=== PATIENT | female | born 1935 | race Hispanic/Latino ===

== ENCOUNTER 2017-02-12 18:56 | Emergency (ER) | payer MEDICARE ==
[~2017-02-12] VITALS: Ht 154.9 cm; Wt 68.0 kg
[~2017-02-12 18:56] MED LIST: ALPR.25T; BENAZEPRIL HCL PO; CARV6.25 PO; CITA10TA12 PO; CLON0.1T PO; HYDROCHLOROTHIAZIDE PO; LISI1TAB8 PO; METO-274 PO; SIMV10TA3 PO; SMV10T; VERA240C2 PO; VRP180TCR
[2017-02-12] MEDS ORDERED: CLON1PAT2 TD (19:21)
[2017-02-12] MEDS ORDERED: DOXA1TAB PO (19:21)
--- NOTE | 2017-02-12 19:40 | ED Cardiac General ---
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 Pt reports taking 0.1mg clonidine at 1800. Source: patient Exam Limitations: no limitations History of Present Illness Time seen by provider: 19:37 Initial Comments That she can keep track of it. She had no symptoms when checking at this evening. However, she found to be 200/120. She took one of her clonidine patches and then waited about 30 minutes. The hypertension persisted so she came to the emergency room. At this time her blood pressure is 141/73. She remains asymptomatic. Primary care is Dr. Palm and cardiology is Dr. Erickson from [place]. Timing/Duration: changing over time Severity: moderate NTG SL CATHODIC PROTECTION TECHNICIAN: No ASA po CATHODIC PROTECTION TECHNICIAN: No Allergies and Home Medications Allergies Coded Allergies: No Known Drug Allergies (Verified , 06/26/08) Home Medications Alprazolam 0.25 Mg Tab, UD, (Reported) Carvedilol 6.25 Mg Tablet, 12.5 MG PO BID, (Reported) Citalopram Hydrobromide 10 Mg Tablet, 10 MG PO HS, (Reported) Clonidine 1 Each Patch.tdwk, 1 EACH TD Q7D, (Reported) Clonidine HCl 0.1 Mg Tablet, 0.1 MG PO BID PRN for BLOOD PRESSURE, #10 Ref 0 Prescribed by: JAGRUTI MADDEN on 03/18/16 2214 Doxazosin Mesylate 1 Mg Tablet, 1 MG PO BID, (Reported) Lisinopril/Hydrochlorothiazide 1 Each Tablet, 1 TAB PO BID, #180 (Reported) Simvastatin 10 Mg Tablet, 1 TAB PO DAILY, #90 (Reported) Review of Systems Constitutional: see HPI EENTM: No Symptoms Reported Respiratory: No Symptoms Reported Cardiovascular: No Symptoms Reported Gastrointestinal: See HPI Genitourinary: No Symptoms Reported Skin: no symptoms reported Psychiatric/Neurological: No Symptoms Reported Endocrine: No Symptoms Reported Hematologic/Lymphatic: No Symptoms Reported Past Vgzosnj-Aliuqd-Pzauto Hx Patient Social History Recent Foreign Travel: No Contact w/Someone Who Travel: No Recent Infectious Disease Expo: No Recent Hopitalizations: No Seasonal Allergies Seasonal Allergies: No Surgeries HX Surgeries: Yes Surgeries: Cardiac, Coronary Stent, Gallbladder, Hysterectomy Respiratory Hx Respiratory Disorders: No Cardiovascular Hx Cardiac Disorders: Yes Cardiac Disorders: Hypertension Neurological Hx Neurological Disorders: No 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 System Hx 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 Disorders: No DIE REPAIR History: Menopausal Genitourinary Hx Genitourinary Disorders: No Gastrointestinal Hx Gastrointestinal Disorders: No Musculoskeletal Hx Musculoskeletal Disorders: Yes (ARTHRITIS) Musculoskeletal Disorders: Arthritis Endocrine Hx Endocrine Disorders: No HEENT HX ENT Disorders: No Cancer Hx Cancer: No Psychosocial Hx Psychiatric Problems: Yes Behavioral Health Disorders: Anxiety Integumentary HX Skin/Integumentary Disorder: No Blood Transfusions Hx Blood Disorders: No Family Medical History Significant Family History: No Pertinent Family Hx Physical Exam Vital Signs Vital Sign - Last 12Hours 02/12/17 19:14 Temp 97.3 Pulse 81 Resp 18 B/P (MAP) 189/88 Pulse Ox 94 O2 Delivery Room Air Capillary Refill : Less Than 3 Seconds General Appearance: No Apparent Distress, WD/WN, Anxious HEENT: PERRL/EOMI, TMs Normal Neck: Full Range of Motion, Normal Inspection Respiratory: No Accessory Muscle Use, No Respiratory Distress Cardiovascular: Regular Rate, Rhythm, Normal Peripheral Pulses Gastrointestinal: Normal Bowel Sounds, Non Tender, Soft Extremity: Normal Capillary Refill, Normal Inspection Neurologic/Psychiatric: Alert, Oriented x3, No Motor/Sensory Deficits Skin: Normal Color, Warm/Dry Progress/Results/Core Measures Results/Orders My Orders Orders - JOSE CLEMENS APRN Cbc With Automated Diff (02/12/17 19:36) Ekg Tracing (02/12/17 19:36) BNP (02/12/17 19:36) Vital Signs/I&O Vital Sign - Last 12Hours 02/12/17 19:14 Temp 97.3 Pulse 81 Resp 18 B/P (MAP) 189/88 Pulse Ox 94 O2 Delivery Room Air Blood Pressure Mean: 121 Departure Impression Impression: Primary Impression: Hypertension Qualified Codes: I15.9 - Secondary hypertension, unspecified Disposition: 01 HOME, SELF-CARE Condition: Stable Departure-Patient Inst. Decision time for Depature: 19:39 Referrals: STEFAN PALM DO (PCP/Family) Primary Care Physician Patient Instructions: NO INSTRUCTIONS GIVEN Add. Discharge Instructions: All discharge instructions reviewed with patient and/or family. Voiced understanding. JOSE CLEMENS APRN Feb 12, 2017 19:39
[2017-02-12 19:54] LABS: BASOPHILS % (AUTO) 1 % (0-10); EOSINOPHILS # (AUTO) 0.1 10^3/uL (0.0-0.3); EOSINOPHILS % (AUTO) 2 % (0-10); LYMPHOCYTES # (AUTO) 1.2 X 10^3 (1.0-4.0); LYMPHOCYTES % (AUTO) 19 % (12-44); MEAN CORPUSCULAR HEMOGLOBIN 30 PG (25-34); MEAN CORPUSCULAR HGB CONC 33 G/DL (32-36); MEAN CORPUSCULAR VOLUME 92 FL (80-99); MONOCYTES # (AUTO) 0.6 X 10^3 (0.0-1.0); MONOCYTES % (AUTO) 10 % (0-12); NEUTROPHILS # (AUTO) 4.2 X 10^3 (1.8-7.8); NEUTROPHILS % (AUTO) 68 % (42-75); PLATELET COUNT 222 10^3/uL (130-400); RED BLOOD COUNT 3.77 10^6/uL (4.35-5.85); WHITE BLOOD COUNT 6.2 10^3/uL (4.3-11.0)
[2017-02-12 20:09] LABS: CALCIUM 9.3 MG/DL (8.5-10.1); CREATININE SERUM 0.91 MG/DL (0.60-1.30); ICTERUS 0.5 (0-1.9); POTASSIUM 4.8 MMOL/L (3.6-5.0)
[2017-02-12 20:15] VITALS: BP 108/68
--- OUTSIDE RECORDS SUMMARY | 2017-02-18 09:02 | XMS REPORT | Continuity of Care Document ---
Author Author [facility] Organization [facility] Address Unknown Phone Unavailable Allergies Active Description Code Type Severity Reaction Onset Reported/Identified Relationship to Patient Clinical Status Yes No Known Drug Allergies [id number] Drug Allergy Unknown N/ A 06/26/2008 Medications Problems Date Dx Coded Attending Type Code Diagnosis Diagnosed By 01/21/2014 MARCOS PUGH MD Ot 401.9 HYPERTENSION NOS 01/21/2014 MARCOS PUGH MD Ot 785.1 PALPITATIONS 11/23/2014 STEFAN QUILES DO Ot 785.0 06/04/2015 STEFAN QUILES DO Ot 785.0 06/04/2015 REGINE QUILES Ot 785.2 06/26/2015 STEFAN QUILES DO Ot S69.91XA 06/26/2015 STEFAN QUILES DO Ot W19.XXXA 06/26/2015 STEFAN QUILES DO Ot Y92.009 06/26/2015 STEFAN QUILES DO Ot Y99.8 07/13/2015 STEFAN QUILES DO Ot S69.91XA 07/13/2015 STEFAN QUILES DO Ot W19.XXXA 07/13/2015 STEFAN QUILES DO Ot Y92.009 07/13/2015 STEFAN QUILES DO Ot Y99.8 03/18/2016 STEFAN QUILES DO Ot 785.0 TACHYCARDIA NOS 03/18/2016 REGINE QUILES Ot 785.2 CARDIAC MURMURS NEC 03/18/2016 STEFAN QUILES DO Ot S69.91XA UNSP INJURY OF RIGHT WRIST, HAND AND FIN 03/18/2016 STEFAN QUILES DO Ot W19.XXXA UNSPECIFIED FALL, INITIAL ENCOUNTER 03/18/2016 STEFAN QUILES DO Ot Y92.[address] IN UNSP NON-INSTITUT ( PRIVATE 03/18/2016 STEFAN QUILES DO Ot Y99.8 OTHER EXTERNAL CAUSE STATUS 03/18/2016 JAGRUTI MADDEN MD Ot I10 ESSENTIAL (PRIMARY) HYPERTENSION 03/18/2016 JAGRUTI MADDEN MD Ot R51 HEADACHE 04/22/2016 EVELIO CARMONA DO Ot F41.9 ANXIETY DISORDER, UNSPECIFIED 04/22/2016 EVELIO CARMONA DO Ot I10 ESSENTIAL (PRIMARY) HYPERTENSION 07/08/2016 JOSE CLEMENS APRN Ot I10 ESSENTIAL (PRIMARY) HYPERTENSION 07/08/2016 JOSE CLEMENS APRN Ot Z79.899 OTHER MCC (CURRENT) DRUG THERAPY 07/08/2016 JOSE CLEMENS APRN Ot Z95.5 PRESENCE OF CORONARY ANGIOPLASTY IMPLANT 07/09/2016 JOSE CLEMENS APRN Ot I10 ESSENTIAL (PRIMARY) HYPERTENSION 07/09/2016 JOSE CLEMENS APRN Ot Z79.899 OTHER MCC (CURRENT) DRUG THERAPY 07/09/2016 JOSE CLEMENS APRN Ot Z95.5 PRESENCE OF CORONARY ANGIOPLASTY IMPLANT 07/10/2016 JOSE CLEMENS APRN Ot I10 ESSENTIAL (PRIMARY) HYPERTENSION 07/10/2016 JOSE CLEMENS APRN Ot Z79.899 OTHER MCC (CURRENT) DRUG THERAPY 07/10/2016 JOSE CLEMENS APRN Ot Z95.5 PRESENCE OF CORONARY ANGIOPLASTY IMPLANT 07/18/2016 STEFAN QUILES DO Ot 785.0 TACHYCARDIA NOS 07/18/2016 REGINE QUILES [facility] Ot 785.2 CARDIAC MURMURS NEC 07/18/2016 STEFAN QUILES DO Ot S69.91XA [facility], HAND AND FIN 07/18/2016 STEFAN QUILES DO Ot W19.XXXA UNSPECIFIED FALL, INITIAL ENCOUNTER 07/18/2016 STEFAN QUILES DO, Ot Y92.[address] [facility] 07/18/2016 STEFAN QUILES DO Ot Y99.8 OTHER EXTERNAL CAUSE STATUS Procedures Results Test Result Range Whole blood basic metabolic panel - 02/12/17 19:44 Serum or plasma sodium measurement (moles/volume) 137 mmol/ L 135-145 Serum or plasma potassium measurement (moles/volume) 4.8 mmol/L 3.6-5.0 Serum or plasma chloride measurement (moles/volume) 107 mmol /L 98-107 Carbon dioxide 21 mmol/L 21-32 Serum or plasma anion gap determination (moles/volume) 9 mmol/L 5-14 Serum or plasma urea nitrogen measurement (mass/volume) 25 mg/dL 7-18 Serum or plasma creatinine measurement (mass/volume) 0.91 mg /dL 0.60-1.30 Serum or plasma urea nitrogen/creatinine mass ratio 27 0-20 Serum or plasma creatinine measurement with calculation of estimated glomerular filtration rate 59 NRG Serum or plasma glucose measurement (mass/volume) 101 mg/dL 70-105 Serum or plasma calcium measurement (mass/volume) 9.3 mg/dL 8.5-10.1 Complete blood count (CBC) with automated white blood cell (WBC) differential - 02/12/17 19:44 Blood leukocytes automated count (number/volume) 6.2 10*3/ uL 4.3-11.0 Blood erythrocytes automated count (number/volume) 3.77 10*6 /uL 4.35-5.85 Venous blood hemoglobin measurement (mass/volume) 11.3 g/dL 11.5-16.0 Blood hematocrit (volume fraction) 35 % 35-52 Automated erythrocyte mean corpuscular volume 92 [foz_us] 80-99 Automated erythrocyte mean corpuscular hemoglobin (mass per erythrocyte) 30 pg 25-34 Automated erythrocyte mean corpuscular hemoglobin concentration measurement ( mass/volume) 33 g/dL 32-36 Automated erythrocyte distribution width ratio 13.0 % 10.0-14.5 Automated blood platelet count (count/volume) 222 10*3/uL 130-400 Automated blood platelet mean volume measurement 10.0 [foz_ us] 7.4-10.4 Automated blood neutrophils/100 leukocytes 68 % 42-75 Automated blood lymphocytes/100 leukocytes 19 % 12-44 Blood monocytes/100 leukocytes 10 % 0-12 Automated blood eosinophils/100 leukocytes 2 % 0-10 Automated blood basophils/100 leukocytes 1 % 0-10 Blood neutrophils automated count (number/volume) 4.2 10*3 1.8-7.8 Blood lymphocytes automated count (number/volume) 1.2 10*3 1.0-4.0 Blood monocytes automated count (number/volume) 0.6 10*3 0.0-1.0 Automated eosinophil count 0.1 10*3/uL 0.0-0.3 Automated blood basophil count (count/volume) 0.0 10*3/uL 0.0-0.1 Serum or plasma lithium measurement (moles/volume) - 02/12/17 19:44 BNP level 207.8 pg/mL <100.0 Encounters ACCT No. Visit Date/Time Discharge Status Pt. Type Provider Facility Loc./Unit Complaint [id number] 02/12/2017 18:59:00 2016 20:42:00 DIS Emergency JOSE CLEMENS APRN [facility] ER HIGH BLOOD PRESSURE [id number] 07/08/2016 16:46:00 2015 17:54:00 DIS Emergency JOSE CLEMENS APRN [facility] ER ELEV BP [id number] 04/22/2016 21:28:00 2015 22:40:00 DIS Emergency EVELIO CARMONA DO [facility] ER ELEV BP [id number] 03/18/2016 20:51:00 2015 22:26:00 DIS Emergency MARYANNE LOCK, JAGRUTI Pino [facility] ER POSSIBLE ELEVATED BLOOD PRESSURE [id number] 06/04/2015 16:52:00 2014 23:59:59 CLS Outpatient STEFAN QUILES DO [facility] RAD TRAUMA TO RIGHT WRIST [id number] 02/10/2014 10:56:00 2013 23:59:59 CLS Outpatient 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
== END 2017-02-12 20:42 | disposition home or self-care (01) ==
LOC: EDUNIT# 18:56 → ER 18:59
DX: I10 Essential (primary) hypertension (principal); F41.9 Anxiety disorder, unspecified; Z95.5 Presence of coronary angioplasty implant and graft
CPT/HCPCS: 36415; 80048; 83880; 85025; 93005

== ENCOUNTER → 2018-06-16 | Outpatient (CLI) | payer MEDICARE ==
[~2018-06-16] MED LIST changes: +CLON1PAT2 TD; +DOXA1TAB PO; -METO-274 PO; +METO-395 PO
--- NOTE | 2018-06-16 10:55 | Diagnostic Imaging Report ---
PROCEDURE: CT neck soft tissue without contrast. TECHNIQUE: Multiple contiguous axial images were obtained through the neck without the use of intravenous contrast. INDICATION: Palpable abnormality in the neck. FINDINGS: Noncontrast axial CT images of the neck are obtained. There is opacification of the right maxillary sinus and multiple right ethmoid air cells. Note is made of bilateral parotid gland region masses. The largest is on the right just along the inferior margin of right external auditory canal. This reaches 2.3 x 1.7 cm. Nodule in the anterior aspect of the left parotid gland measures 1.7 x 1.4 cm. There are additional prominent deep cervical lymph nodes bilaterally. This includes an approximately 1.4 cm left retromandibular node and an approximately 2.2 x 0.9 cm right submandibular lymph node. There is moderate degenerative disc disease at the C4-5, C5-6 and C6-7 levels however no acute osseous abnormalities identified. There are lucencies involving the roots of left mandibular molar which may indicate periapical abscess. Note is made of approximately 1 cm nodule in the medial apex of the left lung. IMPRESSION: 1. 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 Possibility of neoplasm such as lymphoma or primary parotid gland neoplasm with associated metastatic disease is not excluded. In addition, there is opacification of right maxillary sinus which may be due to sinusitis although clinical correlation is warranted. 2. 1 cm nodule in the apex of the left lung is nonspecific. This could be due to metastatic disease as well. 3. There may be a periapical abscess involving left mandibular molar. Dictated by: Dictated on workstation # [id number]
== END ==
LOC: RAD 10:08
PROVIDERS: ATTEND Internal Medicine
DX: K11.8 Other diseases of salivary glands (principal); R59.0 Localized enlarged lymph nodes; R91.1 Solitary pulmonary nodule
CPT/HCPCS: 70490

== ENCOUNTER 2018-12-31 04:00 | Emergency (ER) | payer MEDICARE ==
[~2018-12-31] VITALS: Ht 157.5 cm; Wt 65.3 kg
--- OUTSIDE RECORDS SUMMARY | 2018-12-31 04:07 | XMS REPORT | Encounter Summary ---
Author Author [facility] Organization [facility] Address Unknown Phone Unavailable Care Team Providers Care Deputy Administrator Name Role Phone [place]orden [place] [address] Encounter Details Care Team Description Date Type Department Tressa Sharma RN 12/20/2018 Pre/Post [facility] Radiology [address] [address] Social History Date Tobacco Use Types Packs/Day Years Used Former Smoker Smokeless Tobacco: Never Used Alcohol Use Drinks/Week oz/Week Comments Not Currently 2 martinis per day Sex Assigned at Date Recorded Not on file Industry Job Start Date Occupation Not on file Not on file Not on file Travel End Travel History Travel Start No recent travel history available. documented as of this encounter Functional Status Date of Assessment Functional Status Response 08/20/2018 Does the patient have a hearing impairment: No documented as of this encounter Progress Notes * Tressa Sharma, RN - 12/20/2018 10:54 AM CDT Interventional Radiology Outpatient Scheduling Checklist 1. Procedure: Lumbar puncture with intrathecal chemotherapy 2. Date of Procedure: 01/14/19 3. Arrival Time: 1100 4. Procedure Time: 1200 5. Correct Procedural Room Assignment: 6 6. Blood Thinners Triaged and instructed per protocol: N/A 7. Order Verified: Yes 8. Patient informed regarding procedure: Yes 9. Patient instructed to have a front loader residential driver: Yes 10. Patient instructed on NPO status: No solids 8 hours prior to procedure 0400 , clear liquids till 2 hours prior to procedure 1000, then @ 2 hours prior to procedure NPO. 11. Specimen needed: Y/N: Yes 12. Allergies Verified: Y/N: Yes 13. Iodine Allergy: Y/N: If yes and receiving Iodine has the patient been premedicated: Y/N: No 14. Does the patient have labs according to IR procedural policy: Y/N: Yes 15. Will the patient need to be admitted/possible admission: Y/N: NA 16. If YES to possible admission has the patient been instructed: Y/N: NA 17. Patient States Understanding: Y/N Yes 18. Hx SUMMER: No documented in this encounter Plan of Treatment Care Team Description Date Type Specialty Gena Huitron MD [address] [facility] [place] [address] 01/14/2019 Hospital Radiology Encounter documented as of this encounter Visit Diagnoses Not on filedocumented in this encounter
--- OUTSIDE RECORDS SUMMARY | 2018-12-31 04:07 | XMS REPORT | Encounter Summary ---
Author Author [facility] Organization [facility] Address Unknown Phone Unavailable Care Team Providers Care Mail Handler Sorter Name Role Phone [place]orden [place] [address] Encounter Details Care Team Description Date Type Department Nik Michelle, RN 12/23/2018 Pre/Post [facility] Radiology [address] [address] Social History Date Tobacco Use Types Packs/Day [...] as of this encounter Progress Notes * Nik Michelle, RN - 12/23/2018 1:43 PM CDT Interventional Radiology Outpatient Scheduling Checklist 1. Procedure: Lumbar Puncture with IT Chemo 2. Date of Procedure: 12/31/18 3. Arrival Time: 1100 4. Procedure Time: 1200 5. Correct Procedural Room Assignment: [facility] Room #3 6. Blood Thinners Triaged and instructed per protocol: N/A 7. Order Verified: Yes 8. Patient informed regarding procedure: Yes 9. Patient instructed to have a regional owner operator truck driver: Yes 10. Patient instructed on NPO status: No solids 8 hours prior to procedure 0400, clear liquids till 2 hours prior to procedure 1000, then @ 2 hours prior to procedure NPO. 11. Specimen needed: Y/N: Yes 12. Allergies Verified: Y/N: Yes 13. Iodine Allergy: Y/N: If yes and receiving Iodine has the patient been premedicated: Y/N: No 14. Does the patient have labs according to IR procedural policy: Y/N: NO 15. Will the patient need to be admitted/possible admission: Y/N: NA 16. If YES to possible admission has the patient been instructed: Y/N: NA 17. Patient States Understanding: Y/N Yes 18. Hx SUMMER: Y/N: Pt instructed to bring PAP Machine: N/A documented in this encounter Plan of Treatment Care Team Description Date Type Specialty Gena Huitron MD [address] [facility] [place], [place] [id number] 01/14/2019 Hospital Radiology Encounter documented as of this encounter Visit Diagnoses Not on filedocumented in this encounter
--- OUTSIDE RECORDS SUMMARY | 2018-12-31 04:07 | XMS REPORT | Encounter Summary ---
Author Author [facility] Organization [facility] Address Unknown Phone Unavailable Care Team Providers Care Referral Nurse Name Role Phone [place]orden [place] [address] Encounter Details Care Team Description Date Type Department Gena Huitron MD [address] [place] [address] [phone] 12/17/2018 Orders Only The [address] [address] Social History Date Tobacco Use Types Packs/Day [...] impairment: No documented as of this encounter Plan of Treatment Care Team Description Date Type Specialty Gena Huitron MD [address] [place] [address] [phone] 01/14/2019 Hospital Radiology Encounter documented as of this encounter Visit Diagnoses Not on filedocumented in this encounter
--- OUTSIDE RECORDS SUMMARY | 2018-12-31 04:07 | XMS REPORT | Encounter Summary ---
Author Author [facility] Organization [facility] Address Unknown Phone Unavailable Care Team Providers Care Bit Tapper Name Role Phone [place] [address] Reason for Visit * Radiology Services (Routine) Referred By Contact Referred To Contact Status Reason Specialty Diagnoses / Procedures Gena Huitron MD [address] [place] [address] [facility] [address] [address] No Auth Needed Radiology Diagnoses Diffuse large B-cell lymphoma of lymph nodes of multiple regions (HCC) P rocedures IR LUMBAR PUNCTURE [place] SPINAL PUNCTURE LUMBAR DIAGNOSTIC Encounter Details Care Team Description Date Type Department Gena Huitron MD [address] [place] [address] [phone] Andre Saeed, RT(R)(),LRT Tremayne Cee MD [address] [place] [address] Taylor Alvarez RN Custer, Brandon M, MD [address] [address] [phone] Diffuse large B-cell lymphoma of lymph nodes of multiple regions (HCC) 12/17/2018 [facility] Radiology [address] [address] Social History Date Tobacco Use Types Packs/Day [...] history available. documented as of this encounter Last Filed Vital Signs Time Taken Vital Sign Reading 12/17/2018 4:45 PM CDT Blood Pressure 166/75 12/17/2018 4:30 PM CDT Pulse 78 12/17/2018 3:55 PM CDT Temperature 37 C (98.6 F) - Respiratory Rate - 12/17/2018 4:45 PM CDT Oxygen Saturation 97% - Inhaled Oxygen - Concentration - Weight - - Height - - Body Mass Index - documented in this encounter Functional Status Date of Assessment Functional Status Response 08/20/2018 Does the patient have a hearing impairment: No documented as of this encounter Discharge Instructions * Patient Instructions* Castro Alex RN - 12/17/2018 2:46 PM CDT INTERVENTIONAL RADIOLOGY DISCHARGE INSTRUCTIONS LUMBAR PUNCTURE A lumbar puncture is a procedure in which a needle is carefully inserted into the spinal canal in the lower portion of your back (the lumbar area). A small amount of cerebrospinal fluid (CSF) is collected followed by removal of the needle. CSF is a clear fluid that surrounds the brain and spinal cord and helps protect them from injury. The collected fluid is then used for specific lab tests ordered by your physician. In some instances, the pressure of the CSF may also be measured during the procedure. POST-PROCEDURE ACTIVITY: A responsible adult must drive you home. If you receive sedation or anesthesia for the procedure, you should not drive or operate heavy machinery or do anything that requires concentration for at least 24 hours after receiving sedation or anesthesia. It is recommended that a responsible adult be with you until morning. You should rest for 6-8 hours after the procedure with your head at about a 30-45?angle. If you develop a spinal headache, lie flat for 6-8 hours. A spinal headache is caused by a CSF leak; you would typically have greater pain when you are up and less pain when lying flat. You may plan to resume normal activity tomorrow. POST-PROCEDURE SITE CARE: You will have a small bandage over the site. Keep this dry. You may remove it in 24 hours. You may shower in 24 hours, after removing the bandage. Do not submerge the site underwater for several days until fully healed (no tub bath, swimming/hot tub, etc.) Be sure your hands are clean when touching near the site. Do not use ointments, creams or powders on the puncture site. DIET/MEDICATIONS: You may resume your previous diet after the procedure. If you receive sedation or narcotic pain medications, avoid any foods or beverages containing alcohol for at least 24 hours after the procedure. Please see the Medication Reconciliation sheet for instructions regarding resuming your home medications. Keep well-hydrated; you are encouraged to drink plenty of caffeinated fluids as this can help to prevent a spinal headache. CALL THE DOCTOR IF: Bright red blood has soaked the bandage. You have pain not relieved by medication. Some soreness at the site is to be expected. You have signs of infection such as: Chills, body aches, fever greater than 101F, redness, swelling or warmth at the puncture site. You have an uncontrolled headache. For any of the above symptoms or for problems or concerns related to the procedure, call [phone] for Thursday-Thursday 7-5. After-hours and weekends, please call [phone] and ask for the Interventional Hvac Field Service Technician on-call. documented in this encounter Medications at Time of Discharge Start Date End Date Medication Sig Dispensed Refills ALPRAZolam (XANAX) 0.25 Take 0.25 mg 0 mg tablet by mouth at bedtime as needed for Anxiety. carvedilol (COREG) 12.5 Take 12.5 mg 0 mg tablet by mouth twice daily with meals. Take with food. Cholecalciferol (Vitamin Take 1 0 D3) (VITAMIN D) 1,000 capsule by unit cap mouth daily. citalopram (CELEXA) 10 mg Take 10 mg by 0 tablet mouth at bedtime daily. 08/27/2018 cloNIDine (CATAPRES-TTS Apply one 4 patch 12 2) 0.2 mg/day patch patch to top of skin as directed every 7 days. cloNIDine (CATAPRESS) 0.1 Take 0.1 mg 0 mg tablet by mouth as Needed. doxazosin (CARDURA) 1 mg Take 1 mg by 0 tablet mouth twice daily. simvastatin (ZOCOR) 10 mg Take 10 mg by 0 tablet mouth at bedtime daily. documented as of this encounter H&P Notes * Mynor Nelson, JAVIER-CUSTOMS AGENT - 12/17/2018 2:19 PM CDT Pre-Procedure History and Physical/Sedation Plan Procedure Date: 12/17/2018 Planned Procedure(s): LP Indication: IT chemo admin Chief Complaint: DLBCL History of Present Illness: Ban Kim is a 83 y.o. female with a history significant for DLBCL who presents today for procedure. Patient Active Problem List Diagnosis Date Noted Diffuse large B-cell lymphoma of lymph nodes of multiple regions (HCC) 08/20 Lymphoma (HCC) 08/19/2018 Essential hypertension 08/19/2018 Rheumatoid arthritis of foot (HCC) 08/19/2018 Anxiety 08/19/2018 Past Medical History: Diagnosis Date Anxiety Diffuse large B-cell lymphoma of lymph nodes of multiple regions (HCC) 08/20 DLBCL (diffuse large B cell lymphoma) (HCC) HTN (hypertension) Rheumatoid arthritis (HCC) Past Surgical History: Procedure Laterality Date CHOLECYSTECTOMY HYSTERECTOMY Medications Prior to Admission Medication Sig Dispense Refill Last Dose ALPRAZolam (XANAX) 0.25 mg tablet Take 0.25 mg by mouth at bedtime as needed for Anxiety. Taking carvedilol (COREG) 12.5 mg tablet Take 12.5 mg by mouth twice daily with meals. Take with food. Taking Cholecalciferol (Vitamin D3) (VITAMIN D) 1,000 unit cap Take 1 capsule by mouth daily. Taking citalopram (CELEXA) 10 mg tablet Take 10 mg by mouth at bedtime daily. Taking cloNIDine (CATAPRES-TTS 2) 0.2 mg/day patch Apply one patch to top of skin as directed every 7 days. 4 patch 12 Taking cloNIDine (CATAPRESS) 0.1 mg tablet Take 0.1 mg by mouth as Needed. Taking doxazosin (CARDURA) 1 mg tablet Take 1 mg by mouth twice daily. Taking simvastatin (ZOCOR) 10 mg tablet Take 10 mg by mouth at bedtime daily. Taking No Known Allergies Social History: Social History Tobacco Use Smoking status: Former Smoker Smokeless tobacco: Never Used Substance Use Topics Alcohol use: Yes Comment: 2 dennis per day Family History Problem Relation Age of Onset Cancer Brother Rectal Cancer Son Review of Systems A comprehensive review of systems was negative. Previous Personal Anesthetic/Sedation History: Denies adverse events related to sedation/anesthesia. Previous Family Anesthetic/Sedation History: Denies adverse events related to sedation/anesthesia. Physical Exam: Vital Signs: Last Filed In 24 Hours Vital Signs: 24 Hour Range BP: 138/63 (12/17 132) Temp: 36.9 C (98.4 F) (12/17 1328) Pulse: 77 (12/17 1328) SpO2: 98 % (12/17 1328) O2 Delivery: None (Room Air) (12/17 1328) Height: 154.9 cm (60.98") (12/17 1328) BP: (138)/(63) Temp: [36.9 C (98.4 F)] Pulse: [77] SpO2: [98 %] O2 Delivery: None (Room Air) General appearance: alert and no distress noted. Neurologic: Grossly normal. Lungs: Non labored. Heart: regular rate and rhythm Airway: airway assessment performed Mallampati II (soft palate, uvula, fauces visible) Head and Neck: no abnormalities noted Mouth: no abnormalities noted NPO status: Acceptable Status: Not Anesthesia Classification: ASA III (A patient with a severe systemic disease that limits activity, but is not incapacitating) Sedation/Medication Plan: Lidocaine Discussion/Reviews: Physician has discussed risks and alternatives of this type of sedation and above planned procedures with patient Lab/Radiology/Other Diagnostic Tests:Labs: Pertinent labs reviewed Mynor Nelson APRN-CUSTOMS AGENT Pager [phone] documented in this encounter Miscellaneous Notes * Procedures (Immed Post or Bedside) - Omar Raza MD - 12/17/2018 3: 38 PM CDT Immediate Post Procedure Note Date: 12/17/2018 Attending Physician: Dr. Bolanos Performing Provider: Omar Raza MD Consent: Consent obtained from patient. Time out performed: Consent obtained, correct patient verified, correct procedure verified, correct site verified, patient marked as necessary. Pre/Post Procedure Diagnosis: Lymphoma Indications: Lymphoma, need for intrathecal chemotherapy Anesthesia: MAC (Monitored Anesthesia Care) Procedure(s): Lumbar puncture Findings: Successful lumbar puncture with administration of chemotherapy. Estimated Blood Loss: None/Negligible Specimen(s) Removed/Disposition: Yes, sent to pathology Complications: None Patient Tolerated Procedure: Well Post-Procedure Condition: stable Omar Raza MD documented in this encounter Plan of Treatment Care Team Description Date Type Specialty Gena Huitron MD [address] [place], [place] [id number] 01/14/2019 [facility] Radiology Encounter documented as of this encounter Procedures Comments Procedure Name Priority Date/Time Associated Diagnosis IR LUMBAR PUNCTURE Routine 12/17/2018 Diffuse large B-cell 3:55 PM CDT lymphoma of lymph nodes of multiple regions (HCC) CSF TUBE VOLUMES 12/17/2018 3:32 PM CDT CELL COUNT W/DIFF-CSF STAT 12/17/2018 Diffuse large B-cell 3:32 PM CDT lymphoma, unspecified body region (HCC) TOTAL PROTEIN-CSF STAT 12/17/2018 Diffuse large B-cell 3:32 PM CDT lymphoma, unspecified body region (HCC) GLUCOSE-CSF STAT 12/17/2018 Diffuse large B-cell 3:32 PM CDT lymphoma, unspecified body region (HCC) POC GLUCOSE 12/17/2018 3:01 PM CDT documented in this encounter Results * CSF TUBE VOLUMES (12/17/2018 3:32 PM CDT) CSF Tube 1 5.0 mL [facility] CSF Tube 2 0.0 mL [facility] CSF Tube 3 0.0 mL [facility] CSF Tube 4 0.0 mL [facility] RESULTS Performing Organization Address [facility] Phone Number [facility] * TOTAL PROTEIN-CSF (12/17/2018 3:32 PM CDT) Total 37 15 - 45 MG/DL [facility] Protein,CSF Specimen Cerebrospinal fluid - Cerebrospinal Fluid Performing Organization Address [facility] [place] [facility] Phone Number [facility] [address] [place] [address] * GLUCOSE-CSF (12/17/2018 3:32 PM CDT) Glucose,CSF 56 40 - 75 MG/DL [facility] Xanthrochromia, NONE [facility] CSF Specimen Cerebrospinal fluid - Cerebrospinal Fluid Performing Organization Address [facility] [place] Phone Number [facility] [address] [place] [address] * CELL COUNT W/DIFF-CSF (12/17/2018 3:32 PM CDT) Cell Count TUBE 1 [facility] Tube,CSF White Blood 3 <5 /UL [facility] Cells,CSF Red Blood 116 /UL [facility] Cells,CSF Neutrophils, 16 % [facility] CSF Lymphocytes, 68 % [facility] CSF Monocyte/Hisoto 16 % [facility] cyte, CSF Clarity,CSF CLEAR [facility] Path HEMORRHAGIC FLUID [facility] Interpretation, CSF Pathologist INTERPRETED BY VIC LABOY [facility] Signature Jemal By the PATH SIGNATURE ABOVE, I attest that I have personally formulated the final interpretation expressed in this report and that the above diagnosis is based upon my examination of the slides and/or other material indicated in this report. Specimen Cerebrospinal fluid - Cerebrospinal Fluid Performing Organization Address [facility] Phone Number [facility] [address] [place] [address] * POC GLUCOSE (12/17/2018 3:01 PM CDT) Glucose, POC 86 70 - 100 MG/DL [facility] Performing Organization Address [facility] [place] Phone Number [facility] [address] [place] [address] documented in this encounter Visit Diagnoses Diagnosis Diffuse large B-cell lymphoma, unspecified body region (HCC) documented in this encounter Administered Medications Action Date Dose Rate Site Medication Order MAR Action 12/17/2018 3:11 PM CDT 0.5 mg LORazepam (ATIVAN) tablet 0.5 mg Given 0.5 mg, Oral, ONCE, 1 dose, Thu12/17/18 at 1130, Premed prior to IT Chemo, 12/17/2018 3:49 PM CDT 12 mg methotrexate PF 12 mg in sodium chloride Given PF 0.9% 5 mL IT syringe 12 mg, 5 mL, Intrathecal, ONCE, 1 dose, Thu12/17/18 at 1200, To be given in IR INTRATHECAL NOTE: This is a HIGH ALERT Medication., documented in this encounter
--- OUTSIDE RECORDS SUMMARY | 2018-12-31 04:07 | XMS REPORT | Clinical Summary ---
Author Author [facility] Organization [facility] Address Unknown Phone Unavailable Care Team Providers Care Clinical Pharmacy Coordinator Name Role Phone [place] [address] Source Comments Some departments are not documenting in the electronic medical record. If you do not see the information that you expected, contact Release of Information in the Health Information Management department at [phone] for further assistance in locating additional records.[facility] Allergies No Known Allergies Medications End Date Status Medication Sig Dispensed Refills Start Date Active simvastatin (ZOCOR) 10 mg Take 10 mg by 0 tablet mouth at bedtime daily. Active doxazosin (CARDURA) 1 mg Take 1 mg by 0 tablet mouth twice daily. Active Cholecalciferol (Vitamin Take 1 0 D3) (VITAMIN D) 1,000 capsule by unit cap mouth daily. Active carvedilol (COREG) 12.5 Take 12.5 mg 0 mg tablet by mouth twice daily with meals. Take with food. Active citalopram (CELEXA) 10 mg Take 10 mg by 0 tablet mouth at bedtime daily. Active ALPRAZolam (XANAX) 0.25 Take 0.25 mg 0 mg tablet by mouth at bedtime as needed for Anxiety. Active cloNIDine (CATAPRESS) 0.1 Take 0.1 mg 0 mg tablet by mouth as Needed. Active cloNIDine (CATAPRES-TTS Apply one 4 patch 12 2) 0.2 mg/day patch patch to top 8 of skin as directed every 7 days. Active Problems Problem Noted Date Diffuse large B-cell lymphoma of lymph nodes of multiple regions 08/20/2018 Last Assessment & Plan: Mrs. 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 She is on C2 D12 of R-CHOP which she is receiving locally in [place], [place] with Dr. Collins. She will receive Dose 2 of intrathecal methotrexate on 09/29/18 for SALES REPRESENTATIVE WIRE ROPE prophylaxis. There was no evidence of lymphoma in CSF from her first LP on 09/07/18. She has been tolerating treatment well with the exception of transient hypertension while on prednisone. This is being managed by her import export agent. 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 Blood cell counts today show stable moderate anemia, moderate thrombocytopenia, normal WBCs and normal ANC. CMP is unremarkable. Labs were reviewed with patient. Pertinent Labs 09/24/18: Hgb 8.7 | Plt 97 | WBC 6.5 | ANC 4,880 Plan: 1. Proceed with Dose 2 of 6 intrathecal methotrexate 12 mg on 09/29/18. Continue every 3 weeks for total of six doses. 2. Continue R-CHOP therapy locally in [place], [place] for total of six cycles every 21 days. Cycle 3 Day 1 planned for 10/04/18. 3. Continue clonidine patch every 7 days and clonidine 0.1 mg PO PRN for hypertension on days with prednisone. 4. Repeat PET scan following 3 cycles and at end of treatment following 6 cycles. Follow-up: RTC every other cycle with Dr. Huitron. Patient agreed with plan of care and verbalized understanding. Questions and concerns were addressed to patient's satisfaction. Mally Montes APRN-WHARF TENDER HEAD Division of Hematology and Oncology Pager [phone] Lymphoma 08/19/2018 Essential hypertension 08/19/2018 Rheumatoid arthritis of foot 08/19/2018 Anxiety 08/19/2018 Encounters Care Team Description Date Type Specialty Nik Michelle, FILIBERTO 12/23/2018 Pre/Post Radiology Procedure Tressa Sharam RN 12/20/2018 Pre/Post Radiology Procedure Gena Huitron MD Keilty, Sean, RT(R)(),LRT Tremayne Cee MD Nelson, Rosalinda, Bret Mayen MD Diffuse large B-cell lymphoma of lymph nodes of multiple regions (HCC) 12/17/2018 Hospital Radiology Encounter Gena Huitron MD Diffuse large B-cell lymphoma, unspecified body region (HCC) (Primary Dx); Weakness ; Diffuse large B-cell lymphoma of lymph nodes of multiple regions (HCC) 12/17/2018 Office Visit Oncology Gena Huitron MD 12/17/2018 Orders Only Oncology Janet Simon, FILIBERTO 12/01/2018 Pre/Post Radiology Procedure Gena Huitron MD Appointment Request 11/18/2018 Telephone Oncology Gena Huitron MD Notification Of Hospitalization 11/11/2018 Telephone Oncology Isabelle Gregorio, PHARMOdette 11/11/2018 Orders Only Oncology Nik Michelle, FILIBERTO 10/29/2018 Pre/Post Radiology Procedure Gena Huitron MD Canceled (Patient-Rescheduled) 10/18/2018 Hospital Radiology Encounter Tressa Sharma RN 10/15/2018 Telephone Radiology Tressa Sharma RN 10/05/2018 Pre/Post Radiology Procedure from Last 3 Months Family History Medical History Relation Name Comments Cancer Brother Rectal Cancer Son Relation Name Status Comments Brother Son Social History Date Tobacco Use Types Packs/Day Years Used Former Smoker Smokeless Tobacco: Never Used Alcohol Use Drinks/Week oz/Week Comments Not Currently 2 martinis per day Sex Assigned at Date Recorded Not on file Industry Job Start Date Occupation Not on file Not on file Not on file Travel End Travel History Travel Start No recent travel history available. Last Filed Vital Signs Time Taken Vital Sign Reading 12/17/2018 4:45 PM CDT Blood Pressure 166/75 12/17/2018 4:30 PM CDT Pulse 78 12/17/2018 3:55 PM CDT Temperature 37 C (98.6 F) 12/17/2018 1:29 PM CDT Respiratory Rate 16 12/17/2018 4:45 PM CDT Oxygen Saturation 97% - Inhaled Oxygen - Concentration 12/17/2018 1:29 PM CDT Weight 65.1 kg (143 lb 9.6 oz) 12/17/2018 1:29 PM CDT Height 154.9 cm (5' 0.98") 12/17/2018 1:29 PM CDT Body Mass Index 27.15 Plan of Treatment Care Team Description Date Type Specialty Gena Huitron MD [address] [facility] [place] [address] [phone] 01/14/2019 Hospital Radiology Encounter Health Maintenance Due Date Last Done Comments PHYSICAL (COMPREHENSIVE) 1942 EXAM DTAP/TDAP VACCINES (1 - 1952 Tdap) SHINGLES RECOMBINANT 1984 VACCINE (1 of 2) OSTEOPOROSIS 1999 SCREENING/MONITORING PNEUMONIA (PCV13/PPSV23) 1999 VACCINES (1 of 2 - PCV13) INFLUENZA VACCINE 05/31/2019 Procedures Comments Procedure Name Priority Date/Time Associated Diagnosis IR LUMBAR PUNCTURE Routine 12/17/2018 Diffuse large B-cell 3:55 PM CDT lymphoma of lymph nodes of multiple regions (HCC) CSF TUBE VOLUMES 12/17/2018 3:32 PM CDT TOTAL PROTEIN-CSF STAT 12/17/2018 Diffuse large B-cell 3:32 PM CDT lymphoma, unspecified body region (HCC) GLUCOSE-CSF STAT 12/17/2018 Diffuse large B-cell 3:32 PM CDT lymphoma, unspecified body region (HCC) CELL COUNT W/DIFF-CSF STAT 12/17/2018 Diffuse large B-cell 3:32 PM CDT lymphoma, unspecified body region (HCC) POC GLUCOSE 12/17/2018 3:01 PM CDT from Last 3 Months Results * IR LUMBAR PUNCTURE (12/17/2018 3:55 PM CDT) Impressions Performed At 1. Fluoroscopic guided lumbar puncture for the purposes of intrathecal [facility] chemotherapy. I, Simone Bolanos M.D, the attending radiologist, was present for the critical and jay portions of the procedure with an advanced practice provider , resident, and/or fellow participating.Overlapping portions were non jay and I was immediately available.I interpret the critical and jay portion of this procedure to have been needle access. @TT Approved by Omar Raza MD on 12/17/2018 3:43 PM By my electronic signature, I attest that I have personally reviewed the images for this examination and formulated the interpretations and opinions expressed in this report Finalized by Simone Bolanos M.D. on 12/18/2018 9:05 AM. Dictated by Omar Raza MD on 12/17/2018 3:41 PM. Narrative Performed At Fluoroscopic Guided Lumbar Puncture for Intrathecal Chemotherapy [facility] Clinical History: Lymphoma Intrathecal Chemotherapy:Administered by the attending physician Technique and Findings: After the procedure was explained, including the potential risk, benefits, and alternatives, both informed written/verbal consent and a brief history were obtained. The patient was brought to the fluoroscopy suite and placed on the examination table in a prone position. The lower back was then prepped and draped in the usual standard sterile fashion. 2% lidocaine was used for local anesthesia. Utilizing fluoroscopy guidance, a 22 gauge spinal needle was advanced into the intrathecal sac at the level of L2-L3. Position was confirmed by return of cerebral spinal fluid, which was clear.Next, approximately 5 ml of cerebral spinal fluid was collected and sent to the laboratory for requested laboratory studies.At this time, intrathecal chemotherapy was administered by the attending physician.Finally, the inner stylet was replaced, the needle was removed and adequate hemostasis was achieved. The patient tolerated procedure without complications and left the department in stable condition after appropriate monitoring. Procedure Note Interface, Radiant Results - 12/18/2018 9:08 AM CDT Fluoroscopic Guided Lumbar Puncture for Intrathecal Chemotherapy Clinical History: Lymphoma Intrathecal Chemotherapy: Administered by the attending physician Technique and Findings: After the procedure was explained, including the potential risk, benefits, and alternatives, both informed written/verbal consent and a brief history were obtained. The patient was brought to the fluoroscopy suite and placed on the examination table in a prone position. The lower back was then prepped and draped in the usual standard sterile fashion. 2% lidocaine was used for local anesthesia. Utilizing fluoroscopy guidance, a 22 gauge spinal needle was advanced into the intrathecal sac at the level of L2-L3. Position was confirmed by return of cerebral spinal fluid, which was clear. Next, approximately 5 ml of cerebral spinal fluid was collected and sent to the laboratory for requested laboratory studies. At this time, intrathecal chemotherapy was administered by the attending physician. Finally, the inner stylet was replaced, the needle was removed and adequate hemostasis was achieved. The patient tolerated procedure without complications and left the department in stable condition after appropriate monitoring. IMPRESSION 1. Fluoroscopic guided lumbar puncture for the purposes of intrathecal chemotherapy. I, Simone Bolanos M.D, the attending radiologist, was present for the critical and jay portions of the procedure with an advanced practice provider, resident, and/or fellow participating. Overlapping portions were non jay and I was immediately available. I interpret the critical and jay portion of this procedure to have been needle access. @TT Approved by Omar Raza MD on 12/17/2018 3:43 PM By my electronic signature, I attest that I have personally reviewed the images for this examination and formulated the interpretations and opinions expressed in this report Finalized by Simone Bolanos M.D. on 12/18/2018 9:05 AM. Dictated by Omar Raza MD on 12/17/2018 3:41 PM. Performing Organization Address City/[facility] Phone Number [facility] * CSF TUBE VOLUMES (12/17/2018 3:32 PM CDT) CSF Tube 1 5.0 mL [facility] CSF Tube 2 0.0 mL [facility] CSF Tube 3 0.0 mL [facility] CSF Tube 4 0.0 mL [facility] Performing Organization Address City/[facility] Phone Number [facility] * CELL COUNT W/DIFF-CSF (12/17/2018 3:32 PM [...] INTERPRETED BY VIC LABOY [facility] Quirino Joaquin By the PATH SIGNATURE ABOVE, I attest that I have personally formulated the final interpretation expressed in this report and that the above diagnosis is based upon my examination of the slides and/or other material indicated in this report. Specimen Cerebrospinal fluid - Cerebrospinal Fluid Performing Organization Address City/[facility]/Zipcode Phone Number [facility] [address] [place] [address] * TOTAL PROTEIN-CSF (12/17/2018 3:32 PM CDT) Total 37 15 - 45 MG/DL [facility] Protein,CSF Specimen Cerebrospinal fluid - Cerebrospinal Fluid Performing Organization Address City/[facility]/Zipcode Phone Number [facility] [address] [place] [address] * GLUCOSE-CSF (12/17/2018 3:32 PM CDT) Glucose,CSF 56 40 - 75 MG/DL [facility] Xanthrochromia, NONE [facility] CSF Specimen Cerebrospinal fluid - Cerebrospinal Fluid Performing Organization Address City/[facility]/Zipcode Phone Number [facility] [address] [place] [address] * POC GLUCOSE (12/17/2018 3:01 PM CDT) Glucose, POC 86 70 - 100 MG/DL [facility] Performing Organization Address City/[facility] Phone Number [facility] [address] [place] [address] from Last 3 Months Insurance Type Payer Benefit Subscriber ID Effective Phone Address Plan / Dates Group Medicare MEDICARE MEDICARE xxxxxxxxxxx 1999-P PART A AND resent B PPO [facility] xxxxxxxxxxx 2017-P resent [address] [place] ([place]) [place] [address] Advance Directives Patient has advance care planning documents, and code status on file. For more information, please contact: [facility] [address] [place] [address] Date Inactivated Comments Code Status Date Activated 08/22/2018 4:41 PM Full Code 08/19/2018 1:35 PM Provider has discussed Code Status No, more discussion w/Patient or Family? needed
--- OUTSIDE RECORDS SUMMARY | 2018-12-31 04:08 | XMS REPORT | Encounter Summary ---
Author Author [facility] Organization [facility] Address Unknown Phone Unavailable Care Team Providers Care Director Field Services Name Role Phone Jorden Palm MD PCP Encounter Details Care Team Description Date Type Department Isabelle Gregorio, PHARMD 11/11/2018 Orders Only The [address] [address] Social History Date Tobacco Use Types Packs/Day Years Used Former Smoker Smokeless Tobacco: Never Used Alcohol Use Drinks/Week oz/Week Comments Yes 2 dennis per day Sex Assigned at Date Recorded [...] Description Date [place] [address] [place] [address] [phone] 01/14/2019 Hospital Radiology Encounter documented as of this encounter Visit Diagnoses Not on filedocumented in this encounter
--- OUTSIDE RECORDS SUMMARY | 2018-12-31 04:08 | XMS REPORT | Encounter Summary ---
Author Author [facility] Organization [facility] Address Unknown Phone Unavailable Care Team Providers Care Major General Name Role Phone [place]orden [place] [address] Encounter Details Care Team Description Date Type Department Janet Simon, RN 12/01/2018 Pre/Post [facility] Radiology [address] [address] Social History Date Tobacco Use Types Packs/Day [...] as of this encounter Progress Notes * Janet Simon, RN - 12/01/2018 1:12 PM CDT Interventional Radiology Outpatient Scheduling Checklist 1. Procedure: LP w/IT Chemo 2. Date of Procedure: 12/17/18 3. Arrival Time: 1400 4. Procedure Time: 1500 5. Correct Procedural Room Assignment: [place] Room 6 6. Blood Thinners Triaged and instructed per protocol: N/A 7. Order Verified: Yes 8. Patient informed regarding procedure: Yes 9. Patient instructed to have a courier driver: Yes 10. Patient instructed on NPO status: No solids after 0700, clear liquids until 1300, NPO from 1300 until after procedure 11. Specimen needed: Y/N: NA 12. Allergies Verified: Y/N: Yes 13. Iodine Allergy: Y/N: If yes and receiving Iodine has the patient been premedicated: Y/N: No 14. Does the patient have labs according to IR procedural policy: Y/N: Referring instructed to get current CBC prior to procedure 15. Will the patient need to be admitted/possible admission: Y/N: NA 16. If YES to possible admission has the patient been instructed: Y/N: NA 17. Patient States Understanding: Y/N Yes 18. Hx SUMMER: Y/N: Pt instructed to bring PAP Machine:NA documented in this encounter Plan of Treatment Care Team Description Date Type Specialty Gena Huitron MD [address] [facility] [place] [address] 01/14/2019 Hospital Radiology Encounter documented as of this encounter Visit Diagnoses Not on filedocumented in this encounter
--- OUTSIDE RECORDS SUMMARY | 2018-12-31 04:08 | XMS REPORT | Encounter Summary ---
Author Author [facility] Organization [facility] Address Unknown Phone Unavailable Care Team Providers Care Hand Painter Name Role Phone [place]orden [place] [address] Encounter Details Care Team Description Date Type Department Tressa Sharma, FILIBERTO 10/05/2018 Pre/Post The [facility] Radiology [address] [address] Social History Date Tobacco Use Types Packs/Day [...] Progress Notes * Tressa Sharma, RN - 10/05/2018 3:23 PM SPA SUPERVISOR Interventional Radiology Outpatient Scheduling Checklist 1. Procedure: Intrathecal chemotherapy 2. Date of Procedure: 10/18/18 3. Arrival Time: 1100 4. Procedure Time:1200 5. Correct Procedural Room Assignment: 6 6. [...] Understanding: Y/N Yes 18. Hx SUMMER: No SUPERVISOR documented in this encounter Plan of Treatment Care Team Description Date Type Specialty Gena Huitron MD [address] [facility] [place] [address] 01/14/2019 Hospital Radiology Encounter documented as of this encounter Visit Diagnoses Not on filedocumented in this encounter
--- OUTSIDE RECORDS SUMMARY | 2018-12-31 04:08 | XMS REPORT | Encounter Summary ---
Author Author [facility] Organization [facility] Address Unknown Phone Unavailable Care Team Providers Care Spiral Tube Winder Name Role Phone Jorden Palm MD PCP Reason for Referral * Radiology Services (Routine) Referred By Contact Referred To Contact Status Reason Specialty Diagnoses / Procedures Gena Huitron MD [address] [place] [address] [facility] [address] [address] No Auth Needed Radiology Diagnoses Diffuse large B-cell lymphoma of lymph nodes of multiple regions (HCC) P rocedures IR LUMBAR PUNCTURE [place] SPINAL PUNCTURE LUMBAR DIAGNOSTIC * Radiology Services (Routine) Referred By Contact Referred To Contact Status Reason Specialty Diagnoses / Procedures Gena Huitron MD [address] [place] [address] [facility] [address] [address] No Auth Needed Radiology Diagnoses Diffuse large B-cell lymphoma of lymph nodes of multiple regions (HCC) P rocedures IR LUMBAR PUNCTURE [place] SPINAL PUNCTURE LUMBAR DIAGNOSTIC Reason for Visit * Radiology Services (Routine) Referred By Contact Referred To Contact Status Reason Specialty Diagnoses / Procedures Gena Huitron MD [address] [place] [address] [facility] [address] [address] No Auth Needed Radiology Diagnoses Diffuse large B-cell lymphoma of lymph nodes of multiple regions (HCC) P rocedures IR LUMBAR PUNCTURE [place] SPINAL PUNCTURE LUMBAR DIAGNOSTIC Encounter Details Care Team Description Date Type Department Gena Huitron MD [address] [facility] [place] [address] Canceled (Patient-Rescheduled) 10/18/2018 [facility] Radiology [address] [id number] Social History Date Tobacco Use Types Packs/Day [...] impairment: No documented as of this encounter Medications at Time of Discharge [...] bedtime daily. documented as of this encounter Plan of Treatment Care Team Description Date Type Specialty Gena Huitron MD [address] [place] [address] [phone] 01/14/2019 Hospital Radiology Encounter documented as of this encounter Procedures Comments Procedure Name Priority Date/Time Associated Diagnosis IR LUMBAR PUNCTURE Routine 12/17/2018 Diffuse large B-cell 3:55 PM CDT lymphoma of lymph nodes of multiple regions (HCC) documented in this encounter Results * IR LUMBAR PUNCTURE (12/17/2018 3:55 [...] on 12/17/2018 3:41 PM. Performing Organization Address City/State/Zipcode Phone Number [facility] documented in this encounter Visit Diagnoses Diagnosis Diffuse large B-cell lymphoma of lymph nodes of multiple regions (HCC) documented in this encounter
--- OUTSIDE RECORDS SUMMARY | 2018-12-31 04:08 | XMS REPORT | Encounter Summary ---
Author Author [facility] Organization [facility] Address Unknown Phone Unavailable Care Team Providers Care Software Client Architect Name Role Phone Jorden Palm MD PCP Encounter Details Care Team Description Date Type Department Tressa Sharma RN 10/15/2018 Telephone [facility] Radiology [address] [address] Social History Date Tobacco Use Types Packs/Day [...] impairment: No documented as of this encounter Miscellaneous Notes * Telephone Encounter - Tressa Sharma RN - 10/15/2018 9:36 AM SUPERINTENDENT POLICE Pt calling to report she is hospitalized at an outside hospital and needs to cancel her Thursday appointment for IT chemo. Appointment canceled. Since pt does not know when she will be discharged was asked to call IR when discharged. LDRN RINTENDENT POLICE documented in this encounter Plan of Treatment Care Team Description Date Type Specialty Gena Huitron MD [address] [place], [place] [id number] 01/14/2019 Hospital Radiology Encounter documented as of this encounter Visit Diagnoses Not on filedocumented in this encounter
--- OUTSIDE RECORDS SUMMARY | 2018-12-31 04:08 | XMS REPORT | Encounter Summary ---
Author Author [facility] Organization [facility] Address Unknown Phone Unavailable Care Team Providers Care Estate Planning Attorney Name Role Phone Jorden Palm MD PCP Reason for Visit * Reason Comments Notification Of Hospitalization Encounter Details Care Team Description Date Type Department Gena Huitron MD [address] [place] [address] [phone] Notification Of Hospitalization 11/11/2018 Telephone The [address] [address] Social History Date Tobacco Use Types Packs/Day [...] Treatment Care Team Description Date Type Specialty Gnea Huitron MD [address] [place] [address] [phone] 01/14/2019 Hospital Radiology Encounter documented as of this encounter Visit Diagnoses Not on filedocumented in this encounter
--- OUTSIDE RECORDS SUMMARY | 2018-12-31 04:08 | XMS REPORT | Encounter Summary ---
Author Author [facility] Organization [facility] Address Unknown Phone Unavailable Care Team Providers Care Sketch Maker Name Role Phone [place]orden [place] [address] Encounter Details Care Team Description Date Type Department Nik Michelle, RN 10/29/2018 Pre/Post [facility] Radiology [address] [address] Social History Date Tobacco Use Types Packs/Day [...] Progress Notes * Nik Michelle, RN - 10/29/2018 11:20 AM TRACK BROOM OPERATOR Interventional Radiology Outpatient Scheduling Checklist 1. Procedure: LP with IT Chemo 2. Date of Procedure: 11/12/18 3. Arrival Time: 1200 4. Procedure Time: 1300 5. Correct Procedural Room Assignment: [facility] Room #6 6. Blood Thinners Triaged and instructed per protocol: N/A 7. Order Verified: Yes 8. Patient informed regarding procedure: Yes 9. Patient instructed to have a shuttle truck driver: Yes 10. Patient instructed on NPO status: No solids 8 hours prior to procedure 0500, clear liquids till 2 hours prior to procedure 1100, then @ 2 hours prior to procedure NPO. 11. Specimen needed: Y/N: Yes 12. Allergies Verified: Y/N: Yes 13. Iodine Allergy: Y/N: If yes and receiving Iodine has the patient been premedicated: Y/N: No 14. Does the patient have labs according to IR procedural policy: Y/N: NO Labs to be drawn on 11/10/[address] Huitron 15. Will the patient need to be admitted/possible admission: Y/N: NA 16. If YES to possible admission has the patient been instructed: Y/N: NA 17. Patient States Understanding: Y/N Yes 18. Hx SUMMER: Y/N: Pt instructed to bring PAP Machine: N/A K BROOM OPERATOR documented in this encounter Plan of Treatment Care Team Description Date Type Specialty Gena Huitron MD [address] [facility] [place], [place] [id number] 01/14/2019 Hospital Radiology Encounter documented as of this encounter Visit Diagnoses Not on filedocumented in this encounter
--- OUTSIDE RECORDS SUMMARY | 2018-12-31 04:08 | XMS REPORT | Encounter Summary ---
Author Author [facility] Organization [facility] Address Unknown Phone Unavailable Care Team Providers Care Gusset Maker Name Role Phone Jorden Palm MD PCP Reason for Visit * Reason Comments Appointment Request Encounter Details Care Team Description Date Type Department Gena Huitron MD [address] [place] [address] [phone] Appointment Request 11/18/2018 Telephone [address] [address] Social History Date Tobacco Use Types Packs/Day [...] encounter Miscellaneous Notes * Telephone Encounter - Olinda Sandoval - 11/18/2018 11:52 AM CDT Spoke to pt to inform of newly scheduled appts for 12/17. Pt agreed to date and time. She stated that she was in the car at the moment and not able to write it down. I assured her that once IR scheduled her LP, I would print her schedule and mail to her so she has a copy. She agreed and was thankful for the call ----- Message from Olinda Sandoval sent at 11/18/2018 10:14 AM CDT ----- ----- Message ----- From: Helen Newman RN Sent: 11/17/2018 4:28 PM To: Nnamdi Ooc Scheduling Ordering Doctor/YIFAN: Dr. Huitron Nurse draw or phlebotomy draw: Nurse Draw Follow up appointment: MD-Return: Dr. Huitron Has the patient been contacted about this appointment? No Comments for appointment: Pt missed last appt with Dr. Huitron due to hospitalization. Please reschedule appt with Dr. Huitron on 12/17, may take one of the new pt appointments. Pt will also need lumbar puncture in IR, but they will schedule after clinic appt has been made. Thank you, Helen documented in this encounter Plan of Treatment Care Team Description Date Type Specialty Gena Huitron MD [address] [facility] [place] [address] 01/14/2019 Hospital Radiology Encounter documented as of this encounter Visit Diagnoses Not on filedocumented in this encounter
--- OUTSIDE RECORDS SUMMARY | 2018-12-31 04:08 | XMS REPORT | Encounter Summary ---
Author Author [facility] Organization [facility] Address Unknown Phone Unavailable Care Team Providers Care Table Games Floor Supervisor Name Role Phone [place]orden [place] [address] Reason for Referral * Radiology Services (Routine) Referred By Contact Referred To Contact Status Reason Specialty Diagnoses / Procedures Gena Huitron MD [address] [place] [address] [address] [address] No Auth Needed Radiology Diagnoses Diffuse large B-cell lymphoma, unspecified body region (HCC) P rocedures IR LUMBAR PUNCTURE [place] SPINAL PUNCTURE LUMBAR DIAGNOSTIC * Radiology Services (Routine) Referred By Contact Referred To Contact Status Reason Specialty Diagnoses / Procedures Gena Huitron MD [address] [place] [address] [address] [address] No Auth Needed Radiology Diagnoses Diffuse large B-cell lymphoma, unspecified body region (HCC) P rocedures IR LUMBAR PUNCTURE [place] SPINAL PUNCTURE LUMBAR DIAGNOSTIC Reason for Visit * Reason Comments Cancer Encounter Details Care Team Description Date Type Department Gena Huitron MD [address] [place] [address] [phone] Diffuse large B-cell lymphoma, unspecified body region (HCC ) (Primary Dx); Weakness ; Diffuse large B-cell lymphoma of lymph nodes of multiple regions (HCC) 12/17/2018 Office Visit [facility] [address] [place] [address] Social History Date Tobacco Use Types Packs/Day [...] Signs Time Taken Vital Sign Reading 12/17/2018 1:29 PM CDT Blood Pressure 138/63 12/17/2018 1:29 PM CDT Pulse 77 12/17/2018 1:29 PM CDT Temperature 36.9 C (98.4 F) 12/17/2018 1:29 PM CDT Respiratory Rate 16 12/17/2018 1:29 PM CDT Oxygen Saturation 98% - Inhaled Oxygen - Concentration 12/17/2018 1:29 PM CDT Weight 65.1 kg (143 lb 9.6 oz) 12/17/2018 1:29 PM CDT Height 154.9 cm (5' 0.98") 12/17/2018 1:29 PM CDT Body Mass Index 27.15 documented in this encounter Functional Status Date of Assessment Functional Status Response 08/20/2018 Does the patient have a hearing impairment: No documented as of this encounter Progress Notes * Gena Huitron MD - 12/17/2018 1:20 PM CDT Date of Service: 12/17/2018 Diagnosis: EBV + DLBCL IPI score: 4 TEXTILE TECHNOLOGIST IPI: 4 with involvement of paranasal sinuses which is high risk for TEXTILE TECHNOLOGIST relapse. Treatment: Status post cycle 5 of R CHOP. Subjective: Ban Kim is a 83 y.o. Female who is here for follow-up. She has been doing relatively better with the last 2 cycles of chemotherapy. Continues to have ongoing fatigue and appetite changes but overall tolerating chemo relatively well. Has not had any hospital stays recently. Per the patient, interim scan showed response. She is accompanied to the clinic visit with her today. She continues to receive R-CHOP treatment close to home. Reason for Visit: Cancer Cancer Staging No matching staging information was found for the patient. History of Present Illness Ms. Kim is an 83 year old female with hx ofEBV positive stage IV DLBCL , HTN, and RA who presented 08/19 for initiation of cycle 1 of R-CHOP chemotherapy after being referred by Dr. Collins in [place]. Patient tolerated treatment well without complications and was discharged on 08/22. She had an appointment for Neulasta on 08/[address] Collins. She elected to defer LP/IT chemo for now as it made her very nervous; this should be revisited in the future. She has a f/u with Dr. Huitron on 09/03/2018. Review of Systems Constitutional: Positive for appetite change and fatigue. Negative for activity change, chills, diaphoresis, fever and unexpected weight change. HENT: Positive for dental problem. Negative for nosebleeds, postnasal drip, trouble swallowing and voice change. Eyes: Negative. Respiratory: Negative for cough and shortness of breath. Cardiovascular: Negative for chest pain, palpitations and leg swelling. Gastrointestinal: Negative for abdominal pain, constipation, diarrhea, nausea and vomiting. Endocrine: Negative. Genitourinary: Negative for hematuria and urgency. Musculoskeletal: Negative for back pain, gait problem and neck pain. Skin: Negative for pallor and rash. Allergic/Immunologic: Negative. Neurological: Negative for facial asymmetry, speech difficulty and light- headedness. Hematological: Negative for adenopathy. Does not bruise/bleed easily. Medical History: Diagnosis Date Anxiety Diffuse large B-cell lymphoma of lymph nodes of multiple regions (HCC) 08/20 DLBCL (diffuse large B cell lymphoma) (HCC) HTN (hypertension) Rheumatoid arthritis (HCC) Surgical History: Procedure Laterality Date CHOLECYSTECTOMY HYSTERECTOMY Family History Problem Relation Age of Onset Cancer Brother Rectal Cancer Son Social History Socioeconomic History Marital status: Spouse name: Not on file Number of children: Not on file Years of education: Not on file Highest education level: Not on file Occupational History Not on file Tobacco Use Smoking status: Former Smoker Smokeless tobacco: Never Used Substance and Sexual Activity Alcohol use: Not Currently Comment: 2 martinis per day Drug use: No Sexual activity: Not on file Other Topics Concern Not on file Social History Narrative Not on file Objective: ALPRAZolam (XANAX) 0.25 mg tablet Take 0.25 mg by mouth at bedtime as needed for Anxiety. carvedilol (COREG) 12.5 mg tablet Take 12.5 mg by mouth twice daily with meals. Take with food. Cholecalciferol (Vitamin D3) (VITAMIN D) 1,000 unit cap Take 1 capsule by mouth daily. citalopram (CELEXA) 10 mg tablet Take 10 mg by mouth at bedtime daily. cloNIDine (CATAPRES-TTS 2) 0.2 mg/day patch Apply one patch to top of skin as directed every 7 days. cloNIDine (CATAPRESS) 0.1 mg tablet Take 0.1 mg by mouth as Needed. doxazosin (CARDURA) 1 mg tablet Take 1 mg by mouth twice daily. simvastatin (ZOCOR) 10 mg tablet Take 10 mg by mouth at bedtime daily. Vitals: 12/17/18 1329 BP: 138/63 Pulse: 77 Resp: 16 Temp: 36.9 C (98.4 F) TempSrc: Oral SpO2: 98% Weight: 65.1 kg (143 lb 9.6 oz) Height: 154.9 cm (60.98") Body mass index is 27.15 kg/m. Pain Score: Zero Pain Addressed: N/A Patient Evaluated for a Clinical Trial: Patient not eligible for a treatment trial (including not needing treatment, needs palliative care, in remission). Eastern Cooperative Oncology Group performance status is 1, Restricted in physically strenuous activity but ambulatory and able to carry out work of a light or sedentary nature, e.g., light house work, office work. Physical Exam Constitutional: She is oriented to person, place, and time. She appears well- developed and well-nourished. HENT: Head: Normocephalic and atraumatic. Nose: Nose normal. Mouth/Throat: Oropharynx is clear and moist. No oropharyngeal exudate. Eyes: Pupils are equal, round, and reactive to light. EOM are normal. Neck: Normal range of motion. Neck supple. No thyromegaly present. Cardiovascular: Normal rate, regular rhythm, normal heart sounds and intact distal pulses. Exam reveals no gallop and no friction rub. No murmur heard. Pulmonary/Chest: Effort normal and breath sounds normal. Abdominal: Soft. Bowel sounds are normal. She exhibits no mass (no hepatosplenomegaly). There is no tenderness. Musculoskeletal: Normal range of motion. Multiple nodules on her PIP joints of her hands and mutiple flexed DIP joints. Lymphadenopathy: She has no cervical adenopathy. Neurological: She is alert and oriented to person, place, and time. Skin: Skin is warm and dry. Psychiatric: She has a normal mood and affect. 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 She is now status post 5 cycles of R -CHOP and the. The patient the interim scan showed response. She has 1 more cycle of R-CHOP to finish. She would benefit from TEXTILE TECHNOLOGIST prophylaxis because of high IPI score and high risk of TEXTILE TECHNOLOGIST relapse with her presentation. She may not be able to tolerate IV methotrexate for TEXTILE TECHNOLOGIST prophylaxis with R CHOP. We will plan for intrathecal chemotherapy at this time and will plan for at least 1 treatment of each cycle. However she has not been able to do intrathecal chemotherapies as planned for various reasons. She is finished 2 doses so far and is scheduled for the third dose Today. I discussed with her that she would need at least 3-5 more IT chemo to finish the prophylactic regimen. Patient and her will think about how frequently they want to come to [place] to get these done and will update us. Discussed her case with Dr. Collins she is agreeable to proceed with IT chemo and will plan to start the first treatment here and IR orders for that have been placed. Diffuse large B-cell lymphoma: Stage IV Proceed with total of 6 cycles of R CHOP as tolerated We will plan for repeat scanning With PET scan after 6 cycles. Neulasta on day 2. IT chemo with methotrexate at least one treatment with the cycle. However she has not been able to finish these treatments as planned. Patient will need prophylactic antibiotics with acyclovir until she is done with the chemotherapy. We will need to reevaluate rest of the prophylactic antibiotics pending her tolerance. She will receive her R CHOP chemo with Dr. Collins and will come here for IT chemo. Follow-up: 3 months with labs. documented in this encounter Plan of Treatment Care Team Description Date Type Specialty Gena Huitron MD [address] [facility] [place] [address] [phone] 01/14/2019 Hospital Radiology Encounter Order Schedule Name Priority Associated Diagnoses Expected: 12/31/2018 (Approximate), Expires: 12/18/2019 IR LUMBAR PUNCTURE Routine Diffuse large B-cell lymphoma, unspecified body region (HCC) Expected: 01/14/2019 (Approximate), Expires: 12/21/2019 IR LUMBAR PUNCTURE Routine Diffuse large B-cell lymphoma, unspecified body region (HCC) documented as of this encounter Visit Diagnoses Diagnosis Diffuse large B-cell lymphoma, unspecified body region (HCC) - Primary Weakness Other malaise and fatigue documented in this encounter
--- OUTSIDE RECORDS SUMMARY | 2018-12-31 04:09 | XMS REPORT | Continuity of Care Document ---
Author Organization Unknown Address Unknown Allergies Active Description Code Type Severity Reaction Onset Reported/Identified Relationship to Patient Clinical Status Yes No Known Drug Allergies [id number] Drug Allergy Unknown N/A 06/26/2008 Medications There is no data. Problems Date Dx Coded Attending Type Code [...] QUILES DO Ot Y92.[address] [facility] NON-INSTITUT (PRIVATE 03/18/2016 STEFAN QUILES DO Ot Y99.8 OTHER EXTERNAL CAUSE STATUS 03/18/2016 JAGRUTI MADDEN MD Ot I10 ESSENTIAL (PRIMARY) HYPERTENSION 03/18/2016 JAGRUTI MADDEN MD Ot R51 HEADACHE 04/22/2016 EVELIO CAMRONA DO Chava Ot F41.9 ANXIETY DISORDER, UNSPECIFIED 04/22/2016 KRISTINE ZARAGOZA EVELIO K Ot I10 ESSENTIAL (PRIMARY) HYPERTENSION 07/08/2016 JOSE CLEMENS APRN Ot I10 ESSENTIAL (PRIMARY) HYPERTENSION 07/08/2016 JOSE CLEMENS APRN Ot Z79.899 OTHER SALES FLOOR ASSOCIATE (CURRENT) DRUG THERAPY 07/08/2016 JOSE CLEMENS APRN Ot Z95.5 PRESENCE OF CORONARY ANGIOPLASTY IMPLANT 07/09/2016 JOSE CLEMENS APRN Ot I10 ESSENTIAL (PRIMARY) HYPERTENSION 07/09/2016 JOSE CLEMENS APRN Ot Z79.899 OTHER SALES FLOOR ASSOCIATE (CURRENT) DRUG THERAPY 07/09/2016 JOSE CLEMENS APRN Ot Z95.5 PRESENCE OF CORONARY ANGIOPLASTY IMPLANT 07/10/2016 JOSE CLEMENS APRN Ot I10 ESSENTIAL (PRIMARY) HYPERTENSION 07/10/2016 JOSE CLEMENS APRN Ot Z79.899 OTHER LONG-TERM (CURRENT) DRUG THERAPY 07/10/2016 JOSE CLEMENS APRN Ot Z95.5 PRESENCE OF CORONARY ANGIOPLASTY IMPLANT 07/18/2016 STEFAN QUILES DO Ot 785.0 TACHYCARDIA NOS 07/18/2016 SANTO QUILESRICSALMA Priest [facility] Ot 785.2 CARDIAC MURMURS NEC 07/18/2016 STEFAN QUILES DO Ot S69.91XA UNSP INJURY OF RIGHT WRIST, HAND AND FIN 07/18/2016 STEFAN QUILES DO Ot W19.XXXA UNSPECIFIED FALL, INITIAL ENCOUNTER 07/18/2016 STEFAN QUILES DO Ot Y92.[address] [facility] NON-INSTITUT (PRIVATE 07/18/2016 STEFAN QUILES DO Ot Y99.8 OTHER EXTERNAL CAUSE STATUS 02/12/2017 JOSE CLEMENS APRN Ot F41.9 ANXIETY DISORDER, UNSPECIFIED 02/12/2017 JOSE CLEMENS APRN Ot I10 ESSENTIAL (PRIMARY) HYPERTENSION 02/12/2017 JOSE CLEMENS APRN Ot Z95.5 PRESENCE OF CORONARY ANGIOPLASTY IMPLANT 06/15/2018 STEFAN QUILES DO Ot 785.0 TACHYCARDIA NOS 06/15/2018 QUILESREGINE LIU Cem PRODUCTION STAGE MANAGER Ot 785.2 CARDIAC MURMURS NEC 06/15/2018 STEFAN QUILES DO Ot S69.91XA UNSP INJURY OF RIGHT WRIST, HAND AND FIN 06/15/2018 STEFAN QUILES DO Ot W19.XXXA UNSPECIFIED FALL, INITIAL ENCOUNTER 06/15/2018 STEFAN QUILES DO Ot Y92.[address] [facility] NON-INSTITUT (PRIVATE 06/15/2018 STEFAN QUILES DO Ot Y99.8 OTHER EXTERNAL CAUSE STATUS 06/16/2018 STEFAN QUILES DO Ot 785.0 TACHYCARDIA NOS 06/16/2018 KB REGINE Priest PRODUCTION STAGE MANAGER Ot 785.2 CARDIAC MURMURS NEC 06/16/2018 STEFAN QUILES DO Ot S69.91XA UNSP INJURY OF RIGHT WRIST, HAND AND FIN 06/16/2018 STEFAN QUILES DO Ot W19.XXXA UNSPECIFIED FALL, INITIAL ENCOUNTER 06/16/2018 STEFAN QUILES DO Ot Y92.[address] [facility] NON-INSTITUT (PRIVATE 06/16/2018 STEFAN QUILES DO Ot Y99.8 OTHER EXTERNAL CAUSE STATUS 06/17/2018 STEFAN QUILES DO Ot K11.8 OTHER DISEASES OF SALIVARY GLANDS 06/17/2018 STEFAN QUILES DO Ot R59.0 LOCALIZED ENLARGED LYMPH NODES 06/17/2018 STEFAN QUILES DO Ot R91.1 SOLITARY PULMONARY NODULE 07/09/2018 STEFAN QUILES DO Ot 785.0 TACHYCARDIA NOS 07/09/2018 KBSANTOREGINE Cem PRODUCTION STAGE MANAGER Ot 785.2 CARDIAC MURMURS NEC 07/09/2018 STEFAN QUILES DO Ot S69.91XA UNSP INJURY OF RIGHT WRIST, HAND AND FIN 07/09/2018 STEFAN QUILES DO Ot W19.XXXA UNSPECIFIED FALL, INITIAL ENCOUNTER 07/09/2018 STEFAN QUILES DO Ot Y92.[address] [facility] NON-INSTITUT (PRIVATE 07/09/2018 STEFAN QUILES DO Ot Y99.8 OTHER EXTERNAL CAUSE STATUS 07/09/2018 STEFAN QUILES DO Ot K11.8 OTHER DISEASES OF SALIVARY GLANDS 07/09/2018 STEFAN QUILES DO Ot R59.0 LOCALIZED ENLARGED LYMPH NODES 07/09/2018 STEFAN QUILES DO Ot R91.1 SOLITARY PULMONARY NODULE 07/27/2018 STEFAN QUILES DO Ot K11.8 OTHER DISEASES OF SALIVARY GLANDS 07/27/2018 STEFAN QUILES DO Ot R59.0 LOCALIZED ENLARGED LYMPH NODES 07/27/2018 STEFAN QUILES DO Ot R91.1 SOLITARY PULMONARY NODULE Procedures There is no data. Results Test Result Range Whole blood basic metabolic panel - 02/12/17 19:44 Serum or plasma sodium measurement (moles/volume) 137 mmol/L 135-145 Serum or plasma potassium measurement (moles/volume) 4.8 mmol/L 3.6-5.0 Serum or plasma chloride measurement (moles/volume) 107 mmol/L 98-107 Carbon dioxide 21 mmol/L 21-32 Serum or plasma anion gap determination (moles/volume) 9 mmol/L 5-14 Serum or plasma urea nitrogen measurement (mass/volume) 25 mg/dL 7-18 Serum or plasma creatinine measurement (mass/volume) 0.91 mg/dL 0.60-1.30 Serum or plasma urea nitrogen/creatinine mass ratio 27 0 -20 Serum or plasma creatinine measurement with calculation of estimated glomerular filtration rate 59 NRG Serum or plasma glucose measurement (mass/volume) 101 mg/dL 70-105 Serum or plasma calcium measurement (mass/volume) 9.3 mg/dL 8.5-10.1 Complete blood count (CBC) with automated white blood cell (WBC) differential - 02/12/17 19:44 Blood leukocytes automated count (number/volume) 6.2 10*3/uL 4.3-11.0 Blood erythrocytes automated count (number/volume) 3.77 10*6/uL 4.35-5.85 Venous blood hemoglobin measurement (mass/volume) 11.3 [...] Automated blood platelet mean volume measurement 10.0 [foz_us] 7.4-10.4 Automated blood neutrophils/100 leukocytes 68 % [...] Status Pt. Type Provider Facility Loc./Unit Complaint [id number] 06/16/2018 10:08:00 06/16/2018 23:59:59 CLS Outpatient STEFAN QUILES DO [facility] RAD LYMPHOSECTOMY [id number] 02/12/2017 18:59:00 02/12/2017 20:42:00 DIS Emergency JOSE CLEMENS APRN [facility] ER HIGH BLOOD PRESSURE [id number] 07/08/2016 16:46:00 07/08/2016 17:54:00 DIS Emergency JOSE CLEMENS APRN [facility] ER ELEV BP [id number] 04/22/2016 21:28:00 04/22/2016 22:40:00 DIS Emergency EVELIO CARMONA DO [facility] ER ELEV BP [id number] 03/18/2016 20:51:00 03/18/2016 22:26:00 DIS Emergency PAUMA MD, JAGRUTI Pino [facility] ER POSSIBLE ELEVATED BLOOD PRESSURE [id number] 06/04/2015 16:52:00 06/04/2015 23:59:59 CLS Outpatient STEFAN QUILES DO [facility] RAD TRAUMA TO RIGHT WRIST [id number] 02/10/2014 10:56:00 02/10/2014 23:59:59 CLS Outpatient REGINE QUILES [facility] CARD MURMUR [id number] 01/21/2014 15:39:00 01/21/2014 18:10:00 DIS Emergency LEXY LOCK, MARCOS Ramos [facility] ER HEART PALPATATIONS [id number] 01/03/2014 12:58:00 01/03/2014 23:59:59 CLS Outpatient STEFAN QUILES DO [facility] CARD CHEST PAIN
[2018-12-31] MEDS ORDERED: cefTRIAXone FOR IV USE 1,000 MG in WATER (STERILE) FOR INJECTION 10 ML IV ONE (05:00)
--- NOTE | 2018-12-31 05:03 | ED EENT ---
History of Present Illness General Chief Complaint: General Problems/Pain Stated Complaint: FEVER 102.,ON CHEMO Source: patient, family History of Present Illness Date Seen by Provider: December 31, 2018 Time Seen by Provider: 04:45 Initial Comments PT ARRIVES VIA POV FROM HOME STATES SHE WOKE UP WITH FEVER OF 102 AT 0300 AND RUSHED STRAIGHT HERE DID NOT TAKE ANYTHING FOR FEVER PT STATES SHE HAS HAD LEFT LOWER JAW AND DENTAL PAIN AND SWELLING SINCE YESTERDAY HAS HAD ONGOING PROBLEMS WITH THIS FOR "AWHILE" BUT HAS NOT ATTEMPTED TO SEE A DENTIST AT ANY TIME PT STATES SHE WAS ADMITTED AT [facility] LAST MONTH FOR 5 DAYS FOR THIS SAME PROBLEM. 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 QUILES Allergies and Home Medications Allergies Coded Allergies: No Known Drug Allergies (Verified , 06/26/08) Home Medications Alprazolam 0.25 Mg Tab, UD, (Reported) Carvedilol 6.25 Mg Tablet, 12.5 MG PO BID, (Reported) Citalopram Hydrobromide 10 Mg Tablet, 10 MG PO HS, (Reported) Clonidine 1 Each Patch.tdwk, 1 EACH TD Q7D, (Reported) Clonidine HCl 0.1 Mg Tablet, 0.1 MG PO BID PRN for BLOOD PRESSURE Prescribed by: JAGRUTI MADDEN on 03/18/162213 Doxazosin Mesylate 1 Mg Tablet, 1 MG PO BID, (Reported) Lisinopril/Hydrochlorothiazide 1 Each Tablet, 1 TAB PO BID, (Reported) Simvastatin 10 Mg Tablet, 1 TAB PO DAILY, (Reported) Patient Home Medication List Home Medication List Reviewed: Yes Review of Systems Review of Systems Constitutional: fever Eyes: No Symptoms Reported Ears: No Symptoms Reported Nose: no symptoms reported Mouth: see HPI, swelling, other (DENIES PAIN TO JAW AT THIS TIME) Throat: no symptoms reported Respiratory: no symptoms reported Cardiovascular: no symptoms reported Gastrointestinal: diarrhea, loss of appetite, nausea, other (DECREASED URINE OUTPUT) Musculoskeletal: no symptoms reported Skin: no symptoms reported Neurological: No Symptoms Reported Hematologic/Lymphatic: See HPI Immunological/Allergic: see HPI Past Jpzompl-Ujwdfo-Jtjkvq Hx Patient Social History Alcohol Use: Regular Use (DAILY ETOH) Recreational Drug Use: No Smoking Status: Former Smoker Recent Foreign Travel: No Contact w/Someone Who Travel: No Recent Hopitalizations: No Immunizations Up To Date Tetanus Booster (TDap): Unknown Seasonal Allergies Seasonal Allergies: No Past Medical History Surgeries: Yes (PORT LEFT CHEST; LEFT WRIST SURGERY) Appendectomy, Cardiac, Coronary Stent, Gallbladder, Hysterectomy, Orthopedic Respiratory: No Cardiac: Yes High Cholesterol, Hypertension Neurological: No 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 Disorders: No 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 Genitourinary: No Gastrointestinal: No Musculoskeletal: Yes (ARTHRITIS) Arthritis Endocrine: No HEENT: Yes (DENTAL INFECTIONS/DENTAL CARIES) Cancer: Yes (NON-HODGKINS LYMPHOMA) Did You Recieve Any Treatments: Yes (LAST CHEMO 12/23/18) What Type of Treatment Did You: Chemotherapy Psychosocial: Yes Anxiety, Depression Integumentary: No Blood Disorders: No Family Medical History No Pertinent Family Hx Physical Exam Vital Signs Vital Signs - First Documented 12/31/18 12/31/18 04:40 11:28 Temp 99.8 Pulse 84 Resp 20 B/P (MAP) 136/59 (84) Pulse Ox 97 O2 Delivery Room Air Height, Weight, BMI Height: 5'1.00" Weight: 150lbs. oz. 68.232773aj; 29.29 BMI Method:Stated General Appearance: WD/WN, no apparent distress, other (SMILING) Eyes: bilateral eye normal inspection, bilateral eye PERRL, bilateral eye EOMI Ears: bilateral ear auricle normal, bilateral ear canal normal, bilateral ear TM normal Nose: normal inspection Mouth/Throat: mandibular swelling (MODERATE SWELLING AND FAINT ERYTHEMA TO LEFT MANDIBLE), other (LEFT LOWER MOLAR AREA WITH MODERATE SWELLING AND GINGIVAL INFLAMMATION, POOR DENTITION ) Neck: normal inspection Cardiovascular: regular rate, rhythm, no murmur Respiratory: normal breath sounds, no respiratory distress, no accessory muscle use 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, no motor/sensory deficits, alert, normal mood/affect, oriented x 3 Skin: warm/dry, pallor Progress/Results/Core Measures Results/Orders Lab Results Laboratory Tests Test 12/31/18 05:20 Range/Units White Blood Count 0.4 *L 4.3-11.0 10^3/uL Red Blood Count 2.61 L 4.35-5.85 10^6/uL Hemoglobin 8.4 L 11.5-16.0 G/DL Hematocrit 25 L 35-52 % Mean Corpuscular Volume 94 80-99 FL Mean Corpuscular Hemoglobin 32 25-34 PG Mean Corpuscular Hemoglobin Concent 34 32-36 G/DL Red Cell Distribution Width 15.5 H 10.0-14.5 % Platelet Count 15 *L 130-400 10^3/uL Mean Platelet Volume 7.4-10.4 FL Neutrophils (%) (Auto) 25 L 42-75 % Lymphocytes (%) (Auto) 43 12-44 % Monocytes (%) (Auto) 30 H 0-12 % Eosinophils (%) (Auto) 3 0-10 % Basophils (%) (Auto) 0 0-10 % Neutrophils # (Auto) 0.1 L 1.8-7.8 X 10^3 Lymphocytes # (Auto) 0.2 L 1.0-4.0 X 10^3 Monocytes # (Auto) 0.1 0.0-1.0 X 10^3 Eosinophils # (Auto) 0.0 0.0-0.3 10^3/uL Basophils # (Auto) 0.0 0.0-0.1 10^3/uL Neutrophils % (Manual) 2 % Lymphocytes % (Manual) 50 % Monocytes % (Manual) 40 % Eosinophils % (Manual) 4 % Metamyelocytes % 4 % Band Neutrophils 4 % Anisocytosis SLIGHT Prothrombin Time 14.5 12.2-14.7 SEC INR Comment 1.1 0.8-1.4 Activated Partial Thromboplast Time 36 H 24-35 SEC Sodium Level 134 L 135-145 MMOL/L Potassium Level 3.1 L 3.6-5.0 MMOL/L Chloride Level 98 98-107 MMOL/L Carbon Dioxide Level 25 21-32 MMOL/L Anion Gap 11 5-14 MMOL/L Blood Urea Nitrogen 21 H 7-18 MG/DL Creatinine 0.78 0.60-1.30 MG/DL Estimat Glomerular Filtration Rate > 60 BUN/Creatinine Ratio 27 Glucose Level 144 H 70-105 MG/DL Lactic Acid Level 0.88 0.50-2.00 MMOL/L Calcium Level 8.2 L 8.5-10.1 MG/DL Corrected Calcium 8.7 8.5-10.1 MG/DL Total Bilirubin 0.9 0.1-1.0 MG/DL Aspartate Amino Transf (AST/SGOT) 13 5-34 U/L Alanine Aminotransferase (ALT/SGPT) 13 0-55 U/L Alkaline Phosphatase 62 40-136 U/L Total Protein 5.4 L 6.4-8.2 GM/DL Albumin 3.4 3.2-4.5 GM/DL Amylase Level 14 L 25-125 U/L Lipase < 4 L 8-78 U/L My Orders Orders - EVELIO CARMONA DO Ed Iv/Invasive Line Start (12/31/18 04:56) Amylase (12/31/18 04:56) Cbc With Automated Diff (12/31/18 04:56) Comprehensive Metabolic Panel (12/31/18 04:56) Lactic Acid Analyzer (12/31/18 04:56) Lipase (12/31/18 04:56) Protime With Inr (12/31/18 04:56) Partial Thromboplastin Time (12/31/18 04:56) Blood Culture (12/31/18 04:56) Ct Maxillofacial W (12/31/18 04:56) Ceftriaxone For Iv Use (Rocephin For I (12/31/18 05:00) Manual Differential (12/31/18 05:20) Metronidazole 500mg/100ml Ivpb (Flagyl 5 (12/31/18 08:30) Medications Given in ED Current Medications Medications Dose Ordered Sig/Michael Route Start Time Stop Time Status Last Admin Dose Admin Metronidazole 100 ml @ 100 mls/hr ONCE ONCE IV 12/31/18 08:30 12/31/18 09:29 DC 12/31/18 08:27 100 MLS/HR Vital Signs/I&O 12/31/18 11:28 Temp 97.9 Pulse 74 Resp 16 B/P (MAP) 130/66 (87) Pulse Ox 97 O2 Delivery Room Air Progress Progress Note : Progress Note NO DETERIORATION IN CONDITION DURING ER STAY PT DECLINED PAIN MEDICATIONS NO SIGNIFICANT FEVER DURING ER STAY Diagnostic Imaging Comments CT MAXILLOFACIALS--NO DRAINABLE ABSCESS OR FLUID COLLECTION; SOFT TISSUE SWELLING; PROGRESSIVE BONY DENTAL EROSION INTO MANDIBLE--PER RADIOLOGIST REPORT AT 0804 Reviewed: Reviewed by Me Departure Communication (Admissions) 08--CALLED [facility]. [facility], DR. TEAGUE 0812--SPOKE WITH DR. TEAGUE, ACCEPTS PT FOR ADMIT. 0830--CARE TURNED OVER TO DR. 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 Referrals: STEFAN QUILES DO (PCP/Family) Primary Care Physician EVELIO CARMONA DO December 31, 2018 05:03
[2018-12-31 05:36] LABS: BASOPHILS % (AUTO) 0 % (0-10); EOSINOPHILS % (AUTO) 3 % (0-10); HEMATOCRIT 25 % (35-52); HEMOGLOBIN 8.4 G/DL (11.5-16.0); LYMPHOCYTES # (AUTO) 0.2 X 10^3 (1.0-4.0); LYMPHOCYTES % (AUTO) 43 % (12-44); MEAN CORPUSCULAR HEMOGLOBIN 32 PG (25-34); MEAN CORPUSCULAR HGB CONC 34 G/DL (32-36); MEAN CORPUSCULAR VOLUME 94 FL (80-99); MONOCYTES # (AUTO) 0.1 X 10^3 (0.0-1.0); MONOCYTES % (AUTO) 30 % (0-12); NEUTROPHILS # (AUTO) 0.1 X 10^3 (1.8-7.8); NEUTROPHILS % (AUTO) 25 % (42-75); RED CELL DISTRIBUTION WIDTH 15.5 % (10.0-14.5)
[2018-12-31 05:47] LABS: PLATELET COUNT 15 10^3/uL (130-400); WHITE BLOOD COUNT 0.4 10^3/uL (4.3-11.0)
[2018-12-31 05:49] LABS: INR 1.1 (0.8-1.4); PROTHROMBIN TIME PATIENT 14.5 SEC (12.2-14.7)
[2018-12-31 05:56] LABS: ALANINE AMINOTRANSFERASE 13 U/L (0-55); ALBUMIN 3.4 GM/DL (3.2-4.5); ALKALINE PHOSPHATASE 62 U/L (40-136); AMYLASE 14 U/L (25-125); BILIRUBIN,TOTAL 0.9 MG/DL (0.1-1.0); BUN/CREATININE RATIO 27; CALCIUM 8.2 MG/DL (8.5-10.1); CARBON DIOXIDE 25 MMOL/L (21-32); CHLORIDE 98 MMOL/L (98-107); CREATININE SERUM 0.78 MG/DL (0.60-1.30); GFR ESTIMATED > 60; GLUCOSE 144 MG/DL (70-105); LIPASE < 4 U/L (8-78); POTASSIUM 3.1 MMOL/L (3.6-5.0); SODIUM 134 MMOL/L (135-145); TOTAL PROTEIN 5.4 GM/DL (6.4-8.2)
[2018-12-31 06:24] LABS: BAND NEUTROPHILS 4 %; LYMPHOCYTES % (MANUAL) 50 %; NEUTROPHILS % (MANUAL) 2 %
[2018-12-31 06:25] LABS: ANISOCYTOSIS SLIGHT; EOSINOPHILS % (MANUAL) 4 %; METAMYELOCYTES % 4 %; MONOCYTES % (MANUAL) 40 %
--- NOTE | 2018-12-31 07:00 | NUR ---
PT RESTING IN ROOM NO CO OFFERED
--- NOTE | 2018-12-31 07:57 | Diagnostic Imaging Report ---
PROCEDURE: CT maxillofacial with contrast. TECHNIQUE: After intravenous administration of contrast, axial images were obtained through the face and reformatted into coronal and sagittal planes. Auto Exposure Controls were utilized during the CT exam to meet ALARA standards for radiation dose reduction. INDICATION: Lymphoma, jaw swelling, pain. Study compared with soft tissue neck CT 06/16/2018. There has been resolution of previous bilateral intraparenchymal parotid masses. There has also been resolution of the left intraparenchymal or marcellus-submandibular mass. There is mild membrane thickening in the right maxillary sinus reflecting a substantial improvement from prior. Trace membrane disease in the ethmoid air cells also improved. There is no mastoid effusion. The middle ear cavities appeared clear. Progressive periapical lucencies associated with the most posterior residual left-sided mandibular teeth are present with cortical erosion and full-thickness defect of the superficial/buccal cortex of the left bony mandible. Some overlying soft tissue swelling on the left. Dental amalgam generates a substantial degree of regional artifact limiting sensitivity. No appreciable discrete drainable fluid collection or gas is evident. Right hemimandible and temporomandibular joints aside from degenerative changes unremarkable. The zygomatic arches intact. The orbits unremarkable. Impression: Progressive lucent destructive changes of the left hemimandible extend peripherally through the buccal cortex epicenter of the most residual post-left mandibular tooth. The bony defect extends about 2.2 cm anteroposterior with overlying soft tissue edema and inflammatory change but no identifiable drainable fluid collection or true abscess. Otherwise improvements in the neck with resolved intraparotid and submandibular masses. Resolved nasopharyngeal fullness and improvements in paranasal sinus membrane disease without air-fluid level. Dictated by: Dictated on workstation # [id number]
--- NOTE | 2018-12-31 08:26 | NUR ---
[facility] NOTIFIED FOR TRANSFER
[2018-12-31] MEDS ORDERED: metroNIDAZOLE 500MG/100ML IVPB 100 ML IV ONE (08:30)
--- NOTE | 2018-12-31 08:30 | NUR ---
CONSENT FOR TRANSFER SIGNED
--- NOTE | 2018-12-31 08:31 | NUR ---
[facility] CALLED TO SAY THEY ARE SWITCHING ROOM #'S, EMS PUT ON HOLD
--- NOTE | 2018-12-31 09:24 | NUR ---
CALLED [facility] CALL, NO ROOM FOR PT OF YET
--- NOTE | 2018-12-31 10:45 | NUR ---
[facility] CALLED TO SEE IF HAS BED AVAILABLE, NOT YET
[2018-12-31 11:28] VITALS: BP 130/66
== END 2018-12-31 11:58 | disposition short-term general hospital (02) ==
LOC: EDUNIT# 04:00 → ER 04:03
DX: K04.7 Periapical abscess without sinus (principal); K12.2 Cellulitis and abscess of mouth; D70.9 Neutropenia, unspecified; C85.80 Other specified types of non-Hodgkin lymphoma, unspecified site; F41.9 Anxiety disorder, unspecified; E78.00 Pure hypercholesterolemia, unspecified; I10 Essential (primary) hypertension; F32.9 Major depressive disorder, single episode, unspecified; Z92.21 Personal history of antineoplastic chemotherapy; Z90.710 Acquired absence of both cervix and uterus; Z90.49 Acquired absence of other specified parts of digestive tract; Z95.5 Presence of coronary angioplasty implant and graft
CPT/HCPCS: 36415; 70487; 80053; 82150; 83605; 83690; 85007; 85027; 85610; 85730; 87040; 96365; 96375

== ENCOUNTER 2020-03-29 13:06 | Emergency (ER) | payer MEDICARE ==
[~2020-03-29] VITALS: Ht 157 cm; Wt 72.0 kg
[~2020-03-29 13:06] MED LIST changes: +LISI1TAB25 PO; -LISI1TAB8 PO; -METO-395 PO; +MTP100TCR PO; +SIMV10TA26 PO; -SIMV10TA3 PO
--- NOTE | 2020-03-29 13:44 | ED Cardiac General ---
History of Present Illness General Chief Complaint: Cardiac/General Problems Stated Complaint: HIGH BP Nursing Triage Note: PT CO OF HTN, STATES B/P WAS 200/100 EARLIER, STATES HAS TAKEN CLONIDINE AND XANAX AND WAS STILL ELEVATED. DENIES C/P AT THIS X Source: patient Exam Limitations: no limitations History of Present Illness Date Seen by Provider: Mar 29, 2020 Time Seen by Provider: 13:43 Initial Comments To ER with blood pressure high at home at 200/100. She took an extra clonidine and Xanax and it failed to come down but upon arrival to ER it was down. She has no symptoms, just worried about the number. 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 SL VOICE DATA COMMUNICATIONS ENGINEER: No ASA po VOICE DATA COMMUNICATIONS ENGINEER: No Allergies and Home Medications Allergies Coded Allergies: No Known Drug Allergies (Verified , 06/26/08) Home Medications Alprazolam 0.25 Mg Tab, UD, (Reported) Carvedilol 6.25 Mg Tablet, 12.5 MG PO BID, (Reported) Citalopram Hydrobromide 10 Mg Tablet, 10 MG PO HS, (Reported) Clonidine 1 Each Patch.tdwk, 1 EACH TD Q7D, (Reported) Clonidine HCl 0.1 Mg Tablet, 0.1 MG PO BID PRN for BLOOD PRESSURE Prescribed by: JAGRUTI MADDEN on 03/18/162213 Doxazosin Mesylate 1 Mg Tablet, 1 MG PO BID, (Reported) Lisinopril/Hydrochlorothiazide 1 Each Tablet, 1 TAB PO BID, (Reported) Simvastatin 10 Mg Tablet, 1 TAB PO DAILY, (Reported) Patient Home Medication List Home Medication List Reviewed: Yes Review of Systems Review of Systems Constitutional: see HPI EENTM: No Symptoms Reported Respiratory: No Symptoms Reported Cardiovascular: No Symptoms Reported Gastrointestinal: No Symptoms Reported Genitourinary: No Symptoms Reported Musculoskeletal: no symptoms reported Skin: no symptoms reported Psychiatric/Neurological: No Symptoms Reported Endocrine: No Symptoms Reported Hematologic/Lymphatic: No Symptoms Reported Past Jcdggkc-Odcxuk-Gotbih Hx Patient Social History Alcohol Use: Denies Use Recreational Drug Use: No Smoking Status: Never a Smoker Recent Foreign Travel: No Contact w/Someone Who Travel: No Recent Infectious Disease Expo: No Recent Hopitalizations: No Physical Abuse: No Sexual Abuse: No Immunizations Up To Date Tetanus Booster (TDap): Unknown Seasonal Allergies Seasonal Allergies: No Past Medical History Surgeries: Yes (PORT LEFT CHEST; LEFT WRIST SURGERY) Appendectomy, Cardiac, Coronary Stent, Gallbladder, Hysterectomy, Orthopedic Respiratory: No Cardiac: Yes High Cholesterol, Hypertension Neurological: No 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 Genitourinary: No Gastrointestinal: No Musculoskeletal: Yes (ARTHRITIS) Arthritis Endocrine: No HEENT: Yes (DENTAL INFECTIONS/DENTAL CARIES) Cancer: Yes (NON-HODGKINS LYMPHOMA) Did You Recieve Any Treatments: Yes What Type of Treatment Did You: Chemotherapy Psychosocial: Yes Anxiety, Depression Integumentary: No Blood Disorders: No Family Medical History No Pertinent Family Hx Physical Exam Vital Signs Vital Signs - First Documented 03/29/20 13:25 Temp 36.3 Pulse 66 Resp 18 B/P (MAP) 175/87 (116) Pulse Ox 97 Capillary Refill : Less Than 3 Seconds Height, Weight, BMI Height: 5'2.00" Weight: 144lbs. oz. 65.211468gw; 29.00 BMI Method:Stated General Appearance: No Apparent Distress, WD/WN Neck: Full Range of Motion, Normal Inspection Respiratory: Lungs Clear, Normal Breath Sounds, No Accessory Muscle Use, No Respiratory Distress Cardiovascular: Regular Rate, Rhythm, Normal Peripheral Pulses Gastrointestinal: Normal Bowel Sounds, Non Tender, Soft Extremity: Normal Capillary Refill, Normal Inspection Neurologic/Psychiatric: Alert, Oriented x3 Skin: Normal Color, Warm/Dry Progress/Results/Core Measures Results/Orders Vital Signs/I&O 03/29/20 13:25 Temp 36.3 Pulse 66 Resp 18 B/P (MAP) 175/87 (116) Pulse Ox 97 Blood Pressure Mean: 116 Departure Impression Primary Impression: Labile hypertension Disposition: 01 HOME, SELF-CARE Condition: Stable Departure-Patient Inst. Decision time for Depature: 13:44 Referrals: STEFAN QUILES DO (PCP/Family) Primary Care Physician Patient Instructions: High Blood Pressure (DC) Add. Discharge Instructions: All discharge instructions reviewed with patient and/or family. Voiced understanding. JOSE CLEMENS APRN Mar 29, 2020 13:44
[2020-03-29 14:09] VITALS: BP 117/56
== END 2020-03-29 14:10 | disposition home or self-care (01) ==
LOC: EDUNIT# 13:06 → ER 13:08
DX: I10 Essential (primary) hypertension (principal); E78.00 Pure hypercholesterolemia, unspecified; F41.9 Anxiety disorder, unspecified; F32.9 Major depressive disorder, single episode, unspecified; Z95.5 Presence of coronary angioplasty implant and graft; Z85.72 Personal history of non-Hodgkin lymphomas
CPT/HCPCS: 99283

== ENCOUNTER 2020-04-27 19:59 | Emergency (ER) | payer MEDICARE ==
[~2020-04-27] VITALS: Ht 154.9 cm; Wt 69.8 kg
[2020-04-27] MEDS ORDERED: ALPRAZolam 0.5 MG (XANAX) TAB PO SCH ×2 (20:15→20:30)
--- NOTE | 2020-04-27 20:19 | ED Cardiac General ---
History of Present Illness General Chief Complaint: Cardiac/General Problems Stated Complaint: HIGH BLOOD PRESSURE Nursing Triage Note: PATIENT STATES THAT SHE CHECKED HER BLOOD PRESSURE AT ABOUT 1700 AND IT WAS 200/110 SO SHE TOOK A CLONIDINE. SHE TOOK HER BP AGAIN AT 1900 AND IT WAS AGAIN ELEVATED SO SHE TOOK ANOTHER CLONIDINE. SHE HAS NOT TAKEN HER XANAX TONIGHT NOR HAS SHE HAD HER DAILY COCKTAIL. SHE STATES THAT SHE FELT LIGHTHEADED AND SLIGHTLY ANXIOUS, BUT DENIES ANY OTHER COMPLAINTS. Source: patient Exam Limitations: no limitations History of Present Illness Date Seen by Provider: Apr 27, 2020 Time Seen by Provider: 20:16 Initial Comments You sweat to ER with high blood pressure. She took it at about 5 PM and it was 200/110 despite her clonidine patch and to clonidine pills. She normally takes Xanax but decided not to this evening. She comes to the ER with persistently elevated blood pressure and a sensation of anxiety. No chest pain no shortness of breath. She was here a month ago for the same with normal workup. Timing/Duration: constant Severity: mild Activities at Onset: none NTG SL MANAGER SEMICONDUCTOR: No ASA po MANAGER SEMICONDUCTOR: No Associated Systoms: Denies Symptoms; No Chest Pain, No Nausea/Vomiting, No Shortness of Air, No Syncope, No Weakness Allergies and Home Medications Allergies Coded Allergies: No Known Drug Allergies (Verified , 06/26/08) Home Medications Alprazolam 0.25 Mg Tab, UD, (Reported) Carvedilol 6.25 Mg Tablet, 12.5 MG PO BID, (Reported) Citalopram Hydrobromide 10 Mg Tablet, 10 MG PO HS, (Reported) Clonidine 1 Each Patch.tdwk, 1 EACH TD Q7D, (Reported) Clonidine HCl 0.1 Mg Tablet, 0.1 MG PO BID PRN for BLOOD PRESSURE Prescribed by: JAGRUTI MADDEN on 03/18/162213 Doxazosin Mesylate 1 Mg Tablet, 1 MG PO BID, (Reported) Lisinopril/Hydrochlorothiazide 1 Each Tablet, 1 TAB PO BID, (Reported) Simvastatin 10 Mg Tablet, 1 TAB PO DAILY, (Reported) Patient Home Medication List Home Medication List Reviewed: Yes Review of Systems Review of Systems Constitutional: see HPI EENTM: No Symptoms Reported Respiratory: No Symptoms Reported Cardiovascular: No Symptoms Reported Gastrointestinal: See HPI Genitourinary: No Symptoms Reported Musculoskeletal: no symptoms reported Skin: no symptoms reported Psychiatric/Neurological: No Symptoms Reported Endocrine: No Symptoms Reported Hematologic/Lymphatic: No Symptoms Reported Past Ycykchj-Opoots-Tpvopw Hx Patient Social History Recent Foreign Travel: No Contact w/Someone Who Travel: No Recent Infectious Disease Expo: No Recent Hopitalizations: No Immunizations Up To Date Tetanus Booster (TDap): Unknown Seasonal Allergies Seasonal Allergies: No Past Medical History Surgeries: Yes (PORT LEFT CHEST; LEFT WRIST SURGERY) Appendectomy, Cardiac, Coronary Stent, Gallbladder, Hysterectomy, Orthopedic Respiratory: No Cardiac: Yes High Cholesterol, Hypertension Neurological: No : No 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 Genitourinary: No Gastrointestinal: No Musculoskeletal: Yes (ARTHRITIS) Arthritis Endocrine: No HEENT: Yes (DENTAL INFECTIONS/DENTAL CARIES) Cancer: Yes (NON-HODGKINS LYMPHOMA) Did You Recieve Any Treatments: Yes What Type of Treatment Did You: Chemotherapy Psychosocial: Yes Anxiety, Depression Integumentary: No Blood Disorders: No Family Medical History No Pertinent Family Hx Physical Exam Vital Signs Vital Signs - First Documented 04/27/20 20:10 Temp 36.3 Pulse 80 Resp 22 B/P (MAP) 192/101 (131) Pulse Ox 97 O2 Delivery Room Air Capillary Refill : Less Than 3 Seconds Height, Weight, BMI Height: 5'2.00" Weight: 144lbs. oz. 65.429370sm; 29.00 BMI Method:Stated General Appearance: No Apparent Distress, WD/WN, Anxious HEENT: PERRL/EOMI, TMs Normal Neck: Full Range of Motion, Normal Inspection Respiratory: Normal Breath Sounds, No Accessory Muscle Use, No Respiratory Distress Gastrointestinal: Non Tender, Soft Extremity: Normal Capillary Refill, Normal Inspection Neurologic/Psychiatric: Alert, Oriented x3 Skin: Normal Color, Warm/Dry Progress/Results/Core Measures Results/Orders My Orders Orders - JOSE CLEMENS APRN Alprazolam Tablet (Xanax Tablet) (04/27/20 20:15) Alprazolam Tablet (Xanax Tablet) (04/27/20 20:30) Vital Signs/I&O 04/27/20 20:10 Temp 36.3 Pulse 80 Resp 22 B/P (MAP) 192/101 (131) Pulse Ox 97 O2 Delivery Room Air Blood Pressure Mean: 131 Departure Communication (Admissions) 2109-her blood pressure is down to 101/56 after only 0.25 mg of alprazolam. Will discharge to home. She talks to me at length about her anxiety. She is scared To make long-term plans anymore because she doesn't know how long she'll live. She just ordered some clothing off the Internet but then began thinking that she might not have a chance to wear it and this caused her anxiety. She developed some cold chills up her back and felt very tense. She started to drink part of her evening cocktail but didn't finish it. She was scared to take a Xanax becaus e she thought it causes ill effect when taken with the cocktail. She also feels anxious because she doesn't get to see her children because of covid Impression Primary Impression: Anxiety Additional Impression: Labile hypertension Disposition: 01 HOME, SELF-CARE Condition: Stable Departure-Patient Inst. Decision time for Depature: 21:11 Referrals: STEFAN QUILES DO (PCP/Family) Primary Care Physician Patient Instructions: Anxiety, Adult (DC) Add. Discharge Instructions: 1. If this happens again taking her Xanax and wait 30 minutes to an hour before checking your blood pressure again. Do not check it until it has been 30 minutes to 1 hour AFTER the Xanax. All discharge instructions reviewed with patient and/or family. Voiced understanding. JOSE CLEMENS REIMBURSEMENT COORDINATOR Apr 27, 2020 20:19
[2020-04-27 21:26] VITALS: BP 134/72
== END 2020-04-27 21:29 | disposition home or self-care (01) ==
LOC: EDUNIT# 19:59 → ER 20:00
DX: F41.9 Anxiety disorder, unspecified (principal); I10 Essential (primary) hypertension; E78.00 Pure hypercholesterolemia, unspecified; F32.9 Major depressive disorder, single episode, unspecified; Z85.72 Personal history of non-Hodgkin lymphomas; Z95.5 Presence of coronary angioplasty implant and graft
CPT/HCPCS: 99283

== ENCOUNTER 2021-01-25 13:38 | Emergency (ER) | payer MEDICARE ==
[~2021-01-25] VITALS: Ht 152.4 cm; Wt 72.1 kg
[~2021-01-25 13:38] MED LIST changes: +CLN.1T PO; -CLON0.1T PO; -LISI1TAB25 PO; +LISI1TAB46 PO
--- NOTE | 2021-01-25 13:51 | ED General ---
General Stated Complaint: FALL KNEE PAIN Source of Information: Patient, EMS Exam Limitations: No Limitations (JOSE CLEMENS APRN) History of Present Illness Date Seen by Provider: January 25, 2021 Time Seen by Provider: 13:49 Initial Comments To ER by EMS from home where she resides with her with reports of severe right knee pain after she fell onto a flexed right knee just prior to arrival. No other injury. Denies her head. Timing/Duration: 1/2 Hour Severity: Moderate Associated Systoms: Denies Symptoms (JOSE CLEMENS APRN) Allergies and Home Medications Allergies Coded Allergies: No Known Drug Allergies (Verified , 06/26/08) Home Medications Alprazolam 0.25 Mg Tab, UD, (Reported) Carvedilol 6.25 Mg Tablet, 12.5 MG PO BID, (Reported) Citalopram Hydrobromide 10 Mg Tablet, 10 MG PO HS, (Reported) Clonidine 1 Each Patch.tdwk, 1 EACH TD Q7D, (Reported) Clonidine HCl 0.1 Mg Tablet, 0.1 MG PO BID PRN for BLOOD PRESSURE Prescribed by: JAGRUTI MADDEN on 03/18/164 Doxazosin Mesylate 1 Mg Tablet, 1 MG PO BID, (Reported) Lisinopril/Hydrochlorothiazide 1 Each Tablet, 1 TAB PO BID, (Reported) Simvastatin 10 Mg Tablet, 1 TAB PO DAILY, (Reported) Patient Home Medication List Home Medication List Reviewed: Yes (JOSE CLEMENS APRN) Review of Systems Review of Systems Constitutional: see HPI EENTM: see HPI Respiratory: no symptoms reported Cardiovascular: no symptoms reported Genitourinary: no symptoms reported Musculoskeletal: see HPI Skin: no symptoms reported Psychiatric/Neurological: No Symptoms Reported Hematologic/Lymphatic: No Symptoms Reported (JOSE CLEMENS APRN) Past Prngxde-Pfdunq-Clydbz Hx Patient Social History Alcohol Beverage of Choice: Rum, Vodka Former Smoker, Quit: Apr 27, 1960 2nd Hand Smoke Exposure: No Recent Hopitalizations: No (JOSE CLEMENS APRN) Immunizations Up To Date Tetanus Booster (TDap): Unknown (JOSE CLEMENS APRN) Seasonal Allergies Seasonal Allergies: No (JOSE CLEMENS APRN) Past Medical History Surgeries: Yes (PORT LEFT CHEST; LEFT WRIST SURGERY) Appendectomy, Cardiac, Coronary Stent, Gallbladder, Hysterectomy, Orthopedic Respiratory: No Cardiac: Yes High Cholesterol, Hypertension Neurological: No 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 Disorders: No 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 oz. 65.712896of; 29.00 BMI Method:Stated General Appearance: No Apparent Distress, WD/WN Eyes: Bilateral Eye Normal Inspection, Bilateral Eye PERRL, Bilateral Eye EOMI Respiratory: No Accessory Muscle Use, No Respiratory Distress Cardiovascular: Regular Rate, Rhythm, Normal Peripheral Pulses Gastrointestinal: Normal Bowel Sounds, Non Tender, Soft Extremity: Normal Capillary Refill, Other (Dorsalis pedis pulse is nonpalpable both sides but there is blood flow by Doppler in the posterior tibial artery bilaterally. There is some abrasion and swelling of the right knee.) Neurologic/Psychiatric: Alert, Oriented x3 Skin: Normal Color, Warm/Dry (JOSE CLEMENS APRN) Progress/Results/Core Measures Suspected Sepsis SIRS Temperature: Pulse: Respiratory Rate: Blood Pressure / Mean: (JOSE CLEMENS APRN) Results/Orders Lab Results Laboratory Tests Test 01/25/21 14:28 01/25/21 15:20 Range/Units Urine Color YELLOW Urine Clarity CLEAR Urine pH 5.5 5-9 Urine Specific [place] >=1.030 1.016-1.022 Urine Protein TRACE H NEGATIVE Urine Glucose (UA) NEGATIVE NEGATIVE Urine Ketones NEGATIVE NEGATIVE Urine Nitrite POSITIVE H NEGATIVE Urine Bilirubin NEGATIVE NEGATIVE Urine Urobilinogen 0.2 < = 1.0 MG/DL Urine Leukocyte Esterase NEGATIVE NEGATIVE Urine RBC (Auto) NEGATIVE NEGATIVE Urine RBC NONE /HPF Urine WBC 2-5 /HPF Urine Squamous Epithelial Cells RARE /HPF Urine Crystals NONE /LPF Urine Bacteria MODERATE H /HPF Urine Casts PRESENT /LPF Urine Hyaline Casts 5-10 H /LPF Urine Mucus NEGATIVE /LPF Urine Culture Indicated YES White Blood Count 7.7 4.3-11.0 10^3/uL Red Blood Count 3.39 L 3.80-5.11 10^6/uL Hemoglobin 11.0 L 11.5-16.0 g/dL Hematocrit 34 L 35-52 % Mean Corpuscular Volume 101 H 80-99 fL Mean Corpuscular Hemoglobin 32 25-34 pg Mean Corpuscular Hemoglobin Concent 32 32-36 g/dL Red Cell Distribution Width 12.5 10.0-14.5 % Platelet Count 151 130-400 10^3/uL Mean Platelet Volume 10.3 9.0-12.2 fL Immature Granulocyte % (Auto) 0 % Neutrophils (%) (Auto) 72 42-75 % Lymphocytes (%) (Auto) 20 12-44 % Monocytes (%) (Auto) 7 0-12 % Eosinophils (%) (Auto) 1 0-10 % Basophils (%) (Auto) 1 0-10 % Neutrophils # (Auto) 5.5 1.8-7.8 10^3/uL Lymphocytes # (Auto) 1.5 1.0-4.0 10^3/uL Monocytes # (Auto) 0.5 0.0-1.0 10^3/uL Eosinophils # (Auto) 0.0 0.0-0.3 10^3/uL Basophils # (Auto) 0.1 0.0-0.1 10^3/uL Immature Granulocyte # (Auto) 0.0 0.0-0.1 10^3/uL Prothrombin Time 14.7 12.2-14.7 SEC INR Comment 1.1 0.8-1.4 Sodium Level 137 135-145 MMOL/L Potassium Level 5.4 H 3.6-5.0 MMOL/L Chloride Level 108 H 98-107 MMOL/L Carbon Dioxide Level 18 L 21-32 MMOL/L Anion Gap 11 5-14 MMOL/L Blood Urea Nitrogen 28 H 7-18 MG/DL Creatinine 1.31 H 0.60-1.30 MG/DL Estimat Glomerular Filtration Rate 38 BUN/Creatinine Ratio 21 Glucose Level 120 H 70-105 MG/DL Calcium Level 9.1 8.5-10.1 MG/DL Corrected Calcium 8.8 8.5-10.1 MG/DL Total Bilirubin 0.4 0.1-1.0 MG/DL Aspartate Amino Transf (AST/SGOT) 25 5-34 U/L Alanine Aminotransferase (ALT/SGPT) 15 0-55 U/L Alkaline Phosphatase 94 40-136 U/L Total Protein 6.9 6.4-8.2 GM/DL Albumin 4.4 3.2-4.5 GM/DL (MARCOS PUGH MD) Medications Given in ED Current Medications Medications Dose Ordered Sig/Michael Route Start Time Stop Time Status Last Admin Dose Admin Acetaminophen/ Hydrocodone Bitart 1 ea ONCE ONCE PO 01/25/21 14:00 01/25/21 14:01 DC 01/25/21 14:10 1 EA (MARCOS PUGH MD) Vital Signs/I&O 01/25/21 01/25/21 01/25/21 13:43 13:43 15:20 Temp 36.0 36.0 Pulse 66 66 65 Resp 16 16 16 B/P (MAP) 174/86 (115) 174/81 (112) 148/58 Pulse Ox 95 95 97 O2 Delivery Room Air Room Air Room Air (MARCOS PUGH MD) Vital Signs/I&O Capillary Refill : (JOSE CLEMENS APRN) Progress Note : Progress Note I was physically present and available in the emergency room during the care of this patient as the attending physician, but I was not directly involved in her care. (MARCOS PUGH MD) Departure Communication (Admissions) 1411-No ortho available here now or on this weekend. Will transfer to [facility]. She denies any pain as long as she does not move however I went ahead and gave her some hydrocodone anyway. We will put her in a posterior long-leg splint prior to transport. Spoke with Dr. Watts from emergency room at [facility] accepts patient. (JOSE CLEMENS APRN) Impression Primary Impression: Femoral distal fracture Disposition: XFER SHT-TRM HOSP Condition: Stable Transfer Transfer Reason: Exceeds level of care Time Spoke to Accepting Phy: 14:12 (JOSE CLEMENS APRN) Departure-Patient Inst. Referrals: STEFAN QUILES DO (PCP/Family) Primary Care Physician Copy Copies To 1: STEFAN QUILES PETER J APRN January 25, 2021 13:51 MARCOS PUGH MD January 25, 2021 17:12
[2021-01-25] MEDS ORDERED: HYDROcodone/APAP 5 MG/325 MG (LORTAB) TAB PO ONE (14:00)
--- NOTE | 2021-01-25 14:23 | Diagnostic Imaging Report ---
EXAMINATION: Chest 1 view HISTORY: Preoperative evaluation COMPARISON: None available. FINDINGS: Heart size and pulmonary vasculature are normal. The lungs are clear without consolidation, pleural effusion, or pneumothorax. The osseous structures are intact. There are calcifications of the aorta. A left-sided Port-A-Cath is present. Opacity posterior to the heart may represent a hiatal hernia. IMPRESSION: 1. No acute radiographic abnormality in the chest. Dictated by: Dictated on workstation # [id number]
--- NOTE | 2021-01-25 14:28 | Diagnostic Imaging Report ---
EXAM: Right knee radiograph EXAM DATE: 01/25/2021 COMPARISON: None. HISTORY: Fall to right knee with pain. TECHNIQUE: 3 views of the right knee. FINDINGS: There is an acute, displaced, angulated fracture of the distal right femur. Fracture extends from the distal femoral shaft obliquely with significant displacement at the level of the distal diaphysis above the condyles. There is 2 cm of posterior displacement of the distal femur. There is a focal fracture fragment within the posterior soft tissues at the site of fracture. There is significant soft tissue swelling. There is medial lateral compartment joint space narrowing. IMPRESSION: Acute, comminuted fracture of the distal right femur. Dictated by: Dictated on workstation # [id number]
[2021-01-25 14:34] LABS: BILIRUBIN,URINE NEGATIVE (NEGATIVE); CLARITY,URINE CLEAR; COLOR,URINE YELLOW; GLUCOSE, URINE (UA) NEGATIVE (NEGATIVE); KETONES,URINE NEGATIVE (NEGATIVE); LEUKOCYTE ESTERASE ,URINE NEGATIVE (NEGATIVE); NITRITE,URINE POSITIVE (NEGATIVE); PH,URINE 5.5 (5-9); PROTEIN,URINE TRACE (NEGATIVE)
[2021-01-25 14:41] LABS: BACTERIA,URINE MODERATE /HPF; SQUAMOUS EPITHELIAL CELL,UR RARE /HPF
[2021-01-25 15:20] VITALS: BP 148/58
[2021-01-25 15:28] LABS: BASOPHILS # (AUTO) 0.1 10^3/uL (0.0-0.1); BASOPHILS % (AUTO) 1 % (0-10); EOSINOPHILS % (AUTO) 1 % (0-10); HEMATOCRIT 34 % (35-52); LYMPHOCYTES # (AUTO) 1.5 10^3/uL (1.0-4.0); LYMPHOCYTES % (AUTO) 20 % (12-44); MEAN CORPUSCULAR HEMOGLOBIN 32 pg (25-34); MEAN CORPUSCULAR HGB CONC 32 g/dL (32-36); MEAN CORPUSCULAR VOLUME 101 fL (80-99); MEAN PLATELET VOLUME 10.3 fL (9.0-12.2); MONOCYTES # (AUTO) 0.5 10^3/uL (0.0-1.0); MONOCYTES % (AUTO) 7 % (0-12); NEUTROPHILS # (AUTO) 5.5 10^3/uL (1.8-7.8); NEUTROPHILS % (AUTO) 72 % (42-75); PLATELET COUNT 151 10^3/uL (130-400); WHITE BLOOD COUNT 7.7 10^3/uL (4.3-11.0)
[2021-01-25 15:36] LABS: ALBUMIN 4.4 GM/DL (3.2-4.5)
[2021-01-25 15:37] LABS: POTASSIUM 5.4 MMOL/L (3.6-5.0)
[2021-01-25 15:38] LABS: CALCIUM 9.1 MG/DL (8.5-10.1)
[2021-01-25 15:39] LABS: TOTAL PROTEIN 6.9 GM/DL (6.4-8.2)
[2021-01-25 15:41] LABS: BILIRUBIN,TOTAL 0.4 MG/DL (0.1-1.0)
[2021-01-25 15:43] LABS: CREATININE SERUM 1.31 MG/DL (0.60-1.30)
[2021-01-25 15:46] LABS: INR 1.1 (0.8-1.4); PROTHROMBIN TIME PATIENT 14.7 SEC (12.2-14.7)
== END 2021-01-25 15:23 | disposition short-term general hospital (02) ==
LOC: EDUNIT# 13:38 → ER 13:39
DX: S72.491A Other fracture of lower end of right femur, initial encounter for closed fracture (principal); I10 Essential (primary) hypertension; E78.00 Pure hypercholesterolemia, unspecified; F41.9 Anxiety disorder, unspecified; F32.9 Major depressive disorder, single episode, unspecified; Z87.891 Personal history of nicotine dependence; Z79.899 Other long term (current) drug therapy; W18.30XA Fall on same level, unspecified, initial encounter
CPT/HCPCS: 36415; 51702; 71045; 73562; 80053; 81000; 85025; 85610; 87077; 87088; 87186; 93005

== ENCOUNTER 2021-01-30 12:50 | Inpatient (IN) | payer MEDICARE ==
[~2021-01-30] VITALS: Ht 154.9 cm; Wt 68.9 kg
[2021-01-30] MEDS ORDERED: ONDANSETRON 4 MG (ZOFRAN) ORAL DISSOLVE TAB PO PRN (13:15)
[2021-01-30] MEDS ORDERED: diphenhydrAMINE 25 MG TAB (BENADRYL) PO PRN (13:15)
[2021-01-30] MEDS ORDERED: ALPRAZolam 0.25 MG (XANAX) TAB PO PRN (13:15)
[2021-01-30] MEDS ORDERED: MELATONIN 3 MG TABLET PO PRN (13:15)
[2021-01-30] MEDS ORDERED: guaiFENesin/CODEINE (ROBITUSSIN AC) 10ML UDC PO PRN (13:15)
[2021-01-30] MEDS ORDERED: LACTULOSE SYRUP 10GM/15ML (ENULOSE) 30ML UDC PO PRN (13:15)
[2021-01-30] MEDS ORDERED: DOCUSATE SODIUM 100 MG (COLACE) CAP PO PRN (13:15)
[2021-01-30] MEDS ORDERED: LOPERAMIDE 2 MG (IMODIUM) TABLET PO PRN (13:15)
[2021-01-30] MEDS ORDERED: FLEET ENEMA ADULT 1 EA BTL PR PRN (13:15)
[2021-01-30] MEDS ORDERED: BISACODYL 10 MG SUPP (DULCOLAX) PR PRN (13:15)
[2021-01-30] MEDS ORDERED: CALCIUM CARBONATE 500 MG (TUMS) TAB.CHEW PO PRN (13:15)
[2021-01-30] MEDS ORDERED: ACETAMINOPHEN 325 MG TABLET PO PRN (13:15)
[2021-01-31 12:35] VITALS: BP 143/65
[2021-01-31] MEDS ORDERED: DIPH1TAB PO (12:49)
[2021-01-31] MEDS ORDERED: NF-VITD400 PO (12:49)
[2021-01-31] MEDS ORDERED: HYDR25TA4 PO (12:49)
[2021-01-31] MEDS ORDERED: CYAN-23 PO (12:49)
[2021-01-31] MEDS ORDERED: SPIR25TA5 PO (12:49)
[2021-01-31] MEDS ORDERED: HYDR-3817 PO (12:49)
[2021-01-31] MEDS ORDERED: HYDR200T46 PO (12:49)
[2021-01-31] MEDS ORDERED: CARV25TA PO (12:49)
[2021-01-31] MEDS ORDERED: ALPR0.254 PO (12:49)
[2021-01-31] MEDS ORDERED: BETA1TAB15 PO (12:49)
[2021-01-31] MEDS ORDERED: GLUC1CAP37 PO (12:49)
[2021-01-31] MEDS ORDERED: SIMV10TA26 PO (12:49)
[2021-01-31] MEDS ORDERED: RIVA10TA PO (12:49)
[2021-01-31] MEDS ORDERED: ERGO400C PO (12:51)
--- NOTE | 2021-01-31 13:02 | PM&R Post Admission Assessment ---
PM&R Date of Visit: Jan 31, 2021 Time of Visit: 13:10 History of Present Illness Chief complaint: Debility from right distal femur fracture status post ORIF on 01/26/2021 at [place] History of present illness: This is an 85-year-old white female with a history of lymphoma and hypertension who presented to the inpatient rehab from [facility] status post right distal femur fracture repair. Currently it is braced and in need of aggressive rehab in order to return home to independent living. Her primary care provider is Dr. Palm. She just completed her lymphoma treatment 1 year ago. She lives at home with her for 60 years. I have reviewed her home medication and restarted everything. She denies any pain. She has not had a bowel movement for nearly a week but she does have a tendency for severe diarrhea. Prior level of functioning was independent without the use of assistive devices. 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) Alcohol Use: Denies Use Alcohol Beverage of Choice: Rum, Vodka Recreational Drug Use: No Smoking Status: Never a Smoker Former Smoker, Quit: Apr 27, 1960 2nd Hand Smoke Exposure: No Recent Hopitalizations: No Immunizations Up To Date Tetanus Booster (TDap): Unknown Seasonal Allergies Seasonal Allergies: No Past Medical History Surgeries: Appendectomy, Cardiac, Coronary Stent, Gallbladder, Hysterectomy, Orthopedic Cardiac: High Cholesterol, Hypertension 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: No Menopausal Musculoskeletal: Arthritis Cancer: Lymphoma Did You Recieve Any Treatments: Yes What Type of Treatment Did You: Chemotherapy Psychosocial: Anxiety, Depression History of Blood Disorders: No Family History No Pertinent Family Hx PM&R Allergy/Meds/Data Review Allergies Coded Allergies: No Known Drug Allergies (Verified , 06/26/08) Home Medications Scheduled Carvedilol (Carvedilol), 25 MG PO BID, (Reported) Cholecalciferol (Vitamin D3) (Vitamin D3), 10 MCG PO DAILY, (Reported) Cyanocobalamin (Vitamin B-12) (Vitamin B-12), 1,000 MCG PO DAILY, (Reported) Doxazosin Mesylate (Cardura), 1 MG PO BID, (Reported) Glucosa Kenyon 2Kcl/Chondroitin [place] (Glucosamine & Chondroitin Cap), 2 EACH PO BID, (Reported) Hydrochlorothiazide (Hydrochlorothiazide), 25 MG PO DAILY, (Reported) Hydroxychloroquine Sulfate (Hydroxychloroquine Sulfate), 300 MG PO DAILY, (Reported) Rivaroxaban (Xarelto), 10 MG PO DAILY, (Reported) Simvastatin (Simvastatin), 10 MG PO HS, (Reported) Spironolactone (Spironolactone), 25 MG PO DAILY, (Reported) Vit A/Vit C/Vit E/Zinc/Copper (Preservision Areds Tablet), 1 EACH PO BID, (Reported) Scheduled PRN ALPRAZolam (ALPRAZolam), 0.25 MG PO BID PRN for ANXIETY, (Reported) Diphenoxylate HCl/Atropine (Lomotil 2.5-0.025 mg Tablet), 1-2 EACH PO QID PRN for LOOSE STOOLS, (Reported) Hydrocodone/Acetaminophen (Hydrocodone-Acetamin 7.5-325), 1-2 EACH PO Q4H PRN for PAIN-MODERATE (5-7), (Reported) Discontinued Medications Alprazolam (Xanax), UD, (Reported) Discontinued Reason: No Longer Taking Carvedilol (Coreg), 12.5 MG PO BID, (Reported) Discontinued Reason: No Longer Taking Citalopram Hydrobromide (Celexa), 10 MG PO HS, (Reported) Discontinued Reason: No Longer Taking Clonidine (Catapres-TTS 2 Patch), 1 EACH TD Q7D, (Reported) Discontinued Reason: No Longer Taking Clonidine HCl (Clonidine HCl), 0.1 MG PO BID PRN for BLOOD PRESSURE Discontinued Reason: No Longer Taking Lisinopril/Hydrochlorothiazide (Lisinopril-Hctz 20-12.5 mg Tab), 1 TAB PO BID, (Reported) Discontinued Reason: No Longer Taking Simvastatin (Simvastatin), 1 TAB PO DAILY, (Reported) Discontinued Reason: Duplicate Order Vitamin D (Vitamin D3), 400 MCG PO DAILY, (Reported) Discontinued Reason: Prescription changed Current Medications Current Medications Reviewed Review of Systems Constitutional: see HPI Gastrointestinal: constipation Musculoskeletal: joint pain Psychiatric/Neurological: Anxiety, Depressed Physical Exam Physical Exam Vital Signs Capillary Refill : Height, Weight, BMI Height: 5'2.00" Weight: 144lbs. oz. 65.013047nj; 31.00 BMI Method:Stated General Appearance: No Apparent Distress, WD/WN, Chronically ill, Obese Eyes: Bilateral Eye Normal Inspection, Bilateral Eye PERRL HEENT: PERRL/EOMI, Normal ENT Inspection, Pharynx Normal Neck: Full Range of Motion, Normal Inspection, Non Tender, Supple, Carotid Bruit Respiratory: Chest Non Tender, Lungs Clear, Normal Breath Sounds, No Accessory Muscle Use, No Respiratory Distress Cardiovascular: Regular Rate, Rhythm, No Edema, No Gallop, No JVD, No Murmur, Normal Peripheral Pulses Gastrointestinal: Normal Bowel Sounds, No Organomegaly, No Pulsatile Mass, Non Tender, Soft Back: Normal Inspection, No CVA Tenderness, No Vertebral Tenderness Extremity: Normal Capillary Refill, Normal Inspection, Normal Range of Motion, Non Tender, No Calf Tenderness, No Pedal Edema Neurologic/Psychiatric: Alert, Oriented x3, Normal Mood/Affect, Abnormal Gait, Motor Weakness (Right leg due to brace) Skin: Normal Color, Warm/Dry Lymphatic: No Adenopathy PM&R Medical Assessment & Plan REHAB/MEDICAL ASSESSMENT AND PLAN: REHAB IMPAIRMENT GROUP: Right distal femur fracture ETIOLOGIC DIAGNOSIS: Right distal femur fracture The comorbidities that impact the patients function and/or functional outcome by: History of lymphoma, obesity, brace restricting movement of the right leg, fall risk REHAB PLAN: The patient is being admitted to our comprehensive inpatient rehabilitation facility and can tolerate the intensity of service consisting of at least: 180 minutes of therapy a day, 5 out of 7 days a week Rehab treatment will consist of: PT and OT will focus on regaining ambulatory skills while wearing brace on the right leg and focus on fall risk prevention and increase ADL independence in order to return home with The patient/family has a good understanding of our discharge process and will benefit from an interdisciplinary inpatient rehabilitation program. The patient has potential to make improvement and is in need of at least two of the following multidisciplinary therapies including but not limited to physical, occupational, speech, and prosthetics and orthotics. Additionally the patient will need services from respiratory, nutritional services, wound care, psychology, etc. (Customize this to each patient). Given the patients complex condition and risk of further medical complications, rehabilitation services cannot be safely or effectively provided at a lower level of care such as a jail facility. BARRIERS TO DISCHARGE: Brace restricted movement of the right leg ESTIMATED LOS: 7 days DISPOSITION: Home RELEVANT CHANGES SINCE PREADMISSION SCREENING: I have compared the patients medical and functional status at the time of the preadmission screening and there are: no changes PROGNOSIS: Good REHABILITATION GOALS: 1. PT and OT will focus on regaining ambulatory skills while wearing brace on the right leg and focus on fall risk prevention and increase ADL independence in order to return home with All the above goals were reviewed with the patient and he/she is in agreement. By signing this document, I acknowledge that I have personally performed a full physical examination on this patient within 24 hours of admission to this inpatient rehabilitation facility and have determined the patient to be able to tolerate the above course of treatment at an intensive level for a reasonable period of time. I will be completing a detailed individualized Plan of Care for this patient by day #4 of the patients stay based upon the Preadmission Screen, the Post-Admission Evaluation, and the therapy evaluations. Admission Dx/Comorbidities: (1) Femoral distal fracture Status: Acute ICD Codes: S72.409A - Unspecified fracture of lower end of unspecified femur, initial encounter for closed fracture (2) Lymphoma ICD Codes: C85.90 - Non-Hodgkin lymphoma, unspecified, unspecified site (3) Hyperlipidemia ICD Codes: E78.5 - Hyperlipidemia, unspecified (4) Diarrhea ICD Codes: R19.7 - Diarrhea, unspecified (5) Constipation ICD Codes: K59.00 - Constipation, unspecified (6) Anemia ICD Codes: D64.9 - Anemia, unspecified (7) Hypertension Status: Acute (8) Anxiety Status: Acute Assessment/Plan Assessment and Plan Assess & Plan/Chief Complaint Assessment: Right distal femoral fracture status post repair on 01/26/2021 History of lymphoma completed chemotherapy 1 year ago Hypertension Current constipation History of diarrhea Hyperlipidemia Anemia Plan: Pain control Regained bowel function Monitor closely Inpatient rehab protocol HAKEEM HARRY DO Jan 31, 2021 13:02
--- NOTE | 2021-01-31 13:12 | Occupational Therapy Eval ---
OT Evaluation-General/PLF Medical Diagnosis Admission Date Jan 31, 2021 at 12:57 Medical Diagnosis: R subcondylar femur fx Onset Date: January 25, 2021 Therapy Diagnosis Therapy Diagnosis: weakness, decreased ADL status Height/Weight Height (Feet): 5 Height (Inches): 2.00 Weight (Pounds): 144 Precautions Comments Knee immobilizer on at all times except in CPM Referral Physician: Justina Referral Reason: Evaluation/Treatment Medical History Pertinent Medical History: Arthritis, HTN Additional Medical History HLD, cardiac arrhythmia, lymphoma, port placement, OA, RA Current History fall in kitchen, distal femoral fx. s/p ORIF 01/26/2021. Transfer to [facility] for continued medication management and skilled therapy Social History Home: Single Level Current Living Status: Spouse Entry Into Home: Stairs With Railing Steps Into Home: 3 ADL-Prior Level of Function SCALE: Activities may be completed with or without assistive devices. 6-Aplfnpcjul-dsucmab completes the activity by him/herself with no assistance from a helper. 5-Set-up or Clean-up Assistance-helper sets up or cleans up; patient completes activity. [place] assists only prior to or following the activity. 4-Supervision or Touching Assistance-helper provides verbal cues and/or touching/steadying and/or contact guard assistance as patient completes activity. Assistance may be provided throughout the activity or intermittently. 3-Partial/Moderate Assistance-helper does LESS THAN HALF the effort. Granton lifts, holds or supports trunk or limbs, but provides less than half the effort. 2-Substantial/Maximal Assistance-helper does MORE THAN HALF the effort. [place] lifts or holds trunk or limbs and provides more than half the effort. 3-Umrbrlcyi-htvfve does ALL the effort. Patient does none of the effort to complete the activity. Or, the assistance of 2 or more helpers is required for the patient to complete the activity. If activity was not attempted, code reason: 7-Patient Refused. 9-Not Applicable-not attempted and the patient did not perform the activity bef ore the current illness, exacerbation or injury. 10-Not Attempted due to Environmental Limitations-(lack of equipment, weather r estraints, etc.). 88-Not Attempted due to Medical Conditions or Safety Concerns. ADL PLOF Comments Pt reports being independent with ADLs at PLOF, including cooking, cleaning, dressing, bathing, and toileting. She has a dog at home and was cooking dog food when she fell. She uses a walker as needed for functional mobility, and notices she has better balance and posture when using the walker. She has a tub/shower without a shower chair, although she has been using a folding chair in the bathtub to sit. Self Care: Independent Functional Cognition: Independent DME/Equipment: Tub/Shower DME/Equipment Comments walker OT Current Status Subjective Pt agreeable to OT evaluation and OT/PT cotreat. Reports 0/10 pain at rest. Mental Status/Objective Patient Orientation: Person, Place, Time, Situation Attachments: Knee Immobilizer Current Upper Extremity ROM WFL, BUE shoulder flexion to approx 150 degrees Upper Extremity Coordination decreased fine motor coordination due to arthritis, pt has difficulty opening containers and putting keturah pins in her hair. Upper Extremity Sensation WFL, pt denies tingling/numbness Upper Extremity Strength grossly 4/5 ADL-Treatment Eating (QC): 5 (Per pt report, set up assist to open containers) Oral Hygiene (QC): 7 Shower/Bathe Self (QC): 7 Upper Body Dressing (QC): 7 Lower Body Dressing (QC): 7 On/Off Footwear (QC): 7 Toileting Hygiene (QC): 7 Other Treatments OT educated pt on purpose and benefit of OT, she verbalized understanding. Pt provided information about PLOF and home set up, and participated in UE screen. PT eval complete. OT/PT cotreat due to skill of 2 clincians required which a rehabilitation services aide could not perform in order to coordinate UE/LEs, decrease fall risk, and due to pt's limitations in mobility, transfers, and pain with movements. OT focused on UE placement, cues for sequencing and safety and ADLs, PT focused on LE placement, gross overall movements, and transfers. Pt educated on ARU rehab process, she verbalized understanding. Pt transferred supine to sit EOB. NAVARRO took over tx, post tx, all needs met, PT and NAVARRO present. Education OT Patient Education: Correct positioning, Modified ADL techniques, Progress toward Goal/Update tx plan, Purpose of tx/functional activities, Rehab process, Transfer techniques Teaching Recipient: Patient Teaching Methods: Discussion Response to Teaching: Verbalize Understanding OT Short Term Goals Short Term Goals Time Frame: Feb 13, 2021 Toileting hygiene: 3 Shower/bathe self: 3 Upper body dressin Lower body dressin OT Tar Pot Worker Goals Tar Pot Worker Goals Time Frame: Mar 01, 2021 Eating (QC): 6 Oral Hygiene (QC): 6 Toileting Hygiene (QC): 4 Shower/Bathe Self (QC): 4 Upper Body Dressing (QC): 5 Lower Body Dressing (QC): 4 On/Off Footwear (QC): 5 Additional Goals: 1-Demonstrate ADL Tasks, 2-Verbalize Understanding, 3- ImproveStrength/Jose Angel 1=Demonstrate adherence to instructed precautions during ADL tasks. 2=Patient will verbalize/demonstrate understanding of assistive devices/modifications for ADL. 3=Patient will improve strength/tolerance for activity to enable patient to perform ADL's. OT Education/Plan Problem List/Assessment Assessment: Decreased Activ Tolerance, Decreased UE Strength, Impaired Funct Balance, Impaired I ADL's, Impaired Self-Care Skills Discharge Recommendations Plan/Recommendations: Continue POC Equpiment Recommendations-D/C: Extended Bath Bench, Hip Kit Treatment Plan/Plan of Care Patient would benefit from OT for education, treatment and training to promote independence in ADL's, mobility, safety and/or upper extremity function for ADL's. Plan of Care: ADL Retraining, Functional Mobility, Group Exercise/Act as Ind, UE Funct Exercise/Act Treatment Duration: Mar 01, 2021 Frequency: At least 5 of 7 days/Wk (IRF) Estimated Hrs Per Day: 1.5 hours per day Rehab Potential: Good Time/GCodes Start Time: 12:30 Stop Time: 13:05 Total Time Billed (hr/min): 25 Billed Treatment Time 2671-1962 OT eval, [id number] PT eval, [id number] OT/PT cotreat 1, EVM (10'), FA (15') POLO HERRING OT Jan 31, 2021 13:12
--- NOTE | 2021-01-31 14:15 | Physical Therapy Evaluation ---
PT Evaluation-General Medical Diagnosis Admission Date Jan 31, 2021 at 12:57 Medical Diagnosis: R subcondylar femur fx Onset Date: January 25, 2021 Therapy Diagnosis Therapy Diagnosis: impaired mobility, strength, endurance Height/Weight Height (Feet): 5 Height (Inches): 2.00 Weight (Pounds): 144 Weight Bear Status Right Lower Extremity: Right Non Weight Bearing Patient has a adjustable knee brace on the right side, locked into extension, she is to have this on at all times unless she is in her CPM, which is set to 45 degrees at this time. Referral Physician: Merry Horn DO Reason for Referral: Evaluation/Treatment Medical History Pertinent Medical History: Arthritis, HTN Reviewed History: Yes Social History Home: Single Level Current Living Status: Spouse Entry Into Home: Stairs With Railing PT Steps Into Home: 3 Prior Prior Level of Function SCALE: Activities may be completed with or without assistive devices. 5-Ddpgrbyzxp-ujdxvfs completes the activity by him/herself with no assistance from a helper. 5-Set-up or Clean-up Assistance-helper sets up or cleans up; patient completes activity. Pillow assists only prior to or following the activity. 4-Supervision or Touching Assistance-helper provides verbal cues and/or touching/steadying and/or contact guard assistance as patient completes activity. Assistance may be provided throughout the activity or intermittently. 3-Partial/Moderate Assistance-helper does LESS THAN HALF the effort. Pillow lifts, holds or supports trunk or limbs, but provides less than half the effort. 2-Substantial/Maximal Assistance-helper does MORE THAN HALF the effort. Pillow lifts or holds trunk or limbs and provides more than half the effort. 7-Dfbmmvgay-jzruyw does ALL the effort. Patient does none of the effort to complete the activity. Or, the assistance of 2 or more helpers is required for the patient to complete the activity. If activity was not attempted, code reason: 7-Patient Refused. 9-Not Applicable-not attempted and the patient did not perform the activity before the current illness, exacerbation or injury. 10-Not Attempted due to Environmental Limitations-(lack of equipment, weather restraints, etc.). 88-Not Attempted due to Medical Conditions or Safety Concerns. Bed Mobility: 6 Transfers (B,C,W/C): 6 Gait: 6 Stairs: 6 Indoor Mobility (Ambulation): Independent Stairs: Independent Prior Devices Use: Walker PT Evaluation-Current Subjective Patient in bed pre tx, agrees to PT, has no complaints of pain at rest. Pt/Family Goals to be independent at home Objective Patient Orientation: Person, Place, Situation Attachments: Knee Immobilizer ROM/Strength Strength Lower Extremities LLE (hip flexion 3/5, knee flexion 4/5, knee extension 4/5, dorsiflexion 5/5) Sensory Vision: Functional Hearing: Functional Sensation Right Lower Extremit: Intact Sensation Left Lower Extremity: Intact Transfers Roll Left & Right (QC): 6 Sit to Lying (QC): 3 Lying to Sitting/Side of Bed(Q: 3 Sit to Stand (QC): 3 Chair/Tsh-lx-Jgdyf Xfer(QC): 3 Toilet Transfer (QC): 3 Car Transfer (QC): 3 Patient performs bed mobility with independence, supine <-> sit and sit <-> stand and transfers with min assist, car transfer min assist. Patient has a lot of trouble pivoting on her left foot in order to perform a stand pivot transfer, needs assist for this, cues for hand placement and safety. Gait Does the Patient Walk?: Yes Mode of Locomotion: Walk Anticipated Mode of Locomotion: Walk Walk 10 feet (QC): 88 Walk 50 ft with 2 Turns(QC): 88 Walk 150 ft (QC): 88 Walking 10ft/uneven surface-QC: 88 Distance: 3' Gait Assistive Device: Parallel Bars Comments/Gait Description Patient ambulated 3' in the parallel bars with min assist, she has poor foot clearance on the left side but is compliant with her NWB on the right side. Wheelchair Training Does the Pt Use a Wheelchair?: Yes Distance: 150'x2 Wheel 50 ft with 2 turns (QC): 4 Wheel 150 ft (QC): 4 Type of Wheelchair: Manual very slow, several rest breaks each way Stairs 1 Step (curb) (QC): 88 4 Steps (QC): 88 12 Steps (QC): 88 Balance Sitting Static: Normal Sitting Dynamic: Normal Standing Static: Fair Standing Dynamic: Fair Picking up an Object (QC): 88 Treatment PT performed bed mobility and transfers, ambulation, WC mobility, standing and positioning and safety during bathing and dressing, donned CPM when done to specifications given, OT performed bathing and dressing and ADL's, UE positioning and safety during activity. Assessment/Needs Patient in bed post tx with nurse call, phone, tray, all needs met, CPM donned. Patient needs min assist with transfers, has a hard time pivoting on her left foot, needs assist for that. Rehab Potential: Fair PT Short Term Goals Short Term Goals Time Frame: Feb 07, 2021 Roll Left & Right: 6 Sit to lyin Lying to sitting on side of be: 4 Sit to stand: 4 Chair/son-yb-egeaf transfer: 4 Walk 10 feet: 4 PT Longterm Goals Longterm Goals PT Longterm Goals Time Frame: Feb 21, 2021 Roll Left & Right (QC): 6 Sit to Lying (QC): 6 Lying-Sitting on Side/Bed(QC): 6 Sit to Stand (QC): 4 (SBA) Chair/Bqx-rz-Cltjy Xfer(QC): 4 (SBA) Toilet Transfer (QC): 4 (SBA) Car Transfer (QC): 4 (SBA) Does the Patient Walk: Yes Walk 10 feet (QC): 4 (SBA) Walk 50ft with 2 Turns (QC): 88 Walk 150 ft (QC): 88 Walking 10ft on Uneven Surface: 88 1 Step (curb) (QC): 88 4 Steps (QC): 88 12 Steps (QC): 88 Picking up an Object (QC): 4 Wheel 50 feet with 2 turns (QC: 5 Wheel 150 feet: 5 PT Plan Problem List Problem List: Activity Tolerance, Functional Strength, Safety, Balance, Gait, Transfer, Bed Mobility, ROM Treatment/Plan Treatment Plan: Continue Plan of Care Treatment Plan: Bed Mobility, Education, Functional Activity Jose Angel, Functional Strength, Group Therapy, Gait, Safety, Therapeutic Exercise, Transfers Treatment Duration: Feb 21, 2021 Frequency: At least 5 of 7 days/Wk (IRF) Estimated Hrs Per Day: 1.5 hours per day Patient and/or Family Agrees t: Yes Safety Risks/Education Patient Education: Gait Training, Transfer Techniques, Reviewed Precautions, Correct Positioning, W/C Management, Reviewed Don/Doff Brace, Safety Issues Teaching Recipient: Patient Teaching Methods: Demonstration, Discussion Response to Teaching: Reinforcement Needed Discharge Recommendations Plan Patient will perform bed mobility and transfer training, balance and endurance training, functional strengthening, stair training, gait training, and education, to improve functional mobility and independence at home. Therapy Discharge Recommendati: Scheduled Assistance, Home & Family, Post Acute PT Time/GCodes Time In: 1240 Time Out: 1410 Total Billed Treatment Time: 90 Total Billed Treatment 1 visit EVM 10' FA 80' PT eval from [id number], co-treat with OT from [id number] VENKAT CEVALLOS PT Jan 31, 2021 14:14
--- NOTE | 2021-01-31 14:23 | Occupational Ther Daily Note ---
OT Current Status-Daily Note Subjective Pt alert, sitting on EOB. Pt agrees to therapy. Took over care from OTR/L. No c/o pain at this time. Co-treat with PT for skilled care and instruction due to increased fall risk, NWB status, fatigue and decreased mobility. Mental Status/Objective Patient Orientation: Person, Place, Time, Situation Attachments: IV, Other-See Comments (knee brace) ADL-Treatment Sitting at sink, pt completes oral care independently. Pt agrees to sponge bath. Pt transferred onto [facility] with mod A using FWW. Pt then completed upper body and L LE except foot bathing. Assist for marcellus area, buttocks and L foot. R LE in brace unable to wash at this time. After set up, pt able to don/doff upper body clothing by self. Pt requires assist to don/doff lower body clothing and footwear, max A. Pt able to stand and balance self with FWW, minimal reminders for NWB of R LE. Pt requires assist to manipulate clothing and cleanse self after voiding. Pt will need AE for lower body dressing. Therapy Code Descriptions/Definitions Functional [place] Measure: 0=Not Assessed/NA 4=Minimal Assistance 1=Total Assistance 5=Supervision or Setup 2=Maximal Assistance 6=Modified [place] 3=Moderate Assistance 7=Complete IndependenceSCALE: Activities may be completed with or without assistive devices. 9-Vcbvxhklcj-nramxdn completes the activity by him/herself with no assistance from a helper. 5-Set-up or Clean-up Assistance-helper sets up or cleans up; patient completes activity. [place] assists only prior to or following the activity. 4-Supervision or Touching Assistance-helper provides verbal cues and/or touching/steadying and/or contact guard assistance as patient completes activity. Assistance may be provided throughout the activity or intermittently. 3-Partial/Moderate Assistance-helper does LESS THAN HALF the effort. [place] lifts, holds or supports trunk or limbs, but provides less than half the effort. 2-Substantial/Maximal Assistance-helper does MORE THAN HALF the effort. [place] lifts or holds trunk or limbs and provides more than half the effort. 4-Sukwetimp-aivswd does ALL the effort. Patient does none of the effort to complete the activity. Or, the assistance of 2 or more helpers is required for the patient to complete the activity. If activity was not attempted, code reason: 7-Patient Refused. 9-Not Applicable-not attempted and the patient did not perform the activity before the current illness, exacerbation or injury. 10-Not Attempted due to Environmental Limitations-(lack of equipment, weather restraints, etc.). 88-Not Attempted due to Medical Conditions or Safety Concerns. Oral Hygiene (QC): 6 Shower/Bathe Self (QC): 2 Upper Body Dressing (QC): 5 Lower Body Dressing (QC): 2 On/Off Footwear: 2 Toileting Hygiene (QC): 2 Toilet Transfer (QC): 3 Other Treatment See PT notes for pt's mobility, transfers and ambulation. After session, pt lying in bed with call light/phone in reach. CPM placed by PT. All needs met in room. OT Short Term Goals Short Term Goals Time Frame: Feb 13, 2021 Toileting hygiene: 3 Shower/bathe self: 3 Upper body dressin Lower body dressin OT Residential Goals Family Engagement Specialist Goals Time Frame: Mar 01, 2021 Eating (QC): 6 Oral Hygiene (QC): 6 Toileting Hygiene (QC): 4 Shower/Bathe Self (QC): 4 Upper Body Dressing (QC): 5 Lower Body Dressing (QC): 4 On/Off Footwear (QC): 5 Additional Goals: 1-Demonstrate ADL Tasks, 2-Verbalize Understanding, 3-ImproveStrength/Jose Angel 1=Demonstrate adherence to instructed precautions during ADL tasks. 2=Patient will verbalize/demonstrate understanding of assistive devices/modifications for ADL. 3=Patient will improve strength/tolerance for activity to enable patient to perform ADL's. OT Education/Plan Problem List/Assessment Assessment: Decreased Activ Tolerance, Decreased UE Strength, Impaired Bed Mobility, Impaired Funct Balance, Impaired I ADL's, Impaired Self-Care Skills Discharge Recommendations Plan/Recommendations: Continue POC Treatment Plan/Plan of Care Patient would benefit from OT for education, treatment and training to promote independence in ADL's, mobility, safety and/or upper extremity function for ADL's. Plan of Care: ADL Retraining, Functional Mobility, Group Exercise/Act as Ind, UE Funct Exercise/Act Treatment Duration: Mar 01, 2021 Frequency: At least 5 of 7 days/Wk (IRF) Estimated Hrs Per Day: 1.5 hours per day Rehab Potential: Good Time/GCodes Start Time: 13:05 Stop Time: 14:10 Total Time Billed (hr/min): 65 Billed Treatment Time 1 visit-FA 2 (30 min) ADL 2 (35 min) co-treat with PT [id number] MEREDITH HERNANDEZ Jan 31, 2021 14:23
[2021-01-31] MEDS ORDERED: RX-DIPHENO./ATROP. 2.5/0.25 MG (LOMOTIL) TAB PPK#4 PO PRN (18:15)
[2021-01-31] MEDS ORDERED: HYDROcodone/APAP 7.5 MG/325 MG (LORTAB, LORCET PLUS) TABLET PO PRN (18:15)
[2021-01-31] MEDS ORDERED: DIPHENOXYLATE/ATROPINE 2.5MG/0.025MG (LOMOTIL) TAB PO PRN (18:45)
[2021-01-31 20:38] VITALS: BP 122/56
[2021-01-31] MEDS: SIMvastatin 10 MG (ZOCOR) TAB PO SCH (20:41)
[2021-01-31] MEDS: doxAzosin 1 MG (CARDURA) TAB PO SCH (20:42)
[2021-01-31] MEDS ORDERED: NON-FORMULARY MEDICATION 1 EA EA (Carvedilol 25 MG) PO SCH (21:00)
[2021-01-31] MEDS: DOCUSATE SODIUM 100 MG (COLACE) CAP PO SCH ×2 (21:46→21:47)
[2021-01-31] MEDS: polyethylene glycoL POWDER 17 GM (MIRALAX) PACK PO SCH ×3 (21:46→21:48)
[2021-01-31] MEDS: SENNA W/DOCUSATE (SENOKOT S) TABLET PO SCH ×3 (21:46→21:48)
[2021-02-01] MEDS: CYANOCOBALAMIN 1,000 MCG (VITAMIN B-12) TABLET PO SCH (06:19)
[2021-02-01 06:38] LABS: BASOPHILS % (AUTO) 1 % (0-10); EOSINOPHILS # (AUTO) 0.1 10^3/uL (0.0-0.3); EOSINOPHILS % (AUTO) 2 % (0-10); HEMATOCRIT 34 % (35-52); HEMOGLOBIN 11.1 g/dL (11.5-16.0); LYMPHOCYTES # (AUTO) 2.1 10^3/uL (1.0-4.0); LYMPHOCYTES % (AUTO) 28 % (12-44); MEAN CORPUSCULAR HEMOGLOBIN 30 pg (25-34); MEAN CORPUSCULAR HGB CONC 33 g/dL (32-36); MEAN CORPUSCULAR VOLUME 93 fL (80-99); MEAN PLATELET VOLUME 10.2 fL (9.0-12.2); MONOCYTES # (AUTO) 0.7 10^3/uL (0.0-1.0); MONOCYTES % (AUTO) 10 % (0-12); NEUTROPHILS # (AUTO) 4.5 10^3/uL (1.8-7.8); NEUTROPHILS % (AUTO) 60 % (42-75); PLATELET COUNT 176 10^3/uL (130-400); WHITE BLOOD COUNT 7.5 10^3/uL (4.3-11.0)
--- NOTE | 2021-02-01 06:43 | Individualized Plan of Care ---
Individualized Plan of Care Rehab Nursing IPOC Order Admission Date Jan 31, 2021 at 12:57 Current Orders Orders Admission Order(Inpt,Obs,Sdc) (01/30/21 13:08) Vital Signs: Per Unit Policy ( ,00 (01/30/21 13:08) Yoseph Yanez (01/30/21 13:08) Sequential Compression Device .admit (01/30/21 13:08) Contract Recruiter-Inpt Rehab Con (01/30/21 13:08) Rehab Nursing Orders-Ipoc (01/30/21 13:08) Physical Therapy Rehab Orders (01/30/21 13:08) Occupational Therapy Rehab Ord (01/30/21 13:08) Speech Therapy Rehab Orders (01/30/21 13:08) Precautions (Aru) (01/30/21 13:08) Rehab-Intensity Of Therapy (01/30/21 13:08) Initiate Admission Nursing Pro .admission (01/30/21 13:08) Acetaminophen Tablet/Caplet (Tylenol T (01/30/21 13:15) Alprazolam Tablet (Xanax Tablet) (01/30/21 13:15) Calcium Carbonate Chew Tablet (Antacid C (01/30/21 13:15) Diphenhydramine Tablet (Benadryl Tablet) (01/30/21 13:15) Docusate Sodium Capsule (Colace Capsule) (01/30/21 21:00) Docusate Sodium Capsule (Colace Capsule) (01/30/21 13:15) Bisacodyl Suppository (Dulcolax Supposit (01/30/21 13:15) Lactulose Oral Solution (Enulose Oral So (01/30/21 13:15) Na Phos/Na Biphos Enema (Fleet Enema Bradly (01/30/21 13:15) Guaifenesin/Codeine Syrup (Robitussin Ac (01/30/21 13:15) Loperamide Tablet (Imodium Tablet) (01/30/21 13:15) Melatonin Tablet (Melatonin Tablet) (01/30/21 13:15) Polyethylene Glycol Powder Pkt (Miralax (01/30/21 21:00) Ondansetron Oral Dissolve Tab (Zofran (01/30/21 13:15) Senna S Tablet (Senokot S Tablet) (01/30/21 21:00) Initiate Admission Nursing Pro .admission (01/30/21 13:08) Admission Arrival Bed Request (01/31/21 12:39) Patient Visit (01/31/21 ) Pt Eval Moderate Complexity (01/31/21 ) Functional Activities, Ea 15 (01/31/21 ) General/Regular (01/31/21 Dinner) Alprazolam Tablet (Xanax Tablet) (01/31/21 18:15) Rx-Diphenoxylate/Atropine (Rx-Lomotil 2. (01/31/21 18:15) Doxazosin Tablet (Cardura Tablet) (01/31/21 21:00) Hydrochlorothiazide Cap/Tablet (Hctz Cap (02/01/21 09:00) Hydrocodone/Apap 7.5/325 Tab (Lortab 7. (01/31/21 18:15) Hydroxychloroquine Sulfate (Plaquenil) (02/01/21 09:00) Rivaroxaban Tablet (Xarelto Tablet) (02/01/21 09:00) Simvastatin Tablet (Zocor Tablet) (01/31/21 21:00) Spironolactone Tablet (Aldactone Tablet) (02/01/21 09:00) (Nf) Carvedilol (01/31/21 21:00) (Nf) Cholecalciferol (Vitamin D3) (Vitam (02/01/21 09:00) (Nf) Cyanocobalamin (Vitamin B-12) (Maria T (02/01/21 09:00) (Nf) Glucosa Kenyon 2kcl/Chondroitin Kenyon (Glu (01/31/21 21:00) Cbc With Automated Diff (02/01/21 06:00) Comprehensive Metabolic Panel (02/01/21 06:00) Carvedilol Tablet (Coreg Tablet) (01/31/21 21:00) Cyanocobalamin Tablet (Vitamin B-12 Tabl (02/01/21 07:00) Cholecalciferol Capsule/Tablet (Vitamin (02/01/21 09:00) Diphenoxylate/Atropine Tablet (Lomotil T (01/31/21 18:45) Dressing Order (Intervention) UD (01/31/21 18:40) Staple/Suture Removal (02/07/21 09:00) Therapeutic Multivitamin Tab (Vitamins, (02/01/21 07:00) Patient Visit (02/01/21 ) Functional Activities, Ea 15 (02/01/21 ) Wheelchair Mgmt/Propulsn 15min (02/01/21 ) Patient Visit (02/01/21 ) Patient Visit (02/01/21 ) Speech Sound Lang Comp (02/01/21 ) Treat. Speech/Lang/Voice (02/01/21 ) Diclofenac 1% Gel (Voltaren 1% Gel) (02/01/21 17:00) Rehab Nursing Orders: Ongoing Assess. of Cognitive Status, Ongoing Assess. of Function Status, Bladder Management, Bladder Scan, Bladder Training, Bowel Management, Bowel Training, Disease Management & Educaiton, DVT Prophylaxis, Fall Prevention, Fluid/Electrolyte/Nutrition Mgmt, Infection Prevention, Medication Management & Education, Management of Risks & Complications, Nutrition Management, Pain Management, Patient/Family Support, Safety Management, Weight Bearing Precaution, Wound Management Intensity of Therapy to be met Patient to be seen: Min.3h per day/5 of 7d PT IPOC Problem List: Activity Tolerance, Functional Strength, Safety, Balance, Gait, Transfer, Bed Mobility, ROM Treatment Plan: Continue Plan of Care Bed Mobility, Education, Functional Activity Jose Angel, Functional Strength, Group Therapy, Gait, Safety, Therapeutic Exercise, Transfers Treatment Duration: Feb 21, 2021 Frequency: At least 5 of 7 days/Wk (IRF) Estimated Hrs Per Day: 1.5 hours per day OT IPOC Problems: Decreased Activ Tolerance, Decreased UE Strength, Impaired Bed Mobility, Impaired Funct Balance, Impaired I ADL's, Impaired Self-Care Skills OT Treatment, Training and Edu: Yes Plan of Care: ADL Retraining, Functional Mobility, Group Exercise/Act as Ind, UE Funct Exercise/Act Treatment Duration: Mar 01, 2021 Frequency: At least 5 of 7 days/Wk (IRF) Estimated Hrs Per Day: 1.[address] IPOC Speech Therapy Treatment Plan: Discontinue ST Treatment Duration: Feb 01, 2021 Frequency: Modified Program (IRF) Estimated Hrs Per Day: Other Contract Recruiter/Case Mgmt Contract Recruiter/Case Managemen: Discharge Planning Dietitian/Shipping/Receiving Manager Dietitian/Shipping/Receiving Manager to monitor nutritional status and make changes and/or recommendations as needed and work with speech pathology on dietary upgrades as the occur. Physician IPOC Medical Issues being managed closely and that require the 24 hour availability of a physician: Recent severe injury with distal femur fracture with history of lymphoma and anemia will require close monitoring for any decompensation Medical Issues: Bowel/Bladder Function, DVT Prophylaxis, Falls Precautions, Fluid/Electrolyte/Nutrition Balance, Infection Protection, Pain Management, Weight Bearing Precautions, Wound Care Brief Synthesis of Preadmission Screen, Post-Admission Evaluation, and Therapy Evaluations: PT and OT will help with ambulatory skills with fall risk prevention in addition to increase ADL independence in order to return home to live with her independently Medical Prognosis: Good Anticipated Length of Stay: 10 days HAKEEM HARRY DO Feb 01, 2021 06:43
--- NOTE | 2021-02-01 06:43 | PM&R Progress Note ---
Subjective HPI/CC On Admission Date Seen by Provider: Feb 01, 2021 Time Seen by Provider: 11:30 Subjective/Events-last exam 02/01/2021: Patient doing really well Pain is much improved Needs moderate assistance during transfers Increasing independence with ADLs No bowel movement yet but given gentle laxatives since she is tends to be at high risk for severe diarrhea Review of Systems General: Fatigue Gastrointestinal: Constipation Musculoskeletal: leg pain Objective Exam Vital Signs Vital Signs Date Time Temp Pulse Resp B/P (MAP) Pulse Ox O2 Delivery O2 Flow Rate FiO2 02/01/21 21:40 94 Room Air 02/01/21 21:25 74 18 121/56 (77) 02/01/21 20:00 36.2 Capillary Refill : General Appearance: No Apparent Distress, WD/WN, Chronically ill, Obese HEENT: PERRL/EOMI, Normal ENT Inspection, Pharynx Normal Neck: Full Range of Motion, Normal Inspection, Non Tender, Supple, Carotid Bruit Respiratory: Chest Non Tender, Lungs Clear, Normal Breath Sounds, No Accessory Muscle Use, No Respiratory Distress Cardiovascular: Regular Rate, Rhythm, No Edema, No Gallop, No JVD, No Murmur, Normal Peripheral Pulses Gastrointestinal: Normal Bowel Sounds, No Organomegaly, No Pulsatile Mass, Non Tender, Soft Back: Normal Inspection, No CVA Tenderness, No Vertebral Tenderness Extremity: Normal Capillary Refill, Normal Inspection, Normal Range of Motion, Non Tender, No Calf Tenderness, No Pedal Edema Neurologic/Psychiatric: Alert, Oriented x3, Normal Mood/Affect, Abnormal Gait, Motor Weakness (Right leg due to brace) Skin: Normal Color, Warm/Dry Lymphatic: No Adenopathy Results/Procedures Lab Laboratory Tests 02/01/21 06:30 Patient resulted labs reviewed. FIM Transfers Therapy Code Descriptions/Definitions Functional [place] Measure: 0=Not Assessed/NA 4=Minimal Assistance 1=Total Assistance 5=Supervision or Setup 2=Maximal Assistance 6=Modified [place] 3=Moderate Assistance 7=Complete IndependenceSCALE: Activities may be completed with or without assistive devices. 4-Tgojnuobnm-vookvfg completes the activity by him/herself with no assistance from a helper. 5-Set-up or Clean-up Assistance-helper sets up or cleans up; patient completes activity. [place] assists only prior to or following the activity. 4-Supervision or Touching Assistance-helper provides verbal cues and/or touching/steadying and/or contact guard assistance as patient completes activity. Assistance may be provided throughout the activity or intermittently. 3-Partial/Moderate Assistance-helper does LESS THAN HALF the effort. Pine lifts, holds or supports trunk or limbs, but provides less than half the effort. 2-Substantial/Maximal Assistance-helper does MORE THAN HALF the effort. [place] lifts or holds trunk or limbs and provides more than half the effort. 3-Ykmzflpib-xrtmqc does ALL the effort. Patient does none of the effort to complete the activity. Or, the assistance of 2 or more helpers is required for the patient to complete the activity. If activity was not attempted, code reason: 7-Patient Refused. 9-Not Applicable-not attempted and the patient did not perform the activity before the current illness, exacerbation or injury. 10-Not Attempted due to Environmental Limitations-(lack of equipment, weather restraints, etc.). 88-Not Attempted due to Medical Conditions or Safety Concerns. Roll Left to Right (QC): 6 Sit to Lying (QC): 3 Sit to Stand (QC): 3 Chair/Qkp-gl-Mgdnp Xfer(QC): 3 Car Transfer (QC): 3 Gait Training Does the Patient Walk?: Yes Walk 10 feet (QC): 88 Walk 50 ft with 2 Turns(QC): 88 Walk 150 ft (QC): 88 Walking 10ft/uneven surface-QC: 88 Gait Assistive Device: Parallel Bars Wheelchair Training Does the Pt Use a Wheelchair?: Yes Distance: 150'x2 Wheel 50 ft with 2 turns (QC): 4 Wheel 150 ft (QC): 4 Type of Wheelchair: Manual Stair Training 1 Step (curb) (QC): 88 4 Steps (QC): 88 12 Steps (QC): 88 Balance Picking up an Object (QC): 88 ADL-Treatment Eating (QC): 5 (Per pt report, set up assist to open containers) Oral Hygiene (QC): 6 Shower/Bathe Self (QC): 2 Upper Body Dressing (QC): 5 Lower Body Dressing (QC): 2 On/Off Footwear (QC): 2 Toileting Hygiene (QC): 2 Toilet Transfer (QC): 3 Assessment/Plan Assessment and Plan Assess & Plan/Chief Complaint Assessment: Right distal femoral fracture status post repair on 01/26/2021 History of lymphoma completed chemotherapy 1 year ago Hypertension Current constipation History of diarrhea Hyperlipidemia Anemia Plan: Pain control Regained bowel function Monitor closely Inpatient rehab protocol 02/01/2021: Bowel regimen to intensify Pain control Monitor closely (1) Femoral distal fracture Status: Acute (2) Lymphoma (3) Hyperlipidemia (4) Diarrhea (5) Constipation (6) Anemia (7) Hypertension Status: Acute (8) Anxiety Status: Acute HAKEEM HARRY DO Feb 01, 2021 06:43
[2021-02-01 06:50] LABS: ALBUMIN 3.7 GM/DL (3.2-4.5); POTASSIUM 4.4 MMOL/L (3.6-5.0)
[2021-02-01 06:53] LABS: TOTAL PROTEIN 6.3 GM/DL (6.4-8.2)
[2021-02-01 06:55] LABS: BILIRUBIN,TOTAL 0.8 MG/DL (0.1-1.0)
[2021-02-01 06:56] LABS: CREATININE SERUM 1.05 MG/DL (0.60-1.30)
[2021-02-01] MEDS: MULTIVIT W/MINERALS TAB (THERAGRAN M) PO SCH (07:04)
[2021-02-01 08:00] VITALS: BP 109/53
[2021-02-01] MEDS: HYDROXYCHLOROQUINE 200 MG (PLAQUENIL) TAB PO SCH (08:28)
[2021-02-01] MEDS: RIVAROXABAN 10 MG TABLET (XARELTO) PO SCH (08:29)
[2021-02-01] MEDS: VITAMIN D3 10 MCG (400 UNITS) TABLET PO SCH (08:30)
[2021-02-01] MEDS: SENNA W/DOCUSATE (SENOKOT S) TABLET PO SCH ×2 (08:30→21:39)
[2021-02-01] MEDS: DOCUSATE SODIUM 100 MG (COLACE) CAP PO SCH ×2 (08:30→21:38)
[2021-02-01] MEDS: polyethylene glycoL POWDER 17 GM (MIRALAX) PACK PO SCH ×2 (08:31→21:38)
[2021-02-01] MEDS: SPIRONOLACTONE 25 MG (ALDACTONE) TAB PO SCH (08:33)
[2021-02-01] MEDS: doxAzosin 1 MG (CARDURA) TAB PO SCH ×2 (08:33→21:38)
[2021-02-01] MEDS ORDERED: NON-FORMULARY MEDICATION 1 EA EA (Cyanocobalamin (Vitamin B-12) (Vitamin B-12) 1,000 MCG) PO SCH (09:00)
[2021-02-01] MEDS ORDERED: NON-FORMULARY MEDICATION 1 EA EA (Cholecalciferol (Vitamin D3) (Vitamin D3) 10 MCG) PO SCH (09:00)
--- NOTE | 2021-02-01 09:36 | Occupational Ther Daily Note ---
OT Current Status-Daily Note Subjective Pt alert, lying in bed. Pt agrees to therapy. No c/o pain at this time. Mental Status/Objective Patient Orientation: Person, Place, Time, Situation Attachments: Other-See Comments (knee brace, CPM when brace off in bed) ADL-Treatment Pt declines showering or changing clothing. Pt given AE for lower body dressing for use while on ARU. Pt demonstrated understanding of using dressing stick to doff socks and sock aide to don WILLIAMS hose/socks. Pt agrees to complete oral care sitting at sink, independently. Pt requested to use bathroom. BSC placed over toilet to increase height and arms to push up from. Min A to SPT from w/c using grabbars. Assist to manipulate clothing. Pt was able to reach areas to cleanse, assist to be thoroughly clean. Min A for supine <--> EOB. CGA to min A for sit to stand. Min A to mod A for SPT using FWW, pt is off balance at times during transfer but with breaks to regain balance and slow transitions pt able to complete safely. After therapy, pt lying in bed with call light/phone in reach. CPM placed 0930. in room. Therapy Code Descriptions/Definitions Functional Jerome Measure: 0=Not Assessed/NA 4=Minimal Assistance 1=Total Assistance 5=Supervision or Setup 2=Maximal Assistance 6=Modified Jerome 3=Moderate Assistance 7=Complete IndependenceSCALE: Activities may be completed with or without assistive devices. 1-Tjjkqsaxeg-npjscfk completes the activity by him/herself with no assistance from a helper. 5-Set-up or Clean-up Assistance-helper sets up or cleans up; patient completes activity. [place] assists only prior to or following the activity. 4-Supervision or Touching Assistance-helper provides verbal cues and/or touching/steadying and/or contact guard assistance as patient completes activity. Assistance may be provided throughout the activity or intermittently. 3-Partial/Moderate Assistance-helper does LESS THAN HALF the effort. [place] lifts, holds or supports trunk or limbs, but provides less than half the effort. 2-Substantial/Maximal Assistance-helper does MORE THAN HALF the effort. [place] lifts or holds trunk or limbs and provides more than half the effort. 6-Vyihledxb-giyavt does ALL the effort. Patient does none of the effort to complete the activity. Or, the assistance of 2 or more helpers is required for the patient to complete the activity. If activity was not attempted, code reason: 7-Patient Refused. 9-Not Applicable-not attempted and the patient did not perform the activity before the current illness, exacerbation or injury. 10-Not Attempted due to Environmental Limitations-(lack of equipment, weather restraints, etc.). 88-Not Attempted due to Medical Conditions or Safety Concerns. Oral Hygiene (QC): 6 Toileting Hygiene (QC): 3 Toilet Transfer (QC): 3 Other Treatment Pt given medium resistance theraband and HEP for B UE strengthening. Skilled instruction for correct technique and modifications when necessary. 2 sets 10 reps of 6 exercises with recovery break between sets. 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 OT Short Term Goals Short Term Goals Time Frame: Feb 13, 2021 Toileting hygiene: 3 Shower/bathe self: 3 Upper body dressin Lower body dressin OT Long-Term Goals Strategic Planning Director Goals Time Frame: Mar 01, 2021 Eating (QC): 6 Oral Hygiene (QC): 6 Toileting Hygiene (QC): 4 Shower/Bathe Self (QC): 4 Upper Body Dressing (QC): 5 Lower Body Dressing (QC): 4 On/Off Footwear (QC): 5 Additional Goals: 1-Demonstrate ADL Tasks, 2-Verbalize Understanding, 3-Impr oveStrength/Jose Angel 1=Demonstrate adherence to instructed precautions during ADL tasks. 2=Patient will verbalize/demonstrate understanding of assistive devices/modifications for ADL. 3=Patient will improve strength/tolerance for activity to enable patient to perform ADL's. OT Education/Plan Problem List/Assessment Assessment: Decreased UE Strength, Impaired Bed Mobility, Impaired Funct Balance, Impaired Self-Care Skills Discharge Recommendations Plan/Recommendations: Continue POC Treatment Plan/Plan of Care Patient would benefit from OT for education, treatment and training to promote independence in ADL's, mobility, safety and/or upper extremity function for ADL's. Plan of Care: ADL Retraining, Functional Mobility, Group Exercise/Act as Ind, UE Funct Exercise/Act Treatment Duration: Mar 01, 2021 Frequency: At least 5 of 7 days/Wk (IRF) Estimated Hrs Per Day: 1.5 hours per day Rehab Potential: Fair Time/GCodes Start Time: 08:15 Stop Time: 09:30 Total Time Billed (hr/min): 75 Billed Treatment Time 1 visit-ADL 4 (60 min) EX 1 (15 min) MEREDITH HERNANDEZ Feb 01, 2021 09:36
--- NOTE | 2021-02-01 09:58 | ST Cognitive Linguistic Eval ---
Speech Evaluation-General Medical Diagnosis R subcondylar femur fx Onset Date: January 25, 2021 Therapy Diagnosis Therapy Diagnosis: Cognitive-communication Referral Referring Physician: DR. Horn Medical History Pertinent Medical History: Arthritis, HTN Reviewed History: Yes Social History Current Living Status: Spouse Speech PLF-Current Status Prior Level of Function Patient lives in her own home with her where she was independent for most of her daily needs. Subjective Patient was pleasant and cooperative with the cognitive assessment. Language Eval: Auditory Comprehends Simple Yes/No Ques: Functional Indent/Objects Multiple Rubio: Functional Ident/Pics in Multiple Rubio: Functional Follows 1-Step Commands: Functional Follows Complex Directions: Functional Follows General Conversations: Functional Language Eval: Verbal Language Completes Spontaneous Greeting: Functional Produces Auto, Serial Info: Functional Imitates Simple Words/Phrases: Functional Word Finding: Functional Requests Basic Needs: Functional States Basic Personal Info: Functional Expresses Complex Ideas: Functional Objective Cognitive Domain Attention: WNL Memory: WNL Problem Solving: Functional Executive Functions: WNL Visuospatial Skills: WNL Composite Severity Rating: WNL Clock Drawing Severity Rating: WNL Objective Formal/Standardized Tests [facility] Mental Status ([facility]) Results 28/30, within normal range of function Oral Motor/Speech Production Within Normal Limits Impression Patient is pleasant 85 y/o female who was admitted to the ARU s/p right condylar femur fracture. Patient was given the SLUMS with a score of 27/30 obtained. This score is within normal range of function and does not indicate the need for further ST services. Speech Patient Assess Expression of Ideas/Wants: Expression (4) Understanding Verbal Content: Understands (4) Brief Interview-Mental Status: Yes Repetition of Three Words: Three (3) Temporal Orientation: Year: Correct (3) Temporal Orientation: Month: Accurate within 5 days(2) Temporal Orientation: Day: Correct (1) Recall : Wear to say "Sock": Yes, no cue required (2) Recall : Color: Yes, no cue required (2) Recall : Bed: Yes, no cue required (2) Memory/Recall Ability: Current season, That he or she is in a hsp/hsp unit Speech-Plan Patient/Family Goals Patient/Family Goals: Patient plans on returning home where she lives with her . Treatment Plan Speech Therapy Treatment Plan: Discontinue ST Treatment Duration: Feb 01, 2021 Frequency: 1 time per week Estimated Hrs Per Day: .5 hour per day Rehab Potential: Fair Barriers to Learning: None identified Pt/Family Agrees to Plan: Yes Safety Risks/Education Teaching Recipient: Patient Teaching Methods: Discussion Response to Teaching: Verbalize Understanding Education Topics Provided: Safety within her room, communication of wants/needs Time Speech Therapy Time In: 10:00 Speech Therapy Time Out: 10:30 Total Billed Time: 30 Billed Treatment Time 1, LURDES POLLACK [facility] 09[facility]58
--- NOTE | 2021-02-01 12:15 | Physical Therapy Daily Note ---
PT Daily Note-Current Subjective Agreeable to PT. ;No complaints. Mental Status Patient Orientation: Person, Place, Time, Situation Knee brace on prior to getting out of bed. Transfers SCALE: Activities may be completed with or without assistive devices. 4-Hmvucdsoqn-xvslqfv completes the activity by him/herself with no assistance from a helper. 5-Set-up or Clean-up Assistance-helper sets up or cleans up; patient completes activity. Russell assists only prior to or following the activity. 4-Supervision or Touching Assistance-helper provides verbal cues and/or touching/steadying and/or contact guard assistance as patient completes activity. Assistance may be provided throughout the activity or intermittently. 3-Partial/Moderate Assistance-helper does LESS THAN HALF the effort. Russell lifts, holds or supports trunk or limbs, but provides less than half the effort. 2-Substantial/Maximal Assistance-helper does MORE THAN HALF the effort. Russell lifts or holds trunk or limbs and provides more than half the effort. 4-Pyvgweegy-wyeqfh does ALL the effort. Patient does none of the effort to complete the activity. Or, the assistance of 2 or more helpers is required for the patient to complete the activity. If activity was not attempted, code reason: 7-Patient Refused. 9-Not Applicable-not attempted and the patient did not perform the activity before the current illness, exacerbation or injury. 10-Not Attempted due to Environmental Limitations-(lack of equipment, weather restraints, etc.). 88-Not Attempted due to Medical Conditions or Safety Concerns. Sit to Lying (QC): 3 Lying to Sitting/Side of Bed(Q: 3 Sit to Stand (QC): 3 Chair/Ywn-gf-Yjcst Xfer(QC): 3 SPT x 2 with FWW with min assist; SPT x 6 in // bars with CGA. Pt able to maintain NWB status right. Weight Bearing Right Lower Extremity: Right Non Weight Bearing Patient has a adjustable knee brace on the right side, locked into extension, she is to have this on at all times unless she is in her CPM, which is set to 45 degrees at this time. Wheelchair Training Wheel 150 ft (QC): 4 (150 ft x 2) Assessment Current Status: Good Progress Lowered patient's walker and transfer was much easier. Pt did well in // bars with transfer. Steady when upright. PT Short Term Goals Short Term Goals Time Frame: Feb 07, 2021 Roll Left & Right: 6 Sit to lyin Lying to sitting on side of be: 4 Sit to stand: 4 Chair/dlc-bi-howbn transfer: 4 Walk 10 feet: 4 PT Water Maintenance Supervisor Goals Custodial Goals PT Water Maintenance Supervisor Goals Time Frame: Feb 21, 2021 Roll Left & Right (QC): 6 Sit to Lying (QC): 6 Lying-Sitting on Side/Bed(QC): 6 Sit to Stand (QC): 4 (SBA) Chair/Qso-yj-Jfvpg Xfer(QC): 4 (SBA) Toilet Transfer (QC): 4 (SBA) Car Transfer (QC): 4 (SBA) Does the Patient Walk: Yes Walk 10 feet (QC): 4 (SBA) Walk 50ft with 2 Turns (QC): 88 Walk 150 ft (QC): 88 Walking 10ft on Uneven Surface: 88 1 Step (curb) (QC): 88 4 Steps (QC): 88 12 Steps (QC): 88 Picking up an Object (QC): 4 Wheel 50 feet with 2 turns (QC: 5 Wheel 150 feet: 5 PT Plan Problem List Problem List: Activity Tolerance, Functional Strength, Safety, Balance, Gait, Transfer, Bed Mobility Treatment/Plan Treatment Plan: Continue Plan of Care Treatment Plan: Bed Mobility, Education, Functional Activity Jose Angel, Functional Strength, Group Therapy, Gait, Safety, Therapeutic Exercise, Transfers Treatment Duration: Feb 21, 2021 Frequency: At least 5 of 7 days/Wk (IRF) Estimated Hrs Per Day: 1.5 hours per day Patient and/or Family Agrees t: Yes Safety Risks/Education Patient Education: Transfer Techniques, Reviewed Precautions, Safety Issues Teaching Recipient: Patient Teaching Methods: Demonstration, Discussion Response to Teaching: Verbalize Understanding Time/GCodes Time In: 1100 Time Out: 1201 Total Billed Treatment Time: 61 Total Billed Treatment visit FA 46 WC 15 MEREDITH BARNES PT Feb 01, 2021 12:15
--- NOTE | 2021-02-01 14:33 | Therapy Group Daily Note ---
Therapy Daily Group Note Patient Education Topic Other List Below (bed hospital, safe transfers) Exercises LE Seated Exercise, UE Exercise Session Ratio (pt:therapist): 6:2 Goal of Session: UE/LE Strengthing, Safety with Transfers Goal Met for this Session: Yes Pt Benefit of Group: Contributions to Others, Increased Functional Safety, Increased Functional Strength, Improved Cognition, Recognition of Peers, Socialization Other/Notes Using w/c transported to OT/PT group at [facility]. Group consisted of introductions(name, place born, first memory), socialization, B UE/LE exercises and education on safe transfers/hospital bed. Pt introduced self appropriately and actively listened to peers. Pt able to complete B UE/LE seated exercises with only verbal cues for correct technique. Pt acknowledged understanding of educational topics by giving own examples. 5 words given for memory task-dog, jose, 6, burrito, guitar. After session, pt lying in bed with call light/phone in reach. All needs met in room. Start Time: 13:00 Stop Time: 14:00 Total Billed Treatment Time: 60 Total Billed Treatment 1-GRP MEREDITH HERNANDEZ Feb 01, 2021 14:33
[2021-02-01] MEDS: DICLOFENAC 1% GEL 100 GM (VOLTAREN) TUBE TOP SCH ×2 (17:21→21:39)
[2021-02-01 20:00] VITALS: BP 122/57
[2021-02-01 21:25] VITALS: BP 121/56
[2021-02-01] MEDS: SIMvastatin 10 MG (ZOCOR) TAB PO SCH (21:36)
[2021-02-02] MEDS: CYANOCOBALAMIN 1,000 MCG (VITAMIN B-12) TABLET PO SCH (06:30)
[2021-02-02] MEDS: MULTIVIT W/MINERALS TAB (THERAGRAN M) PO SCH (06:30)
[2021-02-02 07:30] VITALS: BP_SYST 112; BP_SYST 124; BP_DIAS 58; BP_DIAS 72
--- NOTE | 2021-02-02 07:47 | PM&R Progress Note ---
Subjective HPI/CC On Admission Date Seen by Provider: Feb 02, 2021 Time Seen by Provider: 12:00 Subjective/Events-last exam 02/02/2021: Patient doing very well Bowels moved today and yesterday No major issues Pivoting is improved and transfers are safer 02/01/2021: Patient doing really well Pain is much improved Needs moderate assistance during transfers Increasing independence with ADLs No bowel movement yet but given gentle laxatives since she is tends to be at high risk for severe diarrhea Review of Systems General: Fatigue Musculoskeletal: leg pain Objective Exam Vital Signs Vital Signs Date Time Temp Pulse Resp B/P (MAP) Pulse Ox O2 Delivery O2 Flow Rate FiO2 02/02/21 10:15 Room Air 02/02/21 07:30 36.6 71 18 124/58 (80) 96 Capillary Refill : General Appearance: No Apparent Distress, WD/WN, Chronically ill, Obese HEENT: PERRL/EOMI, Normal ENT Inspection, Pharynx Normal Neck: Full Range of Motion, Normal Inspection, Non Tender, Supple, Carotid Bruit Respiratory: Chest Non Tender, Lungs Clear, Normal Breath Sounds, No Accessory Muscle Use, No Respiratory Distress Cardiovascular: Regular Rate, Rhythm, No Edema, No Gallop, No JVD, No Murmur, Normal Peripheral Pulses Gastrointestinal: Normal Bowel Sounds, No Organomegaly, No Pulsatile Mass, Non Tender, Soft Back: Normal Inspection, No CVA Tenderness, No Vertebral Tenderness Extremity: Normal Capillary Refill, Normal Inspection, Normal Range of Motion, Non Tender, No Calf Tenderness, No Pedal Edema Neurologic/Psychiatric: Alert, Oriented x3, Normal Mood/Affect, Abnormal Gait, Motor Weakness (Right leg due to brace) Skin: Normal Color, Warm/Dry Lymphatic: No Adenopathy Results/Procedures Lab Patient resulted labs reviewed. FIM Transfers Therapy Code Descriptions/Definitions Functional Denali Measure: 0=Not Assessed/NA 4=Minimal Assistance 1=Total Assistance 5=Supervision or Setup 2=Maximal Assistance 6=Modified Denali 3=Moderate Assistance 7=Complete IndependenceSCALE: Activities may be completed with or without assistive devices. 9-Ipqvhksnle-ailstnt completes the activity by him/herself with no assistance from a helper. 5-Set-up or Clean-up Assistance-helper sets up or cleans up; patient completes activity. [place] assists only prior to or following the activity. 4-Supervision or Touching Assistance-helper provides verbal cues and/or touching/steadying and/or contact guard assistance as patient completes activity. Assistance may be provided throughout the activity or intermittently. 3-Partial/Moderate Assistance-helper does LESS THAN HALF the effort. [place] lifts, holds or supports trunk or limbs, but provides less than half the effort. 2-Substantial/Maximal Assistance-helper does MORE THAN HALF the effort. [place] lifts or holds trunk or limbs and provides more than half the effort. 3-Mlxatpwmq-ysusxn does ALL the effort. Patient does none of the effort to complete the activity. Or, the assistance of 2 or more helpers is required for the patient to complete the activity. If activity was not attempted, code reason: 7-Patient Refused. 9-Not Applicable-not attempted and the patient did not perform the activity before the current illness, exacerbation or injury. 10-Not Attempted due to Environmental Limitations-(lack of equipment, weather restraints, etc.). 88-Not Attempted due to Medical Conditions or Safety Concerns. Roll Left to Right (QC): 6 Sit to Lying (QC): 3 Sit to Stand (QC): 3 Chair/Tru-sz-Vfxmr Xfer(QC): 3 Car Transfer (QC): 3 Gait Training Does the Patient Walk?: Yes Walk 10 feet (QC): 88 Walk 50 ft with 2 Turns(QC): 88 Walk 150 ft (QC): 88 Walking 10ft/uneven surface-QC: 88 Gait Assistive Device: Parallel Bars Wheelchair Training Does the Pt Use a Wheelchair?: Yes Distance: 150'x2 Wheel 50 ft with 2 turns (QC): 4 Wheel 150 ft (QC): 4 (150 ft x 2) Type of Wheelchair: Manual Stair Training 1 Step (curb) (QC): 88 4 Steps (QC): 88 12 Steps (QC): 88 Balance Picking up an Object (QC): 88 ADL-Treatment Eating (QC): 5 (Per pt report, set up assist to open containers) Oral Hygiene (QC): 6 Shower/Bathe Self (QC): 2 Upper Body Dressing (QC): 5 Lower Body Dressing (QC): 2 On/Off Footwear (QC): 2 Toileting Hygiene (QC): 3 Toilet Transfer (QC): 3 Assessment/Plan Assessment and Plan Assess & Plan/Chief Complaint Assessment: Right distal femoral fracture status post repair on 01/26/2021 History of lymphoma completed chemotherapy 1 year ago Hypertension Current constipation History of diarrhea Hyperlipidemia Anemia Plan: Pain control Regained bowel function Monitor closely Inpatient rehab protocol 02/01/2021: Bowel regimen to intensify Pain control Monitor closely 02/02/2021: Pain control Fall risk Monitor closely (1) Femoral distal fracture Status: Acute (2) Lymphoma (3) Hyperlipidemia (4) Diarrhea (5) Constipation (6) Anemia (7) Hypertension Status: Acute (8) Anxiety Status: Acute HAKEEM HARRY DO Feb 02, 2021 07:47
[2021-02-02] MEDS: DOCUSATE SODIUM 100 MG (COLACE) CAP PO SCH ×2 (08:43→21:25)
[2021-02-02] MEDS: doxAzosin 1 MG (CARDURA) TAB PO SCH ×2 (08:43→21:25)
[2021-02-02] MEDS: polyethylene glycoL POWDER 17 GM (MIRALAX) PACK PO SCH ×2 (08:43→21:25)
[2021-02-02] MEDS: SENNA W/DOCUSATE (SENOKOT S) TABLET PO SCH ×2 (08:43→21:25)
[2021-02-02] MEDS: RIVAROXABAN 10 MG TABLET (XARELTO) PO SCH (08:44)
[2021-02-02] MEDS: VITAMIN D3 10 MCG (400 UNITS) TABLET PO SCH (08:44)
[2021-02-02] MEDS: SPIRONOLACTONE 25 MG (ALDACTONE) TAB PO SCH (08:44)
[2021-02-02] MEDS: HYDROXYCHLOROQUINE 200 MG (PLAQUENIL) TAB PO SCH (08:47)
[2021-02-02] MEDS: DICLOFENAC 1% GEL 100 GM (VOLTAREN) TUBE TOP SCH ×4 (08:53→21:28)
--- NOTE | 2021-02-02 12:03 | Physical Therapy Daily Note ---
PT Daily Note-Current Subjective Pt sitting up in w/c upon arrival; in room. Pt agrees to PT tx. Pain Numeric Pain Scale: 0-No Pain Location: No Pain Reported Mental Status Patient Orientation: Normal For Age Attachments: Other-See Comments (Knee brace on prior to getting out of bed. ) Patient has a adjustable knee brace on the right side, locked into extension, she is to have this on at all times unless she is in her CPM, which is set to 45 degrees at this time. Transfers SCALE: Activities may be completed with or without assistive devices. 9-Evmkqqqchh-azixduf completes the activity by him/herself with no assistance from a helper. 5-Set-up or Clean-up Assistance-helper sets up or cleans up; patient completes activity. [place] assists only prior to or following the activity. 4-Supervision or Touching Assistance-helper provides verbal cues and/or touching/steadying and/or contact guard assistance as patient completes activity. Assistance may be provided throughout the activity or intermittently. 3-Partial/Moderate Assistance-helper does LESS THAN HALF the effort. [place] lifts, holds or supports trunk or limbs, but provides less than half the effort. 2-Substantial/Maximal Assistance-helper does MORE THAN HALF the effort. [place] lifts or holds trunk or limbs and provides more than half the effort. 7-Varcvnjhn-sepddy does ALL the effort. Patient does none of the effort to complete the activity. Or, the assistance of 2 or more helpers is required for the patient to complete the activity. If activity was not attempted, code reason: 7-Patient Refused. 9-Not Applicable-not attempted and the patient did not perform the activity before the current illness, exacerbation or injury. 10-Not Attempted due to Environmental Limitations-(lack of equipment, weather restraints, etc.). 88-Not Attempted due to Medical Conditions or Safety Concerns. Sit to Lying (QC): 4 Sit to Stand (QC): 4 Chair/Oss-lf-Gfvxv Xfer(QC): 3 Pt has difficulty w/ SPT from w/c to EOB using FWW. Weight Bearing Right Lower Extremity: Right Non Weight Bearing Patient has a adjustable knee brace on the right side, locked into extension, she is to have this on at all times unless she is in her CPM, which is set to 45 degrees at this time. Wheelchair Training Does the Pt Use a Wheelchair?: Yes Wheel 50 ft with 2 turns (QC): 5 Wheel 150 ft (QC): 5 Type of Wheelchair: Manual Treatments W/c mobility completed. Pt transfers from w/c to bed to have CPM placed. Pt supine in bed w/ call light and bedside table w/ in reach, CPM going and all needs met at end of tx. SENIOR NET APPLICATION DEVELOPER informed CITY PLANNING AIDE that CPM machine was started at 0945. Assessment Current Status: Good Progress Pt unhappy w/ the amount of time CPM is being utilized. Pt motivated to get stronger and become more confident in self. PT Short Term Goals Short Term Goals Time Frame: Feb 07, 2021 Roll Left & Right: 6 Sit to lyin Lying to sitting on side of be: 4 Sit to stand: 4 Chair/jtn-bc-kkzca transfer: 4 Walk 10 feet: 4 PT Grain Roaster Goals Grain Roaster Goals PT Grain Roaster Goals Time Frame: Feb 21, 2021 Roll Left & Right (QC): 6 Sit to Lying (QC): 6 Lying-Sitting on Side/Bed(QC): 6 Sit to Stand (QC): 4 (SBA) Chair/Xvf-gm-Sswfm Xfer(QC): 4 (SBA) Toilet Transfer (QC): 4 (SBA) Car Transfer (QC): 4 (SBA) Does the Patient Walk: Yes Walk 10 feet (QC): 4 (SBA) Walk 50ft with 2 Turns (QC): 88 Walk 150 ft (QC): 88 Walking 10ft on Uneven Surface: 88 1 Step (curb) (QC): 88 4 Steps (QC): 88 12 Steps (QC): 88 Picking up an Object (QC): 4 Wheel 50 feet with 2 turns (QC: 5 Wheel 150 feet: 5 PT Plan Problem List Problem List: Activity Tolerance, Functional Strength, Safety, Balance, Gait, Transfer, Bed Mobility, ROM Treatment/Plan Treatment Plan: Continue Plan of Care Treatment Plan: Bed Mobility, Education, Functional Activity Jose Angel, Functional Strength, Group Therapy, Gait, Safety, Therapeutic Exercise, Transfers Treatment Duration: Feb 21, 2021 Frequency: At least 5 of 7 days/Wk (IRF) Estimated Hrs Per Day: 1.5 hours per day Patient and/or Family Agrees t: Yes Safety Risks/Education Patient Education: Transfer Techniques, Correct Positioning, W/C Management, Safety Issues Teaching Recipient: Patient Teaching Methods: Discussion Response to Teaching: Verbalize Understanding Time/GCodes Time In: 924 Time Out: 954 Total Billed Treatment Time: 30 Total Billed Treatment 1, ADRIANO (15m), IAIN (15m) JUAN DANIELS PTA Feb 02, 2021 12:03
[2021-02-02 20:28] VITALS: BP 109/55
[2021-02-02] MEDS: SIMvastatin 10 MG (ZOCOR) TAB PO SCH (21:24)
[2021-02-03] MEDS: CYANOCOBALAMIN 1,000 MCG (VITAMIN B-12) TABLET PO SCH (07:00)
[2021-02-03] MEDS: MULTIVIT W/MINERALS TAB (THERAGRAN M) PO SCH (07:01)
[2021-02-03 07:30] VITALS: BP 111/56
--- NOTE | 2021-02-03 08:21 | PM&R Progress Note ---
Subjective HPI/CC On Admission Date Seen by Provider: Feb 03, 2021 Time Seen by Provider: 12:30 Subjective/Events-last exam 02/03/2021: Patient doing pretty well Pain is controlled Discussed the Cardura so we will place parameter to hold if systolic less than 130 CPM machine will be set up 3 times daily as ordered 02/02/2021: Patient doing very well Bowels moved today and yesterday No major issues Pivoting is improved and transfers are safer 02/01/2021: Patient doing really well Pain is much improved Needs moderate assistance during transfers Increasing independence with ADLs No bowel movement yet but given gentle laxatives since she is tends to be at high risk for severe diarrhea Review of Systems General: Fatigue, Malaise Musculoskeletal: leg pain Objective Exam Vital Signs Vital Signs Date Time Temp Pulse Resp B/P (MAP) Pulse Ox O2 Delivery O2 Flow Rate FiO2 02/03/21 09:00 Room Air 02/03/21 07:30 35.8 65 18 111/56 (74) 95 Capillary Refill : General Appearance: No Apparent Distress, WD/WN, Chronically ill, Obese HEENT: PERRL/EOMI, Normal ENT Inspection, Pharynx Normal Neck: Full Range of Motion, Normal Inspection, Non Tender, Supple, Carotid Bruit Respiratory: Chest Non Tender, Lungs Clear, Normal Breath Sounds, No Accessory Muscle Use, No Respiratory Distress Cardiovascular: Regular Rate, Rhythm, No Edema, No Gallop, No JVD, No Murmur, Normal Peripheral Pulses Gastrointestinal: Normal Bowel Sounds, No Organomegaly, No Pulsatile Mass, Non Tender, Soft Back: Normal Inspection, No CVA Tenderness, No Vertebral Tenderness Extremity: Normal Capillary Refill, Normal Inspection, Normal Range of Motion, Non Tender, No Calf Tenderness, No Pedal Edema Neurologic/Psychiatric: Alert, Oriented x3, Normal Mood/Affect, Abnormal Gait, Motor Weakness (Right leg due to brace) Skin: Normal Color, Warm/Dry Lymphatic: No Adenopathy Results/Procedures Lab Patient resulted labs reviewed. FIM Transfers Therapy Code Descriptions/Definitions Functional [place] Measure: 0=Not Assessed/NA 4=Minimal Assistance 1=Total Assistance 5=Supervision or Setup 2=Maximal Assistance 6=Modified [place] 3=Moderate Assistance 7=Complete IndependenceSCALE: Activities may be completed with or without assistive devices. 8-Xrizyshsca-gtolqfn completes the activity by him/herself with no assistance from a helper. 5-Set-up or Clean-up Assistance-helper sets up or cleans up; patient completes activity. [place] assists only prior to or following the activity. 4-Supervision or Touching Assistance-helper provides verbal cues and/or touching/steadying and/or contact guard assistance as patient completes activity. Assistance may be provided throughout the activity or intermittently. 3-Partial/Moderate Assistance-helper does LESS THAN HALF the effort. [place] lifts, holds or supports trunk or limbs, but provides less than half the effort. 2-Substantial/Maximal Assistance-helper does MORE THAN HALF the effort. [place] lifts or holds trunk or limbs and provides more than half the effort. 9-Mlmpaohpw-screpz does ALL the effort. Patient does none of the effort to complete the activity. Or, the assistance of 2 or more helpers is required for the patient to complete the activity. If activity was not attempted, code reason: 7-Patient Refused. 9-Not Applicable-not attempted and the patient did not perform the activity before the current illness, exacerbation or injury. 10-Not Attempted due to Environmental Limitations-(lack of equipment, weather restraints, etc.). 88-Not Attempted due to Medical Conditions or Safety Concerns. Roll Left to Right (QC): 6 Sit to Lying (QC): 4 Sit to Stand (QC): 4 Chair/Sgs-zv-Hnezj Xfer(QC): 3 Car Transfer (QC): 3 Gait Training Does the Patient Walk?: Yes Walk 10 feet (QC): 88 Walk 50 ft with 2 Turns(QC): 88 Walk 150 ft (QC): 88 Walking 10ft/uneven surface-QC: 88 Gait Assistive Device: Parallel Bars Wheelchair Training Does the Pt Use a Wheelchair?: Yes Distance: 150'x2 Wheel 50 ft with 2 turns (QC): 5 Wheel 150 ft (QC): 5 Type of Wheelchair: Manual Stair Training 1 Step (curb) (QC): 88 4 Steps (QC): 88 12 Steps (QC): 88 Balance Picking up an Object (QC): 88 ADL-Treatment Eating (QC): 5 (Per pt report, set up assist to open containers) Oral Hygiene (QC): 6 Shower/Bathe Self (QC): 2 Upper Body Dressing (QC): 5 Lower Body Dressing (QC): 2 On/Off Footwear (QC): 2 Toileting Hygiene (QC): 3 Toilet Transfer (QC): 3 Assessment/Plan Assessment and Plan Assess & Plan/Chief Complaint Assessment: Right distal femoral fracture status post repair on 01/26/2021 History of lymphoma completed chemotherapy 1 year ago Hypertension Current constipation History of diarrhea Hyperlipidemia Anemia Plan: Pain control Regained bowel function Monitor closely Inpatient rehab protocol 02/01/2021: Bowel regimen to intensify Pain control Monitor closely 02/02/2021: Pain control Fall risk Monitor closely 02/03/2021: Pain control Hold Cardura for less than 130 systolic blood pressure CPM machine 3 times daily (1) Femoral distal fracture Status: Acute (2) Lymphoma (3) Hyperlipidemia (4) Diarrhea (5) Constipation (6) Anemia (7) Hypertension Status: Acute (8) Anxiety Status: Acute HAKEEM HARRY DO Feb 03, 2021 08:21
[2021-02-03] MEDS: doxAzosin 1 MG (CARDURA) TAB PO SCH ×2 (08:56→09:08)
[2021-02-03] MEDS: VITAMIN D3 10 MCG (400 UNITS) TABLET PO SCH (08:56)
[2021-02-03] MEDS: SPIRONOLACTONE 25 MG (ALDACTONE) TAB PO SCH (08:56)
[2021-02-03] MEDS: DOCUSATE SODIUM 100 MG (COLACE) CAP PO SCH ×2 (08:57→21:27)
[2021-02-03] MEDS: HYDROXYCHLOROQUINE 200 MG (PLAQUENIL) TAB PO SCH (08:57)
[2021-02-03] MEDS: polyethylene glycoL POWDER 17 GM (MIRALAX) PACK PO SCH ×2 (08:58→21:28)
[2021-02-03] MEDS: SENNA W/DOCUSATE (SENOKOT S) TABLET PO SCH ×2 (08:58→21:28)
[2021-02-03] MEDS: DICLOFENAC 1% GEL 100 GM (VOLTAREN) TUBE TOP SCH ×4 (08:59→21:28)
[2021-02-03] MEDS: RIVAROXABAN 10 MG TABLET (XARELTO) PO SCH (08:59)
[2021-02-03 20:00] VITALS: BP 119/55
[2021-02-03 21:20] VITALS: BP 118/55
[2021-02-03] MEDS: SIMvastatin 10 MG (ZOCOR) TAB PO SCH (21:27)
[2021-02-04 05:38] LABS: BASOPHILS # (AUTO) 0.1 10^3/uL (0.0-0.1); BASOPHILS % (AUTO) 1 % (0-10); EOSINOPHILS # (AUTO) 0.1 10^3/uL (0.0-0.3); EOSINOPHILS % (AUTO) 2 % (0-10); HEMATOCRIT 35 % (35-52); HEMOGLOBIN 11.2 g/dL (11.5-16.0); LYMPHOCYTES % (AUTO) 27 % (12-44); MEAN CORPUSCULAR HEMOGLOBIN 30 pg (25-34); MEAN CORPUSCULAR HGB CONC 32 g/dL (32-36); MEAN CORPUSCULAR VOLUME 95 fL (80-99); MEAN PLATELET VOLUME 10.4 fL (9.0-12.2); MONOCYTES # (AUTO) 0.6 10^3/uL (0.0-1.0); MONOCYTES % (AUTO) 8 % (0-12); NEUTROPHILS # (AUTO) 4.5 10^3/uL (1.8-7.8); NEUTROPHILS % (AUTO) 62 % (42-75); PLATELET COUNT 201 10^3/uL (130-400); WHITE BLOOD COUNT 7.3 10^3/uL (4.3-11.0)
[2021-02-04 06:07] LABS: ALBUMIN 3.8 GM/DL (3.2-4.5)
[2021-02-04 06:08] LABS: POTASSIUM 4.8 MMOL/L (3.6-5.0)
[2021-02-04 06:09] LABS: CALCIUM 9.2 MG/DL (8.5-10.1)
[2021-02-04 06:10] LABS: TOTAL PROTEIN 6.8 GM/DL (6.4-8.2)
[2021-02-04 06:12] LABS: BILIRUBIN,TOTAL 0.7 MG/DL (0.1-1.0)
[2021-02-04 06:14] LABS: CREATININE SERUM 1.15 MG/DL (0.60-1.30)
[2021-02-04] MEDS: MULTIVIT W/MINERALS TAB (THERAGRAN M) PO SCH (06:42)
[2021-02-04] MEDS: CYANOCOBALAMIN 1,000 MCG (VITAMIN B-12) TABLET PO SCH (06:42)
--- NOTE | 2021-02-04 06:57 | PM&R Progress Note ---
Subjective HPI/CC On Admission Date Seen by Provider: Feb 04, 2021 Time Seen by Provider: 09:00 Subjective/Events-last exam 02/04/2021: Patient doing pretty well Blood pressure good without Cardura CPM maintain 3 times daily Bowels moved yesterday 02/03/2021: Patient doing pretty well Pain is controlled Discussed the Cardura so we will place parameter to hold if systolic less than 130 CPM machine will be set up 3 times daily as ordered 02/02/2021: Patient doing very well Bowels moved today and yesterday No major issues Pivoting is improved and transfers are safer 02/01/2021: Patient doing really well Pain is much improved Needs moderate assistance during transfers Increasing independence with ADLs No bowel movement yet but given gentle laxatives since she is tends to be at high risk for severe diarrhea Review of Systems General: Fatigue Musculoskeletal: leg pain Objective Exam Vital Signs Vital Signs Date Time Temp Pulse Resp B/P (MAP) Pulse Ox O2 Delivery O2 Flow Rate FiO2 02/04/21 21:00 96 Room Air 02/04/21 20:00 37.2 64 20 108/53 (71) Capillary Refill : General Appearance: No Apparent Distress, WD/WN, Chronically ill, Obese HEENT: PERRL/EOMI, Normal ENT Inspection, Pharynx Normal Neck: Full Range of Motion, Normal Inspection, Non Tender, Supple, Carotid Bruit Respiratory: Chest Non Tender, Lungs Clear, Normal Breath Sounds, No Accessory Muscle Use, No Respiratory Distress Cardiovascular: Regular Rate, Rhythm, No Edema, No Gallop, No JVD, No Murmur, Normal Peripheral Pulses Gastrointestinal: Normal Bowel Sounds, No Organomegaly, No Pulsatile Mass, Non Tender, Soft Back: Normal Inspection, No CVA Tenderness, No Vertebral Tenderness Extremity: Normal Capillary Refill, Normal Inspection, Normal Range of Motion, Non Tender, No Calf Tenderness, No Pedal Edema Neurologic/Psychiatric: Alert, Oriented x3, Normal Mood/Affect, Abnormal Gait, Motor Weakness (Right leg due to brace) Skin: Normal Color, Warm/Dry Lymphatic: No Adenopathy Results/Procedures Lab Patient resulted labs reviewed. FIM Transfers Therapy Code Descriptions/Definitions Functional [place] Measure: 0=Not Assessed/NA 4=Minimal Assistance 1=Total Assistance 5=Supervision or Setup 2=Maximal Assistance 6=Modified [place] 3=Moderate Assistance 7=Complete IndependenceSCALE: Activities may be completed with or without assistive devices. 4-Ksviuyjnfc-eunwhbj completes the activity by him/herself with no assistance from a helper. 5-Set-up or Clean-up Assistance-helper sets up or cleans up; patient completes activity. [place] assists only prior to or following the activity. 4-Supervision or Touching Assistance-helper provides verbal cues and/or touching/steadying and/or contact guard assistance as patient completes activity. Assistance may be provided throughout the activity or intermittently. 3-Partial/Moderate Assistance-helper does LESS THAN HALF the effort. [place] lifts, holds or supports trunk or limbs, but provides less than half the effort. 2-Substantial/Maximal Assistance-helper does MORE THAN HALF the effort. [place] lifts or holds trunk or limbs and provides more than half the effort. 8-Uimgsgzlv-fqllta does ALL the effort. Patient does none of the effort to complete the activity. Or, the assistance of 2 or more helpers is required for the patient to complete the activity. If activity was not attempted, code reason: 7-Patient Refused. 9-Not Applicable-not attempted and the patient did not perform the activity before the current illness, exacerbation or injury. 10-Not Attempted due to Environmental Limitations-(lack of equipment, weather restraints, etc.). 88-Not Attempted due to Medical Conditions or Safety Concerns. Roll Left to Right (QC): 6 Sit to Lying (QC): 4 Sit to Stand (QC): 4 Chair/Pjc-jx-[place] Xfer(QC): 3 Car Transfer (QC): 3 Gait Training Does the Patient Walk?: Yes Walk 10 feet (QC): 88 Walk 50 ft with 2 Turns(QC): 88 Walk 150 ft (QC): 88 Walking 10ft/uneven surface-QC: 88 Gait Assistive Device: Parallel Bars Wheelchair Training Does the Pt Use a Wheelchair?: Yes Distance: 150'x2 Wheel 50 ft with 2 turns (QC): 5 Wheel 150 ft (QC): 5 Type of Wheelchair: Manual Stair Training 1 Step (curb) (QC): 88 4 Steps (QC): 88 12 Steps (QC): 88 Balance Picking up an Object (QC): 88 ADL-Treatment Eating (QC): 5 (Per pt report, set up assist to open containers) Oral Hygiene (QC): 6 Shower/Bathe Self (QC): 2 Upper Body Dressing (QC): 5 Lower Body Dressing (QC): 2 On/Off Footwear (QC): 2 Toileting Hygiene (QC): 3 Toilet Transfer (QC): 3 Assessment/Plan Assessment and Plan Assess & Plan/Chief Complaint Assessment: Right distal femoral fracture status post repair on 01/26/2021 History of lymphoma completed chemotherapy 1 year ago Hypertension Current constipation History of diarrhea Hyperlipidemia Anemia Plan: Pain control Regained bowel function Monitor closely Inpatient rehab protocol 02/01/2021: Bowel regimen to intensify Pain control Monitor closely 02/02/2021: Pain control Fall risk Monitor closely 02/03/2021: Pain control Hold Cardura for less than 130 systolic blood pressure CPM machine 3 times daily 02/04/2021: Monitor blood pressure Pain control (1) Femoral distal fracture Status: Acute (2) Lymphoma (3) Hyperlipidemia (4) Diarrhea (5) Constipation (6) Anemia (7) Hypertension Status: Acute (8) Anxiety Status: Acute HAKEEM HARRY DO Feb 04, 2021 06:57
[2021-02-04 08:00] VITALS: BP 135/62
[2021-02-04] MEDS: VITAMIN D3 10 MCG (400 UNITS) TABLET PO SCH (08:14)
[2021-02-04] MEDS: doxAzosin 1 MG (CARDURA) TAB PO SCH ×2 (08:14→20:38)
[2021-02-04] MEDS: HYDROXYCHLOROQUINE 200 MG (PLAQUENIL) TAB PO SCH (08:14)
[2021-02-04] MEDS: SPIRONOLACTONE 25 MG (ALDACTONE) TAB PO SCH (08:16)
[2021-02-04] MEDS: DOCUSATE SODIUM 100 MG (COLACE) CAP PO SCH ×2 (09:03→20:38)
[2021-02-04] MEDS: polyethylene glycoL POWDER 17 GM (MIRALAX) PACK PO SCH ×2 (09:03→20:39)
[2021-02-04] MEDS: SENNA W/DOCUSATE (SENOKOT S) TABLET PO SCH ×2 (09:04→20:40)
[2021-02-04] MEDS: DICLOFENAC 1% GEL 100 GM (VOLTAREN) TUBE TOP SCH ×4 (09:30→22:13)
--- NOTE | 2021-02-04 09:45 | Physical Therapy Daily Note ---
PT Daily Note-Current Subjective Agrees to PT. Post treatment, reports feeling tired. Reports her activity level prior to this incident had been low and she notes "I shoulde have been doing more." Mental Status Patient Orientation: Person, Place, Time, Situation Transfers SCALE: Activities may be completed with or without assistive devices. 7-Swsszakvlx-fbuioqj completes the activity by him/herself with no assistance from a helper. 5-Set-up or Clean-up Assistance-helper sets up or cleans up; patient completes activity. [place] assists only prior to or following the activity. 4-Supervision or Touching Assistance-helper provides verbal cues and/or touchi ng/steadying and/or contact guard assistance as patient completes activity. Assistance may be provided throughout the activity or intermittently. 3-Partial/Moderate Assistance-helper does LESS THAN HALF the effort. [place] lifts, holds or supports trunk or limbs, but provides less than half the effort. 2-Substantial/Maximal Assistance-helper does MORE THAN HALF the effort. [place] lifts or holds trunk or limbs and provides more than half the effort. 2-Lhbhfeygm-zyewmd does ALL the effort. Patient does none of the effort to complete the activity. Or, the assistance of 2 or more helpers is required for the patient to complete the activity. If activity was not attempted, code reason: 7-Patient Refused. 9-Not Applicable-not attempted and the patient did not perform the activity before the current illness, exacerbation or injury. 10-Not Attempted due to Environmental Limitations-(lack of equipment, weather restraints, etc.). 88-Not Attempted due to Medical Conditions or Safety Concerns. Sit to Lying (QC): 4 Lying to Sitting/Side of Bed(Q: 4 Sit to Stand (QC): 4 Chair/Hck-jf-Wjaml Xfer(QC): 4 (reaches across to transfer) Toilet Transfer (QC): 4 CGA wtih SPT for safety; maintains NWB and safe with the transfer. Weight Bearing Right Lower Extremity: Right Non Weight Bearing Patient has a adjustable knee brace on the right side, locked into extension, she is to have this on at all times unless she is in her CPM, which is set to 45 degrees at this time. Gait Training Pt hopped 6 ft x 4 in // bars with CGA. Pt hopped 3 ft and 8 ft with FWW NWB with CGA. Wheelchair Training Wheel 150 ft (QC): 6 Type of Wheelchair: Manual Exercises NuStep Minutes: 10 (to increase left LE strength and functional activity tolerance. ) Treatments Functional strength / activity tolerance training; functional mobility with hopping // bars and with FWW. CPM 0-45 post visit. Knee brace in situ throughout treatment . Assessment Current Status: Good Progress Hopping is difficult but she maintains NWB and is steady; short distances only; unsure if she will be better served to go home at a wc level or hopping short distances. Will continue to evaluate. PT Short Term Goals Short Term Goals Time Frame: Feb 07, 2021 Roll Left & Right: 6 Sit to lyin (met) Lying to sitting on side of be: 4 (met) Sit to stand: 4 (met) Chair/xqp-io-bszhz transfer: 4 (met) Walk 10 feet: 4 PT [place] Goals Skilled Nursing Goals PT Skilled Nursing Goals Time Frame: Feb 21, 2021 Roll Left & Right (QC): 6 Sit to Lying (QC): 6 Lying-Sitting on Side/Bed(QC): 6 Sit to Stand (QC): 4 (SBA) Chair/Ovi-zw-Jmfxv Xfer(QC): 4 (SBA) Toilet Transfer (QC): 4 (SBA) Car Transfer (QC): 4 (SBA) Does the Patient Walk: Yes Walk 10 feet (QC): 4 (SBA) Walk 50ft with 2 Turns (QC): 88 Walk 150 ft (QC): 88 Walking 10ft on Uneven Surface: 88 1 Step (curb) (QC): 88 4 Steps (QC): 88 12 Steps (QC): 88 Picking up an Object (QC): 4 Wheel 50 feet with 2 turns (QC: 5 Wheel 150 feet: 5 PT Plan Problem List Problem List: Activity Tolerance, Functional Strength, Safety, Balance, Gait, Transfer Treatment/Plan Treatment Plan: Continue Plan of Care Treatment Plan: Bed Mobility, Education, Functional Activity Jose Angel, Functional Strength, Group Therapy, Gait, Safety, Therapeutic Exercise, Transfers Treatment Duration: Feb 21, 2021 Frequency: At least 5 of 7 days/Wk (IRF) Estimated Hrs Per Day: 1.5 hours per day Patient and/or Family Agrees t: Yes Safety Risks/Education Patient Education: Gait Training Teaching Recipient: Patient Teaching Methods: Demonstration, Discussion Response to Teaching: Reinforcement Needed Time/GCodes Time In: 845 Time Out: 945 Total Billed Treatment Time: 60 Total Billed Treatment visit FA 50 EX 10 MEREDITH BARNES PT Feb 04, 2021 09:45
--- NOTE | 2021-02-04 09:55 | Occupational Ther Daily Note ---
OT Current Status-Daily Note Subjective Pt alert, lying in bed. Pt agrees to therapy. No c/o pain, c/o positioning of knee brace. Mental Status/Objective Patient Orientation: Person, Place, Time, Situation Attachments: Other-See Comments (knee brace) ADL-Treatment Pt agrees to sponge bath and change of clothing. Pt's knee brace and WILLIAMS hose adjusted to increase comfort. Supine to EOB independent using HOB elevated and bedrails. Min A for SPT from EOB <--> w/c. Min A and assist to manipulate clothing for toilet transfer. Pt able to complete hygiene sitting on toilet. Sitting at sink, pt completed sponge bath and oral care independently. Assist to hike pants over hips, pt able to thread pants over feet using dressing stick. Using sock aide pt able to don WILLIAMS hose on L LE, pt has knee brace on R LE. After therapy, pt sitting in w/c with call light/phone in reach. All needs met in room. Therapy Code Descriptions/Definitions Functional [place] Measure: 0=Not Assessed/NA 4=Minimal Assistance 1=Total Assistance 5=Supervision or Setup 2=Maximal Assistance 6=Modified [place] 3=Moderate Assistance 7=Complete IndependenceSCALE: Activities may be completed with or without assistive devices. 4-Odagfevtrz-fjvgxhl completes the activity by him/herself with no assistance from a helper. 5-Set-up or Clean-up Assistance-helper sets up or cleans up; patient completes activity. [place] assists only prior to or following the activity. 4-Supervision or Touching Assistance-helper provides verbal cues and/or touching/steadying and/or contact guard assistance as patient completes activity. Assistance may be provided throughout the activity or intermittently. 3-Partial/Moderate Assistance-helper does LESS THAN HALF the effort. [place] lifts, holds or supports trunk or limbs, but provides less than half the effort. 2-Substantial/Maximal Assistance-helper does MORE THAN HALF the effort. [place] lifts or holds trunk or limbs and provides more than half the effort. 4-Elhyuofnq-gsotpe does ALL the effort. Patient does none of the effort to complete the activity. Or, the assistance of 2 or more helpers is required for the patient to complete the activity. If activity was not attempted, code reason: 7-Patient Refused. 9-Not Applicable-not attempted and the patient did not perform the activity before the current illness, exacerbation or injury. 10-Not Attempted due to Environmental Limitations-(lack of equipment, weather restraints, etc.). 88-Not Attempted due to Medical Conditions or Safety Concerns. 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 2=Patient will verbalize/demonstrate understanding of assistive devices/modifications for ADL. 3=Patient will improve strength/tolerance for activity to enable patient to perform ADL's. OT Education/Plan Problem List/Assessment Assessment: Decreased Activ Tolerance, Decreased UE Strength, Impaired Funct Balance, Impaired Self-Care Skills Discharge Recommendations Plan/Recommendations: Continue POC Treatment Plan/Plan of Care Patient would benefit from OT for education, treatment and training to promote independence in ADL's, mobility, safety and/or upper extremity function for ADL's. Plan of Care: ADL Retraining, Functional Mobility, Group Exercise/Act as Ind, UE Funct Exercise/Act Treatment Duration: Mar 01, 2021 Frequency: At least 5 of 7 days/Wk (IRF) Estimated Hrs Per Day: 1.5 hours per day Rehab Potential: Fair Time/GCodes Start Time: 07:30 Stop Time: 08:30 Total Time Billed (hr/min): 60 Billed Treatment Time 1 visit-ADL 4 (60 min) MEREDITH HERNANDEZ Feb 04, 2021 09:55
[2021-02-04] MEDS: RIVAROXABAN 10 MG TABLET (XARELTO) PO SCH (10:47)
[2021-02-04] MEDS ORDERED: CLN.1T PO (14:35)
--- NOTE | 2021-02-04 15:17 | Therapy Group Daily Note ---
Therapy Daily Group Note Patient Education Topic Other List Below (memory, ARU description/expectations) Exercises LE Seated Exercise, Fine Motor Session Ratio (pt:therapist): 4:1 Goal of Session: Education on ARU Expectations, Memory Strategies, UE/LE Strengthing Goal Met for this Session: Yes Pt Benefit of Group: Contributions to Others, F/U Use of Strategies @Home, Increased Functional Safety, Increased Functional Strength, Improved Cognition, Recognition of Peers, Socialization Other/Notes Pt propelled w/c to OT/PT group in ARU research [facility] area. Group consisted of introductions (name, place living, categories question), socialization, B UE/LE seated exercises, memory task and education. Pt introduced self appropriately and actively listened to peers. Pt able to throw items in designated areas against gravity with 100% accuracy. Pt was able to chose correct memory match 90% of the time. Pt acknowledged understanding of educational topics by giving own strategies. After therapy, pt lying in bed with call light/phone in reach. All needs met in room. Start Time: 13:00 Stop Time: 14:00 Total Billed Treatment Time: 60 Total Billed Treatment 1-GRP MEREDITH HERNANDEZ Feb 04, 2021 15:17
[2021-02-04 20:00] VITALS: BP 108/53
[2021-02-04] MEDS: SIMvastatin 10 MG (ZOCOR) TAB PO SCH (22:14)
[2021-02-05] MEDS: MULTIVIT W/MINERALS TAB (THERAGRAN M) PO SCH (06:09)
[2021-02-05] MEDS: CYANOCOBALAMIN 1,000 MCG (VITAMIN B-12) TABLET PO SCH (06:09)
--- NOTE | 2021-02-05 07:57 | Occupational Ther Daily Note ---
OT Current Status-Daily Note Subjective Pt alert, lying in bed. Pt agrees to therapy. No c/o pain at this time. Mental Status/Objective Patient Orientation: Person, Place, Time, Situation ADL-Treatment Due to arthritis pt has difficulty with opening small or hard to open packages, is able to use regular utensils to eat. Supine to EOB with HOB raised by self. CGA using FWW to SPT from EOB to w/c. Assist to propel w/c to bathroom. CGA using grabbars to transfer to/from toilet. CGA to hike pants down over hips, cleanses self sitting on toilet, assist to hike pants up over hips. Pt agrees to sponge bath at sink. Declines shower at this time due to leg/knee brace. O ral care independently. Declines change of clothing. Therapy Code Descriptions/Definitions Functional [place] Measure: 0=Not Assessed/NA 4=Minimal Assistance 1=Total Assistance 5=Supervision or Setup 2=Maximal Assistance 6=Modified [place] 3=Moderate Assistance 7=Complete IndependenceSCALE: Activities may be completed with or without assistive devices. 6-Qunjypmwvt-cjsidbr completes the activity by him/herself with no assistance from a helper. 5-Set-up or Clean-up Assistance-helper sets up or cleans up; patient completes activity. [place] assists only prior to or following the activity. 4-Supervision or Touching Assistance-helper provides verbal cues and/or touching/steadying and/or contact guard assistance as patient completes activity. Assistance may be provided throughout the activity or intermittently. 3-Partial/Moderate Assistance-helper does LESS THAN HALF the effort. [place] lifts, holds or supports trunk or limbs, but provides less than half the effort. 2-Substantial/Maximal Assistance-helper does MORE THAN HALF the effort. [place] lifts or holds trunk or limbs and provides more than half the effort. 4-Pybipcifd-kxiuih does ALL the effort. Patient does none of the effort to complete the activity. Or, the assistance of 2 or more helpers is required for the patient to complete the activity. If activity was not attempted, code reason: 7-Patient Refused. 9-Not Applicable-not attempted and the patient did not perform the activity before the current illness, exacerbation or injury. 10-Not Attempted due to Environmental Limitations-(lack of equipment, weather restraints, etc.). 88-Not Attempted due to Medical Conditions or Safety Concerns. Eating (QC): 5 Oral Hygiene (QC): 6 Toileting Hygiene (QC): 3 Toilet Transfer (QC): 4 Other Treatment Pt propels w/c to therapy gym by self. Pt completed arm bike for 12 min at 15 mobley resistance to increase strength and activity tolerance for daily functional tasks. After session, pt lying in bed with call light/phone in reach. All needs met in room. OT Short Term Goals Short Term Goals Time Frame: Feb 13, 2021 Toileting hygiene: 3 Shower/bathe self: 3 Upper body dressin Lower body dressin OT Care Home Goals Care Home Goals Time Frame: Mar 01, 2021 Eating (QC): 6 Oral Hygiene (QC): 6 Toileting Hygiene (QC): 4 Shower/Bathe Self (QC): 4 Upper Body Dressing (QC): 5 Lower Body Dressing (QC): 4 On/Off Footwear (QC): 5 Additional Goals: 1-Demonstrate ADL Tasks, 2-Verbalize Understanding, 3-Imp roveStrength/Jose Angel 1=Demonstrate adherence to instructed precautions during ADL tasks. 2=Patient will verbalize/demonstrate understanding of assistive devices/modifications for ADL. 3=Patient will improve strength/tolerance for activity to enable patient to perform ADL's. OT Education/Plan Problem List/Assessment Assessment: Decreased Activ Tolerance, Decreased UE Strength, Impaired Self- Care Skills Discharge Recommendations Plan/Recommendations: Continue POC Treatment Plan/Plan of Care Patient would benefit from OT for education, treatment and training to promote independence in ADL's, mobility, safety and/or upper extremity function for ADL's. Plan of Care: ADL Retraining, Functional Mobility, Group Exercise/Act as Ind, UE Funct Exercise/Act Treatment Duration: Mar 01, 2021 Frequency: At least 5 of 7 days/Wk (IRF) Estimated Hrs Per Day: 1.5 hours per day Rehab Potential: Fair Time/GCodes Start Time: 07:30 Stop Time: 08:30 Total Time Billed (hr/min): 60 Billed Treatment Time 1 visit-ADL 3 (48 min) EX 1 (12 min) MEREDITH HERNANDEZ Feb 05, 2021 07:57
[2021-02-05] MEDS: VITAMIN D3 10 MCG (400 UNITS) TABLET PO SCH (08:10)
[2021-02-05] MEDS: HYDROXYCHLOROQUINE 200 MG (PLAQUENIL) TAB PO SCH (08:10)
[2021-02-05] MEDS: RIVAROXABAN 10 MG TABLET (XARELTO) PO SCH (08:10)
[2021-02-05] MEDS: doxAzosin 1 MG (CARDURA) TAB PO SCH ×2 (08:11→09:20)
[2021-02-05] MEDS: SPIRONOLACTONE 25 MG (ALDACTONE) TAB PO SCH (08:11)
[2021-02-05 08:45] VITALS: BP 107/67
[2021-02-05] MEDS: polyethylene glycoL POWDER 17 GM (MIRALAX) PACK PO SCH ×2 (09:53→21:03)
[2021-02-05] MEDS: SENNA W/DOCUSATE (SENOKOT S) TABLET PO SCH ×2 (09:53→21:03)
[2021-02-05] MEDS: DOCUSATE SODIUM 100 MG (COLACE) CAP PO SCH ×2 (09:54→21:03)
[2021-02-05] MEDS: DICLOFENAC 1% GEL 100 GM (VOLTAREN) TUBE TOP SCH ×4 (10:26→21:04)
--- NOTE | 2021-02-05 10:57 | PM&R Progress Note ---
Subjective HPI/CC On Admission Date Seen by Provider: Feb 05, 2021 Time Seen by Provider: 11:00 Subjective/Events-last exam 02/05/2021: Patient doing pretty well but concerned about her blood pressure We will send her blood pressure readings up to hypertensive clinic and evaluate changes Had a bowel movement today Has a follow-up appointment for her leg on 02/13/2021 02/04/2021: Patient doing pretty well Blood pressure good without Cardura CPM maintain 3 times daily Bowels moved yesterday 02/03/2021: Patient doing pretty well Pain is controlled Discussed the Cardura so we will place parameter to hold if systolic less than 130 CPM machine will be set up 3 times daily as ordered 02/02/2021: Patient doing very well Bowels moved today and yesterday No major issues Pivoting is improved and transfers are safer 02/01/2021: Patient doing really well Pain is much improved Needs moderate assistance during transfers Increasing independence with ADLs No bowel movement yet but given gentle laxatives since she is tends to be at high risk for severe diarrhea Review of Systems General: Fatigue Musculoskeletal: leg pain Objective Exam Vital Signs Vital Signs Date Time Temp Pulse Resp B/P (MAP) Pulse Ox O2 Delivery O2 Flow Rate FiO2 02/05/21 21:05 96 Room Air 02/05/21 20:00 37.0 70 16 112/57 (75) Capillary Refill : General Appearance: No Apparent Distress, WD/WN, Chronically ill, Obese HEENT: PERRL/EOMI, Normal ENT Inspection, Pharynx Normal Neck: Full Range of Motion, Normal Inspection, Non Tender, Supple, Carotid Bruit Respiratory: Chest Non Tender, Lungs Clear, Normal Breath Sounds, No Accessory Muscle Use, No Respiratory Distress Cardiovascular: Regular Rate, Rhythm, No Edema, No Gallop, No JVD, No Murmur, Normal Peripheral Pulses Gastrointestinal: Normal Bowel Sounds, No Organomegaly, No Pulsatile Mass, Non Tender, Soft Back: Normal Inspection, No CVA Tenderness, No Vertebral Tenderness Extremity: Normal Capillary Refill, Normal Inspection, Normal Range of Motion, Non Tender, No Calf Tenderness, No Pedal Edema Neurologic/Psychiatric: Alert, Oriented x3, Normal Mood/Affect, Abnormal Gait, Motor Weakness (Right leg due to brace) Skin: Normal Color, Warm/Dry Lymphatic: No Adenopathy Results/Procedures Lab Patient resulted labs reviewed. FIM Transfers Therapy Code Descriptions/Definitions Functional [place] Measure: 0=Not Assessed/NA 4=Minimal Assistance 1=Total Assistance 5=Supervision or Setup 2=Maximal Assistance 6=Modified [place] 3=Moderate Assistance 7=Complete IndependenceSCALE: Activities may be completed with or without assistive devices. 9-Aejlpriufh-thsxtlw completes the activity by him/herself with no assistance from a helper. 5-Set-up or Clean-up Assistance-helper sets up or cleans up; patient completes activity. [place] assists only prior to or following the activity. 4-Supervision or Touching Assistance-helper provides verbal cues and/or touching/steadying and/or contact guard assistance as patient completes activity. Assistance may be provided throughout the activity or intermittently. 3-Partial/Moderate Assistance-helper does LESS THAN HALF the effort. [place] lifts, holds or supports trunk or limbs, but provides less than half the effort. 2-Substantial/Maximal Assistance-helper does MORE THAN HALF the effort. [place] lifts or holds trunk or limbs and provides more than half the effort. 7-Owmuqknox-gveyoo does ALL the effort. Patient does none of the effort to complete the activity. Or, the assistance of 2 or more helpers is required for the patient to complete the activity. If activity was not attempted, code reason: 7-Patient Refused. 9-Not Applicable-not attempted and the patient did not perform the activity before the current illness, exacerbation or injury. 10-Not Attempted due to Environmental Limitations-(lack of equipment, weather restraints, etc.). 88-Not Attempted due to Medical Conditions or Safety Concerns. Roll Left to Right (QC): 6 Sit to Lying (QC): 4 Sit to Stand (QC): 4 Chair/Isy-mp-Qhgix Xfer(QC): 4 (reaches across to transfer) Car Transfer (QC): 3 Gait Training Does the Patient Walk?: Yes Walk 10 feet (QC): 88 Walk 50 ft with 2 Turns(QC): 88 Walk 150 ft (QC): 88 Walking 10ft/uneven surface-QC: 88 Gait Assistive Device: Parallel Bars Wheelchair Training Does the Pt Use a Wheelchair?: Yes Distance: 150'x2 Wheel 50 ft with 2 turns (QC): 5 Wheel 150 ft (QC): 6 Type of Wheelchair: Manual Stair Training 1 Step (curb) (QC): 88 4 Steps (QC): 88 12 Steps (QC): 88 Balance Picking up an Object (QC): 88 ADL-Treatment Eating (QC): 5 Oral Hygiene (QC): 6 Shower/Bathe Self (QC): 2 Upper Body Dressing (QC): 5 Lower Body Dressing (QC): 3 On/Off Footwear (QC): 3 (Using sock aide to L don/doff sock, assist to L don/doff shoe.) Toileting Hygiene (QC): 3 Toilet Transfer (QC): 4 Assessment/Plan Assessment and Plan Assess & Plan/Chief Complaint Assessment: Right distal femoral fracture status post repair on 01/26/2021 History of lymphoma completed chemotherapy 1 year ago Hypertension Current constipation History of diarrhea Hyperlipidemia Anemia Plan: Pain control Regained bowel function Monitor closely Inpatient rehab protocol 02/01/2021: Bowel regimen to intensify Pain control Monitor closely 02/02/2021: Pain control Fall risk Monitor closely 02/03/2021: Pain control Hold Cardura for less than 130 systolic blood pressure CPM machine 3 times daily 02/04/2021: Monitor blood pressure Pain control 02/05/2021: Monitor blood pressure closely Send readings up to her specialist at (1) Femoral distal fracture Status: Acute (2) Lymphoma (3) Hyperlipidemia (4) Diarrhea (5) Constipation (6) Anemia (7) Hypertension Status: Acute (8) Anxiety Status: Acute HAKEEM HARRY DO Feb 05, 2021 10:57
--- NOTE | 2021-02-05 11:03 | Physical Therapy Daily Note ---
PT Daily Note-Current Subjective Agreeable to PT. no complaints. She does report she is tired post visit. Mental Status Patient Orientation: Person, Place, Time, Situation Transfers SCALE: Activities may be completed with or without assistive devices. 6-Ovxnnvdwng-lbqdwnf completes the activity by him/herself with no assistance from a helper. 5-Set-up or Clean-up Assistance-helper sets up or cleans up; patient completes activity. [place] assists only prior to or following the activity. 4-Supervision or Touching Assistance-helper provides verbal cues and/or touching/steadying and/or contact guard assistance as patient completes activity. Assistance may be provided throughout the activity or intermittently. 3-Partial/Moderate Assistance-helper does LESS THAN HALF the effort. [place] lifts, holds or supports trunk or limbs, but provides less than half the effort. 2-Substantial/Maximal Assistance-helper does MORE THAN HALF the effort. [place] lifts or holds trunk or limbs and provides more than half the effort. 7-Wlrtxgpnl-bjahem does ALL the effort. Patient does none of the effort to complete the activity. Or, the assistance of 2 or more helpers is required for the patient to complete the activity. If activity was not attempted, code reason: 7-Patient Refused. 9-Not Applicable-not attempted and the patient did not perform the activity before the current illness, exacerbation or injury. 10-Not Attempted due to Environmental Limitations-(lack of equipment, weather restraints, etc.). 88-Not Attempted due to Medical Conditions or Safety Concerns. Sit to Lying (QC): 5 Lying to Sitting/Side of Bed(Q: 5 Sit to Stand (QC): 4 (all surfaces; SB-CGA with good technique and sequencing. ) Chair/Wbp-sx-Kqzsc Xfer(QC): 4 (multiple SPT performed with SB-CGA; safe and steady. ) Weight Bearing Right Lower Extremity: Right Non Weight Bearing Patient has a adjustable knee brace on the right side, locked into extension, she is to have this on at all times unless she is in her CPM, which is set to 45 degrees at this time. Gait Training Pt performed hopping 10 ft x 3 in // bars with CGA with 2 turns each repetition. Pt then performed hopping with FWW 6 ft x 2 with CGA with no turns. Able to maintain NWB status. Wheelchair Training Wheel 50 ft with 2 turns (QC): 6 Wheel 150 ft (QC): 6 Exercises Supine Ex: Ankle pumps, Quad Set, Glut sets Supine Reps: 15 (2 reps) Assessment Current Status: Good Progress Progressing with functional strength and mobilty. Goal is to progress wc mobility for longer distances and progress hopping with a walker for short distances as able. PT Short Term Goals Short Term Goals Time Frame: Feb 07, 2021 Roll Left & Right: 6 Sit to lyin (met) Lying to sitting on side of be: 4 (met) Sit to stand: 4 (met) Chair/qmb-eg-rygci transfer: 4 (met) Walk 10 feet: 4 PT Solar Engineer Goals Solar Engineer Goals PT Solar Engineer Goals Time Frame: Feb 21, 2021 Roll Left & Right (QC): 6 Sit to Lying (QC): 6 Lying-Sitting on Side/Bed(QC): 6 Sit to Stand (QC): 4 (SBA) Chair/Mcm-yr-Gvwsn Xfer(QC): 4 (SBA) Toilet Transfer (QC): 4 (SBA) Car Transfer (QC): 4 (SBA) Does the Patient Walk: Yes Walk 10 feet (QC): 4 (SBA) Walk 50ft with 2 Turns (QC): 88 Walk 150 ft (QC): 88 Walking 10ft on Uneven Surface: 88 1 Step (curb) (QC): 88 4 Steps (QC): 88 12 Steps (QC): 88 Picking up an Object (QC): 4 Wheel 50 feet with 2 turns (QC: 5 Wheel 150 feet: 5 PT Plan Problem List Problem List: Activity Tolerance, Functional Strength, Safety, Balance, Gait, Transfer, Bed Mobility Treatment/Plan Treatment Plan: Continue Plan of Care Treatment Plan: Bed Mobility, Education, Functional Activity Jose Angel, Functional Strength, Group Therapy, Gait, Safety, Therapeutic Exercise, Transfers Treatment Duration: Feb 21, 2021 Frequency: At least 5 of 7 days/Wk (IRF) Estimated Hrs Per Day: 1.5 hours per day Patient and/or Family Agrees t: Yes Safety Risks/Education Patient Education: Safety Issues Teaching Recipient: Patient Teaching Methods: Discussion Response to Teaching: Verbalize Understanding Time/GCodes Time In: 930 Time Out: 1030 Total Billed Treatment Time: 60 Total Billed Treatment visit FA 45 WC 15 MEREDITH BARNES PT Feb 05, 2021 11:03
--- NOTE | 2021-02-05 13:32 | Occupational Ther Daily Note ---
OT Current Status-Daily Note Subjective Pt alert, lying in bed. Pt agrees to therapy. No c/o pain at this time. Mental Status/Objective Patient Orientation: Person, Place, Time, Situation ADL-Treatment CGA for SPT using FWW. SPT using grabbars to transfer to toilet and manage clothing. Sitting on toilet to complete hygiene. Assist due to balance issues to hike pants up. Sitting at sink to wash hands. Therapy Code Descriptions/Definitions Functional [place] Measure: 0=Not Assessed/NA 4=Minimal Assistance 1=Total Assistance 5=Supervision or Setup 2=Maximal Assistance 6=Modified [place] 3=Moderate Assistance 7=Complete IndependenceSCALE: Activities may be completed with or without assistive devices. 7-Rdwgetytia-ecpspcd completes the activity by him/herself with no assistance from a helper. 5-Set-up or Clean-up Assistance-helper sets up or cleans up; patient completes activity. [place] assists only prior to or following the activity. 4-Supervision or Touching Assistance-helper provides verbal cues and/or touching/steadying and/or contact guard assistance as patient completes activity. Assistance may be provided throughout the activity or intermittently. 3-Partial/Moderate Assistance-helper does LESS THAN HALF the effort. [place] lifts, holds or supports trunk or limbs, but provides less than half the effort. 2-Substantial/Maximal Assistance-helper does MORE THAN HALF the effort. [place] lifts or holds trunk or limbs and provides more than half the effort. 3-Twmyuftyu-puxije does ALL the effort. Patient does none of the effort to complete the activity. Or, the assistance of 2 or more helpers is required for the patient to complete the activity. If activity was not attempted, code reason: 7-Patient Refused. 9-Not Applicable-not attempted and the patient did not perform the activity before the current illness, exacerbation or injury. 10-Not Attempted due to Environmental Limitations-(lack of equipment, weather restraints, etc.). 88-Not Attempted due to Medical Conditions or Safety Concerns. Toileting Hygiene (QC): 3 Toilet Transfer (QC): 4 Other Treatment Pt completed hand weights (2#) to complete 3 shldr exercises and 1 bicep exercises, 2 sets 10-15 reps each. Pt's shldrs fatigue quickly. After session, pt sitting in w/c in room call light/phone in reach. All needs met in room. OT Short Term Goals Short Term Goals Time Frame: Feb 13, 2021 Toileting hygiene: 3 Shower/bathe self: 3 Upper body dressin Lower body dressin OT Import Coordinator Goals Custodial Goals Time Frame: Mar 01, 2021 Eating (QC): 6 Oral Hygiene (QC): 6 Toileting Hygiene (QC): 4 Shower/Bathe Self (QC): 4 Upper Body Dressing (QC): 5 Lower Body Dressing (QC): 4 On/Off Footwear (QC): 5 Additional Goals: 1-Demonstrate ADL Tasks, 2-Verbalize Understanding, 3- ImproveStrength/[place] Angel 1=Demonstrate adherence to instructed precautions during ADL tasks. 2=Patient will verbalize/demonstrate understanding of assistive devices/modifications for ADL. 3=Patient will improve strength/tolerance for activity to enable patient to perform ADL's. OT Education/Plan Problem List/Assessment Assessment: Decreased Activ Tolerance, Decreased UE Strength Discharge Recommendations Plan/Recommendations: Continue POC Treatment Plan/Plan of Care Patient would benefit from OT for education, treatment and training to promote independence in ADL's, mobility, safety and/or upper extremity function for ADL's. Plan of Care: ADL Retraining, Functional Mobility, Group Exercise/Act as Ind, UE Funct Exercise/Act Treatment Duration: Mar 01, 2021 Frequency: At least 5 of 7 days/Wk (IRF) Estimated Hrs Per Day: 1.5 hours per day Rehab Potential: Fair Time/GCodes Start Time: 13:00 Stop Time: 13:30 Total Time Billed (hr/min): 30 Billed Treatment Time 1 visit-ADL 1 (20 min) EX 1 (10 min) MEREIDTH HERNANDEZ Feb 05, 2021 13:32
--- NOTE | 2021-02-05 16:07 | Physical Therapy Daily Note ---
PT Daily Note-Current Subjective Pt sitting in [facility] upon arrival. Sp is present at beginning of tx but remains in pt room. Pt agrees to PT. Pain Location: No Pain Reported Mental Status Patient Orientation: Person, Place, Time, Situation Attachments: Other-See Comments (Knee brace) Transfers SCALE: Activities may be completed with or without assistive devices. 8-Nixoeuqbsz-aatghch completes the activity by him/herself with no assistance from a helper. 5-Set-up or Clean-up Assistance-helper sets up or cleans up; patient completes activity. [place] assists only prior to or following the activity. 4-Supervision or Touching Assistance-helper provides verbal cues and/or touching/steadying and/or contact guard assistance as patient completes activity. Assistance may be provided throughout the activity or intermittently. 3-Partial/Moderate Assistance-helper does LESS THAN HALF the effort. [place] lifts, holds or supports trunk or limbs, but provides less than half the effort. 2-Substantial/Maximal Assistance-helper does MORE THAN HALF the effort. [place] lifts or holds trunk or limbs and provides more than half the effort. 3-Qmnktdhaf-esmtpb does ALL the effort. Patient does none of the effort to complete the activity. Or, the assistance of 2 or more helpers is required for the patient to complete the activity. If activity was not attempted, code reason: 7-Patient Refused. 9-Not Applicable-not attempted and the patient did not perform the activity before the current illness, exacerbation or injury. 10-Not Attempted due to Environmental Limitations-(lack of equipment, weather restraints, etc.). 88-Not Attempted due to Medical Conditions or Safety Concerns. Sit to Stand (QC): 5 Weight Bearing Right Lower Extremity: Right Non Weight Bearing Patient has a adjustable knee brace on the right side, locked into extension, she is to have this on at all times unless she is in her CPM, which is set to 45 degrees at this time. Wheelchair Training Does the Pt Use a Wheelchair?: Yes Wheel 50 ft with 2 turns (QC): 5 Wheel 150 ft (QC): 5 Type of Wheelchair: Manual Exercises Seated Therapy Exercises: Ankle pumps, Long arc quads, Hip flexion Seated Reps: 15 (L side only) Standing: Hip Abduction, Unilateral stance Standing Reps: 15 Treatments Propels [facility] in hallway. Pt completes Seated EX on L side only and Standing EX at //bars for R side. Pt returns to room at end of tx to rest in bed with CPM on. All needs met, call light in hand. Assessment Current Status: Good Progress Pt continues to push self and is motivated to improve daily. PT Short Term Goals Short Term Goals Time Frame: Feb 07, 2021 Roll Left & Right: 6 Sit to lyin (met) Lying to sitting on side of be: 4 (met) Sit to stand: 4 (met) Chair/jsd-pl-nfixx transfer: 4 (met) Walk 10 feet: 4 PT Fdc Goals [place] Collection Clerk Goals PT Out Of [place] Collection Clerk Goals Time Frame: Feb 21, 2021 Roll Left & Right (QC): 6 Sit to Lying (QC): 6 Lying-Sitting on Side/Bed(QC): 6 Sit to Stand (QC): 4 (SBA) Chair/Vfo-ab-Nvbce Xfer(QC): 4 (SBA) Toilet Transfer (QC): 4 (SBA) Car Transfer (QC): 4 (SBA) Does the Patient Walk: Yes Walk 10 feet (QC): 4 (SBA) Walk 50ft with 2 Turns (QC): 88 Walk 150 ft (QC): 88 Walking 10ft on Uneven Surface: 88 1 Step (curb) (QC): 88 4 Steps (QC): 88 12 Steps (QC): 88 Picking up an Object (QC): 4 Wheel 50 feet with 2 turns (QC: 5 Wheel 150 feet: 5 PT Plan Treatment/Plan Treatment Plan: Continue Plan of Care Treatment Plan: Bed Mobility, Education, Functional Activity Jose Angel, Functional Strength, Group Therapy, Gait, Safety, Therapeutic Exercise, Transfers Treatment Duration: Feb 21, 2021 Frequency: At least 5 of 7 days/Wk (IRF) Estimated Hrs Per Day: 1.5 hours per day Patient and/or Family Agrees t: Yes Safety Risks/Education Patient Education: Issued Written HEP, Correct Positioning, Safety Issues Teaching Recipient: Patient Teaching Methods: Discussion Response to Teaching: Verbalize Understanding Time/GCodes Time In: 1400 Time Out: 1435 Total Billed Treatment Time: 35 Total Billed Treatment 1, EX (20m) & FA (15m) SARA ROGEL ENGLISH LECTURER Feb 05, 2021 16:07
[2021-02-05 20:00] VITALS: BP 112/57
[2021-02-05] MEDS: SIMvastatin 10 MG (ZOCOR) TAB PO SCH (21:02)
[2021-02-06] MEDS: MULTIVIT W/MINERALS TAB (THERAGRAN M) PO SCH (06:47)
[2021-02-06] MEDS: CYANOCOBALAMIN 1,000 MCG (VITAMIN B-12) TABLET PO SCH (06:47)
[2021-02-06 08:00] VITALS: BP 128/60
[2021-02-06] MEDS: polyethylene glycoL POWDER 17 GM (MIRALAX) PACK PO SCH ×2 (09:00→19:53)
[2021-02-06] MEDS: DOCUSATE SODIUM 100 MG (COLACE) CAP PO SCH ×2 (09:00→19:53)
[2021-02-06] MEDS: SENNA W/DOCUSATE (SENOKOT S) TABLET PO SCH ×2 (09:00→19:53)
[2021-02-06] MEDS: VITAMIN D3 10 MCG (400 UNITS) TABLET PO SCH (10:10)
[2021-02-06] MEDS: SPIRONOLACTONE 25 MG (ALDACTONE) TAB PO SCH (10:10)
[2021-02-06] MEDS: HYDROXYCHLOROQUINE 200 MG (PLAQUENIL) TAB PO SCH (10:10)
[2021-02-06] MEDS: RIVAROXABAN 10 MG TABLET (XARELTO) PO SCH (10:10)
[2021-02-06] MEDS: DICLOFENAC 1% GEL 100 GM (VOLTAREN) TUBE TOP SCH ×4 (10:11→20:10)
--- NOTE | 2021-02-06 10:16 | Occupational Ther Daily Note ---
OT Current Status-Daily Note Subjective Pt alert, lying in bed. Pt agrees to therapy. No c/o pain at this time. Mental Status/Objective Patient Orientation: Person, Place, Time, Situation Attachments: Other-See Comments (R leg brace) ADL-Treatment Pt agrees to shower. Assist to cover R LE for shower. CGA for safety with SPT using FWW from bed <--> w/c. CGA using grabbars to transfer to<-->from toilet. Min A to manipulate clothing over hips, cleanses self sitting on toilet. Sitting on shower bench, pt able to complete shower by self, assist only to dry feet. Set up for upper body dressing. Pt able to thread lower body clothing over feet with AE then assist to hike over hips due to balance issues. Sock aide to don socks on B feet. Assist to don L shoe. Independent with eating and oral care. After session, pt lying in bed with call light/manuel in reach. All needs met in room. Therapy Code Descriptions/Definitions Functional [place] Measure: 0=Not Assessed/NA 4=Minimal Assistance 1=Total Assistance 5=Supervision or Setup 2=Maximal Assistance 6=Modified [place] 3=Moderate Assistance 7=Complete IndependenceSCALE: Activities may be completed with or without assistive devices. 5-Onugdqistd-kzmjpvu completes the activity by him/herself with no assistance from a helper. 5-Set-up or Clean-up Assistance-helper sets up or cleans up; patient completes activity. [place] assists only prior to or following the activity. 4-Supervision or Touching Assistance-helper provides verbal cues and/or touching/steadying and/or contact guard assistance as patient completes activity. Assistance may be provided throughout the activity or intermittently. 3-Partial/Moderate Assistance-helper does LESS THAN HALF the effort. [place] lifts, holds or supports trunk or limbs, but provides less than half the effort. 2-Substantial/Maximal Assistance-helper does MORE THAN HALF the effort. [place] lifts or holds trunk or limbs and provides more than half the effort. 4-Wbpcvjlke-rabvrf does ALL the effort. Patient does none of the effort to complete the activity. Or, the assistance of 2 or more helpers is required for the patient to complete the activity. If activity was not attempted, code reason: 7-Patient Refused. 9-Not Applicable-not attempted and the patient did not perform the activity before the current illness, exacerbation or injury. 10-Not Attempted due to Environmental Limitations-(lack of equipment, weather restraints, etc.). 88-Not Attempted due to Medical Conditions or Safety Concerns. Eating (QC): 6 Oral Hygiene (QC): 6 Shower/Bathe Self (QC): 3 Upper Body Dressing (QC): 5 Lower Body Dressing (QC): 3 On/Off Footwear: 3 Toileting Hygiene (QC): 3 Toilet Transfer (QC): 4 OT Short Term Goals Short Term Goals Time Frame: Feb 13, 2021 Toileting hygiene: 3 Shower/bathe self: 3 Upper body dressin Lower body dressin OT [employer] Goals [employer] Goals Time Frame: Mar 01, 2021 Eating (QC): 6 Oral Hygiene (QC): 6 Toileting Hygiene (QC): 4 Shower/Bathe Self (QC): 4 Upper Body Dressing (QC): 5 Lower Body Dressing (QC): 4 On/Off Footwear (QC): 5 Additional Goals: 1-Demonstrate ADL Tasks, 2-Verbalize Understanding, 3- ImproveStrength/Jose Angel 1=Demonstrate adherence to instructed precautions during ADL tasks. 2=Patient will verbalize/demonstrate understanding of assistive devices/modifications for ADL. 3=Patient will improve strength/tolerance for activity to enable patient to perform ADL's. OT Education/Plan Problem List/Assessment Assessment: Impaired Funct Balance, Impaired Self-Care Skills Discharge Recommendations Plan/Recommendations: Continue POC Treatment Plan/Plan of Care Patient would benefit from OT for education, treatment and training to promote independence in ADL's, mobility, safety and/or upper extremity function for ADL's. Plan of Care: ADL Retraining, Functional Mobility, Group Exercise/Act as Ind, UE Funct Exercise/Act Treatment Duration: Mar 01, 2021 Frequency: At least 5 of 7 days/Wk (IRF) Estimated Hrs Per Day: 1.5 hours per day Rehab Potential: Fair Time/GCodes Start Time: 07:30 Stop Time: 08:35 Total Time Billed (hr/min): 65 Billed Treatment Time 1 visit-ADL 4 (65 min) MEREDITH HERNANDEZ Feb 06, 2021 10:16
--- NOTE | 2021-02-06 11:30 | PM&R Progress Note ---
Subjective HPI/CC On Admission Date Seen by Provider: Feb 06, 2021 Time Seen by Provider: 10:00 Subjective/Events-last exam 02/06/2021: Patient doing pretty well CPM will be increased to tolerated Dry mouth reported I recommended Biotene Heels are hurting so we will address that Discharge is planned for 02/14 Blood pressure log will be sent to [facility] 02/05/2021: Patient doing pretty well but concerned about her blood pressure We will send her blood pressure readings up to hypertensive clinic and evaluate changes Had a bowel movement today Has a follow-up appointment for her leg on 02/13/2021 02/04/2021: Patient doing pretty well Blood pressure good without Cardura CPM maintain 3 times daily Bowels moved yesterday 02/03/2021: Patient doing pretty well Pain is controlled Discussed the Cardura so we will place parameter to hold if systolic less than 130 CPM machine will be set up 3 times daily as ordered 02/02/2021: Patient doing very well Bowels moved today and yesterday No major issues Pivoting is improved and transfers are safer 02/01/2021: Patient doing really well Pain is much improved Needs moderate assistance during transfers Increasing independence with ADLs No bowel movement yet but given gentle laxatives since she is tends to be at high risk for severe diarrhea Review of Systems General: Fatigue, Malaise Musculoskeletal: leg pain Objective Exam Vital Signs Vital Signs Date Time Temp Pulse Resp B/P (MAP) Pulse Ox O2 Delivery O2 Flow Rate FiO2 02/06/21 20:32 Room Air 02/06/21 20:00 36.6 69 20 125/69 (87) 96 Capillary Refill : General Appearance: No Apparent Distress, WD/WN, Chronically ill, Obese HEENT: PERRL/EOMI, Normal ENT Inspection, Pharynx Normal Neck: Full Range of Motion, Normal Inspection, Non Tender, Supple, Carotid Bruit Respiratory: Chest Non Tender, Lungs Clear, Normal Breath Sounds, No Accessory Muscle Use, No Respiratory Distress Cardiovascular: Regular Rate, Rhythm, No Edema, No Gallop, No JVD, No Murmur, Normal Peripheral Pulses Gastrointestinal: Normal Bowel Sounds, No Organomegaly, No Pulsatile Mass, Non Tender, Soft Back: Normal Inspection, No CVA Tenderness, No Vertebral Tenderness Extremity: Normal Capillary Refill, Normal Inspection, Normal Range of Motion, Non Tender, No Calf Tenderness, No Pedal Edema Neurologic/Psychiatric: Alert, Oriented x3, Normal Mood/Affect, Abnormal Gait, Motor Weakness (Right leg due to brace) Skin: Normal Color, Warm/Dry Lymphatic: No Adenopathy Results/Procedures Lab Patient resulted labs reviewed. FIM Transfers Therapy Code Descriptions/Definitions Functional [place] Measure: 0=Not Assessed/NA 4=Minimal Assistance 1=Total Assistance 5=Supervision or Setup 2=Maximal Assistance 6=Modified [place] 3=Moderate Assistance 7=Complete IndependenceSCALE: Activities may be completed with or without assistive devices. 5-Pyechfmbtt-wmhjyfn completes the activity by him/herself with no assistance from a helper. 5-Set-up or Clean-up Assistance-helper sets up or cleans up; patient completes activity. [place] assists only prior to or following the activity. 4-Supervision or Touching Assistance-helper provides verbal cues and/or touching/steadying and/or contact guard assistance as patient completes activity. Assistance may be provided throughout the activity or intermittently. 3-Partial/Moderate Assistance-helper does LESS THAN HALF the effort. [place] lifts, holds or supports trunk or limbs, but provides less than half the effort. 2-Substantial/Maximal Assistance-helper does MORE THAN HALF the effort. [place] lifts or holds trunk or limbs and provides more than half the effort. 9-Grfosznii-rtbryu does ALL the effort. Patient does none of the effort to complete the activity. Or, the assistance of 2 or more helpers is required for the patient to complete the activity. If activity was not attempted, code reason: 7-Patient Refused. 9-Not Applicable-not attempted and the patient did not perform the activity before the current illness, exacerbation or injury. 10-Not Attempted due to Environmental Limitations-(lack of equipment, weather restraints, etc.). 88-Not Attempted due to Medical Conditions or Safety Concerns. Roll Left to Right (QC): 6 Sit to Lying (QC): 5 Sit to Stand (QC): 5 Chair/Nbj-fc-Oorom Xfer(QC): 4 (multiple SPT performed with SB-CGA; safe and steady. ) Car Transfer (QC): 3 Gait Training Does the Patient Walk?: Yes Walk 10 feet (QC): 88 Walk 50 ft with 2 Turns(QC): 88 Walk 150 ft (QC): 88 Walking 10ft/uneven surface-QC: 88 Gait Assistive Device: Parallel Bars Wheelchair Training Does the Pt Use a Wheelchair?: Yes Distance: 150'x2 Wheel 50 ft with 2 turns (QC): 5 Wheel 150 ft (QC): 5 Type of Wheelchair: Manual Stair Training 1 Step (curb) (QC): 88 4 Steps (QC): 88 12 Steps (QC): 88 Balance Picking up an Object (QC): 88 ADL-Treatment Eating (QC): 6 Oral Hygiene (QC): 6 Shower/Bathe Self (QC): 3 Upper Body Dressing (QC): 5 Lower Body Dressing (QC): 3 On/Off Footwear (QC): 3 Toileting Hygiene (QC): 3 Toilet Transfer (QC): 4 Assessment/Plan Assessment and Plan Assess & Plan/Chief Complaint Assessment: Right distal femoral fracture status post repair on 01/26/2021 History of lymphoma completed chemotherapy 1 year ago Hypertension Current constipation History of diarrhea Hyperlipidemia Anemia Plan: Pain control Regained bowel function Monitor closely Inpatient rehab protocol 02/01/2021: Bowel regimen to intensify Pain control Monitor closely 02/02/2021: Pain control Fall risk Monitor closely 02/03/2021: Pain control Hold Cardura for less than 130 systolic blood pressure CPM machine 3 times daily 02/04/2021: Monitor blood pressure Pain control 02/05/2021: Monitor blood pressure closely Send readings up to her specialist at [facility] 02/06/21: Patient improved Pain is well controlled (1) Femoral distal fracture Status: Acute (2) Lymphoma (3) Hyperlipidemia (4) Diarrhea (5) Constipation (6) Anemia (7) Hypertension Status: Acute (8) Anxiety Status: Acute HAKEEM HARRY DO Feb 06, 2021 11:30
--- NOTE | 2021-02-06 12:46 | Physical Therapy Daily Note ---
PT Daily Note-Current Subjective Pt up in w/c and ready for PT upon arrival. Pain rated 1-2/10 at present time. Mental Status Patient Orientation: Person, Place, Situation Transfers SCALE: Activities may be completed with or without assistive devices. 7-Yciuwiwsat-fifnnrz completes the activity by him/herself with no assistance from a helper. 5-Set-up or Clean-up Assistance-helper sets up or cleans up; patient completes activity. [place] assists only prior to or following the activity. 4-Supervision or Touching Assistance-helper provides verbal cues and/or touching/steadying and/or contact guard assistance as patient completes activity. Assistance may be provided throughout the activity or intermittently. 3-Partial/Moderate Assistance-helper does LESS THAN HALF the effort. [place] lifts, holds or supports trunk or limbs, but provides less than half the effort. 2-Substantial/Maximal Assistance-helper does MORE THAN HALF the effort. [place] lifts or holds trunk or limbs and provides more than half the effort. 3-Rqrehmssj-qxardc does ALL the effort. Patient does none of the effort to complete the activity. Or, the assistance of 2 or more helpers is required for the patient to complete the activity. If activity was not attempted, code reason: 7-Patient Refused. 9-Not Applicable-not attempted and the patient did not perform the activity before the current illness, exacerbation or injury. 10-Not Attempted due to Environmental Limitations-(lack of equipment, weather restraints, etc.). 88-Not Attempted due to Medical Conditions or Safety Concerns. CGA for SPT and all mobility Weight Bearing Right Lower Extremity: Right Non Weight Bearing Patient has a adjustable knee brace on the right side, locked into extension, she is to have this on at all times unless she is in her CPM, which is set to 45 degrees at this time. Gait Training Gait Assistive Device: Parallel Bars Pt amb NWB in //bars 4 x 7ft. Wheelchair Training Type of Wheelchair: Manual Pt self propelled [facility] 1 x 125ft, 1 x 225ft Exercises Seated Therapy Exercises: Ankle pumps, Long arc quads, Hip flexion, Hip abd/add Seated Reps: [address] Ex=Flex, Abd, Ext Standing Reps: 20 NuStep Minutes: 10 NuStep Workload: 3 Treatments Pt performed all seated ther ex with (L) LE AROM, manual resistance for hip abd, RTB for hamcurls x 20. Performed (R) LE 3 way hip NWB. (R) LE propped on stool during Nu-step exercise. CPM 0-50deg Assessment Current Status: Good Progress Bhumi above very well. Pt resting in bed with call light and all needs met. PT Short Term Goals Short Term Goals Time Frame: Feb 07, 2021 Roll Left & Right: 6 Sit to lyin (met) Lying to sitting on side of be: 4 (met) Sit to stand: 4 (met) Chair/tfh-sl-sqvfk transfer: 4 (met) Walk 10 feet: 4 PT Pottery Decorator Goals Jail Goals PT Pottery Decorator Goals Time Frame: Feb 21, 2021 Roll Left & Right (QC): 6 Sit to Lying (QC): 6 Lying-Sitting on Side/Bed(QC): 6 Sit to Stand (QC): 4 (SBA) Chair/Shz-tr-Qopcu Xfer(QC): 4 (SBA) Toilet Transfer (QC): 4 (SBA) Car Transfer (QC): 4 (SBA) Does the Patient Walk: Yes Walk 10 feet (QC): 4 (SBA) Walk 50ft with 2 Turns (QC): 88 Walk 150 ft (QC): 88 Walking 10ft on Uneven Surface: 88 1 Step (curb) (QC): 88 4 Steps (QC): 88 12 Steps (QC): 88 Picking up an Object (QC): 4 Wheel 50 feet with 2 turns (QC: 5 Wheel 150 feet: 5 PT Plan Treatment/Plan Treatment Plan: Continue Plan of Care Treatment Plan: Bed Mobility, Education, Functional Activity Jose Angel, Functional Strength, Group Therapy, Gait, Safety, Therapeutic Exercise, Transfers Treatment Duration: Feb 21, 2021 Frequency: At least 5 of 7 days/Wk (IRF) Estimated Hrs Per Day: 1.5 hours per day Patient and/or Family Agrees t: Yes Time/GCodes Time In: 1000 Time Out: 1100 Total Billed Treatment Time: 60 Total Billed Treatment 1, ther ex 30', gait 15', wch 15' RASHARD CONN CPTA Feb 06, 2021 12:46
--- NOTE | 2021-02-06 14:39 | Therapy Group Daily Note ---
Therapy Daily Group Note Patient Education Topic Energy Cons Exercises LE Seated Exercise, UE Exercise Session Ratio (pt:therapist): 3:1 Goal of Session: Energy Conservation Tech., UE/LE Strengthing Goal Met for this Session: Yes Pt Benefit of Group: Contributions to Others, F/U Use of Strategies @Home, Increased Functional Safety, Increased Functional Strength, Improved Cognition, Recognition of Peers, Socialization Other/Notes Pt propelled w/c to [facility] to participate in OT/PT group. Group consisted of introductions (name, place living, favorite summer activity), socialization, seated B UE/LE exercise and energy conservation education. Pt introduced self appropriately and actively listened to peers. Pt able to complete B UE exercises without difficulty, due to decreased mobility in R LE pt required modifications to LE exercises, L LE able to complete. Pt acknowledged understanding of educational topic by giving own strategies and examples. After session, pt lying in bed with call light/phone in reach. All needs met in room. Start Time: 13:00 Stop Time: 14:00 Total Billed Treatment Time: 60 Total Billed Treatment 1-GRP MEREDITH HERNANDEZ Feb 06, 2021 14:39
[2021-02-06 20:00] VITALS: BP 125/69
[2021-02-06] MEDS: SIMvastatin 10 MG (ZOCOR) TAB PO SCH (20:07)
[2021-02-07] MEDS: ALPRAZolam 0.25 MG (XANAX) TAB PO PRN (01:33)
[2021-02-07] MEDS: MULTIVIT W/MINERALS TAB (THERAGRAN M) PO SCH (06:14)
[2021-02-07] MEDS: CYANOCOBALAMIN 1,000 MCG (VITAMIN B-12) TABLET PO SCH (06:14)
[2021-02-07 08:00] VITALS: BP 130/60
[2021-02-07] MEDS: RIVAROXABAN 10 MG TABLET (XARELTO) PO SCH (08:04)
[2021-02-07] MEDS: SPIRONOLACTONE 25 MG (ALDACTONE) TAB PO SCH (08:04)
[2021-02-07] MEDS: HYDROXYCHLOROQUINE 200 MG (PLAQUENIL) TAB PO SCH (08:04)
[2021-02-07] MEDS: VITAMIN D3 10 MCG (400 UNITS) TABLET PO SCH (08:04)
--- NOTE | 2021-02-07 08:37 | Occupational Ther Daily Note ---
OT Current Status-Daily Note Subjective Pt alert, lying in bed. Pt agrees to therapy. No c/o pain. Mental Status/Objective Patient Orientation: Person, Place, Time, Situation Attachments: Knee Immobilizer ADL-Treatment 1st session(): Pt declined changing clothing and bathing. Pt agrees to wash up at sink and complete grooming/oral care. Supine to EOB independent with bed rail and HOB slightly raised. CGA for SPT using FWW or grabbars. CGA for toilet transfer using grabbars. Assist to manipulate clothing due to getting caught on knee immobilizer. Pt completed hygiene independently sitting on toilet. Therapy Code Descriptions/Definitions Functional [place] Measure: 0=Not Assessed/NA 4=Minimal Assistance 1=Total Assistance 5=Supervision or Setup 2=Maximal Assistance 6=Modified [place] 3=Moderate Assistance 7=Complete IndependenceSCALE: Activities may be completed with or without assistive devices. 5-Xpufzqftic-ukxlrju completes the activity by him/herself with no assistance from a helper. 5-Set-up or Clean-up Assistance-helper sets up or cleans up; patient completes activity. [place] assists only prior to or following the activity. 4-Supervision or Touching Assistance-helper provides verbal cues and/or touching/steadying and/or contact guard assistance as patient completes a ctivity. Assistance may be provided throughout the activity or intermittently. 3-Partial/Moderate Assistance-helper does LESS THAN HALF the effort. [place] lifts, holds or supports trunk or limbs, but provides less than half the effort. 2-Substantial/Maximal Assistance-helper does MORE THAN HALF the effort. [place] lifts or holds trunk or limbs and provides more than half the effort. 6-Iwebcsovi-kccipl does ALL the effort. Patient does none of the effort to complete the activity. Or, the assistance of 2 or more helpers is required for the patient to complete the activity. If activity was not attempted, code reason: 7-Patient Refused. 9-Not Applicable-not attempted and the patient did not perform the activity before the current illness, exacerbation or injury. 10-Not Attempted due to Environmental Limitations-(lack of equipment, weather restraints, etc.). 88-Not Attempted due to Medical Conditions or Safety Concerns. Eating (QC): 6 Oral Hygiene (QC): 6 On/Off Footwear: 3 (Pt able to don L sock sitting up in bed and assist to don L shoe. Able to use sock aide to don R sock.) Toileting Hygiene (QC): 3 Toilet Transfer (QC): 4 Other Treatment 1st session(729-0): Co-treat with PT([id number]), skilled instruction and modification required for simulating home transfers due to decreased mobility, decreased activity tolerance. PT focusing on transfers and ambulation while OT focusing on B hand placement and modification for functional transfers when needed. See PT notes for ambulation and transfer progress. Pt left in care of PT after OT session. All needs met. 2nd session([id number]): Pt agrees to work on tub bench transfer. Pt propelled w/c to large shower room and was able to complete tub transfer with close SBA using FWW. Pt then went to therapy gym and completed arm bike to increase strength and activity tolerance for daily functional tasks, 10 min at 20 mobley resistance. After session, pt left in care of PT in therapy gym. OT Short Term Goals Short Term Goals Time Frame: Feb 13, 2021 Toileting hygiene: 3 Shower/bathe self: 3 Upper body dressin Lower body dressin OT Mcfp Goals Prior Authorization Technician Goals Time Frame: Mar 01, 2021 Eating (QC): 6 Oral Hygiene (QC): 6 Toileting Hygiene (QC): 4 Shower/Bathe Self (QC): 4 Upper Body Dressing (QC): 5 Lower Body Dressing (QC): 4 On/Off Footwear (QC): 5 Additional Goals: 1-Demonstrate ADL Tasks, 2-Verbalize Understanding, 3- ImproveStrength/Jose Angel 1=Demonstrate adherence to instructed precautions during ADL tasks. 2=Patient will verbalize/demonstrate understanding of assistive devic es/modifications for ADL. 3=Patient will improve strength/tolerance for activity to enable patient to perform ADL's. OT Education/Plan Problem List/Assessment Assessment: Decreased Activ Tolerance, Decreased UE Strength, Impaired Funct Balance, Impaired Self-Care Skills Discharge Recommendations Plan/Recommendations: Continue POC Treatment Plan/Plan of Care Patient would benefit from OT for education, treatment and training to promote independence in ADL's, mobility, safety and/or upper extremity function for ADL's. Plan of Care: ADL Retraining, Functional Mobility, Group Exercise/Act as Ind, UE Funct Exercise/Act Treatment Duration: Mar 01, 2021 Frequency: At least 5 of 7 days/Wk (IRF) Estimated Hrs Per Day: 1.5 hours per day Rehab Potential: Fair Time/GCodes Start Time: 07:30 (1300) Stop Time: 08:30 (1330) Total Time Billed (hr/min): 90 Billed Treatment Time 1 visit([id number])-ADL 2 (30 min) FA 2 (30 min) co-treat with PT [id number], individual [id number] 1 visit(1556-5986)-FA 1 (20 min) EX 1 (10 min) MEREDITH HERNANDEZ Feb 07, 2021 08:36
--- NOTE | 2021-02-07 08:56 | Physical Therapy Daily Note ---
PT Daily Note-Current Subjective Patient in WC pre tx, agrees to PT, has no complaints of pain. Will be co- treating with OT due to poor patient mobility, strength, endurance, coordinate UE and LE during activity, safety and reduce risk of falls. Appearance Patient in bed post tx with nurse call, phone, tray, all needs met. Mental Status Patient Orientation: Normal For Age right leg brace Transfers SCALE: Activities may be completed with or without assistive devices. 0-Mpslzgbhdj-neksbvh completes the activity by him/herself with no assistance from a helper. 5-Set-up or Clean-up Assistance-helper sets up or cleans up; patient completes a ctivity. [place] assists only prior to or following the activity. 4-Supervision or Touching Assistance-helper provides verbal cues and/or touching/steadying and/or contact guard assistance as patient completes activity. Assistance may be provided throughout the activity or intermittently. 3-Partial/Moderate Assistance-helper does LESS THAN HALF the effort. [place] lifts, holds or supports trunk or limbs, but provides less than half the effort. 2-Substantial/Maximal Assistance-helper does MORE THAN HALF the effort. [place] lifts or holds trunk or limbs and provides more than half the effort. 5-Ppecqxjor-bcruym does ALL the effort. Patient does none of the effort to complete the activity. Or, the assistance of 2 or more helpers is required for the patient to complete the activity. If activity was not attempted, code reason: 7-Patient Refused. 9-Not Applicable-not attempted and the patient did not perform the activity before the current illness, exacerbation or injury. 10-Not Attempted due to Environmental Limitations-(lack of equipment, weather restraints, etc.). 88-Not Attempted due to Medical Conditions or Safety Concerns. Roll Left & Right (QC): 6 Sit to Lying (QC): 6 Sit to Stand (QC): 3 Chair/Qyi-er-Etifu Xfer(QC): 3 Car Transfer (QC): 3 Patient needs occasional assist with balance during sit to stand and transfers, practiced car transfer and again needed min assist, patient has an appointment next week and will need to get into a car, her will need some family training Weight Bearing Right Lower Extremity: Right Non Weight Bearing Patient has a adjustable knee brace on the right side, locked into extension, she is to have this on at all times unless she is in her CPM, which is set to 45 degrees at this time. Gait Training Does the Patient Walk?: Yes Distance: 10'x3 Walk 10 feet (QC): 3 Gait Assistive Device: FWW min assist for balance, patient is able to hop a bit, some foot clearance, improving Wheelchair Training Does the Pt Use a Wheelchair?: Yes Wheel 50 ft with 2 turns (QC): 5 Wheel 150 ft (QC): 5 Type of Wheelchair: Manual Exercises NuStep Minutes: 15 NuStep Workload: 4 Treatments PT performed bed mobility and transfers, ambulation, car transfer, WC mobility, functional strengthening, OT performed UE positioning and safety during car transfers and ambulation Assessment Current Status: Fair Progress slowly progressing functional mobility. PT Short Term Goals Short Term Goals Time Frame: Feb 07, 2021 Roll Left & Right: 6 Sit to lyin (met) Lying to sitting on side of be: 4 (met) Sit to stand: 4 (met) Chair/epc-cu-kjrnw transfer: 4 (met) Walk 10 feet: 4 PT Detention Goals [employer] Agent Goals PT Detention Goals Time Frame: Feb 21, 2021 Roll Left & Right (QC): 6 Sit to Lying (QC): 6 Lying-Sitting on Side/Bed(QC): 6 Sit to Stand (QC): 4 (SBA) Chair/Wcl-tb-Tjlpf Xfer(QC): 4 (SBA) Toilet Transfer (QC): 4 (SBA) Car Transfer (QC): 4 (SBA) Does the Patient Walk: Yes Walk 10 feet (QC): 4 (SBA) Walk 50ft with 2 Turns (QC): 88 Walk 150 ft (QC): 88 Walking 10ft on Uneven Surface: 88 1 Step (curb) (QC): 88 4 Steps (QC): 88 12 Steps (QC): 88 Picking up an Object (QC): 4 Wheel 50 feet with 2 turns (QC: 5 Wheel 150 feet: 5 PT Plan Problem List Problem List: Activity Tolerance, Functional Strength, Safety, Balance, Gait, Transfer, Bed Mobility, ROM Treatment/Plan Treatment Plan: Continue Plan of Care Treatment Plan: Bed Mobility, Education, Functional Activity Jose Angel, Functional Strength, Group Therapy, Gait, Safety, Therapeutic Exercise, Transfers Treatment Duration: Feb 21, 2021 Frequency: At least 5 of 7 days/Wk (IRF) Estimated Hrs Per Day: 1.5 hours per day Patient and/or Family Agrees t: Yes Safety Risks/Education Patient Education: Gait Training, Transfer Techniques, Correct Positioning, W/C Management, Safety Issues Teaching Recipient: Patient Teaching Methods: Demonstration, Discussion Response to Teaching: Reinforcement Needed Time/GCodes Time In: 0800 Time Out: 0900 Total Billed Treatment Time: 60 Total Billed Treatment 1 visit EX 15' FA 45' co-treated from [id number] VENKAT CEVALLOS PT Feb 07, 2021 08:56
[2021-02-07] MEDS: SENNA W/DOCUSATE (SENOKOT S) TABLET PO SCH (09:00)
[2021-02-07] MEDS: DICLOFENAC 1% GEL 100 GM (VOLTAREN) TUBE TOP SCH (09:00)
[2021-02-07] MEDS: DOCUSATE SODIUM 100 MG (COLACE) CAP PO SCH (09:59)
[2021-02-07] MEDS: polyethylene glycoL POWDER 17 GM (MIRALAX) PACK PO SCH (09:59)
--- NOTE | 2021-02-07 11:14 | PM&R Progress Note ---
Subjective HPI/CC On Admission Date Seen by Provider: Feb 07, 2021 Time Seen by Provider: 11:15 Subjective/Events-last exam 02/07/2021: Patient doing pretty well Blood pressure log sent to [facility] and nurse practitioner at the hypertensive clinic and nurse had long conversation Patient calls the clinic a lot with blood pressure questions Holding Coreg for decreased blood pressure 02/06/2021: Patient doing pretty well CPM will be increased to tolerated Dry mouth reported I recommended Biotene Heels are hurting so we will address that Discharge is planned for 02/14 Blood pressure log will be sent to [facility] 02/05/2021: Patient doing pretty well but concerned about her blood pressure We will send her blood pressure readings up to hypertensive clinic and evaluate changes Had a bowel movement today Has a follow-up appointment for her leg on 02/13/2021 02/04/2021: Patient doing pretty well Blood pressure good without Cardura CPM maintain 3 times daily Bowels moved yesterday 02/03/2021: Patient doing pretty well Pain is controlled Discussed the Cardura so we will place parameter to hold if systolic less than 130 CPM machine will be set up 3 times daily as ordered 02/02/2021: Patient doing very well Bowels moved today and yesterday No major issues Pivoting is improved and transfers are safer 02/01/2021: Patient doing really well Pain is much improved Needs moderate assistance during transfers Increasing independence with ADLs No bowel movement yet but given gentle laxatives since she is tends to be at high risk for severe diarrhea Review of Systems General: Fatigue, Malaise Musculoskeletal: leg pain Objective Exam Vital Signs Vital Signs Date Time Temp Pulse Resp B/P (MAP) Pulse Ox O2 Delivery O2 Flow Rate FiO2 02/07/21 20:45 Room Air 02/07/21 20:00 36.4 75 16 110/52 (71) 94 Capillary Refill : General Appearance: No Apparent Distress, WD/WN, Chronically ill, Obese HEENT: PERRL/EOMI, Normal ENT Inspection, Pharynx Normal Neck: Full Range of Motion, Normal Inspection, Non Tender, Supple, Carotid Bruit Respiratory: Chest Non Tender, Lungs Clear, Normal Breath Sounds, No Accessory Muscle Use, No Respiratory Distress Cardiovascular: Regular Rate, Rhythm, No Edema, No Gallop, No JVD, No Murmur, Normal Peripheral Pulses Gastrointestinal: Normal Bowel Sounds, No Organomegaly, No Pulsatile Mass, Non Tender, Soft Back: Normal Inspection, No CVA Tenderness, No Vertebral Tenderness Extremity: Normal Capillary Refill, Normal Inspection, Normal Range of Motion, Non Tender, No Calf Tenderness, No Pedal Edema Neurologic/Psychiatric: Alert, Oriented x3, Normal Mood/Affect, Abnormal Gait, Motor Weakness (Right leg due to brace) Skin: Normal Color, Warm/Dry Lymphatic: No Adenopathy Results/Procedures Lab Patient resulted labs reviewed. FIM Transfers Therapy Code Descriptions/Definitions Functional [place] Measure: 0=Not Assessed/NA 4=Minimal Assistance 1=Total Assistance 5=Supervision or Setup 2=Maximal Assistance 6=Modified [place] 3=Moderate Assistance 7=Complete IndependenceSCALE: Activities may be completed with or without assistive devices. 8-Fcnfteezrx-dndenrb completes the activity by him/herself with no assistance from a helper. 5-Set-up or Clean-up Assistance-helper sets up or cleans up; patient completes activity. [place] assists only prior to or following the activity. 4-Supervision or Touching Assistance-helper provides verbal cues and/or touching/steadying and/or contact guard assistance as patient completes activity. Assistance may be provided throughout the activity or intermittently. 3-Partial/Moderate Assistance-helper does LESS THAN HALF the effort. [place] lifts, holds or supports trunk or limbs, but provides less than half the effort. 2-Substantial/Maximal Assistance-helper does MORE THAN HALF the effort. [place] lifts or holds trunk or limbs and provides more than half the effort. 7-Tmgmwlpei-bnkvch does ALL the effort. Patient does none of the effort to complete the activity. Or, the assistance of 2 or more helpers is required for the patient to complete the activity. If activity was not attempted, code reason: 7-Patient Refused. 9-Not Applicable-not attempted and the patient did not perform the activity before the current illness, exacerbation or injury. 10-Not Attempted due to Environmental Limitations-(lack of equipment, weather restraints, etc.). 88-Not Attempted due to Medical Conditions or Safety Concerns. Roll Left to Right (QC): 6 Sit to Lying (QC): 6 Sit to Stand (QC): 3 Chair/Urj-nc-Fgigc Xfer(QC): 3 Car Transfer (QC): 3 Gait Training Does the Patient Walk?: Yes Distance: 10'x3 Walk 10 feet (QC): 3 Walk 50 ft with 2 Turns(QC): 88 Walk 150 ft (QC): 88 Walking 10ft/uneven surface-QC: 88 Gait Assistive Device: FWW Wheelchair Training Does the Pt Use a Wheelchair?: Yes Distance: 150'x2 Wheel 50 ft with 2 turns (QC): 5 Wheel 150 ft (QC): 5 Type of Wheelchair: Manual Stair Training 1 Step (curb) (QC): 88 4 Steps (QC): 88 12 Steps (QC): 88 Balance Picking up an Object (QC): 88 ADL-Treatment Eating (QC): 6 Oral Hygiene (QC): 6 Shower/Bathe Self (QC): 3 Upper Body Dressing (QC): 5 Lower Body Dressing (QC): 3 On/Off Footwear (QC): 3 Toileting Hygiene (QC): 3 Toilet Transfer (QC): 4 Assessment/Plan Assessment and Plan Assess & Plan/Chief Complaint Assessment: Right distal femoral fracture status post repair on 01/26/2021 History of lymphoma completed chemotherapy 1 year ago Hypertension Current constipation History of diarrhea Hyperlipidemia Anemia Plan: Pain control Regained bowel function Monitor closely Inpatient rehab protocol 02/01/2021: Bowel regimen to intensify Pain control Monitor closely 02/02/2021: Pain control Fall risk Monitor closely 02/03/2021: Pain control Hold Cardura for less than 130 systolic blood pressure CPM machine 3 times daily 02/04/2021: Monitor blood pressure Pain control 02/05/2021: Monitor blood pressure closely Send readings up to her specialist at [facility] 02/06/21: Patient improved Pain is well controlled 02/07/2021: Patient improved Monitor blood pressure Fall risk (1) Femoral distal fracture Status: Acute (2) Lymphoma (3) Hyperlipidemia (4) Diarrhea (5) Constipation (6) Anemia (7) Hypertension Status: Acute (8) Anxiety Status: Acute HAKEEM HARRY DO Feb 07, 2021 11:14
[2021-02-07] MEDS ORDERED: polyethylene glycoL POWDER 17 GM (MIRALAX) PACK PO PRN (12:00)
[2021-02-07] MEDS ORDERED: DICLOFENAC 1% GEL 100 GM (VOLTAREN) TUBE TOP PRN (12:00)
--- NOTE | 2021-02-07 14:00 | Physical Therapy Daily Note ---
PT Daily Note-Current Subjective Patient in WC in therapy gym pre tx, just had OT, voices no complaints of pain. Appearance Patient in bed post tx with nurse call, phone, tray, all needs met. Mental Status Patient Orientation: Normal For Age leg brace Transfers SCALE: Activities may be completed with or without assistive devices. 1-Ylqkcwmmzc-hsbujmo completes the activity by him/herself with no assistance from a helper. 5-Set-up or Clean-up Assistance-helper sets up or cleans up; patient completes activity. [place] assists only prior to or following the activity. 4-Supervision or Touching Assistance-helper provides verbal cues and/or touching/steadying and/or contact guard assistance as patient completes activity. Assistance may be provided throughout the activity or intermittently. 3-Partial/Moderate Assistance-helper does LESS THAN HALF the effort. [place] lifts, holds or supports trunk or limbs, but provides less than half the effort. 2-Substantial/Maximal Assistance-helper does MORE THAN HALF the effort. [place] lifts or holds trunk or limbs and provides more than half the effort. 4-Lutjpyxow-bwvwkv does ALL the effort. Patient does none of the effort to complete the activity. Or, the assistance of 2 or more helpers is required for the patient to complete the activity. If activity was not attempted, code reason: 7-Patient Refused. 9-Not Applicable-not attempted and the patient did not perform the activity before the current illness, exacerbation or injury. 10-Not Attempted due to Environmental Limitations-(lack of equipment, weather restraints, etc.). 88-Not Attempted due to Medical Conditions or Safety Concerns. Roll Left & Right (QC): 6 Sit to Lying (QC): 6 Lying to Sitting/Side of Bed(Q: 6 Sit to Stand (QC): 4 Chair/Ttk-iz-Rtarw Xfer(QC): 4 Weight Bearing Right Lower Extremity: Right Non Weight Bearing Patient has a adjustable knee brace on the right side, locked into extension, she is to have this on at all times unless she is in her CPM, which is set to 45 degrees at this time. Gait Training Distance: 10'x2 Walk 10 feet (QC): 4 Gait Persons Needed: 1 Gait Assistive Device: FWW better hopping, fatigues quickly Wheelchair Training Does the Pt Use a Wheelchair?: Yes Wheel 50 ft with 2 turns (QC): 5 Wheel 150 ft (QC): 5 Exercises Supine Ex: Ankle pumps, Quad Set, Glut sets, Straight leg raise (RLE only), Hip abd/add (RLE only) Supine Reps: 20 LAQ left side for 5 min with 2# ankle weight Treatments bed mobility and transfers, ambulation, WC mobility, functional strengthening Assessment Current Status: Fair Progress slowly improving functional mobility PT Short Term Goals Short Term Goals Time Frame: Feb 07, 2021 Roll Left & Right: 6 Sit to lyin (met) Lying to sitting on side of be: 4 (met) Sit to stand: 4 (met) Chair/ycg-zx-glmjx transfer: 4 (met) Walk 10 feet: 4 PT Prison Goals Compensation Supervisor Goals PT Prison Goals Time Frame: Feb 21, 2021 Roll Left & Right (QC): 6 Sit to Lying (QC): 6 Lying-Sitting on Side/Bed(QC): 6 Sit to Stand (QC): 4 (SBA) Chair/Tip-mq-Beeeu Xfer(QC): 4 (SBA) Toilet Transfer (QC): 4 (SBA) Car Transfer (QC): 4 (SBA) Does the Patient Walk: Yes Walk 10 feet (QC): 4 (SBA) Walk 50ft with 2 Turns (QC): 88 Walk 150 ft (QC): 88 Walking 10ft on Uneven Surface: 88 1 Step (curb) (QC): 88 4 Steps (QC): 88 12 Steps (QC): 88 Picking up an Object (QC): 4 Wheel 50 feet with 2 turns (QC: 5 Wheel 150 feet: 5 PT Plan Problem List Problem List: Activity Tolerance, Functional Strength, Safety, Balance, Gait, Transfer, Bed Mobility, ROM Treatment/Plan Treatment Plan: Continue Plan of Care Treatment Plan: Bed Mobility, Education, Functional Activity Jose Angel, Functional Strength, Group Therapy, Gait, Safety, Therapeutic Exercise, Transfers Treatment Duration: Feb 21, 2021 Frequency: At least 5 of 7 days/Wk (IRF) Estimated Hrs Per Day: 1.5 hours per day Patient and/or Family Agrees t: Yes Safety Risks/Education Patient Education: Gait Training, Transfer Techniques, Correct Positioning, W/C Management, Safety Issues Teaching Recipient: Patient Teaching Methods: Demonstration, Discussion Response to Teaching: Reinforcement Needed Time/GCodes Time In: 1330 Time Out: 1400 Total Billed Treatment Time: 30 Total Billed Treatment 1 visit EX 10' FA 20' VENKAT CEVALLOS PT Feb 07, 2021 14:00
[2021-02-07 20:00] VITALS: BP 110/52
[2021-02-07] MEDS: SIMvastatin 10 MG (ZOCOR) TAB PO SCH (20:46)
[2021-02-08] MEDS: ALPRAZolam 0.25 MG (XANAX) TAB PO PRN (00:27)
--- NOTE | 2021-02-08 06:18 | PM&R Progress Note ---
Subjective HPI/CC On Admission Date Seen by Provider: Feb 08, 2021 Time Seen by Provider: 12:00 Subjective/Events-last exam 02/08/2021: Patient having a good day Denies any new issues [place] removed Transfers are improving Blood pressure stable 02/07/2021: Patient doing pretty well Blood pressure log sent to [facility] and nurse practitioner at the hypertensive clinic and nurse had long conversation Patient calls the clinic a lot with blood pressure questions Holding Coreg for decreased blood pressure 02/06/2021: Patient doing pretty well CPM will be increased to tolerated Dry mouth reported I recommended Biotene Heels are hurting so we will address that Discharge is planned for 02/14 Blood pressure log will be sent to [facility] 02/05/2021: Patient doing pretty well but concerned about her blood pressure We will send her blood pressure readings up to hypertensive clinic and evaluate changes Had a bowel movement today Has a follow-up appointment for her leg on 02/13/2021 02/04/2021: Patient doing pretty well Blood pressure good without Cardura CPM maintain 3 times daily Bowels moved yesterday 02/03/2021: Patient doing pretty well Pain is controlled Discussed the Cardura so we will place parameter to hold if systolic less than 130 CPM machine will be set up 3 times daily as ordered 02/02/2021: Patient doing very well Bowels moved today and yesterday No major issues Pivoting is improved and transfers are safer 02/01/2021: Patient doing really well Pain is much improved Needs moderate assistance during transfers Increasing independence with ADLs No bowel movement yet but given gentle laxatives since she is tends to be at high risk for severe diarrhea Review of Systems General: Fatigue, Malaise Musculoskeletal: leg pain Objective Exam Vital Signs Vital Signs Date Time Temp Pulse Resp B/P (MAP) Pulse Ox O2 Delivery O2 Flow Rate FiO2 02/08/21 21:00 Room Air 02/08/21 20:00 36.1 75 16 100/51 (67) 95 Capillary Refill : General Appearance: No Apparent Distress, WD/WN, Chronically ill, Obese HEENT: PERRL/EOMI, Normal ENT Inspection, Pharynx Normal Neck: Full Range of Motion, Normal Inspection, Non Tender, Supple, Carotid Bruit Respiratory: Chest Non Tender, Lungs Clear, Normal Breath Sounds, No Accessory Muscle Use, No Respiratory Distress Cardiovascular: Regular Rate, Rhythm, No Edema, No Gallop, No JVD, No Murmur, Normal Peripheral Pulses Gastrointestinal: Normal Bowel Sounds, No Organomegaly, No Pulsatile Mass, Non Tender, Soft Back: Normal Inspection, No CVA Tenderness, No Vertebral Tenderness Extremity: Normal Capillary Refill, Normal Inspection, Normal Range of Motion, Non Tender, No Calf Tenderness, No Pedal Edema Neurologic/Psychiatric: Alert, Oriented x3, Normal Mood/Affect, Abnormal Gait, Motor Weakness (Right leg due to brace) Skin: Normal Color, Warm/Dry Lymphatic: No Adenopathy Results/Procedures Lab Patient resulted labs reviewed. FIM Transfers Therapy Code Descriptions/Definitions Functional [place] Measure: 0=Not Assessed/NA 4=Minimal Assistance 1=Total Assistance 5=Supervision or Setup 2=Maximal Assistance 6=Modified [place] 3=Moderate Assistance 7=Complete IndependenceSCALE: Activities may be completed with or without assistive devices. 1-Skeunphymc-ajwyozb completes the activity by him/herself with no assistance from a helper. 5-Set-up or Clean-up Assistance-helper sets up or cleans up; patient completes activity. [place] assists only prior to or following the activity. 4-Supervision or Touching Assistance-helper provides verbal cues and/or touching/steadying and/or contact guard assistance as patient completes activity. Assistance may be provided throughout the activity or intermittently. 3-Partial/Moderate Assistance-helper does LESS THAN HALF the effort. [place] lifts, holds or supports trunk or limbs, but provides less than half the effort. 2-Substantial/Maximal Assistance-helper does MORE THAN HALF the effort. [place] lifts or holds trunk or limbs and provides more than half the effort. 4-Qirwrvqfa-aycjun does ALL the effort. Patient does none of the effort to complete the activity. Or, the assistance of 2 or more helpers is required for the patient to complete the activity. If activity was not attempted, code reason: 7-Patient Refused. 9-Not Applicable-not attempted and the patient did not perform the activity before the current illness, exacerbation or injury. 10-Not Attempted due to Environmental Limitations-(lack of equipment, weather restraints, etc.). 88-Not Attempted due to Medical Conditions or Safety Concerns. Roll Left to Right (QC): 6 Sit to Lying (QC): 6 Sit to Stand (QC): 4 Chair/Nto-pu-Crjsj Xfer(QC): 4 Car Transfer (QC): 3 Gait Training Does the Patient Walk?: Yes Distance: 10'x2 Walk 10 feet (QC): 4 Walk 50 ft with 2 Turns(QC): 88 Walk 150 ft (QC): 88 Walking 10ft/uneven surface-QC: 88 Gait Persons Needed: 1 Gait Assistive Device: FWW Wheelchair Training Does the Pt Use a Wheelchair?: Yes Distance: 150'x2 Wheel 50 ft with 2 turns (QC): 5 Wheel 150 ft (QC): 5 Type of Wheelchair: Manual Stair Training 1 Step (curb) (QC): 88 4 Steps (QC): 88 12 Steps (QC): 88 Balance Picking up an Object (QC): 88 ADL-Treatment Eating (QC): 6 Oral Hygiene (QC): 6 Shower/Bathe Self (QC): 3 Upper Body Dressing (QC): 5 Lower Body Dressing (QC): 3 On/Off Footwear (QC): 3 Toileting Hygiene (QC): 3 Toilet Transfer (QC): 4 Assessment/Plan Assessment and Plan Assess & Plan/Chief Complaint Assessment: Right distal femoral fracture status post repair on 01/26/2021 History of lymphoma completed chemotherapy 1 year ago Hypertension Current constipation History of diarrhea Hyperlipidemia Anemia Plan: Pain control Regained bowel function Monitor closely Inpatient rehab protocol 02/01/2021: Bowel regimen to intensify Pain control Monitor closely 02/02/2021: Pain control Fall risk Monitor closely 02/03/2021: Pain control Hold Cardura for less than 130 systolic blood pressure CPM machine 3 times daily 02/04/2021: Monitor blood pressure Pain control 02/05/2021: Monitor blood pressure closely Send readings up to her specialist at [facility] 02/06/21: Patient improved Pain is well controlled 02/07/2021: Patient improved Monitor blood pressure Fall risk 02/08/2021: Supportive care Pain control Blood pressure monitoring (1) Femoral distal fracture Status: Acute (2) Lymphoma (3) Hyperlipidemia (4) Diarrhea (5) Constipation (6) Anemia (7) Hypertension Status: Acute (8) Anxiety Status: Acute HAKEEM HARRY DO Feb 08, 2021 06:18
[2021-02-08 08:00] VITALS: BP 128/62
--- NOTE | 2021-02-08 08:31 | Occupational Ther Daily Note ---
OT Current Status-Daily Note Subjective Pt alert, lying in bed. Pt agrees to therapy. No c/o pain at this time. Mental Status/Objective Patient Orientation: Person, Place, Time, Situation Attachments: Knee Immobilizer ADL-Treatment Pt agrees to shower. Assist to cover R LE for shower. SBA for safety with SPT using FWW from bed <--> w/c. SBA using grabbars to transfer to<-->from toilet. Min A to manipulate clothing over hips due to balance, cleanses self sitting on toilet. Sitting on shower bench, pt able to complete shower by self, assist only to dry feet. Set up for upper body dressing. Pt able to thread lower body clothing over feet with AE then assist to hike over hips due to balance issues. Sock aide to don socks on B feet. Assist to don L shoe. Independent with eating and oral care. After session, pt lying in bed with call light/manuel in reach. All needs met in room. Therapy Code Descriptions/Definitions Functional [place] Measure: 0=Not Assessed/NA 4=Minimal Assistance 1=Total Assistance 5=Supervision or Setup 2=Maximal Assistance 6=Modified [place] 3=Moderate Assistance 7=Complete IndependenceSCALE: Activities may be completed with or without assistive devices. 2-Nozclrhnna-vggemwa completes the activity by him/herself with no assistance from a helper. 5-Set-up or Clean-up Assistance-helper sets up or cleans up; patient completes activity. [place] assists only prior to or following the activity. 4-Supervision or Touching Assistance-helper provides verbal cues and/or touching/steadying and/or contact guard assistance as patient completes activity. Assistance may be provided throughout the activity or intermittently. 3-Partial/Moderate Assistance-helper does LESS THAN HALF the effort. [place] lifts, holds or supports trunk or limbs, but provides less than half the effort. 2-Substantial/Maximal Assistance-helper does MORE THAN HALF the effort. [place] lifts or holds trunk or limbs and provides more than half the effort. 6-Zzzuyvxru-blxkrb does ALL the effort. Patient does none of the effort to complete the activity. Or, the assistance of 2 or more helpers is required for the patient to complete the activity. If activity was not attempted, code reason: 7-Patient Refused. 9-Not Applicable-not attempted and the patient did not perform the activity before the current illness, exacerbation or injury. 10-Not Attempted due to Environmental Limitations-(lack of equipment, weather restraints, etc.). 88-Not Attempted due to Medical Conditions or Safety Concerns. Eating (QC): 6 Oral Hygiene (QC): 6 Shower/Bathe Self (QC): 3 Upper Body Dressing (QC): 5 Lower Body Dressing (QC): 3 On/Off Footwear: 3 Toileting Hygiene (QC): 3 Toilet Transfer (QC): 4 OT Short Term Goals Short Term Goals Time Frame: Feb 13, 2021 Toileting hygiene: 3 Shower/bathe self: 3 Upper body dressin Lower body dressin OT Line Repairer Goals Line Repairer Goals Time Frame: Mar 01, 2021 Eating (QC): 6 Oral Hygiene (QC): 6 Toileting Hygiene (QC): 4 Shower/Bathe Self (QC): 4 Upper Body Dressing (QC): 5 Lower Body Dressing (QC): 4 On/Off Footwear (QC): 5 Additional Goals: 1-Demonstrate ADL Tasks, 2-Verbalize Understanding, 3- ImproveStrength/Jose Angel 1=Demonstrate adherence to instructed precautions during ADL tasks. 2=Patient will verbalize/demonstrate understanding of assistive devices/modifications for ADL. 3=Patient will improve strength/tolerance for activity to enable patient to perform ADL's. OT Education/Plan Problem List/Assessment Assessment: Decreased Activ Tolerance, Impaired Funct Balance, Impaired Self- Care Skills Discharge Recommendations Plan/Recommendations: Continue POC Treatment Plan/Plan of Care Patient would benefit from OT for education, treatment and training to promote independence in ADL's, mobility, safety and/or upper extremity function for ADL's. Plan of Care: ADL Retraining, Functional Mobility, Group Exercise/Act as Ind, UE Funct Exercise/Act Treatment Duration: Mar 01, 2021 Frequency: At least 5 of 7 days/Wk (IRF) Estimated Hrs Per Day: 1.5 hours per day Rehab Potential: Fair Time/GCodes Start Time: 07:30 Stop Time: 08:30 Total Time Billed (hr/min): 60 Billed Treatment Time 1 visit-ADL 4 (60 min) MEREDITH HERNANDEZ Feb 08, 2021 08:31
[2021-02-08] MEDS: CYANOCOBALAMIN 1,000 MCG (VITAMIN B-12) TABLET PO SCH (09:46)
[2021-02-08] MEDS: RIVAROXABAN 10 MG TABLET (XARELTO) PO SCH (09:46)
[2021-02-08] MEDS: MULTIVIT W/MINERALS TAB (THERAGRAN M) PO SCH (09:46)
[2021-02-08] MEDS: SPIRONOLACTONE 25 MG (ALDACTONE) TAB PO SCH (09:46)
[2021-02-08] MEDS: VITAMIN D3 10 MCG (400 UNITS) TABLET PO SCH (09:46)
[2021-02-08] MEDS: HYDROXYCHLOROQUINE 200 MG (PLAQUENIL) TAB PO SCH (09:47)
--- NOTE | 2021-02-08 12:48 | Physical Therapy Daily Note ---
PT Daily Note-Current Subjective Patient lying supine in bed upon PT arrival, agreeable to treatment. Patient rates pain currently at 0/10 and notes that she only experiences soreness at times. Pain Numeric Pain Scale: 0-No Pain Mental Status Patient Orientation: Person, Place, Time, Situation Attachments: Knee Immobilizer Transfers SCALE: Activities may be completed with or without assistive devices. 6-Murkkgsvbm-erptnxh completes the activity by him/herself with no assistance from a helper. 5-Set-up or Clean-up Assistance-helper sets up or cleans up; patient completes activity. [place] assists only prior to or following the activity. 4-Supervision or Touching Assistance-helper provides verbal cues and/or jyotsna thom/steadying and/or contact guard assistance as patient completes activity. Assistance may be provided throughout the activity or intermittently. 3-Partial/Moderate Assistance-helper does LESS THAN HALF the effort. [place] lifts, holds or supports trunk or limbs, but provides less than half the effort. 2-Substantial/Maximal Assistance-helper does MORE THAN HALF the effort. [place] lifts or holds trunk or limbs and provides more than half the effort. 6-Zplwalzos-lwgkpu does ALL the effort. Patient does none of the effort to complete the activity. Or, the assistance of 2 or more helpers is required for the patient to complete the activity. If activity was not attempted, code reason: 7-Patient Refused. 9-Not Applicable-not attempted and the patient did not perform the activity before the current illness, exacerbation or injury. 10-Not Attempted due to Environmental Limitations-(lack of equipment, weather restraints, etc.). 88-Not Attempted due to Medical Conditions or Safety Concerns. Roll Left & Right (QC): 6 Sit to Lying (QC): 6 Lying to Sitting/Side of Bed(Q: 6 Sit to Stand (QC): 4 Chair/Xdj-jz-Ghofe Xfer(QC): 4 Toilet Transfer (QC): 4 Car Transfer (QC): 10 Weight Bearing Right Lower Extremity: Right Non Weight Bearing Patient has a adjustable knee brace on the right side, locked into extension, she is to have this on at all times unless she is in her CPM, which is set to 45 degrees at this time. Gait Training Does the Patient Walk?: Yes Distance: 20 feet Walk 10 feet (QC): 4 Walk 50 ft with 2 Turns(QC): 1 Walk 150 ft (QC): 1 Walking 10ft/uneven surface-QC: 10 Gait Persons Needed: 1 Gait Assistive Device: FWW Patient ambulates 20 feet with FWW with hop to gait on the left LE, with min a and verbal cues for safety, progression, balance and posture. Patient able to ambulate 16 feet x 2 in parallel bars with min A Wheelchair Training Does the Pt Use a Wheelchair?: Yes Wheel 50 ft with 2 turns (QC): 5 Wheel 150 ft (QC): 5 Type of Wheelchair: Manual Exercises Supine Ex: Ankle pumps, Quad Set, Glut sets Supine Reps: 20 Seated Therapy Exercises: Long arc quads, Hip flexion, Hamstring Curls, Hip abd/add Seated Reps: 20 NuStep Minutes: 10 NuStep Workload: 5 Assessment Current Status: Good Progress PT Short Term Goals Short Term Goals Time Frame: Feb 07, 2021 Roll Left & Right: 6 Sit to lyin (met) Lying to sitting on side of be: 4 (met) Sit to stand: 4 (met) Chair/wnp-ch-umqew transfer: 4 (met) Walk 10 feet: 4 PT Landscape Supervisor Goals Group Home Goals PT Group Home Goals Time Frame: Feb 21, 2021 Roll Left & Right (QC): 6 Sit to Lying (QC): 6 Lying-Sitting on Side/Bed(QC): 6 Sit to Stand (QC): 4 (SBA) Chair/Woh-ll-Ediko Xfer(QC): 4 (SBA) Toilet Transfer (QC): 4 (SBA) Car Transfer (QC): 4 (SBA) Does the Patient Walk: Yes Walk 10 feet (QC): 4 (SBA) Walk 50ft with 2 Turns (QC): 88 Walk 150 ft (QC): 88 Walking 10ft on Uneven Surface: 88 1 Step (curb) (QC): 88 4 Steps (QC): 88 12 Steps (QC): 88 Picking up an Object (QC): 4 Wheel 50 feet with 2 turns (QC: 5 Wheel 150 feet: 5 PT Plan Problem List Problem List: Activity Tolerance, Functional Strength, Safety, Balance, Gait, Transfer Treatment/Plan Treatment Plan: Continue Plan of Care Treatment Plan: Bed Mobility, Education, Functional Activity Jose Angel, Functional Strength, Group Therapy, Gait, Safety, Therapeutic Exercise, Transfers Treatment Duration: Feb 21, 2021 Frequency: At least 5 of 7 days/Wk (IRF) Estimated Hrs Per Day: 1.5 hours per day Patient and/or Family Agrees t: Yes Safety Risks/Education Patient Education: Gait Training, Transfer Techniques, Reviewed Precautions Teaching Recipient: Patient Teaching Methods: Demonstration, Discussion Response to Teaching: Verbalize Understanding Time/GCodes Time In: 830 Time Out: 930 Total Billed Treatment Time: 60 Total Billed Treatment Visit, exercise, gait (2), Functional Activity ISAI VERA PT Feb 08, 2021 12:48
--- NOTE | 2021-02-08 14:32 | Therapy Group Daily Note ---
Therapy Daily Group Note Patient Education Topic Home Safety Exercises Fine Motor, UE Exercise Session Ratio (pt:therapist): 4:1 Goal of Session: Home Safety Strategies, UE/LE Strengthing Goal Met for this Session: Yes Pt Benefit of Group: Contributions to Others, F/U Use of Strategies @Home, Increased Functional Safety, Increased Functional Strength, Improved Cognition, Recognition of Peers, Socialization Other/Notes Pt propelled w/c to [facility] for OT/PT group. Group consisted of introductions (name, place, hobby), socialization, seated gross/fine motor exercises and environmental safety education. Pt introduced self appropriately and actively listened to peers. Pt demonstrated knowledge of educational topic by giving own examples and gesturing understanding. Pt able to complete fine motor and gross motor tasks without difficulty. After session, pt lying in bed with call light/phone in reach. All needs met in room. Start Time: 13:00 Stop Time: 14:00 Total Billed Treatment Time: 60 Total Billed Treatment 1-GRP MEREDITH HERNANDEZ Feb 08, 2021 14:32
[2021-02-08 20:00] VITALS: BP 100/51
[2021-02-08] MEDS: SIMvastatin 10 MG (ZOCOR) TAB PO SCH (21:30)
--- NOTE | 2021-02-09 06:37 | PM&R Progress Note ---
Subjective HPI/CC On Admission Date Seen by Provider: Feb 09, 2021 Time Seen by Provider: 12:00 Subjective/Events-last exam 02/09/2021: Patient doing really well CPM machine used Bowels moved today Danilo out 2 days ago 02/08/2021: Patient having a good day Denies any new issues Martin removed Transfers are improving Blood pressure stable 02/07/2021: Patient doing pretty well Blood pressure log sent to [facility] and nurse practitioner at the hypertensive clinic and nurse had long conversation Patient calls the clinic a lot with blood pressure questions Holding Coreg for decreased blood pressure 02/06/2021: Patient doing pretty well CPM will be increased to tolerated Dry mouth reported I recommended Biotene Heels are hurting so we will address that Discharge is planned for 02/14 Blood pressure log will be sent to [facility] 02/05/2021: Patient doing pretty well but concerned about her blood pressure We will send her blood pressure readings up to hypertensive clinic and evaluate changes Had a bowel movement today Has a follow-up appointment for her leg on 02/13/2021 02/04/2021: Patient doing pretty well Blood pressure good without Cardura CPM maintain 3 times daily Bowels moved yesterday 02/03/2021: Patient doing pretty well Pain is controlled Discussed the Cardura so we will place parameter to hold if systolic less than 130 CPM machine will be set up 3 times daily as ordered 02/02/2021: Patient doing very well Bowels moved today and yesterday No major issues Pivoting is improved and transfers are safer 02/01/2021: Patient doing really well Pain is much improved Needs moderate assistance during transfers Increasing independence with ADLs No bowel movement yet but given gentle laxatives since she is tends to be at high risk for severe diarrhea Review of Systems General: Fatigue Musculoskeletal: leg pain Objective Exam Vital Signs Vital Signs Date Time Temp Pulse Resp B/P (MAP) Pulse Ox O2 Delivery O2 Flow Rate FiO2 02/09/21 21:00 Room Air 02/09/21 20:00 37.0 85 18 133/63 (86) 98 Capillary Refill : General Appearance: No Apparent Distress, WD/WN, Chronically ill, Obese HEENT: PERRL/EOMI, Normal ENT Inspection, Pharynx Normal Neck: Full Range of Motion, Normal Inspection, Non Tender, Supple, Carotid Bruit Respiratory: Chest Non Tender, Lungs Clear, Normal Breath Sounds, No Accessory Muscle Use, No Respiratory Distress Cardiovascular: Regular Rate, Rhythm, No Edema, No Gallop, No JVD, No Murmur, Normal Peripheral Pulses Gastrointestinal: Normal Bowel Sounds, No Organomegaly, No Pulsatile Mass, Non Tender, Soft Back: Normal Inspection, No CVA Tenderness, No Vertebral Tenderness Extremity: Normal Capillary Refill, Normal Inspection, Normal Range of Motion, Non Tender, No Calf Tenderness, No Pedal Edema Neurologic/Psychiatric: Alert, Oriented x3, Normal Mood/Affect, Abnormal Gait, Motor Weakness (Right leg due to brace) Skin: Normal Color, Warm/Dry Lymphatic: No Adenopathy Results/Procedures Lab Patient resulted labs reviewed. FIM Transfers Therapy Code Descriptions/Definitions Functional [place] Measure: 0=Not Assessed/NA 4=Minimal Assistance 1=Total Assistance 5=Supervision or Setup 2=Maximal Assistance 6=Modified [place] 3=Moderate Assistance 7=Complete IndependenceSCALE: Activities may be completed with or without assistive devices. 4-Nxrdpylqqp-loowogi completes the activity by him/herself with no assistance from a helper. 5-Set-up or Clean-up Assistance-helper sets up or cleans up; patient completes activity. [place] assists only prior to or following the activity. 4-Supervision or Touching Assistance-helper provides verbal cues and/or touching/steadying and/or contact guard assistance as patient completes activity. Assistance may be provided throughout the activity or intermittently. 3-Partial/Moderate Assistance-helper does LESS THAN HALF the effort. [place] lifts, holds or supports trunk or limbs, but provides less than half the effort. 2-Substantial/Maximal Assistance-helper does MORE THAN HALF the effort. [place] lifts or holds trunk or limbs and provides more than half the effort. 0-Uclkupzjr-byanmg does ALL the effort. Patient does none of the effort to complete the activity. Or, the assistance of 2 or more helpers is required for the patient to complete the activity. If activity was not attempted, code reason: 7-Patient Refused. 9-Not Applicable-not attempted and the patient did not perform the activity before the current illness, exacerbation or injury. 10-Not Attempted due to Environmental Limitations-(lack of equipment, weather restraints, etc.). 88-Not Attempted due to Medical Conditions or Safety Concerns. Roll Left to Right (QC): 6 Sit to Lying (QC): 6 Sit to Stand (QC): 4 Chair/Kfp-pu-Qrxwa Xfer(QC): 4 Car Transfer (QC): 10 Gait Training Does the Patient Walk?: Yes Distance: 20 feet Walk 10 feet (QC): 4 Walk 50 ft with 2 Turns(QC): 1 Walk 150 ft (QC): 1 Walking 10ft/uneven surface-QC: 10 Gait Persons Needed: 1 Gait Assistive Device: FWW Wheelchair Training Does the Pt Use a Wheelchair?: Yes Distance: 150'x2 Wheel 50 ft with 2 turns (QC): 5 Wheel 150 ft (QC): 5 Type of Wheelchair: Manual Stair Training 1 Step (curb) (QC): 88 4 Steps (QC): 88 12 Steps (QC): 88 Balance Picking up an Object (QC): 88 ADL-Treatment Eating (QC): 6 Oral Hygiene (QC): 6 Shower/Bathe Self (QC): 3 Upper Body Dressing (QC): 5 Lower Body Dressing (QC): 3 On/Off Footwear (QC): 3 Toileting Hygiene (QC): 3 Toilet Transfer (QC): 4 Assessment/Plan Assessment and Plan Assess & Plan/Chief Complaint Assessment: Right distal femoral fracture status post repair on 01/26/2021 History of lymphoma completed chemotherapy 1 year ago Hypertension Current constipation History of diarrhea Hyperlipidemia Anemia Plan: Pain control Regained bowel function Monitor closely Inpatient rehab protocol 02/01/2021: Bowel regimen to intensify Pain control Monitor closely 02/02/2021: Pain control Fall risk Monitor closely 02/03/2021: Pain control Hold Cardura for less than 130 systolic blood pressure CPM machine 3 times daily 02/04/2021: Monitor blood pressure Pain control 02/05/2021: Monitor blood pressure closely Send readings up to her specialist at [facility] 02/06/21: Patient improved Pain is well controlled 02/07/2021: Patient improved Monitor blood pressure Fall risk 02/08/2021: Supportive care Pain control Blood pressure monitoring 02/09/2021: Supportive care Pain control (1) Femoral distal fracture Status: Acute (2) Lymphoma (3) Hyperlipidemia (4) Diarrhea (5) Constipation (6) Anemia (7) Hypertension Status: Acute (8) Anxiety Status: Acute HAKEEM HARRY DO Feb 09, 2021 06:36
[2021-02-09] MEDS: CYANOCOBALAMIN 1,000 MCG (VITAMIN B-12) TABLET PO SCH (06:50)
[2021-02-09] MEDS: MULTIVIT W/MINERALS TAB (THERAGRAN M) PO SCH (06:50)
[2021-02-09 07:30] VITALS: BP 114/55
[2021-02-09] MEDS: VITAMIN D3 10 MCG (400 UNITS) TABLET PO SCH (08:34)
[2021-02-09] MEDS: RIVAROXABAN 10 MG TABLET (XARELTO) PO SCH (08:34)
[2021-02-09] MEDS: SPIRONOLACTONE 25 MG (ALDACTONE) TAB PO SCH (08:34)
[2021-02-09] MEDS: HYDROXYCHLOROQUINE 200 MG (PLAQUENIL) TAB PO SCH (08:34)
--- NOTE | 2021-02-09 12:25 | Physical Therapy Daily Note ---
PT Daily Note-Current Subjective Pt laying Supine in bed upon arrival. Pt asks to use BR before using CPM. Pt agrees to PT. Pain Location: No Pain Reported Mental Status Patient Orientation: Person, Place, Time, Situation Attachments: Other-See Comments (Knee brace when out of bed & CPM after tx.) Transfers SCALE: Activities may be completed with or without assistive devices. 5-Uepwmxbssv-nniuvsm completes the activity by him/herself with no assistance from a helper. 5-Set-up or Clean-up Assistance-helper sets up or cleans up; patient completes activity. [place] assists only prior to or following the activity. 4-Supervision or Touching Assistance-helper provides verbal cues and/or touching/steadying and/or contact guard assistance as patient completes activity. Assistance may be provided throughout the activity or intermittently. 3-Partial/Moderate Assistance-helper does LESS THAN HALF the effort. [place] lifts, holds or supports trunk or limbs, but provides less than half the effort. 2-Substantial/Maximal Assistance-helper does MORE THAN HALF the effort. [place] lifts or holds trunk or limbs and provides more than half the effort. 7-Rgqnbxqke-dgomyg does ALL the effort. Patient does none of the effort to complete the activity. Or, the assistance of 2 or more helpers is required for the patient to complete the activity. If activity was not attempted, code reason: 7-Patient Refused. 9-Not Applicable-not attempted and the patient did not perform the activity before the current illness, exacerbation or injury. 10-Not Attempted due to Environmental Limitations-(lack of equipment, weather restraints, etc.). 88-Not Attempted due to Medical Conditions or Safety Concerns. Sit to Lying (QC): 5 Lying to Sitting/Side of Bed(Q: 5 Sit to Stand (QC): 5 Chair/Kck-uc-Ibunj Xfer(QC): 5 Toilet Transfer (QC): 5 Weight Bearing Right Lower Extremity: Right Non Weight Bearing Patient has a adjustable knee brace on the right side, locked into extension, she is to have this on at all times unless she is in her CPM, which is set to 45 degrees at this time. Wheelchair Training Does the Pt Use a Wheelchair?: Yes Wheel 50 ft with 2 turns (QC): 5 Type of Wheelchair: Manual Treatments TF to EOB then SPT to [facility]. Pt uses BR then returns to bed to rest & use CPM. Pt has all needs met, call light in hand. Assessment Current Status: Good Progress Pt improves and is SBA with transfers and mobility in [facility]. PT Short Term Goals Short Term Goals Time Frame: Feb 07, 2021 Roll Left & Right: 6 Sit to lyin (met) Lying to sitting on side of be: 4 (met) Sit to stand: 4 (met) Chair/jcb-je-lxdje transfer: 4 (met) Walk 10 feet: 4 PT Snf Goals Snf Goals PT Roll Over Loader Goals Time Frame: Feb 21, 2021 Roll Left & Right (QC): 6 Sit to Lying (QC): 6 Lying-Sitting on Side/Bed(QC): 6 Sit to Stand (QC): 4 (SBA) Chair/Xgq-id-Ufwpw Xfer(QC): 4 (SBA) Toilet Transfer (QC): 4 (SBA) Car Transfer (QC): 4 (SBA) Does the Patient Walk: Yes Walk 10 feet (QC): 4 (SBA) Walk 50ft with 2 Turns (QC): 88 Walk 150 ft (QC): 88 Walking 10ft on Uneven Surface: 88 1 Step (curb) (QC): 88 4 Steps (QC): 88 12 Steps (QC): 88 Picking up an Object (QC): 4 Wheel 50 feet with 2 turns (QC: 5 Wheel 150 feet: 5 PT Plan Treatment/Plan Treatment Plan: Continue Plan of Care Treatment Plan: Bed Mobility, Education, Functional Activity Jose Angel, Functional Strength, Group Therapy, Gait, Safety, Therapeutic Exercise, Transfers Treatment Duration: Feb 21, 2021 Frequency: At least 5 of 7 days/Wk (IRF) Estimated Hrs Per Day: 1.5 hours per day Patient and/or Family Agrees t: Yes Time/GCodes Time In: 1030 Time Out: 1100 Total Billed Treatment Time: 30 Total Billed Treatment 1, FA x2 (30m) SARA ROGEL PROCUREMENT OFFICER Feb 09, 2021 12:25
[2021-02-09 20:00] VITALS: BP 133/63
[2021-02-09] MEDS: SIMvastatin 10 MG (ZOCOR) TAB PO SCH (21:25)
[2021-02-09] MEDS: ALPRAZolam 0.25 MG (XANAX) TAB PO PRN (23:31)
[2021-02-10] MEDS: MULTIVIT W/MINERALS TAB (THERAGRAN M) PO SCH (06:56)
[2021-02-10] MEDS: CYANOCOBALAMIN 1,000 MCG (VITAMIN B-12) TABLET PO SCH (06:56)
[2021-02-10 07:30] VITALS: BP 115/58
[2021-02-10] MEDS: SPIRONOLACTONE 25 MG (ALDACTONE) TAB PO SCH (08:32)
[2021-02-10] MEDS: VITAMIN D3 10 MCG (400 UNITS) TABLET PO SCH (08:32)
[2021-02-10] MEDS: RIVAROXABAN 10 MG TABLET (XARELTO) PO SCH (08:32)
[2021-02-10] MEDS: HYDROXYCHLOROQUINE 200 MG (PLAQUENIL) TAB PO SCH (08:32)
--- NOTE | 2021-02-10 09:45 | PM&R Progress Note ---
Subjective HPI/CC On Admission Date Seen by Provider: Feb 10, 2021 Time Seen by Provider: 10:45 Subjective/Events-last exam 02/10/2021: Patient doing pretty well Having loose stools Stopping laxatives CPM machine maintain 02/09/2021: Patient doing really well CPM machine used Bowels moved today [place] out 2 days ago 02/08/2021: Patient having a good day Denies any new issues Danilo removed Transfers are improving Blood pressure stable 02/07/2021: Patient doing pretty well Blood pressure log sent to [facility] and nurse practitioner at the hypertensive clinic and nurse had long conversation Patient calls the clinic a lot with blood pressure questions Holding Coreg for decreased blood pressure 02/06/2021: Patient doing pretty well CPM will be increased to tolerated Dry mouth reported I recommended Biotene Heels are hurting so we will address that Discharge is planned for 02/14 Blood pressure log will be sent to [facility] 02/05/2021: Patient doing pretty well but concerned about her blood pressure We will send her blood pressure readings up to hypertensive clinic and evaluate changes Had a bowel movement today Has a follow-up appointment for her leg on 02/13/2021 02/04/2021: Patient doing pretty well Blood pressure good without Cardura CPM maintain 3 times daily Bowels moved yesterday 02/03/2021: Patient doing pretty well Pain is controlled Discussed the Cardura so we will place parameter to hold if systolic less than 130 CPM machine will be set up 3 times daily as ordered 02/02/2021: Patient doing very well Bowels moved today and yesterday No major issues Pivoting is improved and transfers are safer 02/01/2021: Patient doing really well Pain is much improved Needs moderate assistance during transfers Increasing independence with ADLs No bowel movement yet but given gentle laxatives since she is tends to be at hig h risk for severe diarrhea Review of Systems General: Fatigue, Malaise Gastrointestinal: Diarrhea Musculoskeletal: leg pain Objective Exam Vital Signs Vital Signs Date Time Temp Pulse Resp B/P (MAP) Pulse Ox O2 Delivery O2 Flow Rate FiO2 02/10/21 09:00 Room Air 02/10/21 07:30 36.4 69 20 115/58 (77) 95 Capillary Refill : General Appearance: No Apparent Distress, WD/WN, Chronically ill, Obese HEENT: PERRL/EOMI, Normal ENT Inspection, Pharynx Normal Neck: Full Range of Motion, Normal Inspection, Non Tender, Supple, Carotid Bruit Respiratory: Chest Non Tender, Lungs Clear, Normal Breath Sounds, No Accessory Muscle Use, No Respiratory Distress Cardiovascular: Regular Rate, Rhythm, No Edema, No Gallop, No JVD, No Murmur, Normal Peripheral Pulses Gastrointestinal: Normal Bowel Sounds, No Organomegaly, No Pulsatile Mass, Non Tender, Soft Back: Normal Inspection, No CVA Tenderness, No Vertebral Tenderness Extremity: Normal Capillary Refill, Normal Inspection, Normal Range of Motion, Non Tender, No Calf Tenderness, No Pedal Edema Neurologic/Psychiatric: Alert, Oriented x3, Normal Mood/Affect, Abnormal Gait, Motor Weakness (Right leg due to brace) Skin: Normal Color, Warm/Dry Lymphatic: No Adenopathy Results/Procedures Lab Patient resulted labs reviewed. FIM Transfers Therapy Code Descriptions/Definitions Functional [place] Measure: 0=Not Assessed/NA 4=Minimal Assistance 1=Total Assistance 5=Supervision or Setup 2=Maximal Assistance 6=Modified [place] 3=Moderate Assistance 7=Complete IndependenceSCALE: Activities may be completed with or without assistive devices. 6-Gsngtqwkrm-gsarmch completes the activity by him/herself with no assistance from a helper. 5-Set-up or Clean-up Assistance-helper sets up or cleans up; patient completes activity. [place] assists only prior to or following the activity. 4-Supervision or Touching Assistance-helper provides verbal cues and/or touching/steadying and/or contact guard assistance as patient completes activity. Assistance may be provided throughout the activity or intermittently. 3-Partial/Moderate Assistance-helper does LESS THAN HALF the effort. [place] lifts, holds or supports trunk or limbs, but provides less than half the effort. 2-Substantial/Maximal Assistance-helper does MORE THAN HALF the effort. [place] lifts or holds trunk or limbs and provides more than half the effort. 9-Lwdudsfub-xcajtg does ALL the effort. Patient does none of the effort to complete the activity. Or, the assistance of 2 or more helpers is required for the patient to complete the activity. If activity was not attempted, code reason: 7-Patient Refused. 9-Not Applicable-not attempted and the patient did not perform the activity before the current illness, exacerbation or injury. 10-Not Attempted due to Environmental Limitations-(lack of equipment, weather restraints, etc.). 88-Not Attempted due to Medical Conditions or Safety Concerns. Roll Left to Right (QC): 6 Sit to Lying (QC): 5 Sit to Stand (QC): 5 Chair/Slu-wh-Iabjx Xfer(QC): 5 Car Transfer (QC): 10 Gait Training Does the Patient Walk?: Yes Distance: 20 feet Walk 10 feet (QC): 4 Walk 50 ft with 2 Turns(QC): 1 Walk 150 ft (QC): 1 Walking 10ft/uneven surface-QC: 10 Gait Persons Needed: 1 Gait Assistive Device: FWW Wheelchair Training Does the Pt Use a Wheelchair?: Yes Distance: 150'x2 Wheel 50 ft with 2 turns (QC): 5 Wheel 150 ft (QC): 5 Type of Wheelchair: Manual Stair Training 1 Step (curb) (QC): 88 4 Steps (QC): 88 12 Steps (QC): 88 Balance Picking up an Object (QC): 88 ADL-Treatment Eating (QC): 6 Oral Hygiene (QC): 6 Shower/Bathe Self (QC): 3 Upper Body Dressing (QC): 5 Lower Body Dressing (QC): 3 On/Off Footwear (QC): 3 Toileting Hygiene (QC): 3 Toilet Transfer (QC): 4 Assessment/Plan Assessment and Plan Assess & Plan/Chief Complaint Assessment: Right distal femoral fracture status post repair on 01/26/2021 History of lymphoma completed chemotherapy 1 year ago Hypertension Current constipation History of diarrhea Hyperlipidemia Anemia Plan: Pain control Regained bowel function Monitor closely Inpatient rehab protocol 02/01/2021: Bowel regimen to intensify Pain control Monitor closely 02/02/2021: Pain control Fall risk Monitor closely 02/03/2021: Pain control Hold Cardura for less than 130 systolic blood pressure CPM machine 3 times daily 02/04/2021: Monitor blood pressure Pain control 02/05/2021: Monitor blood pressure closely Send readings up to her specialist at [facility] 02/06/21: Patient improved Pain is well controlled 02/07/2021: Patient improved Monitor blood pressure Fall risk 02/08/2021: Supportive care Pain control Blood pressure monitoring 02/09/2021: Supportive care Pain control 02/10/2021: Monitor closely Fall risk (1) Femoral distal fracture Status: Acute (2) Lymphoma (3) Hyperlipidemia (4) Diarrhea (5) Constipation (6) Anemia (7) Hypertension Status: Acute (8) Anxiety Status: Acute HAKEEM HARRY DO Feb 10, 2021 09:45
[2021-02-10 19:50] VITALS: BP 118/56
[2021-02-10] MEDS: SIMvastatin 10 MG (ZOCOR) TAB PO SCH (20:51)
[2021-02-11 05:29] LABS: BASOPHILS # (AUTO) 0.1 10^3/uL (0.0-0.1); BASOPHILS % (AUTO) 1 % (0-10); EOSINOPHILS # (AUTO) 0.2 10^3/uL (0.0-0.3); EOSINOPHILS % (AUTO) 3 % (0-10); HEMATOCRIT 35 % (35-52); LYMPHOCYTES # (AUTO) 2.4 10^3/uL (1.0-4.0); LYMPHOCYTES % (AUTO) 32 % (12-44); MEAN CORPUSCULAR HEMOGLOBIN 30 pg (25-34); MEAN CORPUSCULAR HGB CONC 32 g/dL (32-36); MEAN CORPUSCULAR VOLUME 94 fL (80-99); MEAN PLATELET VOLUME 10.4 fL (9.0-12.2); MONOCYTES # (AUTO) 0.6 10^3/uL (0.0-1.0); MONOCYTES % (AUTO) 9 % (0-12); NEUTROPHILS # (AUTO) 4.2 10^3/uL (1.8-7.8); NEUTROPHILS % (AUTO) 56 % (42-75); PLATELET COUNT 226 10^3/uL (130-400); WHITE BLOOD COUNT 7.5 10^3/uL (4.3-11.0)
[2021-02-11 06:03] LABS: ALBUMIN 3.8 GM/DL (3.2-4.5); POTASSIUM 4.6 MMOL/L (3.6-5.0)
[2021-02-11 06:04] LABS: CALCIUM 9.3 MG/DL (8.5-10.1)
[2021-02-11 06:05] LABS: TOTAL PROTEIN 6.6 GM/DL (6.4-8.2)
[2021-02-11 06:07] LABS: BILIRUBIN,TOTAL 0.6 MG/DL (0.1-1.0)
[2021-02-11 06:09] LABS: CREATININE SERUM 1.37 MG/DL (0.60-1.30)
--- NOTE | 2021-02-11 06:37 | PM&R Progress Note ---
Subjective HPI/CC On Admission Date Seen by Provider: Feb 11, 2021 Time Seen by Provider: 10:45 Subjective/Events-last exam 02/11/2021: Pt is discharging Thursday Follow-up appointment that day with Ortho Holding Coreg due to BP of 120/60 02/10/2021: Patient doing pretty well Having loose stools Stopping laxatives CPM machine maintain 02/09/2021: Patient doing really well CPM machine used Bowels moved today [place] out 2 days ago 02/08/2021: Patient having a good day Denies any new issues Danilo removed Transfers are improving Blood pressure stable 02/07/2021: Patient doing pretty well Blood pressure log sent to [facility] and nurse practitioner at the hypertensive clinic and nurse had long conversation Patient calls the clinic a lot with blood pressure questions Holding Coreg for decreased blood pressure 02/06/2021: Patient doing pretty well CPM will be increased to tolerated Dry mouth reported I recommended [place] Heels are hurting so we will address that Discharge is planned for 02/14 Blood pressure log will be sent to 02/05/2021: Patient doing pretty well but concerned about her blood pressure We will send her blood pressure readings up to hypertensive clinic and e valuate changes Had a bowel movement today Has a follow-up appointment for her leg on 02/13/2021 02/04/2021: Patient doing pretty well Blood pressure good without Cardura CPM maintain 3 times daily Bowels moved yesterday 02/03/2021: Patient doing pretty well Pain is controlled Discussed the Cardura so we will place parameter to hold if systolic less than 130 CPM machine will be set up 3 times daily as ordered 02/02/2021: Patient doing very well Bowels moved today and yesterday No major issues Pivoting is improved and transfers are safer 02/01/2021: Patient doing really well Pain is much improved Needs moderate assistance during transfers Increasing independence with ADLs No bowel movement yet but given gentle laxatives since she is tends to be at high risk for severe diarrhea Review of Systems General: Fatigue Musculoskeletal: leg pain Objective Exam Vital Signs Vital Signs Date Time Temp Pulse Resp B/P (MAP) Pulse Ox O2 Delivery O2 Flow Rate FiO2 02/11/21 21:00 95 Room Air 02/11/21 20:00 36.2 76 16 116/58 (77) Capillary Refill : General Appearance: No Apparent Distress, WD/WN, Chronically ill, Obese HEENT: PERRL/EOMI, Normal ENT Inspection, Pharynx Normal Neck: Full Range of Motion, Normal Inspection, Non Tender, Supple, Carotid Bruit Respiratory: Chest Non Tender, Lungs Clear, Normal Breath Sounds, No Accessory Muscle Use, No Respiratory Distress Cardiovascular: Regular Rate, Rhythm, No Edema, No Gallop, No JVD, No Murmur, Normal Peripheral Pulses Gastrointestinal: Normal Bowel Sounds, No Organomegaly, No Pulsatile Mass, Non Tender, Soft Back: Normal Inspection, No CVA Tenderness, No Vertebral Tenderness Extremity: Normal Capillary Refill, Normal Inspection, Normal Range of Motion, Non Tender, No Calf Tenderness, No Pedal Edema Neurologic/Psychiatric: Alert, Oriented x3, Normal Mood/Affect, Abnormal Gait, Motor Weakness (Right leg due to brace) Skin: Normal Color, Warm/Dry Lymphatic: No Adenopathy Results/Procedures Lab Patient resulted labs reviewed. FIM Transfers Therapy Code Descriptions/Definitions Functional [place] Measure: 0=Not Assessed/NA 4=Minimal Assistance 1=Total Assistance 5=Supervision or Setup 2=Maximal Assistance 6=Modified [place] 3=Moderate Assistance 7=Complete IndependenceSCALE: Activities may be completed with or without assistive devices. 1-Hcwpvmqbyg-drwhtrb completes the activity by him/herself with no assistance from a helper. 5-Set-up or Clean-up Assistance-helper sets up or cleans up; patient completes activity. [place] assists only prior to or following the activity. 4-Supervision or Touching Assistance-helper provides verbal cues and/or touching/steadying and/or contact guard assistance as patient completes activity. Assistance may be provided throughout the activity or intermittently. 3-Partial/Moderate Assistance-helper does LESS THAN HALF the effort. [place] lifts, holds or supports trunk or limbs, but provides less than half the effort. 2-Substantial/Maximal Assistance-helper does MORE THAN HALF the effort. [place] lifts or holds trunk or limbs and provides more than half the effort. 4-Eqxqjxghz-kdlqrf does ALL the effort. Patient does none of the effort to complete the activity. Or, the assistance of 2 or more helpers is required for the patient to complete the activity. If activity was not attempted, code reason: 7-Patient Refused. 9-Not Applicable-not attempted and the patient did not perform the activity befo re the current illness, exacerbation or injury. 10-Not Attempted due to Environmental Limitations-(lack of equipment, weather re straints, etc.). 88-Not Attempted due to Medical Conditions or Safety Concerns. Roll Left to Right (QC): 6 Sit to Lying (QC): 5 Sit to Stand (QC): 5 Chair/Nyk-xf-Icczp Xfer(QC): 5 Car Transfer (QC): 10 Gait Training Does the Patient Walk?: Yes Distance: 20 feet Walk 10 feet (QC): 4 Walk 50 ft with 2 Turns(QC): 1 Walk 150 ft (QC): 1 Walking 10ft/uneven surface-QC: 10 Gait Persons Needed: 1 Gait Assistive Device: FWW Wheelchair Training Does the Pt Use a Wheelchair?: Yes Distance: 150'x2 Wheel 50 ft with 2 turns (QC): 5 Wheel 150 ft (QC): 5 Type of Wheelchair: Manual Stair Training 1 Step (curb) (QC): 88 4 Steps (QC): 88 12 Steps (QC): 88 Balance Picking up an Object (QC): 88 ADL-Treatment Eating (QC): 6 Oral Hygiene (QC): 6 Shower/Bathe Self (QC): 3 Upper Body Dressing (QC): 5 Lower Body Dressing (QC): 3 On/Off Footwear (QC): 3 Toileting Hygiene (QC): 3 Toilet Transfer (QC): 4 Assessment/Plan Assessment and Plan Assess & Plan/Chief Complaint Assessment: Right distal femoral fracture status post repair on 01/26/2021 History of lymphoma completed chemotherapy 1 year ago Hypertension Current constipation History of diarrhea Hyperlipidemia Anemia Plan: Pain control Regained bowel function Monitor closely Inpatient rehab protocol 02/01/2021: Bowel regimen to intensify Pain control Monitor closely 02/02/2021: Pain control Fall risk Monitor closely 02/03/2021: Pain control Hold Cardura for less than 130 systolic blood pressure CPM machine 3 times daily 02/04/2021: Monitor blood pressure Pain control 02/05/2021: Monitor blood pressure closely Send readings up to her specialist at [facility] 02/06/21: Patient improved Pain is well controlled 02/07/2021: Patient improved Monitor blood pressure Fall risk 02/08/2021: Supportive care Pain control Blood pressure monitoring 02/09/2021: Supportive care Pain control 02/10/2021: Monitor closely Fall risk 02/11/2021: Monitor blood pressure Fall risk (1) Femoral distal fracture Status: Acute (2) Lymphoma (3) Hyperlipidemia (4) Diarrhea (5) Constipation (6) Anemia (7) Hypertension Status: Acute (8) Anxiety Status: Acute HAKEEM HARRY 14, 2021 06:37
[2021-02-11] MEDS: MULTIVIT W/MINERALS TAB (THERAGRAN M) PO SCH (06:39)
[2021-02-11] MEDS: CYANOCOBALAMIN 1,000 MCG (VITAMIN B-12) TABLET PO SCH (06:39)
[2021-02-11 07:39] VITALS: BP 120/58
--- NOTE | 2021-02-11 08:05 | Occupational Ther Daily Note ---
OT Current Status-Daily Note Subjective Pt alert, lying in bed. Pt agrees to therapy. No c/o pain. Mental Status/Objective Patient Orientation: Person, Place, Time, Situation ADL-Treatment Pt declines shower today, will take tomorrow. Sponge bath at sink. 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 Suggested elastic shoe laces, pt declines. Supine <--> EOB with HOB elevated, mod I. Assist to don/doff R leg immobilizer. Pt able to set up own meal and use regular utensils to eat. SPT using FWW SBA for safety. SBA using grabbars to transfer to/from toilet. Hiking pants down over hips, SBA then hiking pants up over hips CGA due to pants catching on leg immobilizer. Pt completed hygiene/cleansing marcellus area/buttocks sitting on toilet. Sitting at sink, pt completes upper body sponge bathe, grooming and oral care. Pt able to complete own bed mobility. Assist to place CPM. After session, pt lying in bed with call light/phone in reach. All needs met in room. Therapy Code Descriptions/Definitions Functional [place] Measure: 0=Not Assessed/NA 4=Minimal Assistance 1=Total Assistance 5=Supervision or Setup 2=Maximal Assistance 6=Modified [place] 3=Moderate Assistance 7=Complete IndependenceSCALE: Activities may be completed with or without assistive devices. 5-Obvnpsfwji-joysvvh completes the activity by him/herself with no assistance from a helper. 5-Set-up or Clean-up Assistance-helper sets up or cleans up; patient completes activity. [place] assists only prior to or following the activity. 4-Supervision or Touching Assistance-helper provides verbal cues and/or touching/steadying and/or contact guard assistance as patient completes a ctivity. Assistance may be provided throughout the activity or intermittently. 3-Partial/Moderate Assistance-helper does LESS THAN HALF the effort. [place] lifts, holds or supports trunk or limbs, but provides less than half the effort. 2-Substantial/Maximal Assistance-helper does MORE THAN HALF the effort. [place] lifts or holds trunk or limbs and provides more than half the effort. 8-Lctxssyxo-vozesj does ALL the effort. Patient does none of the effort to complete the activity. Or, the assistance of 2 or more helpers is required for the patient to complete the activity. If activity was not attempted, code reason: 7-Patient Refused. 9-Not Applicable-not attempted and the patient did not perform the activity before the current illness, exacerbation or injury. 10-Not Attempted due to Environmental Limitations-(lack of equipment, weather restraints, etc.). 88-Not Attempted due to Medical Conditions or Safety Concerns. Eating (QC): 6 Oral Hygiene (QC): 6 On/Off Footwear: 3 Toileting Hygiene (QC): 4 Toilet Transfer (QC): 4 OT Short Term Goals Short Term Goals Time Frame: Feb 13, 2021 Toileting hygiene: 3 Shower/bathe self: 3 Upper body dressin Lower body dressin OT Commercial [employer] Associate Goals [facility] Goals Time Frame: Mar 01, 2021 Eating (QC): 6 Oral Hygiene (QC): 6 Toileting Hygiene (QC): 4 Shower/Bathe Self (QC): 4 Upper Body Dressing (QC): 5 Lower Body Dressing (QC): 4 On/Off Footwear (QC): 5 Additional Goals: 1-Demonstrate ADL Tasks, 2-Verbalize Understanding, 3- ImproveStrength/[place] Angel 1=Demonstrate adherence to instructed precautions during ADL tasks. 2=Patient will verbalize/demonstrate understanding of assistive devices/modifications for ADL. 3=Patient will improve strength/tolerance for activity to enable patient to perform ADL's. OT Education/Plan Problem List/Assessment Assessment: Decreased UE Strength, Impaired Funct Balance, Impaired Self-Care Skills Discharge Recommendations Plan/Recommendations: Continue POC Treatment Plan/Plan of Care Patient would benefit from OT for education, treatment and training to promote independence in ADL's, mobility, safety and/or upper extremity function for ADL's. Plan of Care: ADL Retraining, Functional Mobility, Group Exercise/Act as Ind, UE Funct Exercise/Act Treatment Duration: Mar 01, 2021 Frequency: At least 5 of 7 days/Wk (IRF) Estimated Hrs Per Day: 1.5 hours per day Rehab Potential: Fair Time/GCodes Start Time: 07:30 Stop Time: 08:30 Total Time Billed (hr/min): 60 Billed Treatment Time 1 visit-ADL 4 (60 min) MEREDITH HERNANDEZ Feb 11, 2021 08:05
[2021-02-11] MEDS: HYDROXYCHLOROQUINE 200 MG (PLAQUENIL) TAB PO SCH (08:06)
[2021-02-11] MEDS: VITAMIN D3 10 MCG (400 UNITS) TABLET PO SCH (08:07)
[2021-02-11] MEDS: SPIRONOLACTONE 25 MG (ALDACTONE) TAB PO SCH (08:07)
[2021-02-11] MEDS: RIVAROXABAN 10 MG TABLET (XARELTO) PO SCH (08:07)
--- NOTE | 2021-02-11 09:41 | Physical Therapy Daily Note ---
PT Daily Note-Current Subjective Agrees to PT. Wants to practice getting into her own car today. Mental Status Patient Orientation: Person, Place, Time, Situation Transfers SCALE: Activities may be completed with or without assistive devices. 1-Lismphvmac-wyzgyei completes the activity by him/herself with no assistance from a helper. 5-Set-up or Clean-up Assistance-helper sets up or cleans up; patient completes activity. [place] assists only prior to or following the activity. 4-Supervision or Touching Assistance-helper provides verbal cues and/or touching/steadying and/or contact guard assistance as patient completes activity. Assistance may be provided throughout the activity or intermittently. 3-Partial/Moderate Assistance-helper does LESS THAN HALF the effort. [place] lifts, holds or supports trunk or limbs, but provides less than half the effort. 2-Substantial/Maximal Assistance-helper does MORE THAN HALF the effort. [place] lifts or holds trunk or limbs and provides more than half the effort. 1-Cwwjnlrxu-drwfsp does ALL the effort. Patient does none of the effort to complete the activity. Or, the assistance of 2 or more helpers is required for the patient to complete the activity. If activity was not attempted, code reason: 7-Patient Refused. 9-Not Applicable-not attempted and the patient did not perform the activity before the current illness, exacerbation or injury. 10-Not Attempted due to Environmental Limitations-(lack of equipment, weather restraints, etc.). 88-Not Attempted due to Medical Conditions or Safety Concerns. Roll Left & Right (QC): 6 Sit to Lying (QC): 6 Lying to Sitting/Side of Bed(Q: 6 Sit to Stand (QC): 6 Chair/Fjy-ps-Wtsxm Xfer(QC): 6 Toilet Transfer (QC): 6 Multiple SPT performed with FWW and with reaching across. Safe with tranfers and maintains NWB status. Weight Bearing Right Lower Extremity: Right Non Weight Bearing Patient has a adjustable knee brace on the right side, locked into extension, she is to have this on at all times unless she is in her CPM, which is set to 45 degrees at this time. Gait Training Walk 10 feet (QC): 4 Gait Assistive Device: FWW Pt able to hop x 10 ft with FWW NWB right 5 reps with SBA. SAfe and steady. Wheelchair Training Wheel 50 ft with 2 turns (QC): 6 Wheel 150 ft (QC): 6 Type of Wheelchair: Manual Exercises Supine Ex: Bridging (15), Ankle pumps (15), Quad Set (15), Heel Slides (left only x 15), Short Arc Quads (left only x 15), Straight leg raise (10) LE ther ex for functional strength training for improved transfers and gait. Treatments Gait/hopping progression with turns for transfer surface to surface, LE ther ex, wc mobility. Pt in CPM post treatment with CPM increased to 56 degrees. Assessment Current Status: Good Progress Some difficulty with turning post hopping to a surface and turning 90 degrees to sit. PT Short Term Goals Short Term Goals Time Frame: Feb 07, 2021 Roll Left & Right: 6 Sit to lyin (met) Lying to sitting on side of be: 4 (met) Sit to stand: 4 (met) Chair/tna-jk-tvfkz transfer: 4 (met) Walk 10 feet: 4 PT [employer] Director Goals [facility]dc Goals PT [employer] Director Goals Time Frame: Feb 21, 2021 Roll Left & Right (QC): 6 (met) Sit to Lying (QC): 6 (met) Lying-Sitting on Side/Bed(QC): 6 (met) Sit to Stand (QC): 4 (SBA) Chair/Ggd-hr-Lfnvq Xfer(QC): 4 (SBA) Toilet Transfer (QC): 4 (SBA) Car Transfer (QC): 4 (SBA) Does the Patient Walk: Yes Walk 10 feet (QC): 4 (SBA) Walk 50ft with 2 Turns (QC): 88 Walk 150 ft (QC): 88 Walking 10ft on Uneven Surface: 88 1 Step (curb) (QC): 88 4 Steps (QC): 88 12 Steps (QC): 88 Picking up an Object (QC): 4 Wheel 50 feet with 2 turns (QC: 5 Wheel 150 feet: 5 PT Plan Problem List Problem List: Activity Tolerance, Functional Strength, Safety, Balance, Gait, Transfer Treatment/Plan Treatment Plan: Continue Plan of Care Treatment Plan: Bed Mobility, Education, Functional Activity [place], Functional Strength, Group Therapy, Gait, Safety, Therapeutic Exercise, Transfers Treatment Duration: Feb 21, 2021 Frequency: At least 5 of 7 days/Wk (IRF) Estimated Hrs Per Day: 1.5 hours per day Patient and/or Family Agrees t: Yes Safety Risks/Education Patient Education: Transfer Techniques, Safety Issues Teaching Recipient: Patient Teaching Methods: Demonstration, Discussion Response to Teaching: Reinforcement Needed Time/GCodes Time In: 845 Time Out: 939 Total Billed Treatment Time: 54 Total Billed Treatment visit 15 EX 15 FA 24 MEREDITH BARNES PT Feb 11, 2021 09:41
--- NOTE | 2021-02-11 14:30 | Therapy Group Daily Note ---
Therapy Daily Group Note Patient Education Topic Home Safety, Exercises Exercises LE Seated Exercise, UE Exercise Session Ratio (pt:therapist): 4:1 Goal of Session: Home Safety Strategies, UE/LE Strengthing Goal Met for this Session: Yes Pt Benefit of Group: Contributions to Others, F/U Use of Strategies @Home, Increased Functional Safety, Increased Functional Strength, Improved Cognition, Recognition of Peers, Socialization Other/Notes Pt propelled self in w/c to therapy gym for OT/PT group. Group consisted of introductions (name and ice breaker questions), socialization, seated B UE/LE exercises, critical thinking activity and memory of home safety education. Pt introduced self appropriately and actively listened to peers. Pt able to complete B UE exercises and required modifications for B LE exercises. Pt participated in critical thinking activity. Pt was able to give own strategies and experience with home safety education. After therapy, pt sitting in recliner with call light/phone in reach. All needs met in room. Start Time: 13:00 Stop Time: 14:00 Total Billed Treatment Time: 60 Total Billed Treatment 1-[facility] MEREDITH HERNANDEZ Feb 11, 2021 14:30
--- NOTE | 2021-02-11 14:51 | Physical Therapy Daily Note ---
PT Daily Note-Current Subjective Spouse is here and ready to practice the car transfer with their own car. Post treatment, pt and spouse report they feel confident with the car transfer. Transfers SCALE: Activities may be completed with or without assistive devices. 4-Zfzbrqwlhv-hhlyfwo completes the activity by him/herself with no assistance from a helper. 5-Set-up or Clean-up Assistance-helper sets up or cleans up; patient completes activity. [place] assists only prior to or following the activity. 4-Supervision or Touching Assistance-helper provides verbal cues and/or touching/steadying and/or contact guard assistance as patient completes activity. Assistance may be provided throughout the activity or intermittently. 3-Partial/Moderate Assistance-helper does LESS THAN HALF the effort. [place] lifts, holds or supports trunk or limbs, but provides less than half the effort. 2-Substantial/Maximal Assistance-helper does MORE THAN HALF the effort. [place] lifts or holds trunk or limbs and provides more than half the effort. 9-Vzglhafdo-ncwcbu does ALL the effort. Patient does none of the effort to complete the activity. Or, the assistance of 2 or more helpers is required for the patient to complete the activity. If activity was not attempted, code reason: 7-Patient Refused. 9-Not Applicable-not attempted and the patient did not perform the activity before the current illness, exacerbation or injury. 10-Not Attempted due to Environmental Limitations-(lack of equipment, weather restraints, etc.). 88-Not Attempted due to Medical Conditions or Safety Concerns. Car Transfer (QC): 4 (CGA with cues for safety and problem solving. ) Discussed plan and setup for the car transfer. Completed car transfer in/out with CGA with cues for safety. Spouse present. Weight Bearing Right Lower Extremity: Right Non Weight Bearing Patient has a adjustable knee brace on the right side, locked into extension, she is to have this on at all times unless she is in her CPM, which is set to 45 degrees at this time. Assessment Current Status: Good Progress Completed car transfer safely. Pt and spouse seem safe and understand how to complete. PT Short Term Goals Short Term Goals Time Frame: Feb 07, 2021 Roll Left & Right: 6 Sit to lyin (met) Lying to sitting on side of be: 4 (met) Sit to stand: 4 (met) Chair/uoe-gz-mkhtv transfer: 4 (met) Walk 10 feet: 4 PT Loader Operator Goals Group Home Goals PT Group Home Goals Time Frame: Feb 21, 2021 Roll Left & Right (QC): 6 (met) Sit to Lying (QC): 6 (met) Lying-Sitting on Side/Bed(QC): 6 (met) Sit to Stand (QC): 4 (SBA) Chair/Qca-us-Rmgha Xfer(QC): 4 (SBA) Toilet Transfer (QC): 4 (SBA) Car Transfer (QC): 4 (SBA) Does the Patient Walk: Yes Walk 10 feet (QC): 4 (SBA) Walk 50ft with 2 Turns (QC): 88 Walk 150 ft (QC): 88 Walking 10ft on Uneven Surface: 88 1 Step (curb) (QC): 88 4 Steps (QC): 88 12 Steps (QC): 88 Picking up an Object (QC): 4 Wheel 50 feet with 2 turns (QC: 5 Wheel 150 feet: 5 PT Plan Problem List Problem List: Activity Tolerance, Functional Strength, Safety Treatment/Plan Treatment Plan: Continue Plan of Care Treatment Plan: Bed Mobility, Education, Functional Activity Jose Angel, Functional Strength, Group Therapy, Gait, Safety, Therapeutic Exercise, Transfers Treatment Duration: Feb 21, 2021 Frequency: At least 5 of 7 days/Wk (IRF) Estimated Hrs Per Day: 1.5 hours per day Patient and/or Family Agrees t: Yes Time/GCodes Time In: 1405 Time Out: 1420 Total Billed Treatment Time: 15 Total Billed Treatment visit FA 15 MEREDITH BARNES PT Feb 11, 2021 14:51
[2021-02-11 20:00] VITALS: BP 116/58
[2021-02-11] MEDS: SIMvastatin 10 MG (ZOCOR) TAB PO SCH (20:34)
--- NOTE | 2021-02-12 06:40 | PM&R Progress Note ---
Subjective HPI/CC On Admission Date Seen by Provider: Feb 12, 2021 Time Seen by Provider: 10:30 Subjective/Events-last exam 02/12/2021: Pt doing a lot better DC is planned for tomorrow Transferring well Pain is controlled Declines any pain medication 02/11/2021: Pt is discharging Thursday Follow-up appointment that day with Ortho Holding Coreg due to BP of 120/60 02/10/2021: Patient doing pretty well Having loose stools Stopping laxatives CPM machine maintain 02/09/2021: Patient doing really well CPM machine used Bowels moved today Danilo out 2 days ago 02/08/2021: Patient having a good day Denies any new issues [place] removed Transfers are improving Blood pressure stable 02/07/2021: Patient doing pretty well Blood pressure log sent to [facility] and nurse practitioner at the hypertensive clinic and nurse had long conversation Patient calls the clinic a lot with blood pressure questions Holding Coreg for decreased blood pressure 02/06/2021: Patient doing pretty well CPM will be increased to tolerated Dry mouth reported I recommended Biotene Heels are hurting so we will address that Discharge is planned for 02/14 Blood pressure log will be sent to [facility] 02/05/2021: Patient doing pretty well but concerned about her blood pressure We will send her blood pressure readings up to hypertensive clinic and evaluate changes Had a bowel movement today Has a follow-up appointment for her leg on 02/13/2021 02/04/2021: Patient doing pretty well Blood pressure good without Cardura CPM maintain 3 times daily Bowels moved yesterday 02/03/2021: Patient doing pretty well Pain is controlled Discussed the Cardura so we will place parameter to hold if systolic less than 130 CPM machine will be set up 3 times daily as ordered 02/02/2021: Patient doing very well Bowels moved today and yesterday No major issues Pivoting is improved and transfers are safer 02/01/2021: Patient doing really well Pain is much improved Needs moderate assistance during transfers Increasing independence with ADLs No bowel movement yet but given gentle laxatives since she is tends to be at high risk for severe diarrhea Review of Systems General: Fatigue Musculoskeletal: leg pain Objective Exam Vital Signs Vital Signs Date Time Temp Pulse Resp B/P (MAP) Pulse Ox O2 Delivery O2 Flow Rate FiO2 02/12/21 20:38 Room Air 02/12/21 20:00 35.8 76 16 132/59 (83) 96 Capillary Refill : General Appearance: No Apparent Distress, WD/WN, Chronically ill, Obese HEENT: PERRL/EOMI, Normal ENT Inspection, Pharynx Normal Neck: Full Range of Motion, Normal Inspection, Non Tender, Supple, Carotid Bruit Respiratory: Chest Non Tender, Lungs Clear, Normal Breath Sounds, No Accessory Muscle Use, No Respiratory Distress Cardiovascular: Regular Rate, Rhythm, No Edema, No Gallop, No JVD, No Murmur, Normal Peripheral Pulses Gastrointestinal: Normal Bowel Sounds, No Organomegaly, No Pulsatile Mass, Non Tender, Soft Back: Normal Inspection, No CVA Tenderness, No Vertebral Tenderness Extremity: Normal Capillary Refill, Normal Inspection, Normal Range of Motion, Non Tender, No Calf Tenderness, No Pedal Edema Neurologic/Psychiatric: Alert, Oriented x3, Normal Mood/Affect, Abnormal Gait, Motor Weakness (Right leg due to brace) Skin: Normal Color, Warm/Dry Lymphatic: No Adenopathy Results/Procedures Lab Patient resulted labs reviewed. FIM Transfers Therapy Code Descriptions/Definitions Functional [place] Measure: 0=Not Assessed/NA 4=Minimal Assistance 1=Total Assistance 5=Supervision or Setup 2=Maximal Assistance 6=Modified [place] 3=Moderate Assistance 7=Complete IndependenceSCALE: Activities may be completed with or without assistive devices. 4-Ghcgfkqnea-ceywfuc completes the activity by him/herself with no assistance from a helper. 5-Set-up or Clean-up Assistance-helper sets up or cleans up; patient completes activity. [place] assists only prior to or following the activity. 4-Supervision or Touching Assistance-helper provides verbal cues and/or touching/steadying and/or contact guard assistance as patient completes activity. Assistance may be provided throughout the activity or intermittently. 3-Partial/Moderate Assistance-helper does LESS THAN HALF the effort. [place] lifts, holds or supports trunk or limbs, but provides less than half the effort. 2-Substantial/Maximal Assistance-helper does MORE THAN HALF the effort. [place] lifts or holds trunk or limbs and provides more than half the effort. 1-Jhrrjdmjm-pmmxmz does ALL the effort. Patient does none of the effort to complete the activity. Or, the assistance of 2 or more helpers is required for the patient to complete the activity. If activity was not attempted, code reason: 7-Patient Refused. 9-Not Applicable-not attempted and the patient did not perform the activity bef ore the current illness, exacerbation or injury. 10-Not Attempted due to Environmental Limitations-(lack of equipment, weather r estraints, etc.). 88-Not Attempted due to Medical Conditions or Safety Concerns. Roll Left to Right (QC): 6 Sit to Lying (QC): 6 Sit to Stand (QC): 6 Chair/Laf-bh-Lzscl Xfer(QC): 6 Car Transfer (QC): 4 (CGA with cues for safety and problem solving. ) Gait Training Does the Patient Walk?: Yes Distance: 20 feet Walk 10 feet (QC): 4 Walk 50 ft with 2 Turns(QC): 1 Walk 150 ft (QC): 1 Walking 10ft/uneven surface-QC: 10 Gait Persons Needed: 1 Gait Assistive Device: FWW Wheelchair Training Does the Pt Use a Wheelchair?: Yes Distance: 150'x2 Wheel 50 ft with 2 turns (QC): 6 Wheel 150 ft (QC): 6 Type of Wheelchair: Manual Stair Training 1 Step (curb) (QC): 88 4 Steps (QC): 88 12 Steps (QC): 88 Balance Picking up an Object (QC): 88 ADL-Treatment Eating (QC): 6 Oral Hygiene (QC): 6 Shower/Bathe Self (QC): 3 Upper Body Dressing (QC): 5 Lower Body Dressing (QC): 3 On/Off Footwear (QC): 3 Toileting Hygiene (QC): 4 Toilet Transfer (QC): 4 Assessment/Plan Assessment and Plan Assess & Plan/Chief Complaint Assessment: Right distal femoral fracture status post repair on 01/26/2021 History of lymphoma completed chemotherapy 1 year ago Hypertension Current constipation History of diarrhea Hyperlipidemia Anemia Plan: Pain control Regained bowel function Monitor closely Inpatient rehab protocol 02/01/2021: Bowel regimen to intensify Pain control Monitor closely 02/02/2021: Pain control Fall risk Monitor closely 02/03/2021: Pain control Hold Cardura for less than 130 systolic blood pressure CPM machine 3 times daily 02/04/2021: Monitor blood pressure Pain control 02/05/2021: Monitor blood pressure closely Send readings up to her specialist at [facility] 02/06/21: Patient improved Pain is well controlled 02/07/2021: Patient improved Monitor blood pressure Fall risk 02/08/2021: Supportive care Pain control Blood pressure monitoring 02/09/2021: Supportive care Pain control 02/10/2021: Monitor closely Fall risk 02/11/2021: Monitor blood pressure Fall risk 02/12/2021: Discharge home tomorrow Pain control (1) Femoral distal fracture Status: Acute (2) Lymphoma (3) Hyperlipidemia (4) Diarrhea (5) Constipation (6) Anemia (7) Hypertension Status: Acute (8) Anxiety Status: Acute HAKEEM HARRY DO Feb 12, 2021 06:40
[2021-02-12] MEDS: MULTIVIT W/MINERALS TAB (THERAGRAN M) PO SCH (07:20)
[2021-02-12] MEDS: CYANOCOBALAMIN 1,000 MCG (VITAMIN B-12) TABLET PO SCH (07:20)
[2021-02-12 08:00] VITALS: BP 117/59
[2021-02-12] MEDS: SPIRONOLACTONE 25 MG (ALDACTONE) TAB PO SCH (08:18)
[2021-02-12] MEDS: VITAMIN D3 10 MCG (400 UNITS) TABLET PO SCH (08:19)
[2021-02-12] MEDS: RIVAROXABAN 10 MG TABLET (XARELTO) PO SCH (08:19)
[2021-02-12] MEDS: HYDROXYCHLOROQUINE 200 MG (PLAQUENIL) TAB PO SCH (08:23)
--- NOTE | 2021-02-12 08:58 | Occupational Ther Daily Note ---
OT Current Status-Daily Note Subjective Pt alert, lying in bed. Pt agrees to therapy. No c/o pain at this time. Mental Status/Objective Patient Orientation: Person, Place, Time, Situation Attachments: Knee Immobilizer ADL-Treatment Pt agrees to shower. Pt already had clothing set up prior to bathing. Supine <--> EOB, independent. Assist to don/doff knee brace. Independent with SPT from surface to surface. Leaning against wall, pt able to hike pants over hips for toileting then cleanses self sitting on toilet with SBA for safety. Pt completes shower by self after assistance to cover R LE due to knee brace/dressings. Pt uses shower bench, grabbar, hand held shower and LH sponge to complete bathing by self. Pt dons/doffs upper body clothing by self. Pt able to don/doff pants by self, SBA while pt stands to hike over hips. Using sock aide, pt able to don socks by self. Doffs shoes by self, dons shoes though requires assistance to tie shoes. Pt completes all grooming and oral care sitting at sink, independently. Independent with eating. Pt then propelled w/c into bathroom with tub/shower to work on transfers. Pt able to complete transfer with SBA for safety. After session, pt lying in bed with call light/phone in reach. CPM in place. All needs met. Therapy Code Descriptions/Definitions Functional [place] Measure: 0=Not Assessed/NA 4=Minimal Assistance 1=Total Assistance 5=Supervision or Setup 2=Maximal Assistance 6=Modified [place] 3=Moderate Assistance 7=Complete IndependenceSCALE: Activities may be completed with or without assistive devices. 3-Kbqlklpkps-ioqkoyy completes the activity by him/herself with no assistance from a helper. 5-Set-up or Clean-up Assistance-helper sets up or cleans up; patient completes activity. [place] assists only prior to or following the activity. 4-Supervision or Touching Assistance-helper provides verbal cues and/or touching/steadying and/or contact guard assistance as patient completes activity. Assistance may be provided throughout the activity or intermittently. 3-Partial/Moderate Assistance-helper does LESS THAN HALF the effort. [place] lifts, holds or supports trunk or limbs, but provides less than half the effort. 2-Substantial/Maximal Assistance-helper does MORE THAN HALF the effort. [place] lifts or holds trunk or limbs and provides more than half the effort. 6-[place]akvsnfy-[place] does ALL the effort. Patient does none of the effort to complete the activity. Or, the assistance of 2 or more helpers is required for the patient to complete the activity. If activity was not attempted, code reason: 7-Patient Refused. 9-Not Applicable-not attempted and the patient did not perform the activity before the current illness, exacerbation or injury. 10-Not Attempted due to Environmental Limitations-(lack of equipment, weather restraints, etc.). 88-Not Attempted due to Medical Conditions or Safety Concerns. Eating (QC): 6 Oral Hygiene (QC): 6 Shower/Bathe Self (QC): 5 Upper Body Dressing (QC): 6 Lower Body Dressing (QC): 4 On/Off Footwear: 3 Toileting Hygiene (QC): 4 Toilet Transfer (QC): 4 OT Short Term Goals Short Term Goals Time Frame: Feb 13, 2021 Toileting hygiene: 3 Shower/bathe self: 3 Upper body dressin Lower body dressin OT Salesperson Men'S Hats Goals [facility] Goals Time Frame: Mar 01, 2021 Eating (QC): 6 (met) Oral Hygiene (QC): 6 (met) Toileting Hygiene (QC): 4 (met) Shower/Bathe Self (QC): 4 (met) Upper Body Dressing (QC): 5 (met) Lower Body Dressing (QC): 4 (met) On/Off Footwear (QC): 5 (not met) Additional Goals: 1-Demonstrate ADL Tasks, 2-Verbalize Understanding, 3-I mproveStrength/Jose Angel 1=Demonstrate adherence to instructed precautions during ADL tasks. 2=Patient will verbalize/demonstrate understanding of assistive devices/modifications for ADL. 3=Patient will improve strength/tolerance for activity to enable patient to perform ADL's. OT Education/Plan Problem List/Assessment Assessment: Impaired Funct Balance, Impaired Self-Care Skills Discharge Recommendations Plan/Recommendations: Continue POC Therapy Discharge Recommendati: Home & Family Equpiment Recommendations-D/C: Extended Bath Bench, Rails on Tub/Shower, Bedside Commode, Hip Kit Treatment Plan/Plan of Care Patient would benefit from OT for education, treatment and training to promote independence in ADL's, mobility, safety and/or upper extremity function for ADL's. Plan of Care: ADL Retraining, Functional Mobility, Group Exercise/Act as Ind, UE Funct Exercise/Act Treatment Duration: Mar 01, 2021 Frequency: At least 5 of 7 days/Wk (IRF) Estimated Hrs Per Day: 1.5 hours per day Rehab Potential: Fair Time/GCodes Start Time: 07:30 Stop Time: 09:00 Total Time Billed (hr/min): 90 Billed Treatment Time 1 visit-ADL 5 (75 min) FA 1 (15 min) MEREDITH HERNANDEZ Feb 12, 2021 08:58
--- NOTE | 2021-02-12 12:20 | Physical Therapy Daily Note ---
PT Daily Note-Current Subjective Pt sitting in [facility] in room upon arrival. Pt agrees to PT for QC scoring for anticipated DC tomorrow. Pain Location: No Pain Reported Mental Status Patient Orientation: Person, Place, Time, Situation Attachments: Other-See Comments (Knee brace) Transfers SCALE: Activities may be completed with or without assistive devices. 1-Taynrzjpnw-bhxtpvc completes the activity by him/herself with no assistance from a helper. 5-Set-up or Clean-up Assistance-helper sets up or cleans up; patient completes activity. [place] assists only prior to or following the activity. 4-Supervision or Touching Assistance-helper provides verbal cues and/or touching/steadying and/or contact guard assistance as patient completes activity. Assistance may be provided throughout the activity or intermittently. 3-Partial/Moderate Assistance-helper does LESS THAN HALF the effort. [place] lifts, holds or supports trunk or limbs, but provides less than half the effort. 2-Substantial/Maximal Assistance-helper does MORE THAN HALF the effort. [place] lifts or holds trunk or limbs and provides more than half the effort. 5-Onrmqjzkg-zdqyxy does ALL the effort. Patient does none of the effort to complete the activity. Or, the assistance of 2 or more helpers is required for the patient to complete the activity. If activity was not attempted, code reason: 7-Patient Refused. 9-Not Applicable-not attempted and the patient did not perform the activity before the current illness, exacerbation or injury. 10-Not Attempted due to Environmental Limitations-(lack of equipment, weather restraints, etc.). 88-Not Attempted due to Medical Conditions or Safety Concerns. Roll Left & Right (QC): 6 Sit to Lying (QC): 6 Lying to Sitting/Side of Bed(Q: 6 Sit to Stand (QC): 6 Chair/Uhy-xx-Redry Xfer(QC): 6 Toilet Transfer (QC): 6 Car Transfer (QC): 6 Weight Bearing Right Lower Extremity: Right Non Weight Bearing Patient has a adjustable knee brace on the right side, locked into extension, she is to have this on at all times unless she is in her CPM, which is set to 45 degrees at this time. Gait Training Does the Patient Walk?: Yes Distance: 10' Walk 10 feet (QC): 4 Walk 50 ft with 2 Turns(QC): 88 Walk 150 ft (QC): 88 Walking 10ft/uneven surface-QC: 88 Gait Persons Needed: 1 Gait Assistive Device: FWW Wheelchair Training Does the Pt Use a Wheelchair?: Yes Wheel 50 ft with 2 turns (QC): 6 Wheel 150 ft (QC): 6 Type of Wheelchair: Manual Stair Training 1 Step (curb) (QC): 88 4 Steps (QC): 88 12 Steps (QC): 88 Balance Picking up an Object (QC): 6 Special Test Comments Pt can berry picker object from seated position but not attempted in standing due to safety. Pt will have Spouse assist if needed at home per pt. Exercises Seated Therapy Exercises: Ankle pumps, Long arc quads, Hip flexion, Kicking activity, Glut set Seated Reps: 15 Treatments Pt completes QC scoring items listed above as well as completes Seated EX. Pt uses BR during tx and returns to room to rest in bed at end of tx, call light in hand. Assessment Current Status: Good Progress Pt has improved with strength and activity tolerance as well as mobility but is limited at this times by healing needed to progress WB status. PT Short Term Goals Short Term Goals Time Frame: Feb 07, 2021 Roll Left & Right: 6 Sit to lyin (met) Lying to sitting on side of be: 4 (met) Sit to stand: 4 (met) Chair/ncg-ob-rxckh transfer: 4 (met) Walk 10 feet: 4 PT Fdc Goals Fdc Goals PT Security And Privacy Consultant Goals Time Frame: Feb 21, 2021 Roll Left & Right (QC): 6 (met) Sit to Lying (QC): 6 (met) Lying-Sitting on Side/Bed(QC): 6 (met) Sit to Stand (QC): 4 (SBA) Chair/Brj-kx-Qqbrl Xfer(QC): 4 (SBA) Toilet Transfer (QC): 4 (SBA) Car Transfer (QC): 4 (SBA) Does the Patient Walk: Yes Walk 10 feet (QC): 4 (SBA) Walk 50ft with 2 Turns (QC): 88 Walk 150 ft (QC): 88 Walking 10ft on Uneven Surface: 88 1 Step (curb) (QC): 88 4 Steps (QC): 88 12 Steps (QC): 88 Picking up an Object (QC): 4 Wheel 50 feet with 2 turns (QC: 5 Wheel 150 feet: 5 PT Plan Treatment/Plan Treatment Plan: Continue Plan of Care Treatment Plan: Bed Mobility, Education, Functional Activity Jose Angel, Functional Strength, Group Therapy, Gait, Safety, Therapeutic Exercise, Transfers Treatment Duration: Feb 21, 2021 Frequency: At least 5 of 7 days/Wk (IRF) Estimated Hrs Per Day: 1.5 hours per day Patient and/or Family Agrees t: Yes Safety Risks/Education Patient Education: Correct Positioning, Safety Issues Teaching Recipient: Patient Teaching Methods: Demonstration, Discussion Response to Teaching: Verbalize Understanding, Return Demonstration Time/GCodes Time In: 1100 Time Out: 1200 Total Billed Treatment Time: 60 Total Billed Treatment 1, [facility] (15m), FA x2 (30m) & EX (15m) SARA ROGEL PTA Feb 12, 2021 12:20
--- NOTE | 2021-02-12 15:37 | Physical Therapy Daily Note ---
PT Daily Note-Current Subjective Pt sitting up in bed upon arrival. Sp is present but leaving at start of tx. Pt agrees to PT and asks for SHEET METAL ENGINEER assist to go over new WCH and make adjustments where needed. Pain Location: No Pain Reported Mental Status Patient Orientation: Person, Place, Time, Situation Attachments: Other-See Comments (Knee brace while up and CPM at end of tx) Transfers SCALE: Activities may be completed with or without assistive devices. 4-Jobfakwyet-udraxdu completes the activity by him/herself with no assistance from a helper. 5-Set-up or Clean-up Assistance-helper sets up or cleans up; patient completes activity. [place] assists only prior to or following the activity. 4-Supervision or Touching Assistance-helper provides verbal cues and/or touching/steadying and/or contact guard assistance as patient completes activi ty. Assistance may be provided throughout the activity or intermittently. 3-Partial/Moderate Assistance-helper does LESS THAN HALF the effort. [place] lifts, holds or supports trunk or limbs, but provides less than half the effort. 2-Substantial/Maximal Assistance-helper does MORE THAN HALF the effort. [place] lifts or holds trunk or limbs and provides more than half the effort. 4-Mhscjmyzx-acrexs does ALL the effort. Patient does none of the effort to complete the activity. Or, the assistance of 2 or more helpers is required for the patient to complete the activity. If activity was not attempted, code reason: 7-Patient Refused. 9-Not Applicable-not attempted and the patient did not perform the activity before the current illness, exacerbation or injury. 10-Not Attempted due to Environmental Limitations-(lack of equipment, weather restraints, etc.). 88-Not Attempted due to Medical Conditions or Safety Concerns. Sit to Lying (QC): 6 Lying to Sitting/Side of Bed(Q: 6 Sit to Stand (QC): 6 Toilet Transfer (QC): 6 Weight Bearing Right Lower Extremity: Right Non Weight Bearing Patient has a adjustable knee brace on the right side, locked into extension, she is to have this on at all times unless she is in her CPM, which is set to 45 degrees at this time. Wheelchair Training Does the Pt Use a Wheelchair?: Yes Wheel 50 ft with 2 turns (QC): 6 Wheel 150 ft (QC): 6 Type of Wheelchair: Manual Treatments SHEET METAL ENGINEER made adjustments to WCH as requested by pt. TF to WCH and uses BR. Pt propels WCH in hallway before returning to room to rest in bed with CPM on. All needs met, call light in hand. Assessment Current Status: Good Progress Pt reports feeling anxious but nervous about DC tomorrow. SHEET METAL ENGINEER reminds pt that good progress has been made. PT Short Term Goals Short Term Goals Time Frame: Feb 07, 2021 Roll Left & Right: 6 Sit to lyin (met) Lying to sitting on side of be: 4 (met) Sit to stand: 4 (met) Chair/wgd-fs-iznqd transfer: 4 (met) Walk 10 feet: 4 PT Residential Goals Residential Goals PT Residential Goals Time Frame: Feb 21, 2021 Roll Left & Right (QC): 6 (met) Sit to Lying (QC): 6 (met) Lying-Sitting on Side/Bed(QC): 6 (met) Sit to Stand (QC): 4 (SBA) Chair/Gyd-wu-Rnfus Xfer(QC): 4 (SBA) Toilet Transfer (QC): 4 (SBA) Car Transfer (QC): 4 (SBA) Does the Patient Walk: Yes Walk 10 feet (QC): 4 (SBA) Walk 50ft with 2 Turns (QC): 88 Walk 150 ft (QC): 88 Walking 10ft on Uneven Surface: 88 1 Step (curb) (QC): 88 4 Steps (QC): 88 12 Steps (QC): 88 Picking up an Object (QC): 4 Wheel 50 feet with 2 turns (QC: 5 Wheel 150 feet: 5 PT Plan Treatment/Plan Treatment Plan: Continue Plan of Care Treatment Plan: Bed Mobility, Education, Functional Activity Jose Angel, Functional Strength, Group Therapy, Gait, Safety, Therapeutic Exercise, Transfers Treatment Duration: Feb 21, 2021 Frequency: At least 5 of 7 days/Wk (IRF) Estimated Hrs Per Day: 1.5 hours per day Patient and/or Family Agrees t: Yes Safety Risks/Education Patient Education: W/C Management, Safety Issues Teaching Recipient: Patient Teaching Methods: Demonstration, Discussion Response to Teaching: Verbalize Understanding, Return Demonstration Time/GCodes Time In: 1430 Time Out: 1500 Total Billed Treatment Time: 30 Total Billed Treatment 1, FA x2 (30m) SARA ROGEL SHEET METAL ENGINEER Feb 12, 2021 15:37
[2021-02-12 20:00] VITALS: BP 132/59
[2021-02-12] MEDS: SIMvastatin 10 MG (ZOCOR) TAB PO SCH (20:34)
[2021-02-12] MEDS: ALPRAZolam 0.25 MG (XANAX) TAB PO PRN (22:27)
[2021-02-13] MEDS ORDERED: RIVA10T PO (06:06)
[2021-02-13] MEDS ORDERED: CYAN-41 PO (06:06)
--- NOTE | 2021-02-13 06:08 | D/C HH Face to Face Order ---
D/C Face to Face Orders Reconcile Patient Problems Problems Reviewed?: Yes Instructions for Patient Via [facility], Patient Instructions/FollowUp: Dr Palm 1 week Physician to follow Patient: Gerda Discharge Diet for Home: No Restrictions Patient Problems: Femur fracture s/p repair Patient Data-Allergies,Ht & Wt Patient Allergies: Coded Allergies: No Known Drug Allergies (Verified , 06/26/08) Height (Feet): 5 Height (Inches): 2.00 Weight (Pounds): 144 Home Health Need/Face to Face Date of Face to Face: Feb 13, 2021 Clinical Findings: Instability, Muscle weakness, Non or partial weight bearing, Pain with ambulation, Unsteady gait I have seen Pt wpen-zd-uxmu: Yes Discharged To: Home Diagnosis/Conditions: Femur fracture s/p repair Patient is Homebound due to: Daniela fall risk due to instabilty, Muscle weakness, Pain w/ambulation Homebound Status Due to the above stated illness, injury or surgical procedure (medical condition or diagnosis) and associated clinical findings, the patient is homebound because of his/her inability to leave home except with aid of a supportive device and/or person AND leaving the home requires a considerable and taxing effort or is medically contraindicated. Pt req the following assistanc: Walker, Wheelchair Home Health Nursing Orders Home Health Services Order: Nursing Services, Weight Loss Centre Manager-Evaluate & Treat, Physical Therapy-Evaluate & Treat [facility] certify that this patient is under my care and that I, a nurse practitioner or a physician; a financial services assistant working with me, had a face to face encounter that - meets the physician face to face encounter requirements with this patient as dated. HAKEEM HARRY DO Feb 13, 2021 06:08
--- NOTE | 2021-02-13 06:08 | Discharge Summary ---
Diagnosis/Chief Complaint Date of Admission Jan 31, 2021 at 12:57 Date of Discharge Discharge Date: Feb 13, 2021 Discharge Diagnosis Assessment: Right distal femoral fracture status post repair on 01/26/2021 History of lymphoma completed chemotherapy 1 year ago Hypertension Current constipation History of diarrhea Hyperlipidemia Anemia Plan: Pain control Regained bowel function Monitor closely Inpatient rehab protocol 02/01/2021: Bowel regimen to intensify Pain control Monitor closely 02/02/2021: Pain control Fall risk Monitor closely 02/03/2021: Pain control Hold Cardura for less than 130 systolic blood pressure CPM machine 3 times daily 02/04/2021: Monitor blood pressure Pain control 02/05/2021: Monitor blood pressure closely Send readings up to her specialist at 02/06/21: Patient improved Pain is well controlled 02/07/2021: Patient improved Monitor blood pressure Fall risk 02/08/2021: Supportive care Pain control Blood pressure monitoring 02/09/2021: Supportive care Pain control 02/10/2021: Monitor closely Fall risk 02/11/2021: Monitor blood pressure Fall risk 02/12/2021: Discharge home tomorrow Pain control (1) Femoral distal fracture Status: Acute (2) Lymphoma (3) Hyperlipidemia (4) Diarrhea (5) Constipation (6) Anemia (7) Hypertension Status: Acute (8) Anxiety Status: Acute Discharge Summary Discharge Physical Examination Allergies: Coded Allergies: No Known Drug Allergies (Verified , 06/26/08) Vitals & I&Os Vital Signs Date Time Temp Pulse Resp B/P (MAP) Pulse Ox O2 Delivery O2 Flow Rate FiO2 02/13/21 11:07 36.0 65 14 119/57 95 Room Air General Appearance: Alert, Oriented X3, Cooperative Respiratory: Clear to Auscultation Cardiovascular: Regular Rate Neuro: Normal Speech Psych/Mental Status: Mental Status NL Hospital Course Was the Problem List Reviewed?: Yes Hospital course: Pt had an uneventful fourteen day hospital course in inpatient rehab after undergoing a right distal femur fracture at [place] and she recovery very well in inpatient rehab here being uoy-ftmziy-svmhwti. She was wheelchair bound for the most part except for transfers with walker and overall she did well, BP remained stable and she will have close follow-up with her hypertensive specialist at . Labs (last 24 hrs) Laboratory Tests 02/01/21 06:30: White Blood Count 7.5, Red Blood Count 3.65L, Hemoglobin 11.1L, Hematocrit 34L, Mean Corpuscular Volume 93, Mean Corpuscular Hemoglobin 30, Mean Corpuscular Hemoglobin Concent 33, Red Cell Distribution Width 15.1H, Platelet Count 176, Mean Platelet Volume 10.2, Immature Granulocyte % (Auto) 0, Neutrophils (%) (Auto) 60, Lymphocytes (%) (Auto) 28, Monocytes (%) (Auto) 10, Eosinophils (%) (Auto) 2, Basophils (%) (Auto) 1, Neutrophils # (Auto) 4.5, Lymphocytes # (Auto) 2.1, Monocytes # (Auto) 0.7, Eosinophils # (Auto) 0.1, Basophils # (Auto) 0.0, Immature Granulocyte # (Auto) 0.0, Sodium Level 138, Potassium Level 4.4, Chloride Level 103, Carbon Dioxide Level 22, Anion Gap 13, Blood Urea Nitrogen 30H, Creatinine 1.05, Estimat Glomerular Filtration Rate 50, BUN/Creatinine Ratio 29, Glucose Level 96, Calcium Level 9.0, Corrected Calcium 9.2, Total Bilirubin 0.8, Aspartate Amino Transf (AST/SGOT) 31, Alanine Aminotransferase (ALT/SGPT) 24, Alkaline Phosphatase 83, Total Protein 6.3L, Albumin 3.7 02/04/21 05:06: White Blood Count 7.3, Red Blood Count 3.70L, Hemoglobin 11.2L, Hematocrit 35, Mean Corpuscular Volume 95, Mean Corpuscular Hemoglobin 30, Mean Corpuscular Hemoglobin Concent 32, Red Cell Distribution Width 14.4, Platelet Count 201, Mean Platelet Volume 10.4, Immature Granulocyte % (Auto) 0, Neutrophils (%) (Auto) 62, Lymphocytes (%) (Auto) 27, Monocytes (%) (Auto) 8, Eosinophils (%) (Auto) 2, Basophils (%) (Auto) 1, Neutrophils # (Auto) 4.5, Lymphocytes # (Auto) 2.0, Monocytes # (Auto) 0.6, Eosinophils # (Auto) 0.1, Basophils # (Auto) 0.1, Immature Granulocyte # (Auto) 0.0, Sodium Level 139, Potassium Level 4.8, Chloride Level 107, Carbon Dioxide Level 19L, Anion Gap 13, Blood Urea Nitrogen 32H, Creatinine 1.15, Estimat Glomerular Filtration Rate 45, BUN/Creatinine Ratio 28, Glucose Level 102, Calcium Level 9.2, Corrected Calcium 9.4, Total Bilirubin 0.7, Aspartate Amino Transf (AST/SGOT) 27, Alanine Aminotransferase (ALT/SGPT) 21, Alkaline Phosphatase 82, Total Protein 6.8, Albumin 3.8 02/11/21 05:15: White Blood Count 7.5, Red Blood Count 3.67L, Hemoglobin 11.0L, Hematocrit 35, Mean Corpuscular Volume 94, Mean Corpuscular Hemoglobin 30, Mean Corpuscular Hemoglobin Concent 32, Red Cell Distribution Width 14.1, Platelet Count 226, Mean Platelet Volume 10.4, Immature Granulocyte % (Auto) 0, Neutrophils (%) ( Auto) 56, Lymphocytes (%) (Auto) 32, Monocytes (%) (Auto) 9, Eosinophils (%) (Auto) 3, Basophils (%) (Auto) 1, Neutrophils # (Auto) 4.2, Lymphocytes # (Auto) 2.4, Monocytes # (Auto) 0.6, Eosinophils # (Auto) 0.2, Basophils # (Auto) 0.1, Immature Granulocyte # (Auto) 0.0, Sodium Level 138, Potassium Level 4.6, Chloride Level 105, Carbon Dioxide Level 21, Anion Gap 12, Blood Urea Nitrogen 36H, Creatinine 1.37H, Estimat Glomerular Filtration Rate 37, BUN/Creatinine Rat io 26, Glucose Level 98, Calcium Level 9.3, Corrected Calcium 9.5, Total Bilirubin 0.6, Aspartate Amino Transf (AST/SGOT) 24, Alanine Aminotransferase (ALT/SGPT) 17, Alkaline Phosphatase 106, Total Protein 6.6, Albumin 3.8 Pending Labs Laboratory Tests 02/01/21 06:30: White Blood Count 7.5, Red Blood Count 3.65, Hemoglobin 11.1, Hematocrit 34, Mean Corpuscular Volume 93, Mean Corpuscular Hemoglobin 30, Mean Corpuscular Hemoglobin Concent 33, Red Cell Distribution Width 15.1, Platelet Count 176, Mean Platelet Volume 10.2, Immature Granulocyte % (Auto) 0, Neutrophils (%) (Auto) 60, Lymphocytes (%) (Auto) 28, Monocytes (%) (Auto) 10, Eosinophils (%) (Auto) 2, Basophils (%) (Auto) 1, Neutrophils # (Auto) 4.5, Lymphocytes # (Auto) 2.1, Monocytes # (Auto) 0.7, Eosinophils # (Auto) 0.1, Basophils # (Auto) 0.0, Immature Granulocyte # (Auto) 0.0, Sodium Level 138, Potassium Level 4.4, Chloride Level 103, Carbon Dioxide Level 22, Anion Gap 13, Blood Urea Nitrogen 30, Creatinine 1.05, Estimat Glomerular Filtration Rate 50, BUN/Creatinine Ratio 29, Glucose Level 96, Calcium Level 9.0, Corrected Calcium 9.2, Total Bilirubin 0.8, Aspartate Amino Transf (AST/SGOT) 31, Alanine Aminotransferase (ALT/SGPT) 24, Alkaline Phosphatase 83, Total Protein 6.3, Albumin 3.7 02/04/21 05:06: White Blood Count 7.3, Red Blood Count 3.70, Hemoglobin 11.2, Hematocrit 35, Mean Corpuscular Volume 95, Mean Corpuscular Hemoglobin 30, Mean Corpuscular Hemoglobin Concent 32, Red Cell Distribution Width 14.4, Platelet Count 201, Mean Platelet Volume 10.4, Immature Granulocyte % (Auto) 0, Neutrophils (%) (Auto) 62, Lymphocytes (%) (Auto) 27, Monocytes (%) (Auto) 8, Eosinophils (%) (Auto) 2, Basophils (%) (Auto) 1, Neutrophils # (Auto) 4.5, Lymphocytes # (Auto) 2.0, Monocytes # (Auto) 0.6, Eosinophils # (Auto) 0.1, Basophils # (Auto) 0.1, Immature Granulocyte # (Auto) 0.0, Sodium Level 139, Potassium Level 4.8, Chloride Level 107, Carbon Dioxide Level 19, Anion Gap 13, Blood Urea Nitrogen 32, Creatinine 1.15, Estimat Glomerular Filtration Rate 45, BUN/Creatinine Ratio 28, Glucose Level 102, Calcium Level 9.2, Corrected Calcium 9.4, Total Bilirubin 0.7, Aspartate Amino Transf (AST/SGOT) 27, Alanine Aminotransferase (ALT/SGPT) 21, Alkaline Phosphatase 82, Total Protein 6.8, Albumin 3.8 02/11/21 05:15: White Blood Count 7.5, Red Blood Count 3.67, Hemoglobin 11.0, Hematocrit 35, Mean Corpuscular Volume 94, Mean Corpuscular Hemoglobin 30, Mean Corpuscular Hemoglobin Concent 32, Red Cell Distribution Width 14.1, Platelet Count 226, Mean Platelet Volume 10.4, Immature Granulocyte % (Auto) 0, Neutrophils (%) (Auto) 56, Lymphocytes (%) (Auto) 32, Monocytes (%) (Auto) 9, Eosinophils (%) (Auto) 3, Basophils (%) (Auto) 1, Neutrophils # (Auto) 4.2, Lymphocytes # (Auto) 2.4, Monocytes # (Auto) 0.6, Eosinophils # (Auto) 0.2, Basophils # (Auto) 0.1, Immature Granulocyte # (Auto) 0.0, Sodium Level 138, Potassium Level 4.6, Chloride Level 105, Carbon Dioxide Level 21, Anion Gap 12, Blood Urea Nitrogen 36, Creatinine 1.37, Estimat Glomerular Filtration Rate 37, BUN/Creatinine Ratio 26, Glucose Level 98, Calcium Level 9.3, Corrected Calcium 9.5, Total Bilirubin 0.6, Aspartate Amino Transf (AST/SGOT) 24, Alanine Aminotransferase (ALT/SGPT) 17, Alkaline Phosphatase 106, Total Protein 6.6, Albumin 3.8 Discharge Home Medications: Active Scripts Active Vitamin B-12 (Cyanocobalamin (Vitamin B-12)) 1,000 Mcg Tablet 1,000 Mcg PO DAILY@0700 Xarelto Tablet (Rivaroxaban) 10 Mg Tablet 10 Mg PO DAILY Reported Clonidine HCl 0.1 Mg Tablet 0.1 Mg PO BID PRN Vitamin D3 (Cholecalciferol (Vitamin D3)) 10 Mcg Capsule 10 Mcg PO DAILY Spironolactone 25 Mg Tablet 25 Mg PO DAILY Preservision Areds Tablet (Vit A/Vit C/Vit E/Zinc/Copper) 1 Each Tablet 1 Each PO BID Hydroxychloroquine Sulfate 200 Mg Tablet 300 Mg PO DAILY TAKES 1 & (200MG) TABS Hydrochlorothiazide 25 Mg Tablet 25 Mg PO DAILY Glucosamine & Chondroitin Cap (Glucosa [place] 2Kcl/Chondroitin [place]) 1 Each Capsule 2 Each PO BID Carvedilol 25 Mg Tablet 25 Mg PO BID Simvastatin 10 Mg Tablet 10 Mg PO HS ALPRAZolam 0.25 Mg Tablet 0.25 Mg PO BID PRN Instructions to patient/family Please see electronic discharge instructions given to patient. Diagnosis/Problems Diagnosis/Problems (1) Femoral distal fracture Status: Acute (2) Lymphoma (3) Hyperlipidemia (4) Diarrhea (5) Constipation (6) Anemia (7) Hypertension Status: Acute (8) Anxiety Status: Acute HARRY,HAKEEM DO Feb 13, 2021 06:08
[2021-02-13] MEDS: CYANOCOBALAMIN 1,000 MCG (VITAMIN B-12) TABLET PO SCH (06:50)
[2021-02-13] MEDS: MULTIVIT W/MINERALS TAB (THERAGRAN M) PO SCH (06:50)
[2021-02-13 07:58] VITALS: BP 119/57
[2021-02-13] MEDS: HYDROXYCHLOROQUINE 200 MG (PLAQUENIL) TAB PO SCH (08:37)
[2021-02-13] MEDS: SPIRONOLACTONE 25 MG (ALDACTONE) TAB PO SCH (08:37)
[2021-02-13] MEDS: RIVAROXABAN 10 MG TABLET (XARELTO) PO SCH (08:37)
[2021-02-13] MEDS: VITAMIN D3 10 MCG (400 UNITS) TABLET PO SCH (08:38)
[2021-02-13 11:07] VITALS: BP 119/57
--- NOTE | 2021-02-13 15:39 | Therapy Team Discharge Summary ---
Therapy Discharge Summary Discharge Recommendations Date of Discharge Feb 13, 2021 at 11:00 Occupational Therapy Pt admitted to ARU s/p R subcondylar fx. At PLOF, pt was independent with all ADLs and functional mobility. Upon initial evaluation, pt required set up assistance with eating, IND oral care, max A showering, set up upper body dressing, max A lower body dressing, max A footwear and max A toileting. OT txs focused on increasing independence and safety with ADLs and functional mobility, education on AE for LE dressing, and increasing BUE Strength and activity tolerance. At discharge pt was independent with eating and oral care, set up assist showering, independent upper body dressing, SBA lower body dressing, min A footwear and SBA toileting. Pt made good progress towards goals, meeting all LTGs except for footwear goal. OT recommends tub transfer bench, Pt discharged from facility, d/c from OT. Impaired Funct Balance, Impaired Self-Care Skills PT [employer] Registrar Goals [facility] Goals PT [employer] Registrar Goals Time Frame: Feb 21, 2021 Roll Left to Right (QC): 6 (met) Sit to Lying (QC): 6 (met) Lying-Sitting on Side/Bed(QC): 6 (met) Sit to Stand (QC): 4 (SBA) Chair/Atr-dq-Bvypa Xfer(QC): 4 (SBA) Car Transfer (QC): 4 (SBA) Does the Patient Walk: Yes Walk 10 feet (QC): 4 (SBA) Walk 10ft-Uneven Surface(QC): 88 Walk 50ft with 2 Turns (QC): 88 Walk 150 ft (QC): 88 Wheel 50 feet with 2 turns (QC: 5 1 Step (curb) (QC): 88 4 Steps (QC): 88 12 Steps (QC): 88 Picking up an Object (QC): 4 OT [employer] Registrar Goals [employer] Registrar Goals Time Frame: Mar 01, 2021 Eating (QC): 6 (met) Oral Hygiene (QC): 6 (met) Shower/Bathe Self (QC): 4 (met) Upper Body Dressing (QC): 5 (met) Lower Body Dressing (QC): 4 (met) On/Off Footwear (QC): 5 (not met) Toileting Hygiene (QC): 4 (met) Toilet/Commode Transfer (QC): 4 (SBA) Additional Goals: 1-Demonstrate ADL Tasks, 2-Verbalize Understanding, 3- ImproveStrength/Jose Angel 1=Demonstrate adherence to instructed precautions during ADL tasks. 2=Patient will verbalize/demonstrate understanding of assistive devices/modifications for ADL. 3=Patient will improve strength/tolerance for activity to enable patient to perform ADL's. POLO HERRING OT Feb 13, 2021 15:39
--- NOTE | 2021-02-14 09:06 | Therapy Team Discharge Summary ---
Therapy Discharge Summary Discharge Recommendations Date of Discharge Feb 13, 2021 at 11:00 Therapy D/C Recommendations: Physical Therapy Home Care Physical Therapy This patient admitted to ARU post acute hospital stay after repair of a right femur fx. Prior to her fracture, she was living at home with her spouse at an independent level of mobility. Upon admission, she was min assist with bed mobility and tranfers and able to hop 3 ft in the // bars at a NWB status R LE. Treatment has consisted of functional strength, balance and activity tolerance training to promote enhanced transfers and gait. At discharge, she was mod indep with bed mobiltiy and transfers; able to hop 10 ft with FWW NWB right with SBA, she is mod indep with wc mobility. She is able to complete all necessary home mobility mod indep or with the assist of her spouse. Spouse training with car transfers completed as well as much discussion with pt andher spouse regarding their home setup was performed during the course of her stay. She has made excellent progress and achieved all goals to a satisfactory level. Pt to discharge home with her spouse with follow up [facility] PT recommended. Occupational Therapy Impaired Funct Balance, Impaired Self-Care Skills PT Cloth Bleaching Range Operator Chief Goals Cloth Bleaching Range Operator Chief Goals PT [facility] Goals Time Frame: Feb 21, 2021 Roll Left to Right (QC): 6 (met) Sit to Lying (QC): 6 (met) Lying-Sitting on Side/Bed(QC): 6 (met) Sit to Stand (QC): 4 (SBA) Chair/Jek-mu-Xtmkb Xfer(QC): 4 (SBA) Car Transfer (QC): 4 (SBA) Does the Patient Walk: Yes Walk 10 feet (QC): 4 (SBA) Walk 10ft-Uneven Surface(QC): 88 Walk 50ft with 2 Turns (QC): 88 Walk 150 ft (QC): 88 Wheel 50 feet with 2 turns (QC: 5 1 Step (curb) (QC): 88 4 Steps (QC): 88 12 Steps (QC): 88 Picking up an Object (QC): 4 Goals met to a satisfactory level. OT Cloth Bleaching Range Operator Chief Goals Cloth Bleaching Range Operator Chief Goals Time Frame: Mar 01, 2021 Eating (QC): 6 (met) Oral Hygiene (QC): 6 (met) Shower/Bathe Self (QC): 4 (met) Upper Body Dressing (QC): 5 (met) Lower Body Dressing (QC): 4 (met) On/Off Footwear (QC): 5 (not met) Toileting Hygiene (QC): 4 (met) Toilet/Commode Transfer (QC): 4 (SBA) Additional Goals: 1-Demonstrate ADL Tasks, 2-Verbalize Understanding, 3- ImproveStrength/Jose Angel 1=Demonstrate adherence to instructed precautions during ADL tasks. 2=Patient will verbalize/demonstrate understanding of assistive devices/modifications for ADL. 3=Patient will improve strength/tolerance for activity to enable patient to perform ADL's. MEREDITH BARNES PT Feb 14, 2021 09:06
== END 2021-02-13 11:00 | disposition home health service (06) | DRG 560 ==
PROVIDERS: ADMIT Internal Medicine; ATTEND Internal Medicine
DX: S72.401D Unspecified fracture of lower end of right femur, subsequent encounter for closed fracture with routine healing (principal); C85.90 Non-Hodgkin lymphoma, unspecified, unspecified site; I10 Essential (primary) hypertension; E78.00 Pure hypercholesterolemia, unspecified; E78.5 Hyperlipidemia, unspecified; M19.91 Primary osteoarthritis, unspecified site; F41.9 Anxiety disorder, unspecified; F32.9 Major depressive disorder, single episode, unspecified; K59.00 Constipation, unspecified; E66.9 Obesity, unspecified; Z68.31 Body mass index [BMI] 31.0-31.9, adult; D64.9 Anemia, unspecified; Z95.5 Presence of coronary angioplasty implant and graft
CPT/HCPCS: 36415; 80053; 85025

== ENCOUNTER 2022-09-07 01:59 | Emergency (ER) | payer MEDICARE ==
[~2022-09-07 01:59] MED LIST changes: +ALPR0.254 PO; +BETA1TAB15 PO; +CARV25TA PO; +CYAN-23 PO; +CYAN-41 PO; +DIPH1TAB PO; +ERGO400C PO; +GLUC1CAP37 PO; +HYDR-3817 PO; +HYDR200T46 PO; +HYDR25TA4 PO; +NF-VITD400 PO; +RIVA10T PO; +RIVA10TA PO; +SPIR25TA5 PO
--- NOTE | 2022-09-07 02:32 | ED General ---
General Stated Complaint: WEAKNESS/ELEV BP Source of Information: Patient, Family (son) Exam Limitations: No Limitations History of Present Illness Date Seen by Provider: Sep 07, 2022 Time Seen by Provider: 02:22 Initial Comments patient is an 87yo female with pancreatic cancer and afib - presents to the ER with a complaints of feeling "weird" and weak. She states it started yesterday. And then she got up this morning to try and get herself in the bathroom and was so weak she couldnt get herself onto the toilet. SHe denies any URI symptoms, fevers, chills, cough or SOB. SHe has been a little nasueated. No bowel issues. Complains of a little swelling in her ankles. No chest pain. Chronic abdominal pain where her biliary stent is. No dysuria, urgency or frequency. Her son contributes that she has "pretty intense anxiety". She is supposed to start chemo next thursday through [facility] - Dr Collins. She has not established with a veterinary medical officer. SHe states she had labs drawn last and they were normal at [place]. Timing/Duration: 24 Hours Severity: Mild Associated Systoms: Weakness Allergies and Home Medications Allergies Coded Allergies: No Known Drug Allergies (Verified , 06/26/08) Patient Home Medication List Home Medication List Reviewed: Yes ALPRAZolam (ALPRAZolam) 0.25 Mg Tablet, 0.25 MG PO BID PRN for ANXIETY, (Reported) Entered as Reported by: BOLIVAR RAY on 01/31/21 1249 Carvedilol (Carvedilol) 25 Mg Tablet, 25 MG PO BID, (Reported) Entered as Reported by: BOLIVAR RAY on 01/31/21 1249 Cholecalciferol (Vitamin D3) (Vitamin D3) 10 Mcg Capsule, 10 MCG PO DAILY, (Reported) Entered as Reported by: BOLIVAR RAY on 01/31/21 1251 Clonidine HCl (Clonidine HCl) 0.1 Mg Tablet, 0.1 MG PO BID PRN for BLOOD PRESSURE, (Reported) Entered as Reported by: LUCIA GUERRERO on 02/04/21 1435 Cyanocobalamin (Vitamin B-12) (Vitamin B-12) 1,000 Mcg Tablet, 1,000 MCG PO DAILY@0700 Prescribed by: HAKEEM HARRY on 02/13/21 0606 Glucosa Kenyon 2Kcl/Chondroitin Kenyon (Glucosamine & Chondroitin Cap) 1 Each Capsule, 2 EACH PO BID, (Reported) Entered as Reported by: BOLIVAR RAY on 01/31/21 124 Hydrochlorothiazide (Hydrochlorothiazide) 25 Mg Tablet, 25 MG PO DAILY, (Reported) Entered as Reported by: BOLIVAR RAY on 01/31/21 124 Hydroxychloroquine Sulfate (Hydroxychloroquine Sulfate) 200 Mg Tablet, 300 MG PO DAILY, (Reported) Entered as Reported by: BOLIVAR RAY on 01/31/211248 Rivaroxaban (Xarelto Tablet) 10 Mg Tablet, 10 MG PO DAILY Prescribed by: HAKEEM HARRY on 02/13/21605 Simvastatin (Simvastatin) 10 Mg Tablet, 10 MG PO HS, (Reported) Entered as Reported by: BOLIVAR RAY on 01/31/21 124 Spironolactone (Spironolactone) 25 Mg Tablet, 25 MG PO DAILY, (Reported) Entered as Reported by: BOLIVAR RAY on 01/31/211248 Vit A/Vit C/Vit E/Zinc/Copper (Preservision Areds Tablet) 1 Each Tablet, 1 EACH PO BID, (Reported) Entered as Reported by: BOLIVAR RAY on 01/31/211248 Review of Systems Review of Systems Constitutional: see HPI EENTM: no symptoms reported Respiratory: no symptoms reported Cardiovascular: no symptoms reported Gastrointestinal: nausea Genitourinary: decreased output : No Musculoskeletal: no symptoms reported Skin: no symptoms reported Psychiatric/Neurological: Weakness All Other Systems Reviewed Negative Unless Noted: Yes Past Zxnhpso-Mwpnyf-Hupjif Hx Immunizations Up To Date Tetanus Booster (TDap): Unknown Seasonal Allergies Seasonal Allergies: No Past Medical History Surgeries: Yes (PORT LEFT CHEST; LEFT WRIST SURGERY) Appendectomy, Cardiac, Coronary Stent, Gallbladder, Hysterectomy, Orthopedic Respiratory: No Cardiac: Yes High Cholesterol, Hypertension Neurological: No 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 Disorders: No [employer] History: Menopausal Genitourinary: No Gastrointestinal: No Musculoskeletal: Yes (ARTHRITIS) Arthritis Endocrine: No HEENT: Yes (DENTAL INFECTIONS/DENTAL CARIES) Cancer: Yes (NON-HODGKINS LYMPHOMA) Lymphoma Did You Recieve Any Treatments: Yes What Type of Treatment Did You: Chemotherapy Psychosocial: Yes Anxiety, Depression Integumentary: No Blood Disorders: No Family Medical History No Pertinent Family Hx Physical Exam Vital Signs Vital Signs - First Documented Capillary Refill : Height, Weight, BMI Height: 5'2.00" Weight: 144lbs. oz. [id number]; 28.25 BMI Method:Stated General Appearance: No Apparent Distress, Thin Eyes: Bilateral Eye Normal Inspection Neck: Normal Inspection Respiratory: Lungs Clear, Normal Breath Sounds, No Accessory Muscle Use, No Respiratory Distress Cardiovascular: Irregularly Irregular (rate 100) Gastrointestinal: Soft, Tenderness (mild diffuse tenderness; the patient states this is normal for her. normal BS) Extremity: Normal Capillary Refill, Swelling (ankles BIlat - mild) Neurologic/Psychiatric: Alert, Oriented x3, No Motor/Sensory Deficits, Normal Mood/Affect Skin: Normal Color, Warm/Dry, Other (poor skin turgor) Progress/Results/Core Measures Suspected Sepsis SIRS Temperature: Pulse: Respiratory Rate: Blood Pressure / Mean: Laboratory Tests 09/07/22 02:43: Creatinine 1.24 Results/Orders Lab Results Laboratory Tests Test 09/07/22 02:43 Range/Units Sodium Level 138 135-145 MMOL/L Potassium Level 3.9 3.6-5.0 MMOL/L Chloride Level 105 98-107 MMOL/L Carbon Dioxide Level 19 L 21-32 MMOL/L Anion Gap 14 5-14 MMOL/L Blood Urea Nitrogen 21 H 7-18 MG/DL Creatinine 1.24 0.60-1.30 MG/DL Estimat Glomerular Filtration Rate 42 BUN/Creatinine Ratio 17 Glucose Level 99 70-105 MG/DL Calcium Level 8.5 8.5-10.1 MG/DL My Orders Orders - KESHAV WHITING MD Basic Metabolic Panel (09/07/22 02:30) Vital Signs/I&O 09/07/22 09/07/22 02:15 02:15 Temp 36.7 Pulse 100 Resp 20 B/P (MAP) 146/74 (98) Pulse Ox 98 O2 Delivery Room Air Room Air Capillary Refill : Progress Note : Time: 03:35 Progress Note patient reassessed and feeling comfortable. she feels more like herself. Her hearrate is down into the 70's. BP is good. resting comfortably. Her basic metabolic panel looks good. All numbers at her baseline and "normal". SHe did ask if she could occasionally ismael a xanax as she has these at home. I reviewed her medication list that her son had in his wallet and let her know it would be perfectly ok to do this. She is not on any narcotic pain medications - so there is no significant risk of drug interaction there. She is comfortable with discharge home. All questions are sought and answered. Departure Impression Primary Impression: Weakness Additional Impressions: Anxiety about health Atrial fibrillation, controlled Disposition: HOME, SELF-CARE Condition: Improved Departure-Patient Inst. Decision time for Depature: 03:38 Referrals: STEFAN QUILES DO (PCP/Family) Primary Care Physician Patient Instructions: Weakness ED Add. Discharge Instructions: continue your current medications as prescribed by your doctors. Drink plenty of fluids to stay well hydrated. Return to the Emergency Department for any new, emergent or concerning symptoms. Please follow up with your primary care doctor. Copy Copies To 1: STEFAN QUILES KATHRYN M MD Sep 07, 2022 02:32
[2022-09-07 03:06] LABS: POTASSIUM 3.9 MMOL/L (3.6-5.0)
[2022-09-07 03:07] LABS: CALCIUM 8.5 MG/DL (8.5-10.1)
[2022-09-07 03:11] LABS: CREATININE SERUM 1.24 MG/DL (0.60-1.30)
[2022-09-07 03:43] VITALS: BP 146/74
== END 2022-09-07 03:52 | disposition home or self-care (01) ==
LOC: EDUNIT# 01:59 → ER 02:02
DX: R53.1 Weakness (principal); F06.4 Anxiety disorder due to known physiological condition; I48.91 Unspecified atrial fibrillation
CPT/HCPCS: 36415; 80048